=== PATIENT | male | born 1975 | race Caucasian/White ===

== ENCOUNTER 2020-03-30 10:07 | Emergency (ER) | payer OTHER, SELFPAY ==
--- NOTE | 2020-03-30 | ECG_ITS ---
Test Reason : CHEST PAIN Blood Pressure : / mmHG Vent. Rate : 069 BPM Atrial Rate : 069 BPM P-R Int : 134 ms QRS Dur : 084 ms QT Int : 386 ms P-R-T Axes : 030 048 081 degrees QTc Int : 413 ms Normal sinus rhythm Nonspecific T wave abnormality Abnormal ECG When compared with ECG of 17-JUL-2018 21:27, Nonspecific T wave abnormality now evident in Lateral leads Referred By: Generic ED Physician Electronically Signed By:Shelton Gonzalez
[2020-03-30 10:18] VITALS: BP 177/106; PULSE 74; RESP 20; TEMP 36.2; O2SAT 96; BMI 42.3
--- NOTE | 2020-03-30 10:37 | ED.CHESTPAIN ---
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 painful and he had chest pain around his entire chest with no dyspnea/diaphoresis/nausea - states he has had episodes in past with anxiety has had 2 negative stress tests but positive family history of ND in males on his dad's side of family MD complaint: chest pain and other (L flank pain) Onset (ago): hour(s) (1) Timing of current episode: constant Prior episodes: No Onset: during rest and during exertion Pain location: substernal Pain radiation: left arm Severity: moderate Quality: heaviness Relieving factors: nothing Context: recent illness (L flank and abdominal pain x 2 days) Treatment prior to arrival: none Related Data Previous Rx's Medication Instructions Recorded cyclobenzaprine 10 mg PO TID PRN #14 tab 03/30/20 lidocaine 1 patch TOPICAL DAILY PRN #10 ea 03/30/20 Allergies Allergy/AdvReac Type Severity Reaction Status Date / Time lisinopril [LISINOPRIL] Allergy Intermediate ANGIOEDEMA Unverified 11/17/19 15:13 CHOCOLATE Allergy Severe DIFFICULTY Uncoded 11/17/19 15:13 BREATHING Review of Systems Review of Systems: Constitutional : No Weight loss, No Fever, No Chills ENT/Mouth : No sore throat, No Rhinorrhea Eyes: No Eye Pain, No Swelling Cardiovascular : pos Chest Pain, no SOB, no Dyspnea on Exertion, No Orthopnea, No Edema, No Palpitations Respiratory : No Cough, No Sputum Gastrointestinal : no Nausea, No Vomiting, No Diarrhea, pos abdominal Pain, No Hematochezia, No Melena Genitourinary : No Dysuria, No Urinary Frequency Musculoskeletal : No joint pain, No Myalgias, No Joint Swelling Skin : No Skin Lesions, No rash Neuro : No Weakness, No Numbness, No Dizziness, No Headache Psych : No Anxiety/Panic, No Depression Heme/Lymph: No Bruising, No Lymphadenopathy Endocrine : No Polyuria, No Polydipsia All other systems reviewed and are negative PMFSH Past Medical History Attestation statement: The following information was validated with the patient. Medical History (Updated 03/30/20 @ 14:53 by Destiny Jay DO) Anxiety HTN (hypertension) Social History Social History (Updated 03/30/20 @ 10:56 by Destiny Jay DO) Smoking Status: Never smoker Use of substances other than those prescribed or required for medical reasons: No Advance Directives: No Advance Directives Information Provided: No Physical Exam Vital Signs: Vital Signs: Last Vital Signs Temp 97.1 F 03/30/20 10:18 Pulse 74 03/30/20 10:18 Resp 20 03/30/20 10:18 BP 177/106 H 03/30/20 10:18 Pulse Ox 96 03/30/20 10:18 Body Mass Index 42.3 Appearance: Alert. Oriented X3. No acute distress. Anxious Eyes: Pupils equal, round and reactive to light. ENT: Pharynx normal. Neck: Normal inspection. Neck supple. CVS: Normal heart rate and rhythm. Pulses normal. Respiratory: No respiratory distress. Breath sounds normal. no splinting Abdomen: Soft and obese, ttp L flank into LUQ Skin: Skin warm and dry. Normal skin color. Normal skin turgor. Extremities: No lower extremity edema. No calf ttp Neuro: Oriented X 3. No motor deficit. No sensory deficit. Course Course Course Narrative: feels fine playing on his phone, chronic baseline kidney function, troponin flat x 2, ddimer negative, CXR and CT scan negative, stable for DC at this time MDM - Chest Pain MDM Narrative Medical decision making narrative: 44 yo male with HTN, anxiety, here with 2 complaints CP x 1 hour without associated symptoms hx of anxiety in the past and 2 negative stress - not pleuritic, no tachycardia, no hypoxia but also c/o L flank pain x 2 days with ttp could be stone vs diverticulitis - labs, EKG, CXR, troponin x 2, ddimer, CT scan for renal colic, IV morphine for pain, dispo per results and findings. Lab Data Result diagrams: 03/30/20 11:19 03/30/20 11:19 Labs: Lab Results 03/30/20 03/30/20 03/30/20 Range/Units 11:19 11:19 11:19 WBC 5.4 (4.8-10.8) X10*3/uL RBC 4.55 L (4.60-5.80) X10*6/uL Hgb 12.3 L (14.0-18.0) g/dl Hct 40.0 L (42-52) % MCV 87.9 (80-98) fL MCH 27.0 (27.0-33.0) pg MCHC 30.8 L (31.0-36.0) g/dl RDW 13.9 (11.0-16.0) % Plt Count 245 (160-400) X10*3/uL MPV 10.3 (9.4-12.4) fL Immature Gran % (Auto) 0.4 (0.0-0.4) % Neut % (Auto) 75.6 H (45-73) % Lymph % (Auto) 9.6 L (20-40) % [place] % (Auto) 10.7 (2-11) % Eos % (Auto) 3.3 (0-4) % Baso % (Auto) 0.4 (0-2) % Lymph # (Auto) 0.5 L (1.2-4.9) X10*3/uL [place] # (Auto) 0.6 (0.1-1.2) X10*3/uL Eos # (Auto) 0.2 (0.0-0.4) X10*3/uL Baso # (Auto) 0.0 (0.0-0.2) X10*3/uL Abs Immat Gran (auto) 0.02 (0.00-0.03) X10*3/uL Absolute Neuts (auto) 4.1 (2.0-8.3) X10*3/uL Absolute Nucleated RBC 0.000 (0.0-0.012) X10*3/uL Nucleated RBC % (auto) 0.0 (0.0-0.2) /100WBC Smear Tech's Comments VERIFIED D-Dimer < 200 NG/ML Hold Blue Top SEE NOTE Sodium 141 (135-145) mmol/L Potassium 4.2 (3.3-5.1) mmol/L Chloride 109 H (96-108) mmol/L Carbon Dioxide 26 (22-29) mmol/L Anion Gap 10 L (12-20) BUN 20 H (9-16) mg/dL Creatinine 1.47 H (0.5-1.4) mg/dL Estim Creat Clear Calc 81.2 Estimated GFR 52 Random Glucose 95 (60-115) mg/dL Calcium 8.4 (8.4-10.2) mg/dL Magnesium 2.0 (1.6-2.6) mg/dL Total Bilirubin 0.7 (0.0-1.0) mg/dL Direct Bilirubin 0.2 (0.0-0.5) mg/dL AST 19 (5-37) U/L ALT 24 (0-40) U/L Alkaline Phosphatase 109 (39-117) U/L Troponin I High Sens (<3.5-35.0) ng/L Total Protein 6.5 (6.5-8.0) g/dL Albumin 3.8 (3.5-5.0) g/dL Lipase 38 (8-78) U/L 03/30/20 03/30/20 Range/Units 11:19 14:10 WBC (4.8-10.8) X10*3/uL RBC (4.60-5.80) X10*6/uL Hgb (14.0-18.0) g/dl Hct (42-52) % MCV (80-98) fL MCH (27.0-33.0) pg MCHC (31.0-36.0) g/dl RDW (11.0-16.0) % Plt Count (160-400) X10*3/uL MPV (9.4-12.4) fL Immature Gran % (Auto) (0.0-0.4) % Neut % (Auto) (45-73) % Lymph % (Auto) (20-40) % [place] % (Auto) (2-11) % Eos % (Auto) (0-4) % Baso % (Auto) (0-2) % Lymph # (Auto) (1.2-4.9) X10*3/uL [place] # (Auto) (0.1-1.2) X10*3/uL Eos # (Auto) (0.0-0.4) X10*3/uL Baso # (Auto) (0.0-0.2) X10*3/uL Abs Immat Gran (auto) (0.00-0.03) X10*3/uL Absolute Neuts (auto) (2.0-8.3) X10*3/uL Absolute Nucleated RBC (0.0-0.012) X10*3/uL Nucleated RBC % (auto) (0.0-0.2) /100WBC Smear Tech's Comments D-Dimer NG/ML Hold Blue Top Sodium (135-145) mmol/L Potassium (3.3-5.1) mmol/L Chloride (96-108) mmol/L Carbon Dioxide (22-29) mmol/L Anion Gap (12-20) BUN (9-16) mg/dL Creatinine (0.5-1.4) mg/dL Estim Creat Clear Calc Estimated GFR Random Glucose (60-115) mg/dL Calcium (8.4-10.2) mg/dL Magnesium (1.6-2.6) mg/dL Total Bilirubin (0.0-1.0) mg/dL Direct Bilirubin (0.0-0.5) mg/dL AST (5-37) U/L ALT (0-40) U/L Alkaline Phosphatase (39-117) U/L Troponin I High Sens 7.0 6.3 (<3.5-35.0) ng/L Total Protein (6.5-8.0) g/dL Albumin (3.5-5.0) g/dL Lipase (8-78) U/L ECG Data ECG #1: Attestation: I personally reviewed and interpreted this ECG as follows: ECG interpretation date: 03/30/20 ECG interpretation time: 10:42 Interpretation: Rate: 69 Rhythm: NSR [place]: normal Normal P waves. Normal MAEGAN. Normal QRS complex. ST T wave : nonspecific lateral leads, no ROBBIE qTC: normal prior studies: no acute ischemia unchanged 2018 The study has been interpreted contemporaneously by me. . Discharge Plan Discharge Clinical Impression: Atypical chest pain, Acute left flank pain Patient Disposition: Home, Self-Care Instructions: Chest Pain (ED), Flank Pain (ED) Additional Instructions: return to ED for any worsening symptoms or concerns Prescriptions: New cyclobenzaprine 10 mg tablet 10 mg PO TID PRN (Reason: muscle spasm) Qty: 14 RF: 0 lidocaine 4 % adhesive patch,medicated 1 patch topical DAILY PRN (Reason: pain) Qty: 10 RF: 0 Referrals: Physician,None [Primary Care Provider] - 3 days (if not better) Stand Alone Forms: Work/School Release
--- NOTE | 2020-03-30 10:43 | CT_ITS ---
EXAMINATION: CHEST. CT ABDOMEN AND PELVIS WITHOUT CONTRAST. CLINICAL INFORMATION: Left flank pain. Chest pain. COMPARISON: Chest 07/17/2018 TECHNIQUE: Chest one view. 5 mm thin axial and reformatted 3 mm thin sagittal and coronal images of abdomen and pelvis were obtained without contrast. DLP 1360. FINDINGS: CHEST XRAY: Both lungs are well-expanded and clear. The heart size and pulmonary vascularity is normal. There is mild spondylosis dorsal spine. No lytic process. ABDOMEN AND PELVIS: The lung bases are clear. The heart size is normal. There is moderate hiatal hernia with intraperitoneal fat within. No migration of stomach seen. The liver is homogeneous in density, normal size, shape and position. No focal lesion or intrahepatic ductal dilatation seen. The gallbladder is unremarkable. Visualized spleen, pancreas and bilateral adrenal glands are unremarkable. Both kidneys are normal size, shape and position. There is 2 mm punctate radiopaque calculi upper pole right kidney without caliectasis. No additional calculi seen. There is no hydronephrosis. The abdominal aorta is normal course, caliber. No retroperitoneal lymph nodes or mass seen. Scattered stool and gas seen throughout the colon without any significant distention. The small bowel loops are normal caliber. No free air or free fluid seen. Abdominal wall appears unremarkable. Imaging through the pelvis reveals unremarkable urinary bladder. No free air or free fluid. No inguinal hernia. Bone windows reveal mild sclerosis superior endplate L5 vertebra. No lytic process. There is moderate spondylosis lower dorsal spine. CT/CT abdomen pelvis wo con IMPRESSION: Unremarkable chest x-ray. No acute process seen in the abdomen. There is no abnormality seen on the left side. There is a punctate nonobstructive calculi right kidney.
[2020-03-30 11:29] LABS: Basophils Percent Auto 0.4 % (0-2); Eosinophils Absolute Auto 0.2 X10*3/uL (0.0-0.4); Eosinophils Percent Auto 3.3 % (0-4); Hemoglobin 12.3 g/dl (14.0-18.0); Imm Gran Abs Auto 0.02 X10*3/uL (0.00-0.03); Imm Gran Pct Auto 0.4 % (0.0-0.4); Lymphocytes Absolute Auto 0.5 X10*3/uL (1.2-4.9); Lymphocytes Percent Auto 9.6 % (20-40); MANUAL DIFF FLAG SCAN; Mean Corpuscular HGB Conc 30.8 g/dl (31.0-36.0); Mean Corpuscular Volume 87.9 fL (80-98); Mean Platelet Volume 10.3 fL (9.4-12.4); Monocytes Absolute Auto 0.6 X10*3/uL (0.1-1.2); Monocytes Percent Auto 10.7 % (2-11); Neutrophils Absolute Auto 4.1 X10*3/uL (2.0-8.3); Neutrophils Percent Auto 75.6 % (45-73); Platelet Count 245 X10*3/uL (160-400); Red Blood Count 4.55 X10*6/uL (4.60-5.80); Red Cell Distribution Width 13.9 % (11.0-16.0); SCAN SMEAR FLAG 1; White Blood Count 5.4 X10*3/uL (4.8-10.8)
[2020-03-30 11:35] LABS: D Dimer < 200 NG/ML
[2020-03-30 11:55] LABS: SLIDE REVIEW VERIFIED
[2020-03-30 12:00] LABS: Alanine Aminotransferase 24 U/L (0-40); Albumin Level 3.8 g/dL (3.5-5.0); Alkaline Phosphatase 109 U/L (39-117); Anion Gap 10 (12-20); Aspartate Amino Transferase 19 U/L (5-37); Bilirubin Direct 0.2 mg/dL (0.0-0.5); Bilirubin Total 0.7 mg/dL (0.0-1.0); Blood Urea Nitrogen 20 mg/dL (9-16); Calcium 8.4 mg/dL (8.4-10.2); Carbon Dioxide 26 mmol/L (22-29); Chloride 109 mmol/L (96-108); Creatinine Clr Calc Pharmacy 81.2; Estimated Glomerular Filt Rate 52; Glucose Random 95 mg/dL (60-115); Lipase 38 U/L (8-78); Potassium 4.2 mmol/L (3.3-5.1); Sodium 141 mmol/L (135-145); Total Protein 6.5 g/dL (6.5-8.0)
[2020-03-30] MEDS: Morphine Sulfate 4 MG/ML CARTRIDGE IVPUSH (12:06)
[2020-03-30] MEDS: ondansetron HCL 4 MG/2 ML VIAL IVPUSH (12:06)
[2020-03-30 14:49] LABS: Troponin-I High Sensitivity 6.3 ng/L (<3.5-35.0)
== END 2020-03-30 15:12 | disposition home or self-care (01) ==
PROVIDERS: Emergency Provider Emergency Medicine
DX: R07.9 Chest pain, unspecified (principal); F41.1 Generalized anxiety disorder; F43.0 Acute stress reaction; R10.9 Unspecified abdominal pain; I10 Essential (primary) hypertension; Z79.899 Other long term (current) drug therapy
CPT/HCPCS: 36415; 71045; 74176; 80048; 80076; 83690; 83735; 84484; 85025; 85379; 93005; 96374; 96375; 99283; 99284; J2270; J2405

== ENCOUNTER 2020-04-06 07:33 | Emergency (ER) | payer OTHER, SELFPAY ==
--- NOTE | ~2020-04-06 | CT_ITS ---
EXAMINATION: CT ABDOMEN AND PELVIS WITHOUT CONTRAST CLINICAL INFORMATION: COMPARISON: Previous abdominal and pelvic CT scan 03/30/2020 TECHNIQUE: Multidetector volumetric imaging was performed from the superior aspect of the liver through the pubic symphysis. Sagittal and coronal reformatted images were obtained on the technologist's workstation. This CT examination was performed using dose optimization techniques as appropriate, variously including the following: *Automated exposure control *Adjustment of mA and/or kV according to patient size (this includes techniques or standardized protocols for targeted exams where dose is matched to indication/reason for exam; i.e. extremities or head) *Use of iterative reconstruction technique DLP: 1222 mGy-cm FINDINGS: LUNG BASES: There are new patchy bilateral lower lobe groundglass opacities seen at the lung bases. This is a nonspecific finding however new appearance is suggestive of an infectious or inflammatory process. Particular, Covid infection should be considered. There is prominent fat seen in the posterior mediastinum. There is question of a widened esophageal hiatus and herniation of abdominal fat into the posterior mediastinum. There is a small amount of fluid seen superiorly and on the right. This is unchanged from March 2020 exam.. LIVER, GALLBLADDER, AND BILIARY TREE: The liver is normal in size, shape, and attenuation. No focal hepatic lesion or biliary ductal dilatation is present. The gallbladder is unremarkable with no evidence of radiopaque gallstones, gallbladder wall thickening, or obvious pericholecystic inflammatory changes. PANCREAS: There is fatty infiltration of the pancreas. The pancreas is otherwise unremarkable. SPLEEN: Unremarkable. ADRENAL GLANDS: Unremarkable. KIDNEYS AND URETERS: There is a tiny 1 mm of focus of high attenuation in the upper pole the right kidney questionable for a nonobstructing stone. There is cortical thinning or scarring of the lower pole the left kidney. The kidneys are otherwise unremarkable. BLADDER: Unremarkable. GASTROINTESTINAL TRACT: There is diverticulosis of the colon. No evidence of diverticulitis is seen. The appendix is unremarkable. The stomach is unremarkable. ABDOMINAL WALL: No significant hernia is appreciated. LYMPH NODES: Normal. VASCULAR: Unremarkable. PELVIC VISCERA: Unremarkable. OSSEOUS STRUCTURES: There are degenerative changes of the spine CT/CT abdomen pelvis wo con IMPRESSION: Bibasilar groundglass attenuation opacities at the lung bases new from 03/30/2020 exam. This is a nonspecific finding. An infectious or inflammatory process is favored. In particular, Covid infection should be excluded. Diverticulosis. No evidence of diverticulitis. Small nonobstructing right upper pole renal stone. Fatty infiltration of the pancreas. Widened esophageal diaphragmatic hiatus and probable herniation of intra-abdominal fat into the chest and a small amount of fluid. This is similar to previous exam.
[2020-04-06 07:38] VITALS: BP 104/49; PULSE 77; RESP 16; TEMP 37.4; O2SAT 95; BMI 49.4
--- NOTE | 2020-04-06 07:46 | ED_ITS ---
HPI - Nausea/Vomiting/Diarrhea General Chief complaint: Abdominal Pain Stated complaint: n/v Time Seen by Provider: 04/06/20 07:43 History of Present Illness HPI Narrative: Patient is a 44-year-old male presents today with having nausea vomiting diarrhea generalized malaise. Patient feels very weak and tired having up to 7 episodes of diarrhea per day. They are brown in color. No recent travel. Positive change in smell and taste. Mild cough. Patient works at [employer]. Patient denies any chest pain any diaphoresis. Diffuse abdominal pain. No history of abdominal surgery in the past. No radiation of symptoms. Coughing is nonproductive in nature. Patient from home. Attempted to take diarrhea medication to no avail Related Data Previous Rx's Medication Instructions Recorded cyclobenzaprine 10 mg PO TID PRN #14 tab 03/30/20 lidocaine 1 patch TOPICAL DAILY PRN #10 ea 03/30/20 Allergies Allergy/AdvReac Type Severity Reaction Status Date / Time lisinopril [LISINOPRIL] Allergy Intermediate ANGIOEDEMA Unverified 04/02/20 11:33 CHOCOLATE Allergy Severe DIFFICULTY Uncoded 04/02/20 11:33 BREATHING Review of Systems Review of Systems: Constitutional: No Weight loss, No Fever, No Chills, No Night Sweats, No Fatigue, No Malaise ENT/Mouth: No Hearing loss, No Ear Pain, No Nasal Congestion, No Sinus Pain, No Hoarseness, No sore throat, No Rhinorrhea, No Swallowing Difficulty Eyes: No Eye Pain, No Swelling, No Redness, No Foreign Body, No Discharge, No Vision Changes Cardiovascular: No Chest Pain, No SOB, No Dyspnea on Exertion, No Orthopnea, No Edema, No Palpitations Respiratory: Positive Cough, No Sputum, No Wheezing, No Smoke Exposure, No Dyspnea Gastrointestinal: Positive Nausea, positive Vomiting, positive Diarrhea, No Constipation, positive abdominal Pain, No Hematochezia, No Melena Genitourinary: no irregular bleeding, No Dysuria, No Urinary Frequency, No Hematuria, No Urinary Incontinence, No Urgency, No Flank Pain, No Urinary Flow Changes, No Hesitancy Musculoskeletal: No joint pain, No Myalgias, No Joint Swelling Skin: No Skin Lesions, No rash Neuro: No Weakness, No Numbness, No Paresthesias, No Loss of Consciousness, No Dizziness, No Headache Psych: No Anxiety/Panic, No Depression, No SI/HI/AH/VH, No Social Issues, Heme/Lymph: No Bruising, No Bleeding,No Lymphadenopathy Endocrine: No Polyuria, No Polydipsia, No Temperature Intolerance [facility] Past Medical History Attestation statement: The following information was validated with the patient. Medical History Anxiety HTN (hypertension) Social History Social History Alcohol intake: former Smoking Status: Never smoker Smoked in Last 30 Days: No Use of substances other than those prescribed or required for medical reasons: No Advance Directives: No Advance Directives Information Provided: No Physical Exam Vital Signs: Vital Signs: Last Vital Signs Temp 99.0 F 04/06/20 09:49 Pulse 70 04/06/20 09:49 Resp 16 04/06/20 09:49 BP 112/79 04/06/20 09:49 Pulse Ox 94 04/06/20 09:49 Body Mass Index 49.4 Appearance: Alert. Oriented X3. No acute distress. Eyes: Pupils equal, round and reactive to light. ENT: Pharynx normal. Neck: Normal inspection. Neck supple. No lymph nodes noted. No crepitus CVS: Normal heart rate and rhythm. Pulses normal. Normal S1 and S2 Respiratory: No respiratory distress. Breath sounds normal. No Wheezing. No rales Abdomen: Soft and nontender. No rigidity. No distention. good BS x4 Skin: Skin warm and dry. Normal skin color. Normal skin turgor. Extremities: No lower extremity edema. Neurovascular intact to all extremities. No Lacerations. No Rash Neuro: Oriented X 3. No motor deficit. No sensory deficit. Moving all extermities. No slurred speech MDM - Nausea/Vomiting/Diarrhea MDM Narrative Medical decision making narrative: Patient's creatinine elevated at 2.23. Baseline is 1.6. Given multiple L of IV fluids. Symptomatically improved. Now is tolerating fluids. Will discharge patient home. Patient ambulated in the emergency department. His pulse ox during the ambulation was 96% on room air. Was not in any distress when he ambulates. Patient's coronavirus test was po sitive likely the cause of patient's diarrhea and upper respiratory symptoms. Will discharge patient home close follow-up outpatient basis. Patient is to follow strict home quarantine.. Lab Data Result diagrams: 04/06/20 09:17 04/06/20 09:18 Labs: Lab Results 04/06/20 04/06/20 04/06/20 Range/Units 09:17 09:17 09:18 WBC 3.6 L (4.8-10.8) X10*3/uL RBC 4.57 L (4.60-5.80) X10*6/uL Hgb 12.3 L (14.0-18.0) g/dl Hct 39.9 L (42-52) % MCV 87.3 (80-98) fL MCH 26.9 L (27.0-33.0) pg MCHC 30.8 L (31.0-36.0) g/dl RDW 14.2 (11.0-16.0) % Plt Count 181 D (160-400) X10*3/uL MPV 10.7 (9.4-12.4) fL Immature Gran % (Auto) 0.3 (0.0-0.4) % Neut % (Auto) 66.3 (45-73) % Lymph % (Auto) 20.7 (20-40) % [place] % (Auto) 12.7 H (2-11) % Eos % (Auto) 0.0 (0-4) % Baso % (Auto) 0.0 (0-2) % Lymph # (Auto) 0.8 L (1.2-4.9) X10*3/uL [place] # (Auto) 0.5 (0.1-1.2) X10*3/uL Eos # (Auto) 0.0 (0.0-0.4) X10*3/uL Baso # (Auto) 0.0 (0.0-0.2) X10*3/uL Abs Immat Gran (auto) 0.01 (0.00-0.03) X10*3/uL Absolute Neuts (auto) 2.4 (2.0-8.3) X10*3/uL Absolute Nucleated RBC 0.000 (0.0-0.012) X10*3/uL Nucleated RBC % (auto) 0.0 (0.0-0.2) /100WBC Smear Tech's Comments VERIFIED Sodium 138 (135-145) mmol/L Potassium 4.6 (3.3-5.1) mmol/L Chloride 104 (96-108) mmol/L Carbon Dioxide 25 (22-29) mmol/L Anion Gap 14 (12-20) BUN 24 H (9-16) mg/dL Creatinine 2.23 H (0.5-1.4) mg/dL Estim Creat Clear Calc 58.5 Estimated GFR 32 Random Glucose 87 (60-115) mg/dL Calcium 7.4 L D (8.4-10.2) mg/dL Total Bilirubin 0.5 (0.0-1.0) mg/dL Direct Bilirubin 0.3 (0.0-0.5) mg/dL AST 37 D (5-37) U/L ALT 32 (0-40) U/L Alkaline Phosphatase 70 D (39-117) U/L Total Protein 6.1 L (6.5-8.0) g/dL Albumin 3.3 L (3.5-5.0) g/dL Coronavirus (PCR) POSITIVE A (Negative) Influenza Type A (PCR) NEGATIVE (Negative) Influenza Type B (PCR) NEGATIVE (Negative) RSV RNA Qual (PCR) NEGATIVE (Negative) Discharge Plan Discharge Clinical Impression: COVID-19, Diarrhea, Vomiting Patient Disposition: Home, Self-Care Instructions: COVID-19 (Coronavirus Disease 2019) (ED), Acute Nausea and Vomiting (ED) Prescriptions: No Action cyclobenzaprine 10 mg tablet 10 mg PO TID PRN (Reason: muscle spasm) Qty: 14 RF: 0 lidocaine 4 % adhesive patch,medicated 1 patch topical DAILY PRN (Reason: pain) Qty: 10 RF: 0 Referrals: Physician,None [Primary Care Provider] - 2 days (Please follow strict home quarantine for at least 1 week. Please stay home until all symptoms has resolved. No fever for at least 24-48 hours.)
[2020-04-06 09:24] LABS: Hematocrit 39.9 % (42-52); Hemoglobin 12.3 g/dl (14.0-18.0); Imm Gran Abs Auto 0.01 X10*3/uL (0.00-0.03); Imm Gran Pct Auto 0.3 % (0.0-0.4); Lymphocytes Absolute Auto 0.8 X10*3/uL (1.2-4.9); Lymphocytes Percent Auto 20.7 % (20-40); MANUAL DIFF FLAG SCAN; Mean Corpuscular HGB Conc 30.8 g/dl (31.0-36.0); Mean Corpuscular Hemoglobin 26.9 pg (27.0-33.0); Mean Corpuscular Volume 87.3 fL (80-98); Mean Platelet Volume 10.7 fL (9.4-12.4); Monocytes Absolute Auto 0.5 X10*3/uL (0.1-1.2); Monocytes Percent Auto 12.7 % (2-11); Neutrophils Absolute Auto 2.4 X10*3/uL (2.0-8.3); Neutrophils Percent Auto 66.3 % (45-73); Platelet Count 181 X10*3/uL (160-400); Red Blood Count 4.57 X10*6/uL (4.60-5.80); Red Cell Distribution Width 14.2 % (11.0-16.0); SCAN SMEAR FLAG 1; White Blood Count 3.6 X10*3/uL (4.8-10.8)
[2020-04-06] MEDS: ondansetron HCL 4 MG/2 ML VIAL IVPUSH (09:27)
[2020-04-06] MEDS: Ketorolac Tromethamine 15 MG/ML VIAL IV (09:27)
[2020-04-06] MEDS: 0.9 % Sodium Chloride 1,000 ML 999 ML IV (09:27)
[2020-04-06 09:48] LABS: Alanine Aminotransferase 32 U/L (0-40); Albumin Level 3.3 g/dL (3.5-5.0); Alkaline Phosphatase 70 U/L (39-117); Anion Gap 14 (12-20); Aspartate Amino Transferase 37 U/L (5-37); Bilirubin Direct 0.3 mg/dL (0.0-0.5); Bilirubin Total 0.5 mg/dL (0.0-1.0); Blood Urea Nitrogen 24 mg/dL (9-16); Calcium 7.4 mg/dL (8.4-10.2); Carbon Dioxide 25 mmol/L (22-29); Chloride 104 mmol/L (96-108); Creatinine Clr Calc Pharmacy 58.5; Estimated Glomerular Filt Rate 32; Glucose Random 87 mg/dL (60-115); Potassium 4.6 mmol/L (3.3-5.1); Sodium 138 mmol/L (135-145); Total Protein 6.1 g/dL (6.5-8.0)
[2020-04-06 09:49] VITALS: BP 112/79; PULSE 70; RESP 16; TEMP 37.2; O2SAT 94
[2020-04-06 09:56] LABS: SLIDE REVIEW VERIFIED
[2020-04-06 10:01] LABS: Influenza A PCR NEGATIVE (Negative); Influenza B PCR NEGATIVE (Negative); Resp Syncy Virus RNA Qual PCR NEGATIVE (Negative); SARS COV2 PCR INHOUSE POSITIVE (Negative)
--- NOTE | 2020-04-06 11:29 | PC.NURSE ---
PT'S O2 SAT 96% RESTING. REMAINED 96% WHILE AMBULATING
== END 2020-04-06 11:40 | disposition home or self-care (01) ==
PROVIDERS: Emergency Provider Emergency Medicine Emergency Medical Services
DX: U07.1 COVID-19 (principal); R10.9 Unspecified abdominal pain; R19.7 Diarrhea, unspecified; R11.10 Vomiting, unspecified
CPT/HCPCS: 0241U; 36415; 74176; 80048; 80076; 85025; 96361; 96374; 96375; 99284; 99285; J1885; J2405

== ENCOUNTER 2020-05-19 10:15 | Outpatient (REF) | payer OTHER, SELFPAY ==
[2020-05-19 11:58] LABS: MANUAL DIFF FLAG NO
[2020-05-19 12:17] LABS: Basophils Percent Auto 0.4 % (0-2); Eosinophils Absolute Auto 0.2 X10*3/uL (0.0-0.4); Eosinophils Percent Auto 2.6 % (0-4); Hematocrit 40.9 % (42-52); Hemoglobin 12.4 g/dl (14.0-18.0); Imm Gran Abs Auto 0.03 X10*3/uL (0.00-0.03); Imm Gran Pct Auto 0.4 % (0.0-0.4); Lymphocytes Percent Auto 12.8 % (20-40); Mean Corpuscular HGB Conc 30.3 g/dl (31.0-36.0); Mean Corpuscular Hemoglobin 26.9 pg (27.0-33.0); Mean Corpuscular Volume 88.7 fL (80-98); Mean Platelet Volume 10.6 fL (9.4-12.4); Monocytes Absolute Auto 0.6 X10*3/uL (0.1-1.2); Monocytes Percent Auto 7.6 % (2-11); Neutrophils Absolute Auto 5.9 X10*3/uL (2.0-8.3); Neutrophils Percent Auto 76.2 % (45-73); Platelet Count 289 X10*3/uL (160-400); Red Blood Count 4.61 X10*6/uL (4.60-5.80); Red Cell Distribution Width 15.2 % (11.0-16.0); White Blood Count 7.7 X10*3/uL (4.8-10.8)
[2020-05-19 12:30] LABS: Estimated Average Glucose 108 mg/dL; Hemoglobin A1c % 5.4 %
[2020-05-19 12:46] LABS: Anion Gap 11 (12-20); Blood Urea Nitrogen 16 mg/dL (9-16); Carbon Dioxide 31 mmol/L (22-29); Chloride 105 mmol/L (96-108); Potassium 4.6 mmol/L (3.3-5.1); Sodium 142 mmol/L (135-145)
[2020-05-19 12:47] LABS: Alanine Aminotransferase 25 U/L (0-40); Alkaline Phosphatase 111 U/L (39-117); Aspartate Amino Transferase 18 U/L (5-37); Bilirubin Total 0.7 mg/dL (0.0-1.0); Calcium 8.9 mg/dL (8.4-10.2); Cholesterol 217 mg/dL; Estimated Glomerular Filt Rate 54; Glucose Fasting 91 mg/dL (60-99); HDL Cholesterol 44 mg/dL; LDL Cholesterol Calculated 142 mg/dl; Total Protein 7.1 g/dL (6.5-8.0); Triglycerides 155 mg/dL
[2020-05-19 13:08] LABS: TSH reflex Free T4 1.33 uIU/mL (0.32-4.0)
== END 2020-05-19 10:16 | disposition home or self-care (01) ==
LOC: HO.LAB 10:15
PROVIDERS: PCP Nurse Practitioner Family; Visit Provider Nurse Practitioner Family
DX: I10 Essential (primary) hypertension (principal); E78.00 Pure hypercholesterolemia, unspecified
CPT/HCPCS: 36415; 80053; 80061; 83036; 84443; 85025

== ENCOUNTER 2020-09-19 10:16 | Emergency (ER) | payer OTHER, SELFPAY ==
--- NOTE | ~2020-09-19 | CT_ITS ---
EXAMINATION: CT HEAD WITHOUT CONTRAST CLINICAL INFORMATION: Left-sided paresthesias COMPARISON: Previous head CT January 2012 TECHNIQUE: Contiguous axial imaging was performed from the skull base to vertex without intravenous administration of contrast. This CT examination was performed using dose optimization techniques as appropriate, variously including the following: *Automated exposure control *Adjustment of mA and/or kV according to patient size (this includes techniques or standardized protocols for targeted exams where dose is matched to indication/reason for exam; i.e. extremities or head) *Use of iterative reconstruction technique DLP: 85 mGy-cm FINDINGS: There is no evidence of acute intracranial hemorrhage or territorial infarction. No abnormal mass effect or midline shift is seen. Alvarez to white matter differentiation is well preserved. No extra-axial fluid collections are identified. The ventricles are normal in size. There is no abnormal attenuation within the brain parenchyma. The osseous structures and soft tissues are normal. There is mild soft tissue thickening in the right maxillary sinus. The mastoid air cells and visualized portions of the paranasal sinuses are otherwise clear. CT/CT head/brain wo con IMPRESSION: No acute intracranial findings.
--- NOTE | 2020-09-19 10:21 | ED.NEUROSD ---
HPI - Neuro Symptoms/Deficit General Chief Complaint: Extremity Problem Stated Complaint: LEFT SIDED NUMBNESS,NEG STROKE SCALE Time Seen by Provider: 09/19/20 10:18 Source: patient Mode of arrival: ambulatory Limitations: no limitations History of Present Illness HPI Narrative: tingling and burning on left side, body hurts Onset (ago): hour(s) (930am) Location: left arm and left leg History of same: Yes Severity: mild Quality: tingling and burning Relieving factors: none Exacerbating factors: other (movement) Context: gradual onset On Anticoagulants: No Treatments Prior to Arrival: none Related Data Previous Rx's Medication Instructions Recorded cyclobenzaprine 10 mg PO TID PRN #14 tab 03/30/20 lidocaine 1 patch TOPICAL DAILY PRN #10 ea 03/30/20 ondansetron 4 mg PO TID PRN 5 Days #10 tab 04/06/20 albuterol sulfate 90 mcg/actuation 2 puff INHALATION BID PRN 30 Days 05/14/20 aerosol inhaler #6.7 g amitriptyline 25 mg tablet 25 mg PO BEDTIME 30 Days #30 tab 05/14/20 aspirin 81 mg chewable tablet 1 tab PO DAILY 90 Days #90 tab 05/14/20 atorvastatin 40 mg tablet 40 mg PO DAILY 90 Days #90 tab 05/14/20 fluticasone propionate 110 2 puff INHALATION BID 30 Days #12 g 05/14/20 mcg/actuation HFA aerosol inhaler losartan 100 mg tablet 100 mg PO DAILY 90 Days #90 tab 05/14/20 riboflavin (vitamin B2) 400 mg 400 mg PO DAILY 30 Days #30 tab 05/14/20 tablet cyclobenzaprine 10 mg PO TID PRN #14 tab 09/19/20 Allergies Allergy/AdvReac Type Severity Reaction Status Date / Time lisinopril [LISINOPRIL] Allergy Intermediate ANGIOEDEMA Verified 05/11/20 13:42 CHOCOLATE Allergy Severe DIFFICULTY Uncoded 04/02/20 11:33 BREATHING Review of Systems Review of Systems: Constitutional : No Weight loss, No Fever, No Chills, No Fatigue, No Malaise ENT/Mouth : No sore throat, No Rhinorrhea Eyes: No Eye Pain, No Swelling, No Redness Cardiovascular : No Chest Pain, No SOB, No Dyspnea on Exertion, No Orthopnea, No Edema, No Palpitations Respiratory : No Cough, No Sputum, No Wheezing Gastrointestinal : No Nausea, No Vomiting, No Diarrhea, No Constipation, No abdominal Pain, No Hematochezia, No Melena Genitourinary : No Dysuria, No Urinary Frequency, No Hematuria, Musculoskeletal : No joint pain, pos Myalgias, No Joint Swelling Skin : No Skin Lesions, No rash Neuro : No Weakness, pos tinling on L side of body, No Dizziness, No Headache Psych : No Anxiety/Panic, No Depression Heme/Lymph: No Bruising, No Bleeding,No Lymphadenopathy Endocrine : No Polyuria, No Polydipsia All other systems reviewed and are negative [facility] Past Medical History Attestation statement: The following information was validated with the patient. Medical History Anxiety High cholesterol HTN (hypertension) Hypertension Surgical History No history of previous surgery Family History Family History (Updated 05/11/20 @ 13:47 by Yvette Moyer) Mother No problems noted. Father No problems noted. Social History Social History Alcohol intake: never Smoked in Last 30 Days: No Use of substances other than those prescribed or required for medical reasons: No Advance Directives: No Advance Directives Information Provided: No Physical Exam Vital Signs: Vital Signs: Last Vital Signs Temp 99.1 F 09/19/20 12:23 Pulse 66 09/19/20 12:23 Resp 17 09/19/20 12:23 BP 126/67 09/19/20 12:23 Pulse Ox 96 09/19/20 12:23 Body Mass Index 51.8 Appearance: Alert. Oriented X3. No acute distress. Eyes: Pupils equal, round and reactive to light. ENT: Pharynx normal. Neck: Normal inspection. Neck supple. CVS: Normal heart rate and rhythm. Pulses normal. Respiratory: No respiratory distress. Breath sounds normal. Abdomen: Soft and non-tender. Skin: Skin warm and dry. Normal skin color. Normal skin turgor. Extremities: No lower extremity edema. No calf ttp Neuro: Oriented X 3. No motor deficit. No sensory deficit. Course Course Course Narrative: negative workup feels better stable for DC Cr at baseline discussed findings with the patient feels agreeable to DC states he still has some pain in his muscles - very atypical doubt ACS, PE, dissection the pain is MSK in nature MDM - Neuro Symptoms/Deficit MDM Narrative Medical decision making narrative: 45 yo male with HTN, HLD here with L arm and leg pain he is neuro intact completely did start his statin again for which he is not compliant at this time will need labs, CT head, muscle relaxer and lyme test dispo per results and findings. Lab Data Result diagrams: 09/19/20 10:49 09/19/20 10:49 Labs: Lab Results 09/19/20 09/19/20 Range/Units 10:49 10:49 WBC 8.7 (4.8-10.8) X10*3/uL RBC 4.65 (4.60-5.80) X10*6/uL Hgb 12.6 L (14.0-18.0) g/dl Hct 40.0 L (42-52) % MCV 86.0 (80-98) fL MCH 27.1 (27.0-33.0) pg MCHC 31.5 (31.0-36.0) g/dl RDW 13.9 (11.0-16.0) % Plt Count 264 (160-400) X10*3/uL MPV 10.4 (9.4-12.4) fL Immature Gran % (Auto) 0.3 (0.0-0.4) % Neut % (Auto) 77.1 H (45-73) % Lymph % (Auto) 12.1 L (20-40) % [place] % (Auto) 8.1 (2-11) % Eos % (Auto) 2.2 (0-4) % Baso % (Auto) 0.2 (0-2) % Lymph # (Auto) 1.1 L (1.2-4.9) X10*3/uL [place] # (Auto) 0.7 (0.1-1.2) X10*3/uL Eos # (Auto) 0.2 (0.0-0.4) X10*3/uL Baso # (Auto) 0.0 (0.0-0.2) X10*3/uL Abs Immat Gran (auto) 0.03 (0.00-0.03) X10*3/uL Absolute Neuts (auto) 6.7 (2.0-8.3) X10*3/uL Absolute Nucleated RBC 0.000 (0.0-0.012) X10*3/uL Nucleated RBC % (auto) 0.0 (0.0-0.2) /100WBC Sodium 142 (135-145) mmol/L Potassium 4.1 (3.3-5.1) mmol/L Chloride 108 (96-108) mmol/L Carbon Dioxide 28 (22-29) mmol/L Anion Gap 10 L (12-20) BUN 19 H (9-16) mg/dL Creatinine 1.57 H (0.5-1.4) mg/dL Estim Creat Clear Calc 84.6 Estimated GFR 48 Random Glucose 98 (60-115) mg/dL Calcium 8.9 (8.4-10.2) mg/dL Magnesium 1.9 (1.6-2.6) mg/dL Total Creatine Kinase 177 H (38-174) U/L ECG Data Attestation: I personally reviewed and interpreted this ECG as follows: ECG interpretation date: 09/19/20 ECG interpretation time: 10:45 Interpretation: Rate: 75 Rhythm: NSR [place]: normal Normal P waves. Normal MAEGAN. Normal QRS complex. ST T wave : inverted aVL, nonspecific, no ROBBIE qTC: normal prior studies: no acute ischemia no sig change mar 2020 The study has been interpreted contemporaneously by me. . NIH Stroke Scale Internal: Initial- Upon Arrival Level of Consciousness: Alert Level of Consciousness Questions: Answers both questions correctly Level of Consciousness Commands: Performs both tasks correctly Best Gaze: Normal Visual: No visual loss Facial Palsy: Normal Motor Arm (Right): No drift Motor Arm (Left): No drift Motor Leg (Right): No drift Motor Leg (Left): No drift Limb Ataxia: Absent Sensory: Normal Best Language: No aphasia Dysarthia: Normal Extinction and Inattention: No abnormality Score: 0 Discharge Plan Discharge Clinical Impression: Paresthesia, Myalgia Patient Disposition: Home, Self-Care Instructions: Paresthesia (ED), Musculoskeletal Pain (ED) Additional Instructions: return to ED for any worsening symptoms or concerns you may want to avoid your statin if you are having body aches Prescriptions: New cyclobenzaprine 10 mg tablet 10 mg PO TID PRN (Reason: muscle spasm) Qty: 14 RF: 0 No Action amitriptyline 25 mg tablet 25 mg PO BEDTIME 30 Days Qty: 30 RF: 0 aspirin 81 mg tablet,chewable 1 tab PO DAILY 90 Days Qty: 90 RF: 0 atorvastatin 40 mg tablet 40 mg PO DAILY 90 Days Qty: 90 RF: 0 Flovent HFA 110 mcg/actuation HFA aerosol inhaler 2 puff inhalation BID 30 Days Qty: 12 RF: 0 losartan 100 mg tablet 100 mg PO DAILY 90 Days Qty: 90 RF: 0 riboflavin (vitamin B2) 400 mg tablet 400 mg PO DAILY 30 Days Qty: 30 RF: 0 albuterol sulfate [ProAir HFA] 90 mcg/actuation HFA aerosol inhaler 2 puff inhalation BID PRN (Reason: shortness of breath or wheezing) 30 Days Qty: 6.7 RF: 0 cyclobenzaprine 10 mg tablet 10 mg PO TID PRN (Reason: muscle spasm) Qty: 14 RF: 0 lidocaine 4 % adhesive patch,medicated 1 patch topical DAILY PRN (Reason: pain) Qty: 10 RF: 0 ondansetron 4 mg tablet,disintegrating 4 mg PO TID PRN (Reason: nausea and vomiting) 5 Days Qty: 10 RF: 0 Referrals: Dean Nix MD [Primary Care Provider] - 2 days Stand Alone Forms: Work/School Release Interventions: ED Discharge Assessment Last Done: 09/19/20 13:23 Discharge Date/Time: 09/19/20 13:23
[2020-09-19 10:23] VITALS: BP 165/90; PULSE 73; RESP 18; TEMP 36.7; O2SAT 97; BMI 51.8
--- NOTE | 2020-09-19 10:27 | ECG_ITS ---
Test Reason : WEAKNESS Blood Pressure : / mmHG Vent. Rate : 075 BPM Atrial Rate : 075 BPM P-R Int : 136 ms QRS Dur : 076 ms QT Int : 382 ms P-R-T Axes : 034 051 104 degrees QTc Int : 426 ms Normal sinus rhythm Nonspecific T wave abnormality Abnormal ECG When compared to the previous EKG of No significant changes seen Referred By: Destiny Jay Electronically Signed By:KJ WINSTON MD
[2020-09-19 10:37] VITALS: BP 171/87; PULSE 72; RESP 17; TEMP 36.7; O2SAT 93
[2020-09-19 10:54] LABS: MANUAL DIFF FLAG NO
[2020-09-19 10:57] LABS: Basophils Percent Auto 0.2 % (0-2); Eosinophils Absolute Auto 0.2 X10*3/uL (0.0-0.4); Eosinophils Percent Auto 2.2 % (0-4); Hemoglobin 12.6 g/dl (14.0-18.0); Imm Gran Abs Auto 0.03 X10*3/uL (0.00-0.03); Imm Gran Pct Auto 0.3 % (0.0-0.4); Lymphocytes Absolute Auto 1.1 X10*3/uL (1.2-4.9); Lymphocytes Percent Auto 12.1 % (20-40); Mean Corpuscular HGB Conc 31.5 g/dl (31.0-36.0); Mean Corpuscular Hemoglobin 27.1 pg (27.0-33.0); Mean Platelet Volume 10.4 fL (9.4-12.4); Monocytes Absolute Auto 0.7 X10*3/uL (0.1-1.2); Monocytes Percent Auto 8.1 % (2-11); Neutrophils Absolute Auto 6.7 X10*3/uL (2.0-8.3); Neutrophils Percent Auto 77.1 % (45-73); Platelet Count 264 X10*3/uL (160-400); Red Blood Count 4.65 X10*6/uL (4.60-5.80); Red Cell Distribution Width 13.9 % (11.0-16.0); White Blood Count 8.7 X10*3/uL (4.8-10.8)
[2020-09-19] MEDS: Cyclobenzaprine HCl 10 MG TABLET PO (11:02)
[2020-09-19 11:31] LABS: Anion Gap 10 (12-20); Blood Urea Nitrogen 19 mg/dL (9-16); Calcium 8.9 mg/dL (8.4-10.2); Carbon Dioxide 28 mmol/L (22-29); Chloride 108 mmol/L (96-108); Creatinine Clr Calc Pharmacy 84.6; Estimated Glomerular Filt Rate 48; Glucose Random 98 mg/dL (60-115); Magnesium 1.9 mg/dL (1.6-2.6); Potassium 4.1 mmol/L (3.3-5.1); Sodium 142 mmol/L (135-145)
[2020-09-19 12:23] VITALS: BP 126/67; PULSE 66; RESP 17; TEMP 37.3; O2SAT 96
[2020-09-20 08:21] LABS: Lyme Abs Screen <0.90 index
== END 2020-09-19 13:23 | disposition home or self-care (01) ==
PROVIDERS: Emergency Provider Emergency Medicine; PCP Internal Medicine
DX: R20.2 Paresthesia of skin (principal); M79.10 Myalgia, unspecified site; I10 Essential (primary) hypertension; Z79.82 Long term (current) use of aspirin; Z79.899 Other long term (current) drug therapy
CPT/HCPCS: 36415; 70450; 80048; 82550; 83735; 85025; 86617; 86618; 93005; 99284

== ENCOUNTER 2020-10-22 10:39 | Outpatient (REF) | payer OTHER, SELFPAY ==
--- NOTE | ~2020-10-22 | XR_ITS ---
EXAMINATION: XR LUMBOSACRAL SPINE CLINICAL INFORMATION: Low back pain. COMPARISON: CT scan of the abdomen and pelvis dated 03/30/2020. TECHNIQUE: Three views of the lumbosacral spine. FINDINGS: Mild to moderate multilevel marginal osteophyte formation is again seen most pronounced at L2-3 on the right. There is normal lumbar lordosis and spinal alignment. The vertebral bodies are intact. There is no acute fracture. The soft tissues are unremarkable. XR/XR lumbar spine 2-3V IMPRESSION: Mild to moderate multilevel marginal osteophyte formation without other significant abnormality or change.
--- NOTE | ~2020-10-22 | XR_ITS ---
EXAMINATION: XR HIP, RIGHT CLINICAL INFORMATION: Right ankle pain. COMPARISON: None TECHNIQUE: Two views of the right hip. FINDINGS: Bones and soft tissues are normal. No fracture. Alignment is anatomic. Hip joint space is maintained. XR/XR hip RT min 2V IMPRESSION: Unremarkable right hip.
[2020-10-22 12:01] LABS: Alanine Aminotransferase 24 U/L (0-40); Albumin Level 3.8 g/dL (3.5-5.0); Alkaline Phosphatase 127 U/L (39-117); Anion Gap 12 (12-20); Aspartate Amino Transferase 15 U/L (5-37); Bilirubin Total 0.5 mg/dL (0.0-1.0); Blood Urea Nitrogen 16 mg/dL (9-16); Calcium 9.1 mg/dL (8.4-10.2); Carbon Dioxide 27 mmol/L (22-29); Chloride 108 mmol/L (96-108); Estimated Glomerular Filt Rate 48; Glucose Random 107 mg/dL (60-115); Potassium 4.3 mmol/L (3.3-5.1); Sodium 143 mmol/L (135-145); Total Protein 6.7 g/dL (6.5-8.0)
[2020-10-22 12:25] LABS: TSH reflex Free T4 2.05 uIU/mL (0.32-4.0)
[2020-10-22 12:29] LABS: Erythrocyte Sedimentation Rate 23 MM/HR (0-15)
[2020-10-22 12:35] LABS: Folate 12.9 ng/mL (> or = 4.0); Vitamin B12 350 pg/mL (200-900)
== END 2020-10-22 10:40 | disposition home or self-care (01) ==
LOC: HO.LAB 10:39
PROVIDERS: PCP Internal Medicine; Visit Provider Internal Medicine
DX: M54.5 Low back pain (principal); M25.551 Pain in right hip; I12.9 Hypertensive chronic kidney disease with stage 1 through stage 4 chronic kidney disease, or unspecified chronic kidney disease; N18.30 Chronic kidney disease, stage 3 unspecified; R20.2 Paresthesia of skin
CPT/HCPCS: 36415; 72100; 73502; 80053; 82607; 82746; 84443; 85652; 86140

== ENCOUNTER 2020-12-31 14:51 | Emergency (ER) | payer OTHER, SELFPAY ==
--- NOTE | ~2020-12-31 | CT_ITS ---
EXAMINATION: CT ABDOMEN AND PELVIS WITHOUT CONTRAST CLINICAL INFORMATION: Right flank pain COMPARISON: CT scan abdomen pelvis April 06, 2020 TECHNIQUE: Multidetector volumetric imaging was performed from the superior aspect of the liver through the pubic symphysis. Sagittal and coronal reformatted images were obtained on the technologist's workstation. This CT examination was performed using dose optimization techniques as appropriate, variously including the following: *Automated exposure control *Adjustment of mA and/or kV according to patient size (this includes techniques or standardized protocols for targeted exams where dose is matched to indication/reason for exam; i.e. extremities or head) *Use of iterative reconstruction technique DLP: 1208 mGy-cm FINDINGS: LUNG BASES: The visualized lung bases are unremarkable. LIVER, GALLBLADDER, AND BILIARY TREE: The liver is normal in size, shape, and attenuation. No focal hepatic lesion or biliary ductal dilatation is present. The gallbladder is unremarkable with no evidence of radiopaque gallstones, gallbladder wall thickening, or obvious pericholecystic inflammatory changes. PANCREAS: Unremarkable. SPLEEN: Unremarkable. ADRENAL GLANDS: Unremarkable. KIDNEYS AND URETERS: The kidneys are normal in size, shape, and attenuation. No hydronephrosis, hydroureter, or calculi seen. No perinephric stranding. BLADDER: Unremarkable. GASTROINTESTINAL TRACT: There are scattered diverticula of the colon. There is no diverticulitis. There is no bowel wall thickening /edema. There is no bowel obstruction. There is a moderate volume of stool in the colon. The appendix is nonvisualized . There is no inflammation the mesentery The small bowel loops are unremarkable. The stomach is normal. There is no hiatal hernia. There is a paraesophageal herniation of mesenteric fat however. ABDOMINAL WALL: No significant hernia is appreciated. LYMPH NODES: Normal. VASCULAR: Unremarkable. PELVIC VISCERA: Unremarkable. OSSEOUS STRUCTURES: Unremarkable. CT/CT abdomen pelvis wo con IMPRESSION: No acute abnormality CT scan abdomen pelvis.
[2020-12-31 15:12] VITALS: BP 178/106; PULSE 77; RESP 18; TEMP 36.8; O2SAT 97; BMI 50.8
[2020-12-31 15:31] LABS: Appearance Urine CLEAR; Color Urine YELLOW; Glucose Urine UA NEG (NEG); Leukocyte Esterase Urine NEG (NEG); Nitrite Urine NEG (NEG); Specific Gravity - Urine 1.025 (1.005-1.025); Urine Blood 1+ (NEG); Urine Ketones NEG (NEG); Urine Protein 3+ MG/DL (NEG-TRACE)
[2020-12-31 15:38] LABS: WBC Urine 0-2 /HPF (0-4)
[2020-12-31 15:39] LABS: Squamous Epithelial Cell Urine 2+ /LPF
--- NOTE | 2020-12-31 16:20 | ED_ITS ---
HPI - Back Pain/Injury General Chief Complaint: Back Pain/Injury Stated Complaint: flank pain Time Seen by Provider: 12/31/20 16:06 Source: patient Mode of arrival: ambulatory Limitations: no limitations History of Present Illness HPI Narrative: 45-year-old male with a past medical history of kidney disease, hypertension, hyperlipidemia, asthma, morbid obesity, chronic low back pain here with complaints of right back pain which radiates to the right side of the abdomen intermittent for about 1 week. No nausea, vomiting, diarrhea. No urinary symptoms, fevers or chills. Related Data Previous Rx's Medication Instructions Recorded ondansetron 4 mg disintegrating 4 mg PO TID PRN 5 Days #10 tab 04/06/20 tablet amitriptyline 25 mg tablet 25 mg PO BEDTIME 30 Days #30 tab 05/14/20 aspirin 81 mg chewable tablet 1 tab PO DAILY 90 Days #90 tab 05/14/20 riboflavin (vitamin B2) 400 mg 400 mg PO DAILY 30 Days #30 tab 05/14/20 tablet cyclobenzaprine 10 mg tablet 10 mg PO TID PRN #14 tab 09/19/20 albuterol sulfate 90 mcg/actuation 2 puff INHALATION Q6-8H PRN 30 10/22/20 aerosol inhaler (ProAir HFA) Days #8.5 g amlodipine 5 mg tablet 5 mg PO DAILY 90 Days #90 tab 10/22/20 atorvastatin 40 mg tablet 40 mg PO DAILY 90 Days #90 tab 10/22/20 doxycycline monohydrate 100 mg 100 mg PO BID 10 Days #20 cap 10/22/20 capsule fluticasone propionate 110 2 inh INHALATION BID 30 Days #12 g 10/22/20 mcg/actuation HFA aerosol inhaler (Flovent HFA) lidocaine 4 % topical patch 1 patch TOPICAL DAILY PRN 30 Days 10/22/20 #30 ea losartan 100 mg tablet 100 mg PO DAILY 90 Days #90 tab 10/24/20 cyclobenzaprine 10 mg tablet 10 mg PO Q8H PRN #10 tab 12/31/20 lidocaine 5 % topical patch 1 patch TOPICAL DAILY #15 ea 12/31/20 (Lidoderm) oxycodone-acetaminophen 5 mg-325 1 tab PO Q4H PRN #8 tab 12/31/20 mg tablet (Percocet) Allergies Allergy/AdvReac Type Severity Reaction Status Date / Time lisinopril [LISINOPRIL] Allergy Intermediate ANGIOEDEMA Verified 10/22/20 09:49 CHOCOLATE Allergy Severe DIFFICULTY Uncoded 10/22/20 09:49 BREATHING Review of Systems Review of Systems: Yes all other systems are reviewed and are negative Constitutional: Constitutional: Reports no additional constitutional complaints, Denies body ache(s), Denies chills, Denies fever(s), Denies headache(s) and Denies weakness Eyes: Eyes: Reports no additional eye complaints and Denies change in vision ENT: Reports system reviewed and no additional complaints, except as document ed, Denies dizziness, Denies headache(s), Denies nasal congestion, Denies nasal discharge and Denies neck pain Cardiovascular: Cardiovascular: Reports no additional cardiovascular complaints, Denies chest pain, Denies leg edema and Denies dyspnea Respiratory: Respiratory: Reports no additional respiratory complaints, Denies cough and Denies dyspnea Gastrointestinal: Gastrointestinal: Reports no additional gastrointestinal complaints, Reports abdominal pain, Denies diarrhea, Denies nausea and Denies vomiting Genitourinary: Genitourinary: Denies urinary incontinence Musculoskeletal: Musculoskeletal: Reports no additional musculoskeletal complaints, Reports back pain, Denies arthralgias, Denies joint swelling, Denies neck pain, Denies numbness and Denies tingling Integumentary/Breasts: Skin/Breast: Reports system reviewed and no additional complaints, except as docu and Denies rash Neurologic: Reports system reviewed and no additional complaints, except as documented, Denies Abnormal speech present, Denies dizziness, Denies headache( s), Denies numbness, Denies tingling and Denies weakness PMF Past Medical History Attestation statement: The following information was validated with the patient. Source: old records reviewed and nursing notes reviewed Medical History Anxiety Asthma Benign essential hypertension Low back pain Morbid obesity with BMI of 50.0-59.9, adult Pure hypercholesterolemia Stage 3 chronic kidney disease Surgical History No history of previous surgery Family History Family History Mother No problems noted. Father No problems noted. Social History Social History Housing: House Alcohol intake: current Alcohol intake frequency: holidays/special occasions only Patient Tobacco Use Status: Former Tobacco user Use of substances other than those prescribed or required for medical reasons: No Advance Directives: No Advance Directives Information Provided: Yes service: No Current occupational status: employed Physical Exam Vital Signs: Vital Signs: Last Vital Signs Temp 98.3 F 12/31/20 15:12 Pulse 69 12/31/20 17:06 Resp 18 12/31/20 17:06 BP 165/103 H 12/31/20 17:06 Pulse Ox 96 12/31/20 17:06 Body Mass Index 50.8 Const: General: cooperative, healthy appearing, comfortable and no acute distress Orientation/consciousness: patient oriented x3 Limitations: no l imitations HENMT: Head: Yes normal to inspection Ears: hearing grossly normal bilaterally General nose exam: Normal external nose present Face and sinus: Yes normal facial exam Mouth: Normal oral and palatal mucosa present Throat: Yes posterior oropharynx normal Eyes: General: appearance normal, both eyes and all related structures Pupils: Equal, round and reactive pupils present Neck: Neck: Yes normal visual inspection Chest: Chest palpation & inspection: normal inspection of the chest Resp: Effort & Inspection: normal respiratory effort Auscultation: clear to auscultation bilaterally Cardio: Rate: regular rate Rhythm: regular rhythm Peripheral pulses: Peripheral pulses 2+ throughout GI: Inspection: Yes normal to inspection Palpation (GI): Soft to palpation and Tenderness to palpation present (GI) (Right-sided mild., no rebound or guarding) Auscultation: normal bowel sounds : General: Yes CVA tenderness (mild ) Back/Spine/Pelvis: Other: Right-sided moderate to severe lumbar soft tissue w ith no midline tenderness, step offs or deformities. Pain with straight leg raise right side. Back: CVA tenderness (mild ) Thoracic/Lumbar Spine: thoracic and lumbar spine normal to inspection Skin: General skin exam: no rashes or lesions noted Neuro: General: patient oriented x3, no focal motor deficits and normal sensation to monofilament Cranial nerves: Yes Equal, round and reactive pupils present Cognition (Neuro): normal cognition Speech: No Abnormal speech present Gait exam (Neuro): Normal gait present Motor exam (neuro): 5/5 motor strength present throughout Sensory Exam: Normal double simultaneous stimulation for sensation Deep tendon reflexes (DTR's): Right patellar reflex intensity grade: 2+ and Left patellar reflex intensity grade: 2+ Extrem: General: Yes normal to inspection, Yes no pedal edema and Yes no calf tenderness Course Course Course Narrative: 45-year-old male here with complaints of intermittent right- sided back pain which radiates the right side of the abdomen for about 1 week. On exam has some CVA tenderness but most of his pain is located in the lumbar soft tissue area and mild abdominal pain. Consider renal colic vs lumbar radiculopathy. Will check labs, UA, CT. Provide analgesia and reassess. 1800- CT unremarkable. Labs show chronic kidney disease unchanged from previous. Otherwise labs are unremarkable. Patient tells me pain is improved. Able to ambulate with no difficulty. Likely referred pain from low back. Will discharge home with pain medication, muscle relaxant medicated patches PCP follow-up. No neuro deficits or red flag symptoms. Reviewed worrisome signs and symptoms of when to return to the emergency department. Comfortable discharge home. MDM - Back Pain/Injury MDM Narrative Medical decision making narrative: Pyelo, renal colic Medical Records Attestation: I reviewed the patient's medical records. Lab Data Attestation: I reviewed the patient's lab results. Result diagrams: 12/31/20 16:24 12/31/20 16:24 Labs: Lab Results 12/31/20 12/31/20 12/31/20 Range/Units 15:25 16:24 16:24 WBC 9.5 (4.8-10.8) X10*3/uL RBC 4.83 (4.60-5.80) X10*6/uL Hgb 13.3 L (14.0-18.0) g/dl Hct 42.2 (42.0-52.0) % MCV 87.4 (80.0-98.0) fL MCH 27.5 (27.0-33.0) pg MCHC 31.5 (31.0-36.0) g/dl RDW 13.6 (11.0-16.0) % Plt Count 267 (160-400) X10*3/uL MPV 10.1 (9.4-12.4) fL Immature Gran % (Auto) 0.2 (0.0-0.4) % Neut % (Auto) 83.0 H (45-73) % Lymph % (Auto) 8.8 L (20-40) % [place] % (Auto) 6.3 (2-11) % Eos % (Auto) 1.5 (0-4) % Baso % (Auto) 0.2 (0-2) % Lymph # (Auto) 0.8 L (1.2-4.9) X10*3/uL [place] # (Auto) 0.6 (0.1-1.2) X10*3/uL Eos # (Auto) 0.1 (0.0-0.4) X10*3/uL Baso # (Auto) 0.0 (0.0-0.2) X10*3/uL Abs Immat Gran (auto) 0.02 (0.00-0.03) X10*3/uL Absolute Neuts (auto) 7.87 (2.0-8.3) x10*3/uL Absolute Nucleated RBC 0.000 (0.0-0.012) X10*3/uL Nucleated RBC % (auto) 0.0 (0.0-0.2) /100WBC Sodium 142 (135-145) mmol/L Potassium 4.2 (3.3-5.1) mmol/L Chloride 110 H (96-108) mmol/L Carbon Dioxide 25 (22-29) mmol/L Anion Gap 11 L (12-20) BUN 20 H (9-16) mg/dL Creatinine 1.60 H (0.5-1.4) mg/dL Estim Creat Clear Calc 82.1 Estimated GFR 47 Random Glucose 98 (60-115) mg/dL Calcium 9.0 (8.4-10.2) mg/dL Total Bilirubin 0.5 (0.0-1.0) mg/dL Direct Bilirubin 0.2 (0.0-0.5) mg/dL AST 19 (5-37) U/L ALT 26 (0-40) U/L Alkaline Phosphatase 127 H (39-117) U/L Total Protein 6.9 (6.5-8.0) g/dL Albumin 4.0 (3.5-5.0) g/dL Urine Color YELLOW Urine Appearance CLEAR Urine pH 6.0 (5.0-8.0) Ur Specific [place] 1.025 (1.005-1.025) Urine Protein 3+ H (NEG-TRACE) MG/DL Urine Glucose (UA) NEG (NEG) MG/DL Urine Ketones NEG (NEG) MG/DL Urine Blood 1+ H (NEG) Urine Nitrite NEG (NEG) Ur Leukocyte Esterase NEG (NEG) Urine RBC 5-9 H (0) /HPF Urine WBC 0-2 (0-4) /HPF Ur Squamous Epith Cells 2+ /LPF Urine Bacteria NONE /LPF Imaging Data CT scan - abdomen: Attestation: I personally reviewed and interpreted this imaging study as follows: Radiologist's impression: FINDINGS: LUNG BASES: The visualized lung bases are unremarkable. LIVER, GALLBLADDER, AND BILIARY TREE: The liver is normal in size, shape, and attenuation. No focal hepatic lesion or biliary ductal dilatation is present. The gallbladder is unremarkable with no evidence of radiopaque gallstones, gallbladder wall thickening, or obvious pericholecystic inflammatory changes.? PANCREAS: Unremarkable.? SPLEEN: Unremarkable.? ADRENAL GLANDS: Unremarkable.? KIDNEYS AND URETERS: The kidneys are normal in size, shape, and attenuation. No hydronephrosis, hydroureter, or calculi seen. No perinephric stranding. ? BLADDER: Unremarkable.? GASTROINTESTINAL TRACT: There are scattered diverticula of the colon. There is no diverticulitis. There is no bowel wall thickening /edema. There is no bowel obstruction. There is a moderate volume of stool in the colon. The appendix is nonvisualized . There is no inflammation the mesentery The small bowel loops are unremarkable. The stomach is normal. There is no hiatal hernia. There is a paraesophageal herniation of mesenteric fat however. ABDOMINAL WALL: No significant hernia is appreciated.? LYMPH NODES: Normal. VASCULAR: Unremarkable. PELVIC VISCERA: Unremarkable.? OSSEOUS STRUCTURES: Unremarkable.? CT/CT abdomen pelvis wo con IMPRESSION: No acute abnormality CT scan abdomen pelvis.? Discharge Plan Discharge Clinical Impression: Low back pain Patient Disposition: Home, Self-Care Instructions: Acute Low Back Pain (ED), Back Pain (ED) Additional Instructions: Heat or ice Gentle stretching No heavy lifting or bending Follow-up with your primary care doctor Prescriptions: New lidocaine [Lidoderm] 5 % adhesive patch,medicated 1 patch topical DAILY Qty: 15 RF: 0 cyclobenzaprine 10 mg tablet 10 mg PO Q8H PRN (Reason: muscle spasm) Qty: 10 RF: 0 oxycodone-acetaminophen [Percocet] 5-325 mg tablet 1 tab PO Q4H PRN (Reason: pain) Qty: 8 RF: 0 No Action amitriptyline 25 mg tablet 25 mg PO BEDTIME 30 Days Qty: 30 RF: 0 aspirin 81 mg tablet,chewable 1 tab PO DAILY 90 Days Qty: 90 RF: 0 riboflavin (vitamin B2) 400 mg tablet 400 mg PO DAILY 30 Days Qty: 30 RF: 0 losartan 100 mg tablet 100 mg PO DAILY 90 Days Qty: 90 RF: 0 cyclobenzaprine 10 mg tablet 10 mg PO TID PRN (Reason: muscle spasm) Qty: 14 RF: 0 ondansetron 4 mg tablet,disintegrating 4 mg PO TID PRN (Reason: nausea and vomiting) 5 Days Qty: 10 RF: 0 albuterol sulfate [ProAir HFA] 90 mcg/actuation HFA aerosol inhaler 2 puff inhalation Q6-8H PRN (Reason: shortness of breath or wheezing) 30 Days Qty: 8.5 RF: 3 atorvastatin 40 mg tablet 40 mg PO DAILY 90 Days Qty: 90 RF: 1 Flovent HFA 110 mcg/actuation HFA aerosol inhaler 2 inh inhalation BID 30 Days Qty: 12 RF: 3 lidocaine 4 % adhesive patch,medicated 1 patch topical DAILY PRN (Reason: pain) 30 Days Qty: 30 RF: 1 amlodipine 5 mg tablet 5 mg PO DAILY 90 Days Qty: 90 RF: 1 doxycycline monohydrate 100 mg capsule 100 mg PO BID 10 Days Qty: 20 RF: 0 Referrals: Dean Nix MD [Primary Care Provider] - 2 days Stand Alone Forms: Work/School Release Interventions: ED Discharge Assessment Last Done: 12/31/20 18:11 Discharge Date/Time: 12/31/20 18:18
[2020-12-31 16:29] LABS: MANUAL DIFF FLAG NO
[2020-12-31 16:31] LABS: Basophils Percent Auto 0.2 % (0-2); Eosinophils Absolute Auto 0.1 X10*3/uL (0.0-0.4); Eosinophils Percent Auto 1.5 % (0-4); Hematocrit 42.2 % (42.0-52.0); Hemoglobin 13.3 g/dl (14.0-18.0); Imm Gran Abs Auto 0.02 X10*3/uL (0.00-0.03); Imm Gran Pct Auto 0.2 % (0.0-0.4); Lymphocytes Absolute Auto 0.8 X10*3/uL (1.2-4.9); Lymphocytes Percent Auto 8.8 % (20-40); Mean Corpuscular HGB Conc 31.5 g/dl (31.0-36.0); Mean Corpuscular Hemoglobin 27.5 pg (27.0-33.0); Mean Corpuscular Volume 87.4 fL (80.0-98.0); Mean Platelet Volume 10.1 fL (9.4-12.4); Monocytes Absolute Auto 0.6 X10*3/uL (0.1-1.2); Monocytes Percent Auto 6.3 % (2-11); Neutrophils Absolute Auto 7.87 x10*3/uL (2.0-8.3); Platelet Count 267 X10*3/uL (160-400); Red Blood Count 4.83 X10*6/uL (4.60-5.80); Red Cell Distribution Width 13.6 % (11.0-16.0); White Blood Count 9.5 X10*3/uL (4.8-10.8)
[2020-12-31] MEDS: ondansetron HCL 4 MG/2 ML VIAL IVPUSH (16:37)
[2020-12-31] MEDS: Morphine Sulfate 4 MG/ML CARTRIDGE IVPUSH (16:37)
[2020-12-31 16:49] LABS: Alanine Aminotransferase 26 U/L (0-40); Alkaline Phosphatase 127 U/L (39-117); Anion Gap 11 (12-20); Aspartate Amino Transferase 19 U/L (5-37); Bilirubin Direct 0.2 mg/dL (0.0-0.5); Bilirubin Total 0.5 mg/dL (0.0-1.0); Blood Urea Nitrogen 20 mg/dL (9-16); Carbon Dioxide 25 mmol/L (22-29); Chloride 110 mmol/L (96-108); Creatinine Clr Calc Pharmacy 82.1; Estimated Glomerular Filt Rate 47; Glucose Random 98 mg/dL (60-115); Potassium 4.2 mmol/L (3.3-5.1); Sodium 142 mmol/L (135-145); Total Protein 6.9 g/dL (6.5-8.0)
[2020-12-31 17:06] VITALS: BP 165/103; PULSE 69; RESP 18; O2SAT 96
== END 2020-12-31 18:18 | disposition home or self-care (01) ==
PROVIDERS: Nurse Practitioner Family; Emergency Provider Emergency Medicine; PCP Internal Medicine
DX: M54.50 Low back pain, unspecified (principal); I12.9 Hypertensive chronic kidney disease with stage 1 through stage 4 chronic kidney disease, or unspecified chronic kidney disease; N18.30 Chronic kidney disease, stage 3 unspecified; J45.909 Unspecified asthma, uncomplicated
CPT/HCPCS: 36415; 74176; 80048; 80076; 81001; 85025; 96374; 96375; 99284; J2270; J2405

== ENCOUNTER 2021-02-13 03:08 | Emergency (ER) | payer OTHER, SELFPAY ==
--- NOTE | 2021-02-13 | ECG_ITS ---
Test Reason : weakness Blood Pressure : / mmHG Vent. Rate : 068 BPM Atrial Rate : 068 BPM P-R Int : 134 ms QRS Dur : 082 ms QT Int : 402 ms P-R-T Axes : 029 052 118 degrees QTc Int : 427 ms Normal sinus rhythm Nonspecific T wave abnormality Abnormal ECG When compared with ECG of 19-SEP-2020 10:37, No significant change was found Referred By: Generic ED Physician Electronically Signed By:KJ WINSTON MD
--- NOTE | ~2021-02-13 | XR_ITS ---
EXAMINATION: XR CHEST CLINICAL INFORMATION: Shortness of breath. COMPARISON: 03/30/20. 07/17/18. TECHNIQUE: 2 views of the chest were obtained. FINDINGS: No significant abnormality is noted involving the heart, lungs, mediastinum, bony thorax or soft tissues. XR/XR chest 2V IMPRESSION: Unremarkable examination.
--- NOTE | ~2021-02-13 | CT_ITS ---
EXAMINATION: CT HEAD WITHOUT CONTRAST CLINICAL INFORMATION: Tingling right lower extremity. COMPARISON: CT brain 09/19/2020. TECHNIQUE: Contiguous axial imaging was performed from the skull base to vertex without intravenous administration of contrast. This CT examination was performed using dose optimization techniques as appropriate, variously including the following: *Automated exposure control *Adjustment of mA and/or kV according to patient size (this includes techniques or standardized protocols for targeted exams where dose is matched to indication/reason for exam; i.e. extremities or head) *Use of iterative reconstruction technique DLP: 826 mGy-cm FINDINGS: There is no evidence of acute intracranial hemorrhage or territorial infarction. No abnormal mass effect or midline shift is seen. Alvarez to white matter differentiation is well preserved. No extra-axial fluid collections are identified. The ventricles are normal in size. There is no abnormal attenuation within the brain parenchyma. The osseous structures and soft tissues are normal. The mastoid air cells and visualized portions of the paranasal sinuses are well aerated. CT/CT head/brain wo con IMPRESSION: No acute intracranial process seen.
[2021-02-13 05:47] LABS: COVID-19 Test Negative (Negative)
[2021-02-13 06:07] LABS: Basophils Percent Auto 0.3 % (0-2); Eosinophils Absolute Auto 0.2 X10*3/uL (0.0-0.4); Eosinophils Percent Auto 2.2 % (0-4); Hematocrit 41.5 % (42.0-52.0); Hemoglobin 13.1 g/dl (14.0-18.0); Imm Gran Abs Auto 0.04 X10*3/uL (0.00-0.03); Imm Gran Pct Auto 0.4 % (0.0-0.4); Lymphocytes Absolute Auto 1.6 X10*3/uL (1.2-4.9); Lymphocytes Percent Auto 14.4 % (20-40); MANUAL DIFF FLAG NO; Mean Corpuscular HGB Conc 31.6 g/dl (31.0-36.0); Mean Corpuscular Hemoglobin 27.8 pg (27.0-33.0); Mean Corpuscular Volume 88.1 fL (80.0-98.0); Monocytes Absolute Auto 0.8 X10*3/uL (0.1-1.2); Monocytes Percent Auto 7.1 % (2-11); Neutrophils Absolute Auto 8.4 x10*3/uL (2.0-8.3); Neutrophils Percent Auto 75.6 % (45-73); Platelet Count 269 X10*3/uL (160-400); Red Blood Count 4.71 X10*6/uL (4.60-5.80); Red Cell Distribution Width 13.4 % (11.0-16.0); White Blood Count 11.1 X10*3/uL (4.8-10.8)
[2021-02-13 06:10] LABS: Alanine Aminotransferase 24 U/L (0-40); Albumin Level 3.8 g/dL (3.5-5.0); Alkaline Phosphatase 115 U/L (39-117); Anion Gap 13 (12-20); Aspartate Amino Transferase 18 U/L (5-37); Bilirubin Total 0.6 mg/dL (0.0-1.0); Blood Urea Nitrogen 21 mg/dL (9-16); Calcium 9.3 mg/dL (8.4-10.2); Carbon Dioxide 26 mmol/L (22-29); Chloride 106 mmol/L (96-108); Estimated Glomerular Filt Rate 43; Glucose Random 94 mg/dL (60-115); Potassium 3.8 mmol/L (3.3-5.1); Sodium 141 mmol/L (135-145); Total Protein 6.7 g/dL (6.5-8.0)
[2021-02-13 06:11] LABS: Troponin-I High Sensitivity 7.4 ng/L (<3.5-35.0)
--- NOTE | 2021-02-13 07:09 | ED.GENADULT ---
HPI - General Adult General Time Seen by Provider: 02/13/21 07:07 History of Present Illness HPI narrative: Down time paperwork completed Related Data Previous Rx's Medication Instructions Recorded ondansetron 4 mg disintegrating 4 mg PO TID PRN 5 Days #10 tab 04/06/20 tablet amitriptyline 25 mg tablet 25 mg PO BEDTIME 30 Days #30 tab 05/14/20 aspirin 81 mg chewable tablet 1 tab PO DAILY 90 Days #90 tab 05/14/20 cyclobenzaprine 10 mg tablet 10 mg PO TID PRN #14 tab 09/19/20 amlodipine 5 mg tablet 5 mg PO DAILY 90 Days #90 tab 10/22/20 atorvastatin 40 mg tablet 40 mg PO DAILY 90 Days #90 tab 10/22/20 doxycycline monohydrate 100 mg 100 mg PO BID 10 Days #20 cap 10/22/20 capsule lidocaine 4 % topical patch 1 patch TOPICAL DAILY PRN 30 Days 10/22/20 #30 ea cyclobenzaprine 10 mg tablet 10 mg PO Q8H PRN #10 tab 12/31/20 lidocaine 5 % topical patch 1 patch TOPICAL DAILY #15 ea 12/31/20 (Lidoderm) oxycodone-acetaminophen 5 mg-325 1 tab PO Q4H PRN #8 tab 12/31/20 mg tablet (Percocet) fluticasone propionate 110 2 puff PO BID #36 ea 01/14/21 mcg/actuation HFA aerosol inhaler (Flovent HFA) losartan 100 mg tablet 100 mg PO DAILY #90 tab 01/16/21 riboflavin (vitamin B2) 400 mg 400 mg PO DAILY 30 Days #30 tab 01/21/21 tablet albuterol sulfate 90 mcg/actuation 2 puff PO Q6-8H PRN #8.5 ea 01/27/21 aerosol inhaler (ProAir HFA) Allergies Allergy/AdvReac Type Severity Reaction Status Date / Time lisinopril [LISINOPRIL] Allergy Intermediate ANGIOEDEMA Verified 01/21/21 15:04 CHOCOLATE Allergy Severe DIFFICULTY Uncoded 01/21/21 15:04 BREATHING PMFSH Past Medical History Medical History Anxiety Asthma Benign essential hypertension Low back pain Morbid obesity with BMI of 50.0-59.9, adult Pure hypercholesterolemia Stage 3 chronic kidney disease Surgical History No history of previous surgery Family History Family History Mother No problems noted. Father No problems noted. 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 Lab Data Result diagrams: 02/13/21 04:28 02/13/21 04:28 Labs: Lab Results 02/13/21 02/13/21 02/13/21 Range/Units 04:28 04:28 04:28 WBC 11.1 H (4.8-10.8) X10*3/uL RBC 4.71 (4.60-5.80) X10*6/uL Hgb 13.1 L (14.0-18.0) g/dl Hct 41.5 L (42.0-52.0) % MCV 88.1 (80.0-98.0) fL MCH 27.8 (27.0-33.0) pg MCHC 31.6 (31.0-36.0) g/dl RDW 13.4 (11.0-16.0) % Plt Count 269 (160-400) X10*3/uL MPV 10.0 (9.4-12.4) fL Immature Gran % (Auto) 0.4 (0.0-0.4) % Neut % (Auto) 75.6 H (45-73) % Lymph % (Auto) 14.4 L (20-40) % [place] % (Auto) 7.1 (2-11) % Eos % (Auto) 2.2 (0-4) % Baso % (Auto) 0.3 (0-2) % Lymph # (Auto) 1.6 (1.2-4.9) X10*3/uL [place] # (Auto) 0.8 (0.1-1.2) X10*3/uL Eos # (Auto) 0.2 (0.0-0.4) X10*3/uL Baso # (Auto) 0.0 (0.0-0.2) X10*3/uL Abs Immat Gran (auto) 0.04 H (0.00-0.03) X10*3/uL Absolute Neuts (auto) 8.4 H (2.0-8.3) x10*3/uL Absolute Nucleated RBC 0.000 (0.0-0.012) X10*3/uL Nucleated RBC % (auto) 0.0 (0.0-0.2) /100WBC Sodium 141 (135-145) mmol/L Potassium 3.8 (3.3-5.1) mmol/L Chloride 106 (96-108) mmol/L Carbon Dioxide 26 (22-29) mmol/L Anion Gap 13 (12-20) BUN 21 H (9-16) mg/dL Creatinine 1.72 H (0.5-1.4) mg/dL Estim Creat Clear Calc TNP Estimated GFR 43 Random Glucose 94 (60-115) mg/dL Calcium 9.3 (8.4-10.2) mg/dL Total Bilirubin 0.6 (0.0-1.0) mg/dL AST 18 (5-37) U/L ALT 24 (0-40) U/L Alkaline Phosphatase 115 (39-117) U/L Troponin I High Sens 7.4 (<3.5-35.0) ng/L Total Protein 6.7 (6.5-8.0) g/dL Albumin 3.8 (3.5-5.0) g/dL COVID-19 (AHMET) (Negative) COVID-19 Clin Com 02/13/21 Range/Units 04:30 WBC (4.8-10.8) X10*3/uL RBC (4.60-5.80) X10*6/uL Hgb (14.0-18.0) g/dl Hct (42.0-52.0) % MCV (80.0-98.0) fL MCH (27.0-33.0) pg MCHC (31.0-36.0) g/dl RDW (11.0-16.0) % Plt Count (160-400) X10*3/uL MPV (9.4-12.4) fL Immature Gran % (Auto) (0.0-0.4) % Neut % (Auto) (45-73) % Lymph % (Auto) (20-40) % [place] % (Auto) (2-11) % Eos % (Auto) (0-4) % Baso % (Auto) (0-2) % Lymph # (Auto) (1.2-4.9) X10*3/uL [place] # (Auto) (0.1-1.2) X10*3/uL Eos # (Auto) (0.0-0.4) X10*3/uL Baso # (Auto) (0.0-0.2) X10*3/uL Abs Immat Gran (auto) (0.00-0.03) X10*3/uL Absolute Neuts (auto) (2.0-8.3) x10*3/uL Absolute Nucleated RBC (0.0-0.012) X10*3/uL Nucleated RBC % (auto) (0.0-0.2) /100WBC Sodium (135-145) mmol/L Potassium (3.3-5.1) mmol/L Chloride (96-108) mmol/L Carbon Dioxide (22-29) mmol/L Anion Gap (12-20) BUN (9-16) mg/dL Creatinine (0.5-1.4) mg/dL Estim Creat Clear Calc Estimated GFR Random Glucose (60-115) mg/dL Calcium (8.4-10.2) mg/dL Total Bilirubin (0.0-1.0) mg/dL AST (5-37) U/L ALT (0-40) U/L Alkaline Phosphatase (39-117) U/L Troponin I High Sens (<3.5-35.0) ng/L Total Protein (6.5-8.0) g/dL Albumin (3.5-5.0) g/dL COVID-19 (AHMET) Negative (Negative) COVID-19 Clin Com See Note Discharge Plan Discharge Clinical Impression: Anxiety Patient Disposition: Home, Self-Care Prescriptions: No Action amitriptyline 25 mg tablet 25 mg PO BEDTIME 30 Days Qty: 30 RF: 0 aspirin 81 mg tablet,chewable 1 tab PO DAILY 90 Days Qty: 90 RF: 0 Flovent HFA 110 mcg/actuation HFA aerosol inhaler 2 puff PO BID Qty: 36 RF: 1 losartan 100 mg tablet 100 mg PO DAILY Qty: 90 RF: 0 albuterol sulfate [ProAir HFA] 90 mcg/actuation HFA aerosol inhaler 2 puff PO Q6-8H PRN (Reason: for wheezing) Qty: 8.5 RF: 3 cyclobenzaprine 10 mg tablet 10 mg PO TID PRN (Reason: muscle spasm) Qty: 14 RF: 0 ondansetron 4 mg tablet,disintegrating 4 mg PO TID PRN (Reason: nausea and vomiting) 5 Days Qty: 10 RF: 0 lidocaine [Lidoderm] 5 % adhesive patch,medicated 1 patch topical DAILY Qty: 15 RF: 0 cyclobenzaprine 10 mg tablet 10 mg PO Q8H PRN (Reason: muscle spasm) Qty: 10 RF: 0 oxycodone-acetaminophen [Percocet] 5-325 mg tablet 1 tab PO Q4H PRN (Reason: pain) Qty: 8 RF: 0 atorvastatin 40 mg tablet 40 mg PO DAILY 90 Days Qty: 90 RF: 1 lidocaine 4 % adhesive patch,medicated 1 patch topical DAILY PRN (Reason: pain) 30 Days Qty: 30 RF: 1 amlodipine 5 mg tablet 5 mg PO DAILY 90 Days Qty: 90 RF: 1 doxycycline monohydrate 100 mg capsule 100 mg PO BID 10 Days Qty: 20 RF: 0 riboflavin (vitamin B2) 400 mg tablet 400 mg PO DAILY 30 Days Qty: 30 RF: 5
== END 2021-02-13 06:15 | disposition home or self-care (01) ==
PROVIDERS: PCP Internal Medicine
DX: F41.9 Anxiety disorder, unspecified (principal); J45.901 Unspecified asthma with (acute) exacerbation; I12.9 Hypertensive chronic kidney disease with stage 1 through stage 4 chronic kidney disease, or unspecified chronic kidney disease; N18.30 Chronic kidney disease, stage 3 unspecified; Z20.822 Contact with and (suspected) exposure to COVID-19
CPT/HCPCS: 36415; 70450; 71046; 80053; 84484; 85025; 87635; 93005; 99281; 99284

== ENCOUNTER 2021-08-27 11:48 | Emergency (ER) | payer OTHER, SELFPAY ==
--- NOTE | 2021-08-27 | ECG_ITS ---
Test Reason : chest pain Blood Pressure : / mmHG Vent. Rate : 074 BPM Atrial Rate : 074 BPM P-R Int : 138 ms QRS Dur : 076 ms QT Int : 398 ms P-R-T Axes : 039 046 075 degrees QTc Int : 441 ms Normal sinus rhythm Nonspecific T wave abnormality Borderline ECG When compared with ECG of 13-FEB-2021 04:12, No significant change was found Referred By: Generic ED Physician Electronically Signed By:LIOR MAYA
--- NOTE | ~2021-08-27 | XR_ITS ---
EXAMINATION: XR CHEST CLINICAL INFORMATION: Chest pain COMPARISON: 02/13/2021 TECHNIQUE: 2 views of the chest were obtained. FINDINGS: No significant abnormality is noted involving the heart, lungs, mediastinum, bony thorax or soft tissues. Some minimal bibasilar scarring/atelectasis is present. No interval change when compared to the 2020 study. XR/XR chest 2V IMPRESSION: No acute intrathoracic disease.
[2021-08-27 12:12] VITALS: BP 130/90; BP 140/69; PULSE 75; PULSE 80; RESP 18; TEMP 36.8; O2SAT 96; O2SAT 98; BMI 54.1
--- NOTE | 2021-08-27 12:38 | ED_ITS ---
HPI - Chest Pain General Chief Complaint: Chest Pain Stated Complaint: CP RAD TO R SHOULDER PER EMS Time Seen by Provider: 08/27/21 12:23 Source: patient Mode of arrival: EMS Limitations: no limitations History of Present Illness HPI narrative: Patient presents to emergency department for evaluation of and chest pain. He reports that upon awakening at 07:00 this morning he had pain to his right shoulder that was radiating down the right arm, he thought that he may have slept on his arm wrong. However he began to develop numbness and tingling to the arm as well. He got ready for work and on his way to work he began feeling lightheaded and nauseous, having heaviness sensation and warm feeling to the bilateral legs. He then developed burning/tingling sensation diffusely throughout his chest and across the upper abdomen. He states that he has had similar episodes to this in the past maybe 3-4 times, but did not seek evaluation for them. MD complaint: chest pain Onset (ago): hour(s) Timing of current episode: constant Prior episodes: Yes Onset: during rest Pain radiation: right arm Related Data Previous Rx's Medication Instructions Recorded ondansetron 4 mg disintegrating 4 mg PO TID PRN nausea and 04/06/20 tablet vomiting 5 days #10 tabs amitriptyline 25 mg tablet 25 mg PO BEDTIME migraine 30 days 05/14/20 #30 tabs aspirin 81 mg chewable tablet 1 tab PO DAILY 3 months #90 tabs 05/14/20 cyclobenzaprine 10 mg tablet 10 mg PO TID PRN muscle spasm #14 09/19/20 tabs doxycycline monohydrate 100 mg 100 mg PO BID 10 days #20 caps 10/22/20 capsule lidocaine 4 % topical patch 1 patch topical DAILY PRN pain 30 10/22/20 days #30 ea cyclobenzaprine 10 mg tablet 10 mg PO Q8H PRN muscle spasm #10 12/31/20 tabs lidocaine 5 % topical patch 1 patch topical DAILY #15 ea 12/31/20 (Lidoderm) oxycodone-acetaminophen 5 mg-325 1 tab PO Q4H PRN pain #8 tabs 12/31/20 mg tablet (Percocet) riboflavin (vitamin B2) 400 mg 400 mg PO DAILY 30 days #30 tabs 01/21/21 tablet albuterol sulfate 90 mcg/actuation 2 puff PO Q6-8H PRN for wheezing 01/27/21 aerosol inhaler (ProAir HFA) #8.5 ea amlodipine 5 mg tablet 5 mg PO DAILY 90 days #90 tabs 04/16/21 atorvastatin 40 mg tablet 40 mg PO DAILY 90 days #90 tabs 04/16/21 losartan 100 mg tablet 100 mg PO DAILY #90 tabs 07/12/21 fluticasone propionate 110 2 puff PO BID #36 ea 07/18/21 mcg/actuation HFA aerosol inhaler (Flovent HFA) Allergies Allergy/AdvReac Type Severity Reaction Status Date / Time lisinopril [LISINOPRIL] Allergy Intermediate ANGIOEDEMA Verified 01/21/21 15:04 CHOCOLATE Allergy Severe DIFFICULTY Uncoded 01/21/21 15:04 BREATHING Review of Systems Review of Systems: Constitutional : No Weight loss, No Fever, No Chills ENT/Mouth :? No sore throat, No Rhinorrhea Eyes: No Eye Pain, No Swelling Cardiovascular : pos Chest Pain, no SOB, no Dyspnea on Exertion, No Orthopnea, No Edema, No Palpitations Respiratory : No Cough, No Sputum Gastrointestinal : pos Nausea, No Vomiting, No Diarrhea, positive upper abdominal Pain, No Hematochezia, No Melena Genitourinary : No Dysuria, No Urinary Frequency Musculoskeletal : No joint pain, No Myalgias, No Joint Swelling. Positive right arm pain Skin : No Skin Lesions, No rash Neuro : No Weakness, No Numbness, positive lightheadedness. no Dizziness, No Headache Psych : No Anxiety/Panic, No Depression Heme/Lymph: No Bruising, No Lymphadenopathy Endocrine : No Polyuria, No Polydipsia Yes all other systems are reviewed and are negative [facility] Past Medical History Attestation statement: The following information was validated with the patient. Source: old records reviewed Medical History (Updated 08/27/21 @ 16:38 by Elise Roque CNP) Anxiety Asthma Benign essential hypertension Morbid obesity with BMI of 50.0-59.9, adult Pure hypercholesterolemia Stage 3 chronic kidney disease Surgical History No history of previous surgery Family History Family History Mother No problems noted. Father No problems noted. Social History Social History Housing: House Alcohol intake: current Alcohol intake frequency: holidays/special occasions only Patient Tobacco Use Status: Never used Tobacco Second Hand Smoke Exposure: Yes Use of substances other than those prescribed or required for medical reasons: No Advance Directives: No Advance Directives Information Provided: Yes service: No Current occupational status: employed Physical Exam Vital Signs: Vital Signs: Last Vital Signs Temp 97.7 F 08/27/21 14:53 Pulse 66 08/27/21 14:53 Resp 16 08/27/21 14:53 BP 152/90 H 08/27/21 16:03 Pulse Ox 95 08/27/21 16:03 O2 Del Method 08/27/21 14:53 BMI result Body Mass Index 54.1 Vital signs have been reviewed as normal and appeared to be correct. Hypertensive. Heart rate normal.? Respiration rate normal. Temperature normal.? Oxygen saturation normal. Appearance: Alert.?Oriented to person, place and time. No acute distress.?Normal affect. Eyes: Pupils equal, round and reactive to light.? ENT: Pharynx normal.?? Neck: Normal inspection.? Neck supple.??No JVD CVS: Heart sounds normal. Normal heart rate and rhythm.? Pulses normal.?? Respiratory: No respiratory distress.? Lung sounds clear to auscultation bilaterally?? Abdomen: Soft and non-tender. Normoactive bowel sounds. No pulsatile mass.?? Skin: Skin warm and dry.? Normal skin color.? Extremities: No lower extremity edema.? Neuro: Moves all extremities spontaneously. Sensation intact bilaterally. CN II- XII intact. No focal neuro deficits. Ambulates with normal steady gait. Course Course Course Narrative: Patient is a 46-year-old male with a past medical history of chronic kidney disease, asthma, hypertension, hypercholesterolemia, obesity presenting to emergency department for evaluation of right shoulder/arm pain and chest pain, onset of symptoms earlier this morning. He is overall well-appearing, nontoxic, no apparent distress, non diaphoretic. He is mildly hypertensive, otherwise hemodynamically stable. Will obtain CBC to evaluate for leukocytosis/ anemia, CMP and lipase to evaluate for abnormal electrolytes /abnormal renal function/ abnormal hepatic/biliary function, EKG and troponin to evaluate for ischemia/ACS. Chest x-ray to evaluate for consolidation/ infiltrate/ mass/ pulmonary congestion. Patient to receive additional aspirin for full dose of 320 mg, and nitro 0.5 paste, for current 6/10 diffuse chest pain. Reevaluation(s) Reevaluation #1: CBC is overall unremarkable, a normocytic anemia consistent with baseline. CMP is overall unremarkable, transaminases are normal, lipase normal, renal function is at baseline. Troponin 5.1, EKG reveals normal sinus rhythm, non-specific T-wave abnormality, consistent with prior EKG in January 2021, no acute ischemic findings, but given past medical history will obtain delta troponin. Chest x-ray with no acute cardiopulmonary findings. Time: 13:30 Reevaluation #2: Delta trop negative, 4.2 unlikely ACS. Perc negative, no hypoxia tachypnea or tachycardia to suggest pulmonary embolism. At this time patient stable for discharge home, advised to contact his primary care provider to schedule follow- up visit within 1-3 days, discussed reasons to return back to the emergency department, all questions were answered. MDM - Chest Pain Medical Records Data Attestation: I reviewed the patient's medical records. Lab Data Attestation: I reviewed the patient's lab results. Result diagrams: 08/27/21 12:42 08/27/21 12:42 Labs: Lab Results 08/27/21 08/27/21 08/27/21 Range/Units 12:42 12:42 12:42 WBC 8.9 (4.8-10.8) X10*3/uL RBC 4.70 (4.60-5.80) X10*6/uL Hgb 12.8 L (14.0-18.0) g/dl Hct 40.4 L (42.0-52.0) % MCV 86.0 (80.0-98.0) fL MCH 27.2 (27.0-33.0) pg MCHC 31.7 (31.0-36.0) g/dl RDW 13.5 (11.0-16.0) % Plt Count 252 (160-400) X10*3/uL MPV 10.2 (9.4-12.4) fL Immature Gran % (Auto) 0.2 (0.0-0.4) % Neut % (Auto) 81.5 H (45-73) % Lymph % (Auto) 9.5 L (20-40) % [place] % (Auto) 6.9 (2-11) % Eos % (Auto) 1.7 (0-4) % Baso % (Auto) 0.2 (0-2) % Lymph # (Auto) 0.8 L (1.2-4.9) X10*3/uL [place] # (Auto) 0.6 (0.1-1.2) X10*3/uL Eos # (Auto) 0.2 (0.0-0.4) X10*3/uL Baso # (Auto) 0.0 (0.0-0.2) X10*3/uL Abs Immat Gran (auto) 0.02 (0.00-0.03) X10*3/uL Absolute Neuts (auto) 7.2 (2.0-8.3) x10*3/uL Absolute Nucleated RBC 0.000 (0.0-0.012) X10*3/uL Nucleated RBC % (auto) 0.0 (0.0-0.2) /100WBC Sodium 139 (135-145) mmol/L Potassium 4.1 (3.3-5.1) mmol/L Chloride 107 (96-108) mmol/L Carbon Dioxide 26 (22-29) mmol/L Anion Gap 10 L (12-20) BUN 22 H (9-16) mg/dL Creatinine 1.56 H (0.5-1.4) mg/dL Estim Creat Clear Calc 86.5 Estimated GFR 48 POC Glucose (60-115) mg/dL Random Glucose 104 (60-115) mg/dL Calcium 8.7 D (8.4-10.2) mg/dL Total Bilirubin 0.8 (0.0-1.0) mg/dL Direct Bilirubin 0.3 (0.0-0.5) mg/dL AST 14 (5-37) U/L ALT 16 (0-40) U/L Alkaline Phosphatase 122 H (39-117) U/L Troponin I High Sens 5.1 (<3.5-35.0) ng/L Total Protein 6.7 (6.5-8.0) g/dL Albumin 3.8 (3.5-5.0) g/dL Lipase 27 (8-78) U/L 08/27/21 08/27/21 Range/Units 12:56 15:34 WBC (4.8-10.8) X10*3/uL RBC (4.60-5.80) X10*6/uL Hgb (14.0-18.0) g/dl Hct (42.0-52.0) % MCV (80.0-98.0) fL MCH (27.0-33.0) pg MCHC (31.0-36.0) g/dl RDW (11.0-16.0) % Plt Count (160-400) X10*3/uL MPV (9.4-12.4) fL Immature Gran % (Auto) (0.0-0.4) % Neut % (Auto) (45-73) % Lymph % (Auto) (20-40) % [place] % (Auto) (2-11) % Eos % (Auto) (0-4) % Baso % (Auto) (0-2) % Lymph # (Auto) (1.2-4.9) X10*3/uL [place] # (Auto) (0.1-1.2) X10*3/uL Eos # (Auto) (0.0-0.4) X10*3/uL Baso # (Auto) (0.0-0.2) X10*3/uL Abs Immat Gran (auto) (0.00-0.03) X10*3/uL Absolute Neuts (auto) (2.0-8.3) x10*3/uL Absolute Nucleated RBC (0.0-0.012) X10*3/uL Nucleated RBC % (auto) (0.0-0.2) /100WBC Sodium (135-145) mmol/L Potassium (3.3-5.1) mmol/L Chloride (96-108) mmol/L Carbon Dioxide (22-29) mmol/L Anion Gap (12-20) BUN (9-16) mg/dL Creatinine (0.5-1.4) mg/dL Estim Creat Clear Calc Estimated GFR POC Glucose 112 (60-115) mg/dL Random Glucose (60-115) mg/dL Calcium (8.4-10.2) mg/dL Total Bilirubin (0.0-1.0) mg/dL Direct Bilirubin (0.0-0.5) mg/dL AST (5-37) U/L ALT (0-40) U/L Alkaline Phosphatase (39-117) U/L Troponin I High Sens 4.2 (<3.5-35.0) ng/L Total Protein (6.5-8.0) g/dL Albumin (3.5-5.0) g/dL Lipase (8-78) U/L Imaging Data Chest x-ray: Radiologist's impression: XR/XR chest 2V IMPRESSION: No acute intrathoracic disease. ECG Data ECG #1: Attestation: I personally reviewed and interpreted this ECG as follows: ECG interpretation date: 08/27/21 Interpretation: Rate: Normal sinus rhythm Rhythm:? 74 [place]:? Normal Normal P waves.? Normal MAEGAN.?? Normal QRS complex.?? ST T wave :??No ST elevation, no ST depression qTC: 441 prior studies:?January 2021 The study has been interpreted contemporaneously by me. Discharge Plan Discharge Clinical Impression: Atypical chest pain Patient Disposition: Home, Self-Care Instructions: Noncardiac Chest Pain (ED) Additional Instructions: As we discussed, your x-ray was normal today, your EKG does not show any abnormal findings, your blood work was normal. Please contact your primary care provider to schedule a follow-up visit within 1-3 days. You should return to the emergency department with any new or worsening symptoms or concerns, such as lightheadedness, dizziness, passing out, worsening chest pain, heart racing sensations, shortness of breath, difficulty breathing, nausea with persistent vomiting, abdominal pain, weakness, numbness or tingling of her extremities. Prescriptions: No Action amitriptyline 25 mg tablet 25 mg PO BEDTIME 30 Days Qty: 30 0RF aspirin 81 mg tablet,chewable 1 tab PO DAILY 90 Days Qty: 90 0RF albuterol sulfate [ProAir HFA] 90 mcg/actuation HFA aerosol inhaler 2 puff PO Q6-8H PRN (Reason: for wheezing) Qty: 8.5 3RF atorvastatin 40 mg tablet 40 mg PO DAILY 90 Days Qty: 90 1RF amlodipine 5 mg tablet 5 mg PO DAILY 90 Days Qty: 90 1RF losartan 100 mg tablet 100 mg PO DAILY Qty: 90 0RF Flovent HFA 110 mcg/actuation HFA aerosol inhaler 2 puff PO BID Qty: 36 0RF cyclobenzaprine 10 mg tablet 10 mg PO TID PRN (Reason: muscle spasm) Qty: 14 0RF ondansetron 4 mg tablet,disintegrating 4 mg PO TID PRN (Reason: nausea and vomiting) 5 Days Qty: 10 0RF lidocaine [Lidoderm] 5 % adhesive patch,medicated 1 patch topical DAILY Qty: 15 0RF Rx Instructions: leave on most painful area for up to 12 hrs cyclobenzaprine 10 mg tablet 10 mg PO Q8H PRN (Reason: muscle spasm) Qty: 10 0RF oxycodone-acetaminophen [Percocet] 5-325 mg tablet 1 tab PO Q4H PRN (Reason: pain) Qty: 8 0RF lidocaine 4 % adhesive patch,medicated 1 patch topical DAILY PRN (Reason: pain) 30 Days Qty: 30 1RF Rx Instructions: may leave on for up to 12 hrs doxycycline monohydrate 100 mg capsule 100 mg PO BID 10 Days Qty: 20 0RF riboflavin (vitamin B2) 400 mg tablet 400 mg PO DAILY 30 Days Qty: 30 5RF Referrals: Reina Brown MD [Primary Care Provider] - 3 days
[2021-08-27 12:47] LABS: MANUAL DIFF FLAG NO
[2021-08-27 12:48] LABS: Basophils Percent Auto 0.2 % (0-2); Eosinophils Absolute Auto 0.2 X10*3/uL (0.0-0.4); Eosinophils Percent Auto 1.7 % (0-4); Hematocrit 40.4 % (42.0-52.0); Hemoglobin 12.8 g/dl (14.0-18.0); Imm Gran Abs Auto 0.02 X10*3/uL (0.00-0.03); Imm Gran Pct Auto 0.2 % (0.0-0.4); Lymphocytes Absolute Auto 0.8 X10*3/uL (1.2-4.9); Lymphocytes Percent Auto 9.5 % (20-40); Mean Corpuscular HGB Conc 31.7 g/dl (31.0-36.0); Mean Corpuscular Hemoglobin 27.2 pg (27.0-33.0); Mean Platelet Volume 10.2 fL (9.4-12.4); Monocytes Absolute Auto 0.6 X10*3/uL (0.1-1.2); Monocytes Percent Auto 6.9 % (2-11); Neutrophils Absolute Auto 7.2 x10*3/uL (2.0-8.3); Neutrophils Percent Auto 81.5 % (45-73); Platelet Count 252 X10*3/uL (160-400); Red Cell Distribution Width 13.5 % (11.0-16.0); White Blood Count 8.9 X10*3/uL (4.8-10.8)
[2021-08-27 13:00] LABS: Glucose, Whole Blood 112 mg/dL (60-115)
[2021-08-27] MEDS: Nitroglycerin 2 % Oint 1 GM Packet 0.5 INCH TRANSDERMA (13:05)
[2021-08-27 13:08] LABS: Alanine Aminotransferase 16 U/L (0-40); Albumin Level 3.8 g/dL (3.5-5.0); Alkaline Phosphatase 122 U/L (39-117); Anion Gap 10 (12-20); Aspartate Amino Transferase 14 U/L (5-37); Bilirubin Direct 0.3 mg/dL (0.0-0.5); Bilirubin Total 0.8 mg/dL (0.0-1.0); Blood Urea Nitrogen 22 mg/dL (9-16); Calcium 8.7 mg/dL (8.4-10.2); Carbon Dioxide 26 mmol/L (22-29); Chloride 107 mmol/L (96-108); Creatinine Clr Calc Pharmacy 86.5; Estimated Glomerular Filt Rate 48; Glucose Random 104 mg/dL (60-115); Lipase 27 U/L (8-78); Potassium 4.1 mmol/L (3.3-5.1); Sodium 139 mmol/L (135-145); Total Protein 6.7 g/dL (6.5-8.0)
[2021-08-27 13:15] LABS: Troponin-I High Sensitivity 5.1 ng/L (<3.5-35.0)
[2021-08-27 14:53] VITALS: BP 138/72; PULSE 66; RESP 16; TEMP 36.5; O2SAT 95
[2021-08-27 16:03] VITALS: BP 152/90; O2SAT 95
[2021-08-27 16:21] LABS: Troponin-I High Sensitivity 4.2 ng/L (<3.5-35.0)
== END 2021-08-27 17:35 | disposition home or self-care (01) ==
PROVIDERS: Nurse Practitioner Family; Emergency Provider Emergency Medicine; PCP Internal Medicine
DX: R07.89 Other chest pain (principal); I12.9 Hypertensive chronic kidney disease with stage 1 through stage 4 chronic kidney disease, or unspecified chronic kidney disease; N18.30 Chronic kidney disease, stage 3 unspecified; J45.909 Unspecified asthma, uncomplicated
CPT/HCPCS: 36415; 71046; 80048; 80076; 82947; 83690; 84484; 85025; 93005; 99283; 99284

== ENCOUNTER 2022-02-12 20:26 | Emergency (ER) | payer OTHER, SELFPAY ==
--- NOTE | ~2022-02-12 | XR_ITS ---
EXAMINATION: XR CHEST CLINICAL INFORMATION: Shortness of breath COMPARISON: 08/27/2021 TECHNIQUE: 2 views of the chest were obtained. FINDINGS: No significant abnormality is noted involving the heart, lungs, mediastinum, bony thorax or soft tissues. XR/XR chest 2V IMPRESSION: Unremarkable examination.
[2022-02-12 20:41] VITALS: BP 175/101; PULSE 78; RESP 16; TEMP 36.7; O2SAT 98; BMI 51.6
--- NOTE | 2022-02-12 20:41 | ED.URI ---
HPI - URI/Sore Throat General Chief Complaint: General Medical Stated Complaint: Diff Breathing/ Headache Time Seen by Provider: 02/12/22 22:50 Related Data Previous Rx's Medication Instructions Recorded amitriptyline 25 mg tablet 25 mg PO BEDTIME migraine 30 days 05/14/20 #30 tabs aspirin 81 mg chewable tablet 1 tab PO DAILY 3 months #90 tabs 05/14/20 doxycycline monohydrate 100 mg 100 mg PO BID 10 days #20 caps 10/22/20 capsule riboflavin (vitamin B2) 400 mg 400 mg PO DAILY 30 days #30 tabs 08/30/21 tablet fluticasone propionate 110 2 puff PO BID #36 ea 01/14/22 mcg/actuation HFA aerosol inhaler (Flovent HFA) losartan 100 mg tablet 100 mg PO DAILY #90 tabs 01/14/22 amlodipine 5 mg tablet 5 mg PO DAILY 90 days #90 tabs 01/15/22 atorvastatin 40 mg tablet 40 mg PO DAILY 90 days #90 tabs 01/15/22 albuterol sulfate 90 mcg/actuation 2 puff inhalation Q4-6H PRN 02/12/22 aerosol inhaler (ProAir HFA) shortness of breath or wheezing #8.5 grams benzonatate 200 mg capsule 200 mg PO TID PRN cough #30 caps 02/12/22 prednisone 50 mg tablet 50 mg PO DAILY #6 tabs 02/12/22 acetaminophen 500 mg tablet 1,000 mg PO TID PRN pain #30 tabs 02/21/22 amoxicillin 500 mg-potassium 1 tab PO TID 7 days #21 tabs 02/21/22 clavulanate 125 mg tablet (Augmentin) oxycodone 5 mg tablet 5 mg PO Q6H PRN pain #10 tabs 02/21/22 Allergies Allergy/AdvReac Type Severity Reaction Status Date / Time lisinopril [LISINOPRIL] Allergy Intermediate ANGIOEDEMA Verified 02/17/22 10:55 CHOCOLATE Allergy Severe DIFFICULTY Uncoded 02/17/22 10:55 BREATHING PMFSH Past Medical History Medical History (Updated 02/22/22 @ 00:01 by Obi Cornejo) Anxiety Benign essential hypertension CKD (chronic kidney disease) stage 3, GFR 30-59 ml/min Dyslipidemia (high LDL; low HDL) Low back pain Mild intermittent asthma Morbid obesity with BMI of 50.0-59.9, adult CHUN (obstructive sleep apnea) Pure hypercholesterolemia Stage 3 chronic kidney disease Surgical History No history of previous surgery Family History Family History Mother No problems noted. Father No problems noted. Social History Social History Housing: House Alcohol intake: current Alcohol intake frequency: holidays/special occasions only Patient Tobacco Use Status: Never used Tobacco e-Cigarette/Vaping Use: Never Used Second Hand Smoke Exposure: Yes Advance Directives: No Advance Directives Information Provided: Yes service: No Current occupational status: employed Cognitive needs: No Hearing needs: No Vision needs: No Physical Exam Vital Signs: Vital Signs: Last Vital Signs Temp 97.4 F 02/12/22 22:07 Pulse 72 02/12/22 22:07 Resp 18 02/12/22 22:07 BP 129/77 02/12/22 22:07 Pulse Ox 97 02/12/22 22:07 O2 Del Method 02/12/22 22:07 BMI result Body Mass Index 51.6 Course Course Course Narrative: This is a rapid medical exam. Deferred HPI, ROS, PE to primary provider. 46-year-old male with history of asthma, CKD, anxiety attacks, HTN here with shortness of breath/chest discomfort with breathing, headache noted today. No cough, fever, leg swelling or leg pain. Will check CXR, labs, testing for flu/covid/rsv, EKG. Medications Administered Discontinued Medications Generic Name Dose Route Start Last Admin Trade Name Freq PRN Reason Stop Dose Admin Prednisone 50 mg 02/12/22 23:03 02/12/22 23:25 Prednisone 10 Mg Tablet PO 02/12/22 23:04 50 mg ONCE ONE Administration Medical Decision Making Lab Data Result Diagrams: 02/12/22 21:16 02/12/22 21:16 Labs: Lab Results 02/12/22 02/12/22 02/12/22 Range/Units 21:16 21:16 21:16 WBC 9.3 (4.8-10.8) X10*3/uL RBC 4.70 (4.60-5.80) X10*6/uL Hgb 13.0 L (14.0-18.0) g/dl Hct 41.4 L (42.0-52.0) % MCV 88.1 (80.0-98.0) fL MCH 27.7 (27.0-33.0) pg MCHC 31.4 (31.0-36.0) g/dl RDW 13.2 (11.0-16.0) % Plt Count 272 (160-400) X10*3/uL MPV 10.2 (9.4-12.4) fL Immature Gran % (Auto) 0.2 (0.0-0.4) % Neut % (Auto) 74.0 H (45-73) % Lymph % (Auto) 15.1 L (20-40) % [place] % (Auto) 7.6 (2-11) % Eos % (Auto) 2.7 (0-4) % Baso % (Auto) 0.4 (0-2) % Lymph # (Auto) 1.4 (1.2-4.9) X10*3/uL [place] # (Auto) 0.7 (0.1-1.2) X10*3/uL Eos # (Auto) 0.3 (0.0-0.4) X10*3/uL Baso # (Auto) 0.0 (0.0-0.2) X10*3/uL Abs Immat Gran (auto) 0.02 (0.00-0.03) X10*3/uL Absolute Neuts (auto) 6.8 (2.0-8.3) x10*3/uL Absolute Nucleated RBC 0.000 (0.0-0.012) X10*3/uL Nucleated RBC % (auto) 0.0 (0.0-0.2) /100WBC PT (10.0-13.1) SEC INR (0.9-1.1) Sodium 143 (135-145) mmol/L Potassium 3.7 (3.3-5.1) mmol/L Chloride 107 (96-108) mmol/L Carbon Dioxide 27 (22-29) mmol/L Anion Gap 13 (12-20) BUN 21 H (9-16) mg/dL Creatinine 1.52 H (0.5-1.4) mg/dL Estim Creat Clear Calc 83.6 Estimated GFR 50 Random Glucose 85 (60-115) mg/dL Calcium 8.9 (8.4-10.2) mg/dL Troponin I High Sens (<3.5-35.0) ng/L B-Natriuretic Peptide (<100) pg/mL Influenza Type A (PCR) NEGATIVE (Negative) Influenza Type B (PCR) NEGATIVE (Negative) RSV RNA Qual (PCR) NEGATIVE (Negative) SARS-CoV-2 RNA (RT-PCR) NEGATIVE (Negative) 02/12/22 02/12/22 02/12/22 Range/Units 21:16 21:16 21:16 WBC (4.8-10.8) X10*3/uL RBC (4.60-5.80) X10*6/uL Hgb (14.0-18.0) g/dl Hct (42.0-52.0) % MCV (80.0-98.0) fL MCH (27.0-33.0) pg MCHC (31.0-36.0) g/dl RDW (11.0-16.0) % Plt Count (160-400) X10*3/uL MPV (9.4-12.4) fL Immature Gran % (Auto) (0.0-0.4) % Neut % (Auto) (45-73) % Lymph % (Auto) (20-40) % [place] % (Auto) (2-11) % Eos % (Auto) (0-4) % Baso % (Auto) (0-2) % Lymph # (Auto) (1.2-4.9) X10*3/uL [place] # (Auto) (0.1-1.2) X10*3/uL Eos # (Auto) (0.0-0.4) X10*3/uL Baso # (Auto) (0.0-0.2) X10*3/uL Abs Immat Gran (auto) (0.00-0.03) X10*3/uL Absolute Neuts (auto) (2.0-8.3) x10*3/uL Absolute Nucleated RBC (0.0-0.012) X10*3/uL Nucleated RBC % (auto) (0.0-0.2) /100WBC PT 11.6 (10.0-13.1) SEC INR 1.0 (0.9-1.1) Sodium (135-145) mmol/L Potassium (3.3-5.1) mmol/L Chloride (96-108) mmol/L Carbon Dioxide (22-29) mmol/L Anion Gap (12-20) BUN (9-16) mg/dL Creatinine (0.5-1.4) mg/dL Estim Creat Clear Calc Estimated GFR Random Glucose (60-115) mg/dL Calcium (8.4-10.2) mg/dL Troponin I High Sens 5.6 (<3.5-35.0) ng/L B-Natriuretic Peptide 21 (<100) pg/mL Influenza Type A (PCR) (Negative) Influenza Type B (PCR) (Negative) RSV RNA Qual (PCR) (Negative) SARS-CoV-2 RNA (RT-PCR) (Negative) Discharge Plan Discharge Clinical Impression: Acute bronchitis Patient Disposition: Home, Self-Care Instructions: Acute Bronchitis (ED) Additional Instructions: Continue to use your inhaler Prednisone as a prescribed Tessalon for cough Follow with lung specialist for sleep studies for sleep apnea Prescriptions: New benzonatate 200 mg capsule 200 mg PO TID PRN (Reason: cough) Qty: 30 0RF albuterol sulfate [ProAir HFA] 90 mcg/actuation HFA aerosol inhaler 2 puff inhalation Q4-6H PRN (Reason: shortness of breath or wheezing) Qty: 8.5 0RF prednisone 50 mg tablet 50 mg PO DAILY Qty: 6 0RF No Action amitriptyline 25 mg tablet 25 mg PO BEDTIME 30 Days Qty: 30 0RF aspirin 81 mg tablet,chewable 1 tab PO DAILY 90 Days Qty: 90 0RF riboflavin (vitamin B2) 400 mg tablet 400 mg PO DAILY 30 Days Qty: 30 5RF losartan 100 mg tablet 100 mg PO DAILY Qty: 90 0RF Flovent HFA 110 mcg/actuation HFA aerosol inhaler 2 puff PO BID Qty: 36 0RF atorvastatin 40 mg tablet 40 mg PO DAILY 90 Days Qty: 90 0RF amlodipine 5 mg tablet 5 mg PO DAILY 90 Days Qty: 90 0RF amoxicillin-pot clavulanate [Augmentin] 500-125 mg tablet 1 tab PO TID 7 Days Qty: 21 0RF acetaminophen 500 mg tablet 1,000 mg PO TID PRN (Reason: pain) Qty: 30 0RF oxycodone 5 mg tablet 5 mg PO Q6H PRN (Reason: pain) Qty: 10 0RF Rx Instructions: Partial Fill upon patient request. doxycycline monohydrate 100 mg capsule 100 mg PO BID 10 Days Qty: 20 0RF Interventions: ED Discharge Assessment Last Done: 02/12/22 23:27 Discharge Date/Time: 02/12/22 23:27
--- NOTE | 2022-02-12 20:44 | ECG_ITS ---
Test Reason : CHEST PAIN Blood Pressure : / mmHG Vent. Rate : 066 BPM Atrial Rate : 066 BPM P-R Int : 140 ms QRS Dur : 086 ms QT Int : 390 ms P-R-T Axes : 033 040 091 degrees QTc Int : 408 ms Normal sinus rhythm Nonspecific T wave abnormality Abnormal ECG When compared with ECG of 27-AUG-2021 11:57, No significant change was found Referred By: Ayana Lenz Electronically Signed By:LIOR MAYA
[2022-02-12 21:22] LABS: MANUAL DIFF FLAG NO
[2022-02-12 21:25] LABS: Basophils Percent Auto 0.4 % (0-2); Eosinophils Absolute Auto 0.3 X10*3/uL (0.0-0.4); Eosinophils Percent Auto 2.7 % (0-4); Hematocrit 41.4 % (42.0-52.0); Imm Gran Abs Auto 0.02 X10*3/uL (0.00-0.03); Imm Gran Pct Auto 0.2 % (0.0-0.4); Lymphocytes Absolute Auto 1.4 X10*3/uL (1.2-4.9); Lymphocytes Percent Auto 15.1 % (20-40); Mean Corpuscular HGB Conc 31.4 g/dl (31.0-36.0); Mean Corpuscular Hemoglobin 27.7 pg (27.0-33.0); Mean Corpuscular Volume 88.1 fL (80.0-98.0); Mean Platelet Volume 10.2 fL (9.4-12.4); Monocytes Absolute Auto 0.7 X10*3/uL (0.1-1.2); Monocytes Percent Auto 7.6 % (2-11); Neutrophils Absolute Auto 6.8 x10*3/uL (2.0-8.3); Platelet Count 272 X10*3/uL (160-400); Red Cell Distribution Width 13.2 % (11.0-16.0); White Blood Count 9.3 X10*3/uL (4.8-10.8)
[2022-02-12 21:30] LABS: Prothrombin Time 11.6 SEC (10.0-13.1)
[2022-02-12 21:46] LABS: Anion Gap 13 (12-20); Blood Urea Nitrogen 21 mg/dL (9-16); Calcium 8.9 mg/dL (8.4-10.2); Carbon Dioxide 27 mmol/L (22-29); Chloride 107 mmol/L (96-108); Creatinine Clr Calc Pharmacy 83.6; Estimated Glomerular Filt Rate 50; Glucose Random 85 mg/dL (60-115); Potassium 3.7 mmol/L (3.3-5.1); Sodium 143 mmol/L (135-145)
[2022-02-12 21:52] LABS: B Type Natriuretic Peptide 21 pg/mL (<100)
[2022-02-12 21:53] LABS: Troponin-I High Sensitivity 5.6 ng/L (<3.5-35.0)
[2022-02-12 22:03] LABS: Influenza A PCR NEGATIVE (Negative); Influenza B PCR NEGATIVE (Negative); Resp Syncy Virus RNA Qual PCR NEGATIVE (Negative); SARS COV2 PCR INHOUSE NEGATIVE (Negative)
[2022-02-12 22:07] VITALS: BP 129/77; PULSE 72; RESP 18; TEMP 36.3; O2SAT 97
--- NOTE | 2022-02-12 23:07 | ED_ITS ---
HPI - URI/Sore Throat General Chief Complaint: General Medical Stated Complaint: Diff Breathing/ Headache Time Seen by Provider: 02/12/22 22:50 Source: patient Mode of arrival: ambulatory Limitations: no limitations History of Present Illness HPI Narrative: Patient with History of asthma been having cough with mucopurulent last 2 days no fever no chills use inhaler feeling much better now Related Data Previous Rx's Medication Instructions Recorded ondansetron 4 mg disintegrating 4 mg PO TID PRN nausea and 04/06/20 tablet vomiting 5 days #10 tabs amitriptyline 25 mg tablet 25 mg PO BEDTIME migraine 30 days 05/14/20 #30 tabs aspirin 81 mg chewable tablet 1 tab PO DAILY 3 months #90 tabs 05/14/20 cyclobenzaprine 10 mg tablet 10 mg PO TID PRN muscle spasm #14 09/19/20 tabs doxycycline monohydrate 100 mg 100 mg PO BID 10 days #20 caps 10/22/20 capsule lidocaine 4 % topical patch 1 patch topical DAILY PRN pain 30 10/22/20 days #30 ea cyclobenzaprine 10 mg tablet 10 mg PO Q8H PRN muscle spasm #10 12/31/20 tabs lidocaine 5 % topical patch 1 patch topical DAILY #15 ea 12/31/20 (Lidoderm) oxycodone-acetaminophen 5 mg-325 1 tab PO Q4H PRN pain #8 tabs 12/31/20 mg tablet (Percocet) albuterol sulfate 90 mcg/actuation 2 puff PO Q6-8H PRN shortness of 08/30/21 aerosol inhaler (ProAir HFA) breath or wheezing #8.5 grams riboflavin (vitamin B2) 400 mg 400 mg PO DAILY 30 days #30 tabs 08/30/21 tablet fluticasone propionate 110 2 puff PO BID #36 ea 01/14/22 mcg/actuation HFA aerosol inhaler (Flovent HFA) losartan 100 mg tablet 100 mg PO DAILY #90 tabs 01/14/22 amlodipine 5 mg tablet 5 mg PO DAILY 90 days #90 tabs 01/15/22 atorvastatin 40 mg tablet 40 mg PO DAILY 90 days #90 tabs 01/15/22 albuterol sulfate 90 mcg/actuation 2 puff inhalation Q4-6H PRN 02/12/22 aerosol inhaler (ProAir HFA) shortness of breath or wheezing #8.5 grams benzonatate 200 mg capsule 200 mg PO TID PRN cough #30 caps 02/12/22 prednisone 50 mg tablet 50 mg PO DAILY #6 tabs 02/12/22 Allergies Allergy/AdvReac Type Severity Reaction Status Date / Time lisinopril [LISINOPRIL] Allergy Intermediate ANGIOEDEMA Verified 01/21/21 15:04 CHOCOLATE Allergy Severe DIFFICULTY Uncoded 01/21/21 15:04 BREATHING Review of Systems Review of Systems: Yes all other systems are reviewed and are negative [facility] Past Medical History Medical History Anxiety Asthma Benign essential hypertension Low back pain Morbid obesity with BMI of 50.0-59.9, adult Pure hypercholesterolemia Stage 3 chronic kidney disease Surgical History No history of previous surgery Family History Family History Mother No problems noted. Father No problems noted. Social History Social History Housing: House Alcohol intake: current Alcohol intake frequency: holidays/special occasions only Patient Tobacco Use Status: Never used Tobacco Second Hand Smoke Exposure: Yes Advance Directives: No Advance Directives Information Provided: No service: No Current occupational status: employed Physical Exam Vital Signs: Vital Signs: Last Vital Signs Temp 97.4 F 02/12/22 22:07 Pulse 72 02/12/22 22:07 Resp 18 02/12/22 22:07 BP 129/77 02/12/22 22:07 Pulse Ox 97 02/12/22 22:07 O2 Del Method 02/12/22 22:07 BMI result Body Mass Index 51.6 Appearance: Alert. Oriented X3. No acute distress. Eyes: PERRLA, No Nystagmus ENT: Pharynx normal. Oral Mucosa moist Neck: Normal inspection. Neck supple. CVS: Normal heart rate and rhythm. Pulses normal. Respiratory: No respiratory distress. Equal air entry bilateral, prolonged expiration Abdomen: Soft and nontender. Bowel sounds are present, no mass palpable, no CVA tenderness Skin: Skin warm and dry. Normal skin color. Normal skin turgor. Extremities: No lower extremity edema. No calf tenderness Neuro: Oriented X 3. No motor deficit. No sensory deficit.No cerebellar signs , cranial nerves II-XII intact Medical Decision Making Medical Decision Making [facility] Narrative: Patient has acute bronchitis labs are stable chest x-ray negative discharge patient prednisone inhaler advised to follow with clinical account liaison for sleep studies Lab Data [facility] Lab Attestation statement: I reviewed the patient's lab results. Result Diagrams: 02/12/22 21:16 02/12/22 21:16 Labs: Lab Results 02/12/22 02/12/22 02/12/22 Range/Units 21:16 21:16 21:16 WBC 9.3 (4.8-10.8) X10*3/uL RBC 4.70 (4.60-5.80) X10*6/uL Hgb 13.0 L (14.0-18.0) g/dl Hct 41.4 L (42.0-52.0) % MCV 88.1 (80.0-98.0) fL MCH 27.7 (27.0-33.0) pg MCHC 31.4 (31.0-36.0) g/dl RDW 13.2 (11.0-16.0) % Plt Count 272 (160-400) X10*3/uL MPV 10.2 (9.4-12.4) fL Immature Gran % (Auto) 0.2 (0.0-0.4) % Neut % (Auto) 74.0 H (45-73) % Lymph % (Auto) 15.1 L (20-40) % [place] % (Auto) 7.6 (2-11) % Eos % (Auto) 2.7 (0-4) % Baso % (Auto) 0.4 (0-2) % Lymph # (Auto) 1.4 (1.2-4.9) X10*3/uL [place] # (Auto) 0.7 (0.1-1.2) X10*3/uL Eos # (Auto) 0.3 (0.0-0.4) X10*3/uL Baso # (Auto) 0.0 (0.0-0.2) X10*3/uL Abs Immat Gran (auto) 0.02 (0.00-0.03) X10*3/uL Absolute Neuts (auto) 6.8 (2.0-8.3) x10*3/uL Absolute Nucleated RBC 0.000 (0.0-0.012) X10*3/uL Nucleated RBC % (auto) 0.0 (0.0-0.2) /100WBC PT (10.0-13.1) SEC INR (0.9-1.1) Sodium 143 (135-145) mmol/L Potassium 3.7 (3.3-5.1) mmol/L Chloride 107 (96-108) mmol/L Carbon Dioxide 27 (22-29) mmol/L Anion Gap 13 (12-20) BUN 21 H (9-16) mg/dL Creatinine 1.52 H (0.5-1.4) mg/dL Estim Creat Clear Calc 83.6 Estimated GFR 50 Random Glucose 85 (60-115) mg/dL Calcium 8.9 (8.4-10.2) mg/dL Troponin I High Sens (<3.5-35.0) ng/L B-Natriuretic Peptide (<100) pg/mL Influenza Type A (PCR) NEGATIVE (Negative) Influenza Type B (PCR) NEGATIVE (Negative) RSV RNA Qual (PCR) NEGATIVE (Negative) SARS-CoV-2 RNA (RT-PCR) NEGATIVE (Negative) 02/12/22 02/12/22 02/12/22 Range/Units 21:16 21:16 21:16 WBC (4.8-10.8) X10*3/uL RBC (4.60-5.80) X10*6/uL Hgb (14.0-18.0) g/dl Hct (42.0-52.0) % MCV (80.0-98.0) fL MCH (27.0-33.0) pg MCHC (31.0-36.0) g/dl RDW (11.0-16.0) % Plt Count (160-400) X10*3/uL MPV (9.4-12.4) fL Immature Gran % (Auto) (0.0-0.4) % Neut % (Auto) (45-73) % Lymph % (Auto) (20-40) % [place] % (Auto) (2-11) % Eos % (Auto) (0-4) % Baso % (Auto) (0-2) % Lymph # (Auto) (1.2-4.9) X10*3/uL [place] # (Auto) (0.1-1.2) X10*3/uL Eos # (Auto) (0.0-0.4) X10*3/uL Baso # (Auto) (0.0-0.2) X10*3/uL Abs Immat Gran (auto) (0.00-0.03) X10*3/uL Absolute Neuts (auto) (2.0-8.3) x10*3/uL Absolute Nucleated RBC (0.0-0.012) X10*3/uL Nucleated RBC % (auto) (0.0-0.2) /100WBC PT 11.6 (10.0-13.1) SEC INR 1.0 (0.9-1.1) Sodium (135-145) mmol/L Potassium (3.3-5.1) mmol/L Chloride (96-108) mmol/L Carbon Dioxide (22-29) mmol/L Anion Gap (12-20) BUN (9-16) mg/dL Creatinine (0.5-1.4) mg/dL Estim Creat Clear Calc Estimated GFR Random Glucose (60-115) mg/dL Calcium (8.4-10.2) mg/dL Troponin I High Sens 5.6 (<3.5-35.0) ng/L B-Natriuretic Peptide 21 (<100) pg/mL Influenza Type A (PCR) (Negative) Influenza Type B (PCR) (Negative) RSV RNA Qual (PCR) (Negative) SARS-CoV-2 RNA (RT-PCR) (Negative) Discharge Plan Discharge Clinical Impression: Acute bronchitis Patient Disposition: Home, Self-Care Instructions: Acute Bronchitis (ED) Additional Instructions: Continue to use your inhaler Prednisone as a prescribed Tessalon for cough Follow with lung specialist for sleep studies for sleep apnea Prescriptions: New benzonatate 200 mg capsule 200 mg PO TID PRN (Reason: cough) Qty: 30 0RF albuterol sulfate [ProAir HFA] 90 mcg/actuation HFA aerosol inhaler 2 puff inhalation Q4-6H PRN (Reason: shortness of breath or wheezing) Qty: 8. 5 0RF prednisone 50 mg tablet 50 mg PO DAILY Qty: 6 0RF No Action amitriptyline 25 mg tablet 25 mg PO BEDTIME 30 Days Qty: 30 0RF aspirin 81 mg tablet,chewable 1 tab PO DAILY 90 Days Qty: 90 0RF riboflavin (vitamin B2) 400 mg tablet 400 mg PO DAILY 30 Days Qty: 30 5RF albuterol sulfate [ProAir HFA] 90 mcg/actuation HFA aerosol inhaler 2 puff PO Q6-8H PRN (Reason: shortness of breath or wheezing) Qty: 8.5 3RF losartan 100 mg tablet 100 mg PO DAILY Qty: 90 0RF Flovent HFA 110 mcg/actuation HFA aerosol inhaler 2 puff PO BID Qty: 36 0RF atorvastatin 40 mg tablet 40 mg PO DAILY 90 Days Qty: 90 0RF amlodipine 5 mg tablet 5 mg PO DAILY 90 Days Qty: 90 0RF cyclobenzaprine 10 mg tablet 10 mg PO TID PRN (Reason: muscle spasm) Qty: 14 0RF ondansetron 4 mg tablet,disintegrating 4 mg PO TID PRN (Reason: nausea and vomiting) 5 Days Qty: 10 0RF lidocaine [Lidoderm] 5 % adhesive patch,medicated 1 patch topical DAILY Qty: 15 0RF Rx Instructions: leave on most painful area for up to 12 hrs cyclobenzaprine 10 mg tablet 10 mg PO Q8H PRN (Reason: muscle spasm) Qty: 10 0RF oxycodone-acetaminophen [Percocet] 5-325 mg tablet 1 tab PO Q4H PRN (Reason: pain) Qty: 8 0RF lidocaine 4 % adhesive patch,medicated 1 patch topical DAILY PRN (Reason: pain) 30 Days Qty: 30 1RF Rx Instructions: may leave on for up to 12 hrs doxycycline monohydrate 100 mg capsule 100 mg PO BID 10 Days Qty: 20 0RF
[2022-02-12] MEDS: predniSONE 10 MG TABLET 50 MG PO (23:25)
== END 2022-02-12 23:27 | disposition home or self-care (01) ==
PROVIDERS: Nurse Practitioner Family; Emergency Provider Internal Medicine; PCP Internal Medicine
DX: J20.9 Acute bronchitis, unspecified (principal); Z20.822 Contact with and (suspected) exposure to COVID-19; E78.5 Hyperlipidemia, unspecified; I12.9 Hypertensive chronic kidney disease with stage 1 through stage 4 chronic kidney disease, or unspecified chronic kidney disease; N18.30 Chronic kidney disease, stage 3 unspecified; E66.01 Morbid (severe) obesity due to excess calories; Z68.43 Body mass index [BMI] 50.0-59.9, adult; Z79.82 Long term (current) use of aspirin; Z79.899 Other long term (current) drug therapy; Z79.02 Long term (current) use of antithrombotics/antiplatelets
CPT/HCPCS: 0241U; 36415; 71046; 80048; 83880; 84484; 85025; 85610; 93005; 99283

== ENCOUNTER 2022-02-21 14:17 | Emergency (ER) | payer OTHER, SELFPAY ==
--- NOTE | 2022-02-21 | ECG_ITS ---
Test Reason : cp Blood Pressure : / mmHG Vent. Rate : 068 BPM Atrial Rate : 068 BPM P-R Int : 140 ms QRS Dur : 080 ms QT Int : 404 ms P-R-T Axes : 020 047 091 degrees QTc Int : 429 ms Normal sinus rhythm Nonspecific T wave abnormality Abnormal ECG When compared with ECG of 12-FEB-2022 21:07, No significant change was found Referred By: Guy Cantrell Electronically Signed By:Shelton Gonzalez
[2022-02-21 14:24] VITALS: BP 155/81; PULSE 77; RESP 18; TEMP 36.6; O2SAT 94; BMI 52.7
[2022-02-21 16:17] LABS: Hematocrit 41.8 % (42.0-52.0); Hemoglobin 13.1 g/dl (14.0-18.0); Mean Corpuscular HGB Conc 31.3 g/dl (31.0-36.0); Mean Corpuscular Hemoglobin 27.5 pg (27.0-33.0); Mean Corpuscular Volume 87.8 fL (80.0-98.0); Mean Platelet Volume 10.2 fL (9.4-12.4); Platelet Count 255 X10*3/uL (160-400); Red Blood Count 4.76 X10*6/uL (4.60-5.80); Red Cell Distribution Width 13.7 % (11.0-16.0); White Blood Count 10.3 X10*3/uL (4.8-10.8)
[2022-02-21 16:32] LABS: Alanine Aminotransferase 17 U/L (0-40); Albumin Level 3.9 g/dL (3.5-5.0); Alkaline Phosphatase 109 U/L (39-117); Anion Gap 12 (12-20); Aspartate Amino Transferase 14 U/L (5-37); Bilirubin Total 0.8 mg/dL (0.0-1.0); Blood Urea Nitrogen 24 mg/dL (9-16); Calcium 9.1 mg/dL (8.4-10.2); Carbon Dioxide 31 mmol/L (22-29); Chloride 106 mmol/L (96-108); Creatinine Clr Calc Pharmacy 62.5; Estimated Glomerular Filt Rate 35; Glucose Random 87 mg/dL (60-115); Potassium 3.9 mmol/L (3.3-5.1); Sodium 145 mmol/L (135-145); Total Protein 6.7 g/dL (6.5-8.0)
[2022-02-21 16:38] LABS: Troponin-I High Sensitivity 8.4 ng/L (<3.5-35.0)
--- NOTE | 2022-02-21 16:47 | ED.GENADULT ---
HPI - General Adult General Chief complaint: General Medical Stated complaint: numb on L side of face and arm Time Seen by Provider: 02/21/22 16:31 History of Present Illness HPI narrative: Patient's complaint is a feeling of tingling on the left side of his face associated with pain in the left side of the face in an area where he recently had a root canal 2nd complaint is he slept on the floor last night on his arm and woke up with tingling in his left hand around the thumb index finger and middle finger, there was never any weakness never any loss of sensation He felt anxious this morning and added episode of pain palpitations and sharp pain that lasted for a few seconds that similar to many many other episodes he has had of anxiety he has a long history of anxiety This was not related to exertion the pain was a sharp brief pain there was no nausea there was no faintness or feeling faint there was no shortness of breath there was no radiation of the pain He says when he is thinking of going to the hospital he always gets anxious and has had similar pains associated with anxiety many times Related Data Previous Rx's Medication Instructions Recorded amitriptyline 25 mg tablet 25 mg PO BEDTIME migraine 30 days 05/14/20 #30 tabs aspirin 81 mg chewable tablet 1 tab PO DAILY 3 months #90 tabs 05/14/20 doxycycline monohydrate 100 mg 100 mg PO BID 10 days #20 caps 10/22/20 capsule riboflavin (vitamin B2) 400 mg 400 mg PO DAILY 30 days #30 tabs 08/30/21 tablet fluticasone propionate 110 2 puff PO BID #36 ea 01/14/22 mcg/actuation HFA aerosol inhaler (Flovent HFA) losartan 100 mg tablet 100 mg PO DAILY #90 tabs 01/14/22 amlodipine 5 mg tablet 5 mg PO DAILY 90 days #90 tabs 01/15/22 atorvastatin 40 mg tablet 40 mg PO DAILY 90 days #90 tabs 01/15/22 albuterol sulfate 90 mcg/actuation 2 puff inhalation Q4-6H PRN 02/12/22 aerosol inhaler (ProAir HFA) shortness of breath or wheezing #8.5 grams benzonatate 200 mg capsule 200 mg PO TID PRN cough #30 caps 02/12/22 prednisone 50 mg tablet 50 mg PO DAILY #6 tabs 12/14/22 acetaminophen 500 mg tablet 1,000 mg PO TID PRN pain #30 tabs 02/21/22 amoxicillin 500 mg-potassium 1 tab PO TID 7 days #21 tabs 02/21/22 clavulanate 125 mg tablet (Augmentin) oxycodone 5 mg tablet 5 mg PO Q6H PRN pain #10 tabs 02/21/22 Allergies Allergy/AdvReac Type Severity Reaction Status Date / Time lisinopril [LISINOPRIL] Allergy Intermediate ANGIOEDEMA Verified 02/17/22 10:55 CHOCOLATE Allergy Severe DIFFICULTY Uncoded 02/17/22 10:55 BREATHING Review of Systems Review of Systems: Positive for facial pain positive for tingling in the area of the facial pain and in the left wrist earlier this morning Negatives are no fever no chills no dizziness weakness no fainting no feeling faint no headache no confusion no loss of consciousness no difficulty speaking or walking no numbness weakness or tingling no difficulty breathing or swallowing no shortness of breath no exertional symptoms no runny nose no sore throat no cough no sputum Yes all other systems are reviewed and are negative [facility] Past Medical History Source: nursing notes reviewed Medical History (Updated 02/21/22 @ 17:10 by JANE Flower) Anxiety Benign essential hypertension CKD (chronic kidney disease) stage 3, GFR 30-59 ml/min Dyslipidemia (high LDL; low HDL) Low back pain Mild intermittent asthma Morbid obesity with BMI of 50.0-59.9, adult CHUN (obstructive sleep apnea) Pure hypercholesterolemia Stage 3 chronic kidney disease Surgical History No history of previous surgery Family History Family History Mother No problems noted. Father No problems noted. Social History Social History Housing: House Alcohol intake: current Alcohol intake frequency: holidays/special occasions only Patient Tobacco Use Status: Never used Tobacco e-Cigarette/Vaping Use: Never Used Second Hand Smoke Exposure: Yes Advance Directives: No Advance Directives Information Provided: Yes service: No Current occupational status: employed Cognitive needs: No Hearing needs: No Vision needs: No Physical Exam ED Vital Signs: Vital Signs - 24 hr 12/23/22 14:24 Temperature 97.8 F Pulse Rate 77 Respiratory Rate 18 Blood Pressure 155/81 H Pulse Oximetry 94 Oxygen Delivery Method Room Air BMI result Body Mass Index 52.7 General appearance is no acute distress Head is normocephalic atraumatic Pupils equal round reactive to light extraocular motions are intact The facial exam there is an area of tenderness in the left upper maxilla area it is not red or warm Dental exam left upper maxilla 1 of the upper molars directly in the area of tenderness to the face is very tender to light percussion, there was no obvious fluctuant abscess on the gums or around the tooth The pharynx was clear with no impairment of breathing or swallowing, there was no tenderness under the tongue Neck was supple The chest was clear to auscultation bilateral Heart murmur Abdomen soft nontender Extremities full range of motion x4 Neuro gait and balance are normal, interaction both comprehension is depression are normal Cranial nerves 2-12 intact as tested, no facial asymmetry no drooling, cerebellar exam was normal, sensation is intact and symmetrical in all extremities including including fingers of both hands which are symmetrical in sensation, motor is 5/5 x4 and channel rougher strength is intact and symmetrical Course Course Course Narrative: ECG was normal sinus rhythm without any ischemic changes no ST elevations A troponin was sent from triage and was 8.4 The patient's complaint was not cardiac in nature, was associated with an anxiety episode which he has frequently and whenever he gets his anxiety gets the exact same chest pain this is no different It was not related to exertion there was no diaphoresis , no vomiting it was a stinging stabbing pain for seconds with no radiation of pain, no shortness of breath and no pain since He says he has had this pain hundreds of times and has a years long history of anxiety The tingling in his face is in the exact area of an obvious dental infection with tenderness of the tooth, he recently had dental work in the area and he is started on antibiotic and pain medicine for this He has a history of renal insufficiency and is pending an appointment with a tapeman, his creatinine today is 2.06, potassium is 3.9, creatinine clearance is 62 GFR is 35 Medical Decision Making Lab Data Result Diagrams: 02/21/22 16:11 02/21/22 16:11 Labs: Lab Results 02/21/22 02/21/22 02/21/22 Range/Units 16:11 16:11 16:11 WBC 10.3 (4.8-10.8) X10*3/uL RBC 4.76 (4.60-5.80) X10*6/uL Hgb 13.1 L (14.0-18.0) g/dl Hct 41.8 L (42.0-52.0) % MCV 87.8 (80.0-98.0) fL MCH 27.5 (27.0-33.0) pg MCHC 31.3 (31.0-36.0) g/dl RDW 13.7 (11.0-16.0) % Plt Count 255 (160-400) X10*3/uL MPV 10.2 (9.4-12.4) fL Absolute Nucleated RBC 0.000 (0.0-0.012) X10*3/uL Nucleated RBC % (auto) 0.0 (0.0-0.2) /100WBC Sodium 145 (135-145) mmol/L Potassium 3.9 (3.3-5.1) mmol/L Chloride 106 (96-108) mmol/L Carbon Dioxide 31 H (22-29) mmol/L Anion Gap 12 (12-20) BUN 24 H (9-16) mg/dL Creatinine 2.06 H (0.5-1.4) mg/dL Estim Creat Clear Calc 62.5 Estimated GFR 35 Random Glucose 87 (60-115) mg/dL Calcium 9.1 (8.4-10.2) mg/dL Total Bilirubin 0.8 (0.0-1.0) mg/dL AST 14 (5-37) U/L ALT 17 (0-40) U/L Alkaline Phosphatase 109 (39-117) U/L Troponin I High Sens 8.4 (<3.5-35.0) ng/L Total Protein 6.7 (6.5-8.0) g/dL Albumin 3.9 (3.5-5.0) g/dL Discharge Plan Discharge Clinical Impression: Dental abscess, Hand paresthesia, Anxiety, Renal insufficiency Patient Disposition: Home, Self-Care Additional Instructions: The area of pain and tingling in the left side of face is exactly over an area you recently had dental work that is very tender now and painful and likely the cause is a dental infection We are treating that with antibiotic and pain medicine We did an EKG today was normal for the stinging chest pain that you said you often get with your anxiety, it does not seem to be cardiac in nature The tingling in her hand was likely from sleeping on it in the wrong position there is no sign of any stroke or any dangerous condition Follow with dentist for dental issue Follow as scheduled with tapeman for your renal insufficiency Prescriptions: New amoxicillin-pot clavulanate [Augmentin] 500-125 mg tablet 1 tab PO TID 7 Days Qty: 21 0RF acetaminophen 500 mg tablet 1,000 mg PO TID PRN (Reason: pain) Qty: 30 0RF oxycodone 5 mg tablet 5 mg PO Q6H PRN (Reason: pain) Qty: 10 0RF Rx Instructions: Partial Fill upon patient request. No Action amitriptyline 25 mg tablet 25 mg PO BEDTIME 30 Days Qty: 30 0RF aspirin 81 mg tablet,chewable 1 tab PO DAILY 90 Days Qty: 90 0RF riboflavin (vitamin B2) 400 mg tablet 400 mg PO DAILY 30 Days Qty: 30 5RF losartan 100 mg tablet 100 mg PO DAILY Qty: 90 0RF Flovent HFA 110 mcg/actuation HFA aerosol inhaler 2 puff PO BID Qty: 36 0RF atorvastatin 40 mg tablet 40 mg PO DAILY 90 Days Qty: 90 0RF amlodipine 5 mg tablet 5 mg PO DAILY 90 Days Qty: 90 0RF benzonatate 200 mg capsule 200 mg PO TID PRN (Reason: cough) Qty: 30 0RF albuterol sulfate [ProAir HFA] 90 mcg/actuation HFA aerosol inhaler 2 puff inhalation Q4-6H PRN (Reason: shortness of breath or wheezing) Qty: 8.5 0RF prednisone 50 mg tablet 50 mg PO DAILY Qty: 6 0RF doxycycline monohydrate 100 mg capsule 100 mg PO BID 10 Days Qty: 20 0RF
== END 2022-02-21 17:28 | disposition home or self-care (01) ==
PROVIDERS: Physician Assistant Medical; Emergency Provider Emergency Medicine
DX: R07.89 Other chest pain (principal); K05.20 Aggressive periodontitis, unspecified; N28.9 Disorder of kidney and ureter, unspecified; F41.1 Generalized anxiety disorder; F43.0 Acute stress reaction; Z79.899 Other long term (current) drug therapy
CPT/HCPCS: 36415; 80053; 84484; 85027; 93005; 99283; 99284

== ENCOUNTER 2022-03-06 13:52 | Outpatient (REF) | payer OTHER, SELFPAY ==
[2022-03-06 16:55] LABS: Alanine Aminotransferase 21 U/L (0-40); Albumin Level 3.9 g/dL (3.5-5.0); Alkaline Phosphatase 107 U/L (39-117); Anion Gap 12 (12-20); Aspartate Amino Transferase 16 U/L (5-37); Blood Urea Nitrogen 16 mg/dL (9-16); Calcium 8.8 mg/dL (8.4-10.2); Carbon Dioxide 24 mmol/L (22-29); Chloride 111 mmol/L (96-108); Cholesterol 115 mg/dL; Estimated Glomerular Filt Rate 52; Glucose Fasting 93 mg/dL (60-99); HDL Cholesterol 35 mg/dL; Iron 41 mcg/dL (45-160); LDL Cholesterol Calculated 60 mg/dl; Percent Iron Saturation 15 % (15-50); Potassium 3.9 mmol/L (3.3-5.1); Sodium 143 mmol/L (135-145); Total Iron Binding Capacity 269 mcg/dL (228-428); Total Protein 6.7 g/dL (6.5-8.0); Triglycerides 100 mg/dL; Unsaturated Iron Binding 228 ug/dL
[2022-03-06 17:12] LABS: TSH reflex Free T4 1.36 uIU/mL (0.32-4.0); Vitamin D 25-OH Total 9.2 ng/mL (>30)
[2022-03-06 17:25] LABS: Folate 11.1 ng/mL (> or = 4.0); Vitamin B12 458 pg/mL (200-900)
== END 2022-03-06 13:53 | disposition home or self-care (01) ==
LOC: HO.HMGCLDS 13:52
PROVIDERS: PCP Internal Medicine; Visit Provider Internal Medicine
DX: I12.9 Hypertensive chronic kidney disease with stage 1 through stage 4 chronic kidney disease, or unspecified chronic kidney disease (principal); N18.30 Chronic kidney disease, stage 3 unspecified; R20.2 Paresthesia of skin; E66.01 Morbid (severe) obesity due to excess calories; Z68.43 Body mass index [BMI] 50.0-59.9, adult; E55.9 Vitamin D deficiency, unspecified; E78.5 Hyperlipidemia, unspecified
CPT/HCPCS: 36415; 80053; 80061; 82306; 82607; 82746; 83540; 84443

== ENCOUNTER → 2022-04-07 12:27 | Outpatient (BNVA) | payer OTHER, SELFPAY | PROVIDERS: PCP Internal Medicine; Visit Provider Nurse Practitioner Family | DX: G47.33 Obstructive sleep apnea (adult) (pediatric) (principal); R40.0 Somnolence; J45.20 Mild intermittent asthma, uncomplicated; I12.9 Hypertensive chronic kidney disease with stage 1 through stage 4 chronic kidney disease, or unspecified chronic kidney disease; N18.30 Chronic kidney disease, stage 3 unspecified; E66.01 Morbid (severe) obesity due to excess calories; E78.5 Hyperlipidemia, unspecified; Z68.43 Body mass index [BMI] 50.0-59.9, adult; Z82.49 Family history of ischemic heart disease and other diseases of the circulatory system | CPT/HCPCS: 99202 ==

== ENCOUNTER 2022-05-12 09:06 | Outpatient (REF) | payer OTHER, SELFPAY ==
[2022-05-14 07:43] LABS: Transglutaminase Ab IgG <1.0 U/mL; Transglutaminase IgA <1.0 U/mL
[2022-05-15 15:04] LABS: H Pylori Breath Test Positive (Negative)
== END 2022-05-12 09:07 | disposition home or self-care (01) ==
LOC: HO.LAB 09:06
PROVIDERS: PCP Internal Medicine; Visit Provider Nurse Practitioner Family
DX: R10.9 Unspecified abdominal pain (principal); K21.9 Gastro-esophageal reflux disease without esophagitis; K58.2 Mixed irritable bowel syndrome
CPT/HCPCS: 36415; 83013; 86364; 99202

== ENCOUNTER → 2022-05-19 12:10 | Outpatient (BNVA) | payer OTHER, SELFPAY | PROVIDERS: PCP Internal Medicine; Referring Provider Internal Medicine; Visit Provider Internal Medicine Cardiovascular Disease | DX: R06.09 Other forms of dyspnea (principal); I10 Essential (primary) hypertension | CPT/HCPCS: 99202 ==

== ENCOUNTER → 2022-06-02 10:55 | Outpatient (REF) | payer OTHER, SELFPAY ==
--- NOTE | 2022-06-02 10:58 | CA_ITS ---
Transthoracic Echocardiogram Patient (Last, First, Middle): Reid Sanchez, Gender: Male Date of : 1975 Age: 46 Procedure Date: 06/02/2022 Procedure Type: Transthoracic Echocardiogram Location: OP Height: 167.64 cm Weight: 149.69 kg BSA: 2.47 m2 Heart Rate: bpm BP: 154 / 94 mmHg Stacker Driver: PAULINE Referring MD: Kalen Mcmullen MD Symptoms: R06.09 - Other forms of dyspnea Study Quality: Fair, contrast ECG Rhythm: Sinus Conclusions: - The left ventricular systolic function is mildly decreased. The calculated ejection fraction is 47% by biplane method. - Moderately increased right ventricular cavity size. - Moderate biatrial enlargement. - No obvious valvular pathology seen on this study. Findings Procedure Information Contrast agent, definity, is being given per protocol without apparent complications. Left Ventricle Normal left ventricular cavity size. There is mildly increased left ventricular wall thickness. The left ventricular systolic function is mildly decreased. The calculated ejection fraction is 47% by biplane method. There is mild global hypokinesis. Diastolic function is normal for age. Right Ventricle Moderately increased right ventricular cavity size. There is normal right ventricular systolic function. Atria Moderate biatrial enlargement. Aortic Valve The aortic valve was not well visualized. There is no aortic valve stenosis. There is no aortic valve regurgitation. Mitral Valve The mitral valve appears normal. There is trace mitral valve regurgitation. There is no mitral valve stenosis. Pulmonic Valve The pulmonic valve was not well visualized. Tricuspid Valve There is mild tricuspid valve regurgitation. There is no evidence of pulmonary hypertension. Great Vessels The asc aorta is normal in size. Venous The inferior vena cava is normal in size and collapses greater than 50% with inspiration. Pericardium/Pleural Prominent epicardial adipose tissue noted. There is no evidence of pericardial effusion. Prior Study Comparison Changes noted compared to prior study dated: 02/19/2018. Decrease in LVEF. See comments on atria, RV. Recommendations, Care & Conclusions No obvious valvular pathology seen on this study. Measurements 2D Linear Measurements IVSd: 1.29 0.6-0.9/0.6-1.0 cm LVIDd: 5.40 3.9-5.3/4.2-5.9 cm LVIDd Index: 2.19 2.4-3.2/2.2-3.1 cm/m2 LVIDs: 3.86 2.0-3.6 cm LVPWd: 1.12 0.7-1.1 cm LA Diam: 4.00 2.7-3.8/3.0-4.0 cm LAIDs Index: 1.62 1.5-2.3 cm/m2 LV Mass: 331.67 67-162/88-224 g LV Mass Index: 134.28 43-95/49-115 g/m2 LVOT Diam: 2.40 3.0+(-)1.3 cm 2D Systolic Function EF 4C: 44.00 >55% EF 2C: 50.00 >55% EF BiP: 47.20 >55% Mitral Valve MV Pk E: 1.20 MV PK A: 0.74 MV Decel Time: 203.00 E/A: 1.60 E'Lateral: 12.00 E'Medial: 8.49 E/E' Med: 14.10 E/E' Lat: 10.00 PHT: 59.00 MVA PHT: 3.73 Decel Hayes: 5.91 Aortic Valve AoV Pk [address]: 1.[address]: 1.11 AoV VTI: 0.36 AoV Pk Grad: 11.00 Aov Mn Grad: 6.00 AILYN Cont.VTI: 3.[address]: 1.[address]: 0.95 LVOT VTI: 0.32 LVOT Pk Grad: 8.00 LVOT Mn Grad: 4.00 LVOT Diam: 2.40 LVOT Area: 4.52 Diastolic Function MV Pk E: 1.20 MV Pk A: 0.74 E/A: 1.60 E'Medial: 8.49 E/E' Med: 14.10 E' Laterial: 12.00 E/E' Lat: 10.00 Right Ventricle TAPSE (mm): 3.[address]: 17.[address]: 2.49 TR Pk Grad: 25.00 RA Press: 3.00 RVSP: 28.00 Great Vessels Aorta Sinus of Valsalva: 3.58 2.0-3.5 cm Ao Asc: 3.70 2.1-3.4 cm Updated in Other Vendor System with Status of Final Brooks Giraldo MD electronically signed on 06/02/2022 4:36:14 PM with status of Final
== END ==
LOC: HO.CARD 10:55
PROVIDERS: PCP Internal Medicine; Visit Provider Internal Medicine Cardiovascular Disease
DX: R06.09 Other forms of dyspnea (principal)
CPT/HCPCS: 93306; Q9957

== ENCOUNTER 2022-06-07 09:55 | Outpatient (REF) | payer OTHER, SELFPAY ==
[2022-06-07 10:04] LABS: MANUAL DIFF FLAG NO
[2022-06-07 10:27] LABS: Basophils Percent Auto 0.4 % (0-2); Eosinophils Absolute Auto 0.3 X10*3/uL (0.0-0.4); Eosinophils Percent Auto 3.3 % (0-4); Hematocrit 43.1 % (42.0-52.0); Hemoglobin 13.5 g/dl (14.0-18.0); Imm Gran Abs Auto 0.03 X10*3/uL (0.00-0.03); Imm Gran Pct Auto 0.3 % (0.0-0.4); Lymphocytes Percent Auto 11.1 % (20-40); Mean Corpuscular HGB Conc 31.3 g/dl (31.0-36.0); Mean Corpuscular Hemoglobin 27.4 pg (27.0-33.0); Mean Corpuscular Volume 87.4 fL (80.0-98.0); Mean Platelet Volume 10.2 fL (9.4-12.4); Monocytes Absolute Auto 0.8 X10*3/uL (0.1-1.2); Monocytes Percent Auto 8.4 % (2-11); Neutrophils Absolute Auto 7.1 x10*3/uL (2.0-8.3); Neutrophils Percent Auto 76.5 % (45-73); Platelet Count 256 X10*3/uL (160-400); Red Blood Count 4.93 X10*6/uL (4.60-5.80); Red Cell Distribution Width 13.6 % (11.0-16.0); White Blood Count 9.4 X10*3/uL (4.8-10.8)
[2022-06-07 10:52] LABS: Alanine Aminotransferase 27 U/L (0-40); Aspartate Amino Transferase 24 U/L (5-37); Cholesterol 131 mg/dL; HDL Cholesterol 35 mg/dL; Iron 58 mcg/dL (45-160); LDL Cholesterol Calculated 68 mg/dl; Percent Iron Saturation 27 % (15-50); Total Iron Binding Capacity 215 mcg/dL (228-428); Triglycerides 141 mg/dL; Unsaturated Iron Binding 157 ug/dL
[2022-06-07 11:07] LABS: Vitamin D 25-OH Total 62.8 ng/mL (>30)
[2022-06-09 15:43] LABS: CRP High Sensitivity 8.2 mg/L
== END 2022-06-07 09:56 | disposition home or self-care (01) ==
LOC: HO.LAB 09:55
PROVIDERS: Absent Provider Internal Medicine Cardiovascular Disease; PCP Internal Medicine; Visit Provider Internal Medicine
DX: D50.9 Iron deficiency anemia, unspecified (principal); E55.9 Vitamin D deficiency, unspecified; E78.5 Hyperlipidemia, unspecified; I10 Essential (primary) hypertension; E66.01 Morbid (severe) obesity due to excess calories; Z68.43 Body mass index [BMI] 50.0-59.9, adult
CPT/HCPCS: 36415; 80061; 82306; 83540; 84450; 84460; 85025; 86141

== ENCOUNTER 2022-06-09 | Outpatient (REF) | payer OTHER, SELFPAY | END 2022-06-09 00:01 | disposition home or self-care (01) | LOC: CF | PROVIDERS: PCP Internal Medicine; Visit Provider Nurse Practitioner Family | DX: R07.9 Chest pain, unspecified (principal); R06.09 Other forms of dyspnea; G47.33 Obstructive sleep apnea (adult) (pediatric) | CPT/HCPCS: 99212 ==

== ENCOUNTER 2022-06-09 11:30 | Outpatient (REF) | payer OTHER, SELFPAY ==
--- NOTE | ~2022-06-09 | US_ITS ---
EXAMINATION: US VENOUS ULTRASOUND WITH DOPPLER LOWER EXTREMITY, RIGHT CLINICAL INFORMATION: Pain COMPARISON: None available. TECHNIQUE: Ultrasound of the deep veins is performed from the hip to the calf with compression sonography and color and pulse Doppler assessment. Spectral analysis with color-flow imaging is performed. FINDINGS: There is normal venous compression and respiratory variation and augmented flow. The visualized common femoral vein, superficial femoral vein, profunda femoral vein, popliteal vein, and the trifurcation region shows no evidence of deep venous thrombosis. There is no significant popliteal fossa cyst. US/US venous duplex LE RT IMPRESSION: No DVT demonstrated in the right lower extremity.
== END 2022-06-09 11:31 | disposition home or self-care (01) ==
LOC: HO.HMGCX 11:30
PROVIDERS: PCP Internal Medicine; Visit Provider Internal Medicine
DX: M79.661 Pain in right lower leg (principal)
CPT/HCPCS: 93971

== ENCOUNTER → 2022-06-19 20:30 | Outpatient (REF) | payer OTHER, SELFPAY | LOC: HO.SL 20:30 | PROVIDERS: PCP Internal Medicine; Visit Provider Nurse Practitioner Family | DX: Z13.89 Encounter for screening for other disorder (principal) ==

== ENCOUNTER → 2022-06-23 08:00 | Outpatient (REF) | payer OTHER, SELFPAY ==
--- NOTE | ~2022-06-23 | NM_ITS ---
Exercise Myocardial perfusion study Indication: Chest pain to evaluate for myocardial ischemia Technique: The patient was brought in for an exercise perfusion study on 06/23/2022. Patient performed exercise as per Alberto protocol and was injected 45 mCi of sestamibi was given intravenously one target HR was achieved. Images were obtained using the SPECT gamma camera interlaced with the gating device. Images were obtained in supine position. Resting perfusion study was performed on 06/24/2022. Patient was administered 45 mCi of sestamibi intravenously at rest. Images were then obtained in supine position. Images obtained with and without CT attenuation. Total DLP 181 mGy-cm. Images were processed with the software and compared side to side in short axis, horizontal long axis and vertical long axis views. Findings: The stress perfusion study showed non attenuated images show moderately reduced uptake in the inferior wall of the LV myocardium as well as moderately reduced uptake in the apex of the LV myocardium. Non attenuated images show minimally reduced uptake in the apex of the LV myocardium.. The gated study shows normal LV systolic function with calculated LVEF of 50%. LV cavity is normal in in size. The gated study shows normal systolic wall thickening and contraction of all segments. There is no transient ischemic dilation. Resting study shows no change in perfusion pattern compared to stress perfusion study. Gating at rest reveals normal systolic wall motion with ejection fraction at 56%. The findings are consistent with likely normal myocardial perfusion. NM/NM cardiolite stress test Impression: 1. Likely normal myocardial perfusion 2. Gated LVEF is 56% 3. Transient ischemic dilatation not present Stress EKG is negative for ischemia
--- NOTE | 2022-06-23 08:03 | CA_ITS ---
Acquisition Time: 2022-06-23 08:04:25 Total Exercise Time: 00:03:35 Test Indications: SOB Medications: SEE H Protocol: YAHAIRA Max HR: 144 BPM 82% of Pred: 175 BPM Max BP: 160/088 mmHG Max Work Load: 5.2 METS Exercise stress test with exercise 3 min 35 sec of Yahaira protocol with report of lightheadedness and moderate sob, treadmill placed in recovery and speed increased to 1.8 MPH for additional 2 min ( total 5+ min of walking) achieving 82% MPHR, with isolated PACs, with normotensive response to exercise, without EKG changes meeting criteria for ischemia at his acheived workload. In recovery his breathing normalized. Nuclear images pending. Test reviewed with Dr Gonzalez. Referred By: Kalen Mcmullen Overread By: MICHAEL OLIVER
== END ==
LOC: HO.CARD 08:00
PROVIDERS: PCP Internal Medicine; Visit Provider Internal Medicine Cardiovascular Disease
DX: R07.9 Chest pain, unspecified (principal); R06.09 Other forms of dyspnea
CPT/HCPCS: 78452; 93017; 99212; A9500; J0280; J2785

== ENCOUNTER 2022-07-03 20:17 | Emergency (ER) | payer OTHER, SELFPAY ==
--- NOTE | ~2022-07-03 | CT_ITS ---
EXAMINATION: CT ABDOMEN AND PELVIS WITHOUT CONTRAST CLINICAL INFORMATION: Right flank pain. Hematuria. COMPARISON: None available. TECHNIQUE: Multidetector volumetric imaging was performed from the superior aspect of the liver through the pubic symphysis. Sagittal and coronal reformatted images were obtained on the technologist's workstation. This CT examination was performed using dose optimization techniques as appropriate, variously including the following: *Automated exposure control *Adjustment of mA and/or kV according to patient size (this includes techniques or standardized protocols for targeted exams where dose is matched to indication/reason for exam; i.e. extremities or head) *Use of iterative reconstruction technique DLP: 1460 mGy-cm FINDINGS: LUNG BASES: The visualized lung bases are unremarkable. LIVER, GALLBLADDER, AND BILIARY TREE: The liver is normal in size, shape, and attenuation. No focal hepatic lesion or biliary ductal dilatation is present. The gallbladder is unremarkable with no evidence of radiopaque gallstones, gallbladder wall thickening, or obvious pericholecystic inflammatory changes. PANCREAS: Unremarkable. SPLEEN: Unremarkable. ADRENAL GLANDS: Unremarkable. KIDNEYS AND URETERS: The kidneys are normal in size, shape, and attenuation. No hydronephrosis, hydroureter, or calculi seen. No perinephric stranding. BLADDER: Unremarkable. GASTROINTESTINAL TRACT: There are scattered diverticula of the colon. There is no diverticulitis. There is no bowel wall thickening /edema. There is no bowel obstruction. There is a moderate volume of stool in the colon. The appendix is nonvisualized . There is no inflammation the mesentery. The small bowel loops are unremarkable. The stomach is normal. There is no hiatal hernia. There is paraesophageal herniation of mesenteric fat. ABDOMINAL WALL: No significant hernia is appreciated. LYMPH NODES: Normal. VASCULAR: Unremarkable. PELVIC VISCERA: Unremarkable. OSSEOUS STRUCTURES: Unremarkable. CT/CT abdomen pelvis wo IV con IMPRESSION: No significant abnormality. Fleischner guidelines were followed.
--- NOTE | ~2022-07-03 | XR_ITS ---
EXAMINATION: XR LUMBOSACRAL SPINE CLINICAL INFORMATION: Low back pain. COMPARISON: None available. TECHNIQUE: Three views of the lumbosacral spine. FINDINGS: There is normal lumbar lordosis. The vertebral heights, alignment and disc heights are normal. There is no visible acute fracture, dislocation or subluxation. No lytic or sclerotic process seen. There is a large right L2-L3 bridging osteophyte. The paravertebral soft tissues are normal. XR/XR lumbar spine 2-3V IMPRESSION: Large right L2-L3 bridging osteophyte. No visible acute fracture, dislocation or lytic process seen.
--- NOTE | ~2022-07-03 | US_ITS ---
EXAMINATION: US ABDOMEN LIMITED CLINICAL INFORMATION: Right upper quadrant pain. COMPARISON: CT abdomen/pelvis 12/31/2020. TECHNIQUE: Real-time imaging of the right upper quadrant abdominal viscera. FINDINGS: Limited evaluation secondary to patient body habitus and shadowing from overlying bowel gas. PANCREAS: Not visualized secondary to shadowing from overlying bowel gas. LIVER: The liver is normal in size. The liver contour is normal. Slightly increased parenchymal echogenicity. No focal hepatic lesion. There is no intrahepatic biliary duct dilatation seen. GALLBLADDER: Normal. The gallbladder is physiologically distended without evidence of stones, sludge, polyps, wall thickening or pericholecystic fluid. COMMON BILE DUCT: Normal in caliber measuring 0.3 cm in diameter. RIGHT KIDNEY: Normal. No hydronephrosis. No renal calculi or focal parenchymal lesions. The kidney measures 12 cm in maximum dimension. FREE FLUID: None. US/US abdomen limited IMPRESSION: Slightly increased parenchymal echogenicity of the liver which is nonspecific but could be seen in the setting of hepatic steatosis.
[2022-07-03 20:38] VITALS: BP 174/98; PULSE 75; RESP 20; TEMP 36.6; O2SAT 97; BMI 54.4
--- NOTE | 2022-07-03 20:40 | ED.GENADULT ---
HPI - General Adult General Chief complaint: Back Pain/Injury <JANE Palacios Last Filed: 07/03/22 20:41> Stated complaint: right back pain radiates to front <JANE Palacios Last Filed: 07/03/22 20:41> Time Seen by Provider: 07/03/22 21:17 <JANE Palacios - Last Filed: 07/03/22 20:41> Source: patient, RN notes reviewed and old records reviewed <Sergey Martinez - Last Filed: 07/04/22 00:50> Mode of arrival: ambulatory <Sergey Bello Last Filed: 07/04/22 00:50> Limitations: no limitations <Sergey Bello Last Filed: 07/04/22 00:50> History of Present Illness HPI narrative: 46-year-old male past medical history significant for morbid obesity, hypertension, hyperlipidemia, chronic kidney disease presents for evaluation of right mid back pain patient reports he has had pain to his right mid to lower back for the last week. Initially it was only when sitting down but now he has pain with standing his pain is a 7/10 he denies any associated symptoms including fevers, chills, cough or shortness of breath, nausea vomiting, diarrhea, bloody urine, difficulty urinating no other complaints or concerns at this time. The patient a similar presentation and was evaluated in this ER on 12/31/2020 and ultimately a negative workup <Sergey Martinez - Last Filed: 07/04/22 00:50> Related Data Home medications: Previous Rx's Medication Instructions Recorded atorvastatin 40 mg tablet 40 mg PO DAILY 90 days #90 tabs 01/15/22 albuterol sulfate 90 mcg/actuation 2 puff inhalation Q4-6H PRN 02/12/22 aerosol inhaler (ProAir HFA) shortness of breath or wheezing #8.5 grams ferrous sulfate 324 mg (65 mg 324 mg PO DAILY #90 tabs 03/10/22 iron) tablet,delayed release losartan 100 mg tablet 100 mg PO DAILY #90 tabs 04/07/22 fluticasone propionate 110 2 puff PO BID #36 grams 04/18/22 mcg/actuation HFA aerosol inhaler (Flovent HFA) methylcellulose (laxative) 500 mg 500 mg PO DAILY #90 tabs 05/12/22 tablet (Citrucel) amlodipine 10 mg tablet 10 mg PO DAILY #90 tabs 05/19/22 docusate sodium 100 mg capsule 100 mg PO BEDTIME #180 caps 06/23/22 hydrocortisone 2.5 % topical cream 1 appl DC BID-QID PRN hemorrhoids 06/23/22 with perineal applicator #30 grams (Proctosol HC) pantoprazole 40 mg tablet,delayed 40 mg PO DAILY #90 tabs 06/23/22 release methocarbamol 750 mg tablet 750 mg PO QID muscle spasm #20 tabs 07/04/22 oxycodone 5 mg tablet 5 mg PO Q6H PRN severe pain (scale 07/04/22 score 7-10) #12 tabs <JANE Palacios - Last Filed: 07/03/22 20:41> Allergies/adverse reactions: Allergies Allergy/AdvReac Type Severity Reaction Status Date / Time lisinopril [LISINOPRIL] Allergy Intermediate ANGIOEDEMA Verified 06/23/22 10:39 Latex, Natural Rubber Allergy Mild Unknown Verified 06/23/22 10:39 CHOCOLATE Allergy Severe DIFFICULTY Uncoded 06/23/22 10:39 BREATHING <JANE Palacios - Last Filed: 07/03/22 20:41> Review of Systems Constitutional: Constitutional: Reports as per HPI, Denies chills, Denies fatigue, Denies fever(s) and Denies headache(s) <Sergey Martinez - Last Filed: 07/04/22 00:50> ENT: Denies headache(s) <Sergey Martinez - Last Filed: 07/04/22 00:50> Cardiovascular: Cardiovascular: Denies chest pain and Denies dyspnea <Sergey Martinez - Last Filed: 07/04/22 00:50> Respiratory: Respiratory: Denies cough and Denies dyspnea <Sergey Martinez - Last Filed: 07/04/22 00:50> Gastrointestinal: Gastrointestinal: Denies abdominal pain, Denies constipation and Denies vomiting <Sergey Martinez - Last Filed: 07/04/22 00:50> Genitourinary: Genitourinary: Denies difficulty urinating and Denies dysuria <Sergey Martinez - Last Filed: 07/04/22 00:50> Musculoskeletal: Musculoskeletal: Reports back pain <Sergey Martinez - Last Filed: 07/04/22 00:50> Neurologic: Denies headache(s) and Denies focal weakness <Sergey Martinez - Last Filed: 07/04/22 00:50> Endocrine: Endocrine: Denies fatigue <Sergey Martinez - Last Filed: 07/04/22 00:50> [facility] Past Medical History Medical History: Medical History Anxiety Benign essential hypertension CKD (chronic kidney disease) stage 3, GFR 30-59 ml/min Dyslipidemia (high LDL; low HDL) Family history of early CAD Flatulence, eructation and gas pain History of vitamin D deficiency Iron deficiency anemia Low back pain Mild intermittent asthma Morbid obesity with BMI of 50.0-59.9, adult CHUN (obstructive sleep apnea) Paraesophageal hernia Pure hypercholesterolemia Right calf pain Stage 3 chronic kidney disease Vitamin D deficiency <JANE Palacios - Last Filed: 07/03/22 20:41> Surgical History: Surgical History No history of previous surgery <JANE Palacios - Last Filed: 07/03/22 20:41> Family History Family History: Family History Mother No problems noted. Father Heart problem Paternal Uncle Heart problem Paternal Grandfather Heart problem Heart attack <JANE Palacios - Last Filed: 07/03/22 20:41> Social History Social History: Social History Housing: House Alcohol intake: current Alcohol intake frequency: does not drink Patient Tobacco Use Status: Never used Tobacco Smoked in Last 30 Days: No e-Cigarette/Vaping Use: Never Used Second Hand Smoke Exposure: Yes Use of substances other than those prescribed or required for medical reasons: No Advance Directives: No Advance Directives Information Provided: No service: No Current occupational status: employed Cognitive needs: No Hearing needs: No Vision needs: Yes <JANE Palacios - Last Filed: 07/03/22 20:41> Physical Exam ED Vital Signs: Vital Signs - 24 hr 07/03/22 20:38 07/03/22 21:35 07/03/22 22:23 Temperature 97.9 F 98.1 F 98 F Pulse Rate 75 77 72 Respiratory Rate 20 12 12 Blood Pressure 174/98 H 147/78 H 137/78 Pulse Oximetry 97 97 97 Oxygen Delivery Method Room Air Room Air Room Air 07/03/22 23:11 Temperature Pulse Rate Respiratory Rate 16 Blood Pressure Pulse Oximetry Oxygen Delivery Method BMI result Body Mass Index 54.4 <JANE Palacios - Last Filed: 07/03/22 20:41> Vital Signs - 24 hr 07/03/22 20:38 07/03/22 21:35 07/03/22 22:23 Temperature 97.9 F 98.1 F 98 F Pulse Rate 75 77 72 Respiratory Rate 20 12 12 Blood Pressure 174/98 H 147/78 H 137/78 Pulse Oximetry 97 97 97 Oxygen Delivery Method Room Air Room Air Room Air 07/03/22 23:11 Temperature Pulse Rate Respiratory Rate 16 Blood Pressure Pulse Oximetry Oxygen Delivery Method BMI result Body Mass Index 54.4 <Sergey Martinez - Last Filed: 07/04/22 00:50> Const General: healthy appearing, comfortable, no acute distress, alert and awake <Sergey Martinez - Last Filed: 07/04/22 00:50> Nutritional Appearance: well nourished <Sergey Martinez - Last Filed: 07/04/22 00:50> Orientation/consciousness: patient oriented x3 <Sergey Martinez - Last Filed: 07/04/22 00:50> HENMT Head: Yes normocephalic and Yes atraumatic <Sergey Martinez - Last Filed: 07/04/22 00:50> Throat: Yes posterior oropharynx normal <Sergey Martinez - Last Filed: 07/04/22 00:50> Eyes Eyelids: Yes eyelids normal <Sergey Martinez - Last Filed: 07/04/22 00:50> Conjunctivae: conjunctivae normal < Last Filed: 07/04/22 00:50> Sclerae: sclerae normal < Last Filed: 07/04/22 00:50> Corneas: corneas normal < Last Filed: 07/04/22 00:50> Pupils: Equal, round and reactive pupils present < Last Filed: 07/04/22 00:50> EOM: EOMs intact bilaterally < Last Filed: 07/04/22 00:50> Neck Neck: Yes full ROM < Filed: 07/04/22 00:50> Resp Effort & Inspection: normal respiratory effort, able to speak in complete sentences, no audible wheezes and not labored < Filed: 07/04/22 00:50> Auscultation: clear to auscultation bilaterally < Filed: 07/04/22 00:50> Cardio Rate: regular rate < Filed: 07/04/22 00:50> Rhythm: regular rhythm < Filed: 07/04/22 00:50> GI Inspection: No distended and Yes obesity < Filed: 07/04/22 00:50> Palpation (GI): Soft to palpation, not firm, Tenderness to palpation present (GI) ( minimally tender to palpation of the right upper and mid abdomen), no guarding and not rigid < Last Filed: 07/04/22 00:50> Auscultation: normoactive bowel sounds < Last Filed: 07/04/22 00:50> Skin General skin exam: no rashes or lesions noted and elasticity normal < Last Filed: 07/04/22 00:50> Neuro General: patient oriented x3 < Last Filed: 07/04/22 00:50> Cranial nerves: Yes Equal, round and reactive pupils present and Yes Bilaterally intact EOM present < Last Filed: 07/04/22 00:50> Cognition (Neuro): normal cognition <Sergey Martinez - Last Filed: 07/04/22 00:50> Extrem Other: Moving all extremities well without any obvious deformities <Sergey Martinez - Last Filed: 07/04/22 00:50> Course Course Course Narrative: This is an RME: Additional HPI, ROS, PE not included below will be deferred to primary provider. 46-year-old male presents with right flank pain radiating to the right upper quadrant complains it is an intermittent stabbing sharp pain, no associated nausea vomiting, fevers or chills. Denies urinary symptoms. Denies red flag symptoms for back pain. No blunt trauma. Hx of stones but this feels different Slight right upper quadrant tenderness to palpation. Plan labs, UA, ultrasound of right upper quadrant. Will also order x-ray of lumbar spine. <JANE Palacios - Last Filed: 07/03/22 20:41> Reevaluation(s) Reevaluation #1: I ordered a CT scan of the abdomen pelvis because there was hematuria on the UA. there was no evidence of obstructive uropathy on the CT scan. I discussed all results with the patient <Sergey Martinez - Last Filed: 07/04/22 00:50> Time: 00:42 <Sergey Martinez - Last Filed: 07/04/22 00:50> Medications Administered Discontinued Medications Generic Name Dose Route Start Last Admin Trade Name Freq PRN Reason Stop Dose Admin Morphine Sulfate 4 mg 07/03/22 23:00 07/03/22 23:11 Morphine Sulfate 4 Mg/Ml Cartridge IM 07/03/22 23:01 4 mg ONCE ONE Administration Protocol <JANE Palacios - Last Filed: 07/03/22 20:41> Medications Administered Discontinued Medications Generic Name Dose Route Start Last Admin Trade Name Freq PRN Reason Stop Dose Admin Morphine Sulfate 4 mg 07/03/22 23:00 07/03/22 23:11 Morphine Sulfate 4 Mg/Ml Cartridge IM 07/03/22 23:01 4 mg ONCE ONE Administration Protocol <Sergey Martinez - Last Filed: 07/04/22 00:50> Medical Decision Making Medical Decision Making MDM Narrative: 46-year-old male presents for evaluation of mid back pain. He is quite tender to palpation baby is negative straight leg raise. There is minimal tenderness to the abdomen. The patient's labs are consistent with his known history of chronic kidney disease and his renal function is at his baseline. Will get a UA to assess for hematuria/ bacteria. I feel the patient's most likely diagnosis is multiple skeletal pain. An ultrasound of gallbladder was or in triage which is still pending <Sergey Martinez - Last Filed: 07/04/22 00:50> Differential Diagnosis muscle strain Radiculopathy Obstructive uropathy Cholelithiasis Acute cholecystitis acute appendicitis less likely abdominal pain <Sergey Martinez - Last Filed: 07/04/22 00:50> Lab Data [facility] Lab Attestation statement: I reviewed the patient's lab results. <Sergey Martinez - Last Filed: 07/04/22 00:50> Result Diagrams: 07/03/22 20:59 07/03/22 20:59 <JANE Palacios - Last Filed: 07/03/22 20:41> Labs: Lab Results 07/03/22 07/03/22 07/03/22 Range/Units 20:59 20:59 21:42 WBC 10.8 (4.8-10.8) X10*3/uL RBC 4.83 (4.60-5.80) X10*6/uL Hgb 13.3 L (14.0-18.0) g/dl Hct 42.0 (42.0-52.0) % MCV 87.0 (80.0-98.0) fL MCH 27.5 (27.0-33.0) pg MCHC 31.7 (31.0-36.0) g/dl RDW 13.5 (11.0-16.0) % Plt Count 268 (160-400) X10*3/uL MPV 10.0 (9.4-12.4) fL Immature Gran % (Auto) 0.5 H (0.0-0.4) % Neut % (Auto) 75.7 H (45-73) % Lymph % (Auto) 13.7 L (20-40) % Woodson % (Auto) 7.2 (2-11) % Eos % (Auto) 2.5 (0-4) % Baso % (Auto) 0.4 (0-2) % Lymph # (Auto) 1.5 (1.2-4.9) X10*3/uL Woodson # (Auto) 0.8 (0.1-1.2) X10*3/uL Eos # (Auto) 0.3 (0.0-0.4) X10*3/uL Baso # (Auto) 0.0 (0.0-0.2) X10*3/uL Abs Immat Gran (auto) 0.05 H (0.00-0.03) X10*3/uL Absolute Neuts (auto) 8.2 (2.0-8.3) x10*3/uL Absolute Nucleated RBC 0.000 (0.0-0.012) X10*3/uL Nucleated RBC % (auto) 0.0 (0.0-0.2) /100WBC Sodium 144 (135-145) mmol/L Potassium 4.1 (3.3-5.1) mmol/L Chloride 106 (96-108) mmol/L Carbon Dioxide 26 (22-29) mmol/L Anion Gap 16 (12-20) BUN 24 H (9-16) mg/dL Creatinine 1.58 H (0.5-1.4) mg/dL Estim Creat Clear Calc 83.0 Estimated GFR 48 Random Glucose 92 (60-115) mg/dL Calcium 9.2 (8.4-10.2) mg/dL Total Bilirubin 0.6 (0.0-1.0) mg/dL AST 24 (5-37) U/L ALT 38 (0-40) U/L Alkaline Phosphatase 122 H (39-117) U/L Total Protein 7.0 (6.5-8.0) g/dL Albumin 4.0 (3.5-5.0) g/dL Urine Color Yellow Urine Appearance Clear Urine pH 6.0 (5.0-9.0) Ur Specific Coleman 1.015 (1.005-1.025) Urine Protein 300 (3+) H (Neg-Trace) mg/dL Urine Glucose (UA) Negative (Negative) mg/dL Urine Ketones Negative (Negative) mg/dL Urine Blood Small (1+) H (Negative) Urine Nitrite Negative (Negative) Ur Leukocyte Esterase Negative (Negative) Urine RBC 0-2 (0-2) /HPF Urine WBC 0-5 (0-5) /HPF Ur Squamous Epith Cells 0-2 (0-2) /HPF Urine Bacteria None Seen (None Seen) Hyaline Casts 3-5 (0-2) /LPF <JANE Palacios - Last Filed: 07/03/22 20:41> Lab Results 07/03/22 07/03/22 07/03/22 Range/Units 20:59 20:59 21:42 WBC 10.8 (4.8-10.8) X10*3/uL RBC 4.83 (4.60-5.80) X10*6/uL Hgb 13.3 L (14.0-18.0) g/dl Hct 42.0 (42.0-52.0) % MCV 87.0 (80.0-98.0) fL MCH 27.5 (27.0-33.0) pg MCHC 31.7 (31.0-36.0) g/dl RDW 13.5 (11.0-16.0) % Plt Count 268 (160-400) X10*3/uL MPV 10.0 (9.4-12.4) fL Immature Gran % (Auto) 0.5 H (0.0-0.4) % Neut % (Auto) 75.7 H (45-73) % Lymph % (Auto) 13.7 L (20-40) % Woodson % (Auto) 7.2 (2-11) % Eos % (Auto) 2.5 (0-4) % Baso % (Auto) 0.4 (0-2) % Lymph # (Auto) 1.5 (1.2-4.9) X10*3/uL Woodson # (Auto) 0.8 (0.1-1.2) X10*3/uL Eos # (Auto) 0.3 (0.0-0.4) X10*3/uL Baso # (Auto) 0.0 (0.0-0.2) X10*3/uL Abs Immat Gran (auto) 0.05 H (0.00-0.03) X10*3/uL Absolute Neuts (auto) 8.2 (2.0-8.3) x10*3/uL Absolute Nucleated RBC 0.000 (0.0-0.012) X10*3/uL Nucleated RBC % (auto) 0.0 (0.0-0.2) /100WBC Sodium 144 (135-145) mmol/L Potassium 4.1 (3.3-5.1) mmol/L Chloride 106 (96-108) mmol/L Carbon Dioxide 26 (22-29) mmol/L Anion Gap 16 (12-20) BUN 24 H (9-16) mg/dL Creatinine 1.58 H (0.5-1.4) mg/dL Estim Creat Clear Calc 83.0 Estimated GFR 48 Random Glucose 92 (60-115) mg/dL Calcium 9.2 (8.4-10.2) mg/dL Total Bilirubin 0.6 (0.0-1.0) mg/dL AST 24 (5-37) U/L ALT 38 (0-40) U/L Alkaline Phosphatase 122 H (39-117) U/L Total Protein 7.0 (6.5-8.0) g/dL Albumin 4.0 (3.5-5.0) g/dL Urine Color Yellow Urine Appearance Clear Urine pH 6.0 (5.0-9.0) Ur Specific Coleman 1.015 (1.005-1.025) Urine Protein 300 (3+) H (Neg-Trace) mg/dL Urine Glucose (UA) Negative (Negative) mg/dL Urine Ketones Negative (Negative) mg/dL Urine Blood Small (1+) H (Negative) Urine Nitrite Negative (Negative) Ur Leukocyte Esterase Negative (Negative) Urine RBC 0-2 (0-2) /HPF Urine WBC 0-5 (0-5) /HPF Ur Squamous Epith Cells 0-2 (0-2) /HPF Urine Bacteria None Seen (None Seen) Hyaline Casts 3-5 (0-2) /LPF <Sergey Martinez - Last Filed: 07/04/22 00:50> Radiology Impression Discussion of test interpretation with radiology: I have reviewed the radiologist's reading. <Sergey Martinez - Last Filed: 07/04/22 00:50> Discharge Plan Discharge Clinical Impression: Acute right flank pain <JANE Palacios - Last Filed: 07/03/22 20:41> Patient Disposition: Home, Self-Care <JANE Palacios - Last Filed: 07/03/22 20:41> Instructions: Muscle Strain (ED) <JANE Palacios - Last Filed: 07/03/22 20:41> Additional Instructions: your blood work was consistent with chronic kidney disease but no worse than your usual your ultrasound showed a fatty liver but her gallbladder was normal your CT scan did not show any significant abnormalities your pain is most likely musculoskeletal in origin take Tylenol for pain you may use oxycodone for more severe breakthrough pain this may make you sleepy, did not drink alcohol or drive after taking it you may use methocarbamol as needed for muscle spasms follow-up with your primary doctor <JANE Palacios - Last Filed: 07/03/22 20:41> Prescriptions: New oxycodone 5 mg tablet 5 mg PO Q6H PRN (Reason: severe pain (scale score 7-10)) Qty: 12 0RF Rx Instructions: Partial Fill upon patient request. methocarbamol 750 mg tablet 750 mg PO QID Qty: 20 0RF No Action atorvastatin 40 mg tablet 40 mg PO DAILY 90 Days Qty: 90 0RF losartan 100 mg tablet 100 mg PO DAILY Qty: 90 0RF Flovent HFA 110 mcg/actuation HFA aerosol inhaler 2 puff PO BID Qty: 36 1RF albuterol sulfate [ProAir HFA] 90 mcg/actuation HFA aerosol inhaler 2 puff inhalation Q4-6H PRN (Reason: shortness of breath or wheezing) Qty: 8.5 0RF ferrous sulfate 324 mg (65 mg iron) tablet,delayed release (DR/EC) 324 mg PO DAILY Qty: 90 2RF amlodipine 10 mg tablet 10 mg PO DAILY Qty: 90 1RF Citrucel 500 mg tablet 500 mg PO DAILY Qty: 90 2RF Rx Instructions: take it with full glass of water docusate sodium 100 mg capsule 100 mg PO BEDTIME Qty: 180 3RF pantoprazole 40 mg tablet,delayed release (DR/EC) 40 mg PO DAILY Qty: 90 2RF Rx Instructions: take one tablet half an hour before breakfast hydrocortisone [Proctosol HC] 2.5 % cream with perineal applicator 1 appl DC BID-QID PRN (Reason: hemorrhoids) Qty: 30 2RF <JANE Palacios - Last Filed: 07/03/22 20:41>
[2022-07-03 21:05] LABS: MANUAL DIFF FLAG NO
[2022-07-03 21:06] LABS: Basophils Percent Auto 0.4 % (0-2); Eosinophils Absolute Auto 0.3 X10*3/uL (0.0-0.4); Eosinophils Percent Auto 2.5 % (0-4); Hemoglobin 13.3 g/dl (14.0-18.0); Imm Gran Abs Auto 0.05 X10*3/uL (0.00-0.03); Imm Gran Pct Auto 0.5 % (0.0-0.4); Lymphocytes Absolute Auto 1.5 X10*3/uL (1.2-4.9); Lymphocytes Percent Auto 13.7 % (20-40); Mean Corpuscular HGB Conc 31.7 g/dl (31.0-36.0); Mean Corpuscular Hemoglobin 27.5 pg (27.0-33.0); Monocytes Absolute Auto 0.8 X10*3/uL (0.1-1.2); Monocytes Percent Auto 7.2 % (2-11); Neutrophils Absolute Auto 8.2 x10*3/uL (2.0-8.3); Neutrophils Percent Auto 75.7 % (45-73); Platelet Count 268 X10*3/uL (160-400); Red Blood Count 4.83 X10*6/uL (4.60-5.80); Red Cell Distribution Width 13.5 % (11.0-16.0); White Blood Count 10.8 X10*3/uL (4.8-10.8)
[2022-07-03 21:20] LABS: Alanine Aminotransferase 38 U/L (0-40); Alkaline Phosphatase 122 U/L (39-117); Anion Gap 16 (12-20); Aspartate Amino Transferase 24 U/L (5-37); Bilirubin Total 0.6 mg/dL (0.0-1.0); Blood Urea Nitrogen 24 mg/dL (9-16); Calcium 9.2 mg/dL (8.4-10.2); Carbon Dioxide 26 mmol/L (22-29); Chloride 106 mmol/L (96-108); Estimated Glomerular Filt Rate 48; Glucose Random 92 mg/dL (60-115); Potassium 4.1 mmol/L (3.3-5.1); Sodium 144 mmol/L (135-145)
[2022-07-03 21:35] VITALS: BP 147/78; PULSE 77; RESP 12; TEMP 36.7; O2SAT 97
[2022-07-03 21:58] LABS: Appearance Urine Clear; Color Urine Yellow; Glucose Urine UA Negative (Negative); Leukocyte Esterase Urine Negative (Negative); Nitrite Urine Negative (Negative); Specific Gravity - Urine 1.015 (1.005-1.025); UMIC TRIGGER UACC YES; Urine Blood Small (1+) (Negative); Urine Ketones Negative (Negative); Urine Protein 300 (3+) mg/dL (Neg-Trace)
[2022-07-03 22:20] LABS: Bacteria Urine None Seen (None Seen); RBC Urine 0-2 /HPF (0-2); Squamous Epithelial Cell Urine 0-2 /HPF (0-2); WBC Urine 0-5 /HPF (0-5)
[2022-07-03 22:23] VITALS: BP 137/78; PULSE 72; RESP 12; TEMP 36.6; O2SAT 97
[2022-07-03 23:11] VITALS: RESP 16
[2022-07-03] MEDS: Morphine Sulfate 4 MG/ML CARTRIDGE IM (23:11)
--- NOTE | 2022-07-03 23:16 | PC.NURSE ---
pt a&o, denies any sob or chest pain, pt taken for Ct scan, medicated for pain management. Pt is resting in bed with call thorne at bedside
== END 2022-07-04 00:56 | disposition home or self-care (01) ==
PROVIDERS: Physician Assistant; Emergency Provider Student in an Organized Health Care Education/Training Program; PCP Internal Medicine
DX: R10.9 Unspecified abdominal pain (principal); I12.9 Hypertensive chronic kidney disease with stage 1 through stage 4 chronic kidney disease, or unspecified chronic kidney disease; N18.30 Chronic kidney disease, stage 3 unspecified; E78.5 Hyperlipidemia, unspecified; K76.0 Fatty (change of) liver, not elsewhere classified
CPT/HCPCS: 36415; 72100; 74176; 76705; 80053; 81001; 85025; 96372; 99284; J2270

== ENCOUNTER → 2022-07-07 12:50 | Outpatient (BNVA) | payer OTHER, SELFPAY | PROVIDERS: PCP Internal Medicine; Referring Provider Nurse Practitioner Family; Visit Provider Surgery | DX: K64.8 Other hemorrhoids (principal); K64.4 Residual hemorrhoidal skin tags; E66.01 Morbid (severe) obesity due to excess calories; Z68.43 Body mass index [BMI] 50.0-59.9, adult; Z80.41 Family history of malignant neoplasm of ovary | CPT/HCPCS: 46600; 99202 ==

== ENCOUNTER → 2022-09-01 14:30 | Outpatient (BNVA) | payer OTHER, SELFPAY | PROVIDERS: PCP Internal Medicine; Visit Provider Surgery | DX: K64.8 Other hemorrhoids (principal); Z80.41 Family history of malignant neoplasm of ovary | CPT/HCPCS: 99212 ==

== ENCOUNTER 2022-09-08 10:29 | Outpatient (AMB) | payer OTHER, SELFPAY ==
[2022-09-08 10:51] VITALS: BP 154/80; PULSE 74; BMI 57.1
--- NOTE | 2022-09-08 10:51 | MHC.OFFVIS ---
Intake Vital Signs 09/08/22 10:51 Height 5 ft 6 in Weight 353 lb 9.943 oz BMI 57.1 BP 154/80 H Blood Pressure Location Lt brachial Position Sitting Pulse 74 Intake Visit Reasons: 3 month follow up Intake Note: Reid presents in office as a est.patient for a 3month f//u for External hemorrhoid, GERD PT CC: pt reports having no concerns pt denies any other GI Issues Stripper Latex Required: No Accompanied by: Self / Same As Patient Allergies lisinopril [LISINOPRIL] Allergy (Intermediate, Verified 09/08/22 10:52) ANGIOEDEMA Latex, Natural Rubber Allergy (Mild, Verified 09/08/22 10:52) Unknown CHOCOLATE Allergy (Severe, Uncoded 09/08/22 10:52) DIFFICULTY BREATHING HPI 3 month follow up HPI Details LAST VISIT External hemorrhoid Large external hemorrhoid. Will give patient cream, however item believe that cream will help with shrinking the hemorrhoid at this point. Patient will be referred to general surgery for possible surgical extraction. GERD (gastroesophageal reflux disease) Patient reports improvement in his symptoms. Patient was treated for H pylori with antibiotics. Reports that he finish all of the antibiotics for 14 days. Currently is taking pantoprazole and is doing well. Discussed with patient avoiding dietary triggers late night snacking. Staying upright for minimal 3 hours after meals discussed with patient. Patient was also encouraged to lose weight. Patient reports that he is planning on working slowly towards weight reduction. Benefit of weight loss discussed with patient. I will see patient in 3 months. Hopefully by that time patient will be cleared by Cardiology. We will be sending him for colonoscopy and upper endoscopy due to his symptoms and H pylori treatment to verify eradication. Patient is agreeable to this plan and verbalizes understanding of instructions. He was given the opportunity to ask questions all questions answered. ? Thank you for allowing me to participate in his care Plan Orders Referrals General Surgery Referral K64.4 Medications New pantoprazole take one tablet half an hour before breakfast 40 mg PO DAILY 90 tabs 2RF K21.9 hydrocortisone 2.5% (Proctosol HC) 1 appl [place] BID-QID PRN 30 grams 2RF hemorrhoids K64.9 Refilled docusate sodium 100 mg PO BEDTIME 180 caps 3RF K59.00 TODAY'S VISIT Patient is here today for follow-up and upper endoscopy and colonoscopy. Patient reports to be feeling better now that he started on pantoprazole. Patient is moving his bowels better using Colace and Citrucel. Patient seen General surgery and after using Proctosol his hemorrhoids decreased in size. Patient no longer is reporting discomfort. Patient denies melena, hematochezia, unintentional weight loss ribbon like stools. Patient reports occasional acid reflux and epigastric discomfort without dysphagia or odynophagia. Patient is morbidly obese and recently gained 18 lb. Discussed with patient the importance of losing weight. Patient has CHUN and has to use CPAP machine every night. Not on any anticoagulation medication. No trouble with anesthesia in the past. Patient never had colonoscopy in the past. No family history of colorectal [facility] Medical History Anxiety Benign essential hypertension CKD (chronic kidney disease) stage 3, GFR 30-59 ml/min Dyslipidemia (high LDL; low HDL) Family history of early CAD Family history of ovarian cancer Flatulence, eructation and gas pain Hemorrhoids with complication History of vitamin D deficiency Iron deficiency anemia Low back pain Mild intermittent asthma Morbid obesity Morbid obesity with BMI of 50.0-59.9, adult CHUN (obstructive sleep apnea) Paraesophageal hernia Pure hypercholesterolemia Right calf pain Stage 3 chronic kidney disease Vitamin D deficiency Surgical History No history of previous surgery Family History Mother No problems noted. Father Heart problem Paternal Uncle Heart problem Paternal Grandfather Heart problem Heart attack Paternal Grandmother Breast cancer Paternal Aunt Ovarian cancer Social History Housing: House Alcohol intake: current Alcohol intake frequency: does not drink Patient Tobacco Use Status: Never used Tobacco e-Cigarette/Vaping Use: Never Used Second Hand Smoke Exposure: Yes service: No Current occupational status: employed Cognitive needs: No Hearing needs: No Vision needs: Yes Review of Systems Const Denies weight gain and Denies weight loss ENT Reports no additional complaints, Denies dysphagia and Denies odynophagia Card Reports no additional complaints Resp Reports no additional complaints GI Denies abdominal pain, Denies belching, Denies melena, Denies bloating, Denies change in bowel habits, Denies dysphagia, Denies excessive flatus, Denies dyspepsia, Reports heartburn (OCCASIONAL), Denies diarrhea, Denies loose stools, Denies nausea, Denies odynophagia and Denies vomiting Reports no additional complaints Musc Reports no additional complaints Neuro Reports no additional complaints Psych Reports no additional complaints Endo Reports no additional complaints Physical Exam Vital Signs: Last Vital Signs Pulse 74 09/08/22 10:51 BP 154/80 H 09/08/22 10:51 BMI result Body Mass Index 57.1 Const General: healthy appearing, no acute distress and well developed Nutritional Appearance: obese Orientation/consciousness: patient oriented x3 HEENT Head: Yes normal to inspection, Yes normocephalic and Yes atraumatic Face and sinus: Yes normal facial exam Mouth: Normal oral and palatal mucosa present Throat: Yes posterior oropharynx normal, Yes tonsils normal and Yes uvula midline Eyes General: appearance normal, both eyes and all related structures Neck Neck: Yes normal visual inspection, Yes full ROM and Yes trachea midline Thyroid: Thyroid normal Resp Effort & Inspection: normal respiratory effort, able to speak in complete sentences, no tracheal deviation and symmetric chest movement Auscultation: clear to auscultation bilaterally Cardio Rate: regular rate Heart sounds: S1 normal heart sound present and S2 normal heart sound present GI Inspection: Yes normal to inspection, No distended and Yes obesity Palpation (GI): Soft to palpation, not firm, nontender and No hepatosplenomegaly present Auscultation: normal bowel sounds General: Yes no CVA tenderness Back/Spine/Pelvis Back: no CVA tenderness Skin General skin exam: elasticity normal, turgor normal and dry skin Neuro General: patient oriented x3 Psych Appearance: grossly normal Mental Status: mental status grossly normal Speech and movement: Normal speech and movement present Affect: normal affect Assessment & Plan Assessment & Plan (1) External hemorrhoid: Code(s): K64.4 - Residual hemorrhoidal skin tags Plan: Continue using Proctosol on as needed basis. (2) GERD (gastroesophageal reflux disease): Code(s): K21.9 - Gastro-esophageal reflux disease without esophagitis Qualifiers: Esophagitis presence: esophagitis presence not specified Qualified Code(s): K21.9 - Gastro-esophageal reflux disease without esophagitis Plan: Continue pantoprazole, avoid dietary triggers late night snacking. Patient was encouraged to lose weight. Will send him for upper endoscopy to rule out esophagitis, gastritis, duodenitis, gastric or peptic ulcers, H pylori (3) Screen for colon cancer: Code(s): Z12.11 - Encounter for screening for malignant neoplasm of colon Plan: No family history of colon cancer. Patient never had a colonoscopy in the past. History of sleep apnea and is using CPAP machine every night. Unable to sleep without the CPAP machine. Not on any anticoagulation medication. No problems with anesthesia in the past. Patient denies any cardiac or respiratory symptoms, however he does have a history of asthma and uses inhalers daily. Patient denies any chest pain, pressure. What to expect before during and after the procedure discussed with patient. Clear liquid diet and how to prep day before the procedure discussed with patient. I will see him after the procedure, sooner on as needed basis. Patient is agreeable to this plan and verbalizes understanding of instructions. He was given the opportunity to ask questions and all questions answered. Thank you for allowing me to participate in his care Medications: New bisacodyl (Dulcolax (bisacodyl)) take 2 tabs at noon the day before your colonoscopy 10 mg (2 x 5 mg) PO ONCE 1 day 2 tabs 0RF Z12.11 - Encounter for screening for malignant neoplasm of colon polyethylene glycol 3350 (Miralax) As directed by gastroenterology department at [facility] 238 grams PO ONCE 238 grams 0RF Z12.11 - Encounter for screening for malignant neoplasm of colon Coding Level of Care Code Est Pt Level 3 (24804) Diagnoses External hemorrhoid K64.4 GERD (gastroesophageal reflux disease) K21.9 Esophagitis presence: esophagitis presence not specified Screen for colon cancer Z12.11 Time Spent (min) 30 Comment 20 minutes spent with patient and additional 10 minutes spent reviewing his records
== END 2022-09-08 11:53 | disposition home or self-care (01) ==
PROVIDERS: PCP Internal Medicine; Visit Provider Nurse Practitioner Family
DX: K64.4 Residual hemorrhoidal skin tags (principal); K21.9 Gastro-esophageal reflux disease without esophagitis; Z12.11 Encounter for screening for malignant neoplasm of colon
CPT/HCPCS: 99213

== ENCOUNTER → 2022-09-08 10:29 | Outpatient (BNVA) | payer OTHER, SELFPAY | PROVIDERS: PCP Internal Medicine; Visit Provider Nurse Practitioner Family | DX: Z12.11 Encounter for screening for malignant neoplasm of colon (principal); K64.4 Residual hemorrhoidal skin tags; K21.9 Gastro-esophageal reflux disease without esophagitis | CPT/HCPCS: 99212 ==

== ENCOUNTER 2022-10-20 09:47 | Outpatient (AMB) | payer OTHER, SELFPAY ==
--- NOTE | 2022-10-20 09:50 | A.OFFVIS_ITS ---
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 Required: No Allergies lisinopril [LISINOPRIL] Allergy (Intermediate, Verified 09/08/22 10:52) ANGIOEDEMA Latex, Natural Rubber Allergy (Mild, Verified 09/08/22 10:52) Unknown CHOCOLATE Allergy (Severe, Uncoded 09/08/22 10:52) DIFFICULTY BREATHING Medication List - Last Reconciled 10/20/22 by Swati Pinzon CNP albuterol sulfate 90 mcg/actuation (ProAir HFA) 2 puffs inhalation Q4-6H PRN amlodipine 10 mg PO DAILY atorvastatin 40 mg PO DAILY 90 days bisacodyl (Dulcolax (bisacodyl)) 10 mg (2 x 5 mg) PO ONCE 1 day cholecalciferol (vitamin D3) 1,250 mcg PO QWEEK ferrous sulfate 324 mg PO DAILY fluticasone propionate 110 mcg/actuation (Flovent HFA) 2 puffs PO BID hydrocortisone 2.5% (Proctosol HC) 1 appl [place] BID-QID PRN losartan 100 mg PO DAILY magnesium oxide 400 mg PO BEDTIME 30 days methylcellulose (laxative) (Citrucel) 500 mg PO DAILY pantoprazole 40 mg PO DAILY riboflavin (vitamin B2) 400 mg PO DAILY 30 days HPI HPI Comments History of Present Illness Details 47 y/o male patient presents for follow up of sleep study. The [facility] sleep study result was significant for severe degree of sleep apena. The AHI was 83/hr and oxygen shameka was 77%. Patient was trialed on CPAP [id number] and the breathing and oxygenation stabilized on CPAP at [id number]. Pt started CPAP. The CPAP compliance and therapy response (07/22/22-10/19/22) reviewed. The usage days 75 days and and the average usage hours 5 hrs and 30 min. The AHI was 1.3/hr. Pt reports that his sleep quality improved. He used to sleep 3 hrs but now he can sleep more than 6 hrs straight. He feels refreshed, and is not groggy in the morning. Pt reports that he is having migraine more lately, almost every other day. Uses ibuprofen 800 mg daily and taking shower to relieve the migraine. [facility] Medical History (Updated 10/20/22 @ 10:47 by Swati Pinzon CNP) Anxiety Benign essential hypertension CKD (chronic kidney disease) stage 3, GFR 30-59 ml/min Dyslipidemia (high LDL; low HDL) Family history of early CAD Family history of ovarian cancer Flatulence, eructation and gas pain Hemorrhoids with complication History of vitamin D deficiency Iron deficiency anemia Low back pain Mild intermittent asthma Morbid obesity Morbid obesity with BMI of 50.0-59.9, adult CHUN (obstructive sleep apnea) Paraesophageal hernia Pure hypercholesterolemia Right calf pain Stage 3 chronic kidney disease Vitamin D deficiency Surgical History No history of previous surgery Family History Mother No problems noted. Father Heart problem Paternal Uncle Heart problem Paternal Grandfather Heart problem Heart attack Paternal Grandmother Breast cancer Paternal Aunt Ovarian cancer Social History (Updated 10/20/22 @ 09:55 by Esperanza Self [facility]) Housing: House Alcohol intake: current Alcohol intake frequency: does not drink Patient Tobacco Use Status: Never used Tobacco e-Cigarette/Vaping Use: Never Used Second Hand Smoke Exposure: Yes service: No Current occupational status: employed Cognitive needs: No Hearing needs: No Vision needs: Yes Review of Systems Const All systems reviewed & are unremarkable except as noted in HPI and below ENT Reports Normal hearing present Neuro Reports Normal hearing present Physical Exam Vital Signs: Last Vital Signs Pulse 91 10/20/22 09:56 BP 122/80 10/20/22 09:56 Pulse Ox 96 10/20/22 09:56 Oxygen Delivery Method Room Air 10/20/22 09:56 Const General: cooperative Nutritional Appearance: obese Orientation/consciousness: patient oriented x3 HEENT Throat: Yes other (mallampati grade 4) Neck Neck: Yes full ROM and Yes supple Resp Effort & Inspection: normal respiratory effort and able to speak in complete sentences Neuro General: patient oriented x3 and gait normal Cranial nerves: Yes Bilaterally intact EOM present, Yes Normal facial strength present, Yes Midline tongue present, Yes Normal hearing present, Yes Ability to bilaterally rotate head present and Yes Ability to bilaterally elevate shoulders present Cognition (Neuro): normal cognition Motor exam (neuro): 5/5 motor strength present throughout, Pronator motor function not present and no tremor noted Psych Appearance: grossly normal Mental Status: mental status grossly normal Affect: normal affect Attitude: cooperative Assessment & Plan Assessment & Plan (1) CHUN (obstructive sleep apnea): Comment: Severe degree of sleep apnea. The AHI was 83/hr and oxygen shameka was 77%. Code(s): G47.33 - Obstructive sleep apnea (adult) (pediatric) (2) Migraine without aura: Code(s): G43.009 - Migraine without aura, not intractable, without status migrainosus Plan Advised patient to continue to use CPAP at [id number] as patient experiences good clinical effects including less snoring, improved sleep quality and daytime tiredness. Stressed compliance, use CPAP nightly and more than 4 hours. Advised patient to try magnesium 400 mg qHS and vitamin B2 400 mg daily to prevent migraine. Educate patient to track migraine frequency and intensity. Medications: New magnesium oxide 400 mg PO BEDTIME 30 days 30 tabs 6RF riboflavin (vitamin B2) 400 mg PO DAILY 30 days 30 tabs 6RF Changed From hydrocortisone 2.5% (Proctosol HC) 1 appl [place] BID-QID PRN 30 grams 2RF hemorrhoids K64.9 - Unspecified hemorrhoids To hydrocortisone 2.5% (Proctosol HC) 1 appl [place] BID-QID PRN hemorrhoids K64.9 - Unspecified hemorrhoids Discontinued docusate sodium Discontinued Reason: Patient no longer taking 100 mg PO BEDTIME K59.00 - Constipation, unspecified Coding Level of Care Code Est Pt Level 4 (29741) Diagnoses CHUN (obstructive sleep apnea) G47.33 Migraine without aura G43.009
[2022-10-20 09:56] VITALS: BP 122/80; PULSE 91; O2SAT 96
== END 2022-10-20 10:14 | disposition home or self-care (01) ==
PROVIDERS: Visit Provider Nurse Practitioner Family
DX: G47.33 Obstructive sleep apnea (adult) (pediatric) (principal); G43.009 Migraine without aura, not intractable, without status migrainosus
CPT/HCPCS: 99214

== ENCOUNTER → 2022-10-20 09:47 | Outpatient (BNVA) | payer OTHER, SELFPAY | PROVIDERS: Visit Provider Nurse Practitioner Family | DX: G47.33 Obstructive sleep apnea (adult) (pediatric) (principal); G43.009 Migraine without aura, not intractable, without status migrainosus; Z99.89 Dependence on other enabling machines and devices | CPT/HCPCS: 99212 ==

== ENCOUNTER 2022-11-10 09:50 | Outpatient (AMB) | payer OTHER, SELFPAY ==
--- NOTE | 2022-11-10 10:33 | MHC.OFFWIV ---
Intake Vital Signs 11/10/22 10:34 Height 5 ft 6 in Weight 340 lb BMI 54.9 BP 138/80 Blood Pressure Location Rt brachial Position Sitting Pulse 72 Pulse Source Pulse Oximeter Temp 97.9 F Temp Source Temporal Artery Scan Pulse Oximetry (%) 95 Oxygen Delivery Method Room Air Intake Visit Reasons: EP Back/Shoulder pain Intake Note: pt is here for back and shoulder pain denies injury Patient Tobacco Use Status: Never used Tobacco Allergies lisinopril [LISINOPRIL] Allergy (Intermediate, Verified 11/10/22 10:34) ANGIOEDEMA Latex, Natural Rubber Allergy (Mild, Verified 11/10/22 10:34) Unknown CHOCOLATE Allergy (Severe, Uncoded 09/08/22 10:52) DIFFICULTY BREATHING Do you need a note to return to daycare/school/sports/work: No HPI EP Back/Shoulder pain HPI Details 47-year-old male patient presents today with a 1 month history of posterior neck pain, radiating into muscles along sides of neck. He denies any trauma or known inciting event to this. Denies any radiation of pain down his arms. Denies any arm weakness. Denies shoulder pain. he admittedly looks down with neck flexed, down at his phone or video games. [facility] Medical History Family history of ovarian cancer Morbid obesity Hemorrhoids with complication History of vitamin D deficiency Right calf pain Iron deficiency anemia Family history of early CAD Flatulence, eructation and gas pain Paraesophageal hernia Vitamin D deficiency Dyslipidemia (high LDL; low HDL) Mild intermittent asthma CKD (chronic kidney disease) stage 3, GFR 30-59 ml/min CHUN (obstructive sleep apnea) Low back pain Stage 3 chronic kidney disease Morbid obesity with BMI of 50.0-59.9, adult Benign essential hypertension Pure hypercholesterolemia Anxiety Surgical History No history of previous surgery Family History Mother No problems noted. Father Heart problem Paternal Uncle Heart problem Paternal Grandfather Heart problem Heart attack Paternal Grandmother Breast cancer Paternal Aunt Ovarian cancer Social History Housing: House Alcohol intake: current Alcohol intake frequency: does not drink Patient Tobacco Use Status: Never used Tobacco e-Cigarette/Vaping Use: Never Used Second Hand Smoke Exposure: Yes service: No Current occupational status: employed Cognitive needs: No Hearing needs: No Vision needs: Yes Review of Systems Const All systems reviewed & are unremarkable except as noted in HPI and below Physical Exam Vital Signs: Last Vital Signs Temp 97.9 F 11/10/22 10:34 Pulse 72 11/10/22 10:34 BP 138/80 11/10/22 10:34 Pulse Ox 95 11/10/22 10:34 Oxygen Delivery Method Room Air 11/10/22 10:34 BMI result Body Mass Index 54.9 Const General: cooperative and no acute distress Nutritional Appearance: obese HEENT Head: Yes normal to inspection and Yes normocephalic Neck Neck: Yes no lymphadenopathy Resp Effort & Inspection: normal respiratory effort and able to speak in complete sentences Back/Spine/Pelvis Cervical Spine: loss of normal cervical lordosis, cervical muscular tenderness ( Cervical paraspinal and bilateral trapezius) and pain with cervical ROM (lat rotation/side bending, +spurlings) Assessment & Plan Assessment & Plan (1) Posterior neck pain: Code(s): M54.2 - Cervicalgia Plan: Patient has neck pain, with radiation to bilateral trapezius muscles. This is likely muscular in nature, however he does have significant forward flexion cervical spine, and I will obtain x-ray today. He is admittedly looking down phone/video games very frequently with flexed neck. I encouraged him to try to improve posture when he can, and do gentle range of motion/ stretching exercises of neck/ upper back. I advised him to start taking ibuprofen BID prn for the next several days and I will also provide him with a short course of cyclobenzaprine To take at bedtime. We reviewed indications, use, possible s/e of this. He will be notified of XR results once these are available. if symptoms persist, he should follow-up with PCP or may return to the clinic. He agrees to plan. (2) Strain of cervical portion of both trapezius muscles: Code(s): S16.1XXA - Strain of muscle, fascia and tendon at neck level, initial encounter Orders: Orders XR cervical spine 2V Today M54.2 - Cervicalgia Medications: New cyclobenzaprine 10 mg PO BEDTIME PRN 7 tabs 0RF muscle spasm 7 days S16.1XXA - Strain of muscle, fascia and tendon at neck level, initial encounter Coding Level of Care Code Est Pt Level 3 (93465) Diagnoses Posterior neck pain M54.2 Strain of cervical portion of both trapezius muscles S16.1XXA
[2022-11-10 10:34] VITALS: BP 138/80; PULSE 72; TEMP 36.6; O2SAT 95; BMI 54.9
== END 2022-11-10 11:06 | disposition home or self-care (01) ==
PROVIDERS: PCP Internal Medicine; Visit Provider Nurse Practitioner Family
DX: M54.2 Cervicalgia (principal); S16.1XXA Strain of muscle, fascia and tendon at neck level, initial encounter
CPT/HCPCS: 99213

== ENCOUNTER 2022-11-10 10:57 | Outpatient (REF) | payer OTHER, SELFPAY ==
--- NOTE | ~2022-11-10 | XR_ITS ---
EXAMINATION: XR CERVICAL SPINE CLINICAL INFORMATION: Cervicalgia. COMPARISON: None available. TECHNIQUE: 4 views of the cervical spine were obtained. FINDINGS: The cervical spine is imaged through the C5 vertebral body. Relative straightening of the cervical lordosis. Vertebral body heights are maintained. Marked posterior intervertebral disc space narrowing at C4-C5. Moderate intervertebral disc space narrowing and C3-C4 and C5-C6. Lateral masses are symmetric. Prevertebral soft tissues are within normal limits. XR/XR cervical spine 2V IMPRESSION: Marked degenerative disc disease at C4-C5. Moderate degenerative disc disease at C3-C4 and C4-C5.
== END 2022-11-10 10:58 | disposition home or self-care (01) ==
LOC: HO.HMGCX 10:57
PROVIDERS: PCP Internal Medicine; Visit Provider Nurse Practitioner Family
DX: M54.2 Cervicalgia (principal)
CPT/HCPCS: 72040

== ENCOUNTER 2022-11-24 12:15 | Day surgery (SDC) | payer OTHER, SELFPAY ==
--- NOTE | 2022-11-21 10:02 | HO.ANESPROP2 ---
Documented by User: Roseanne Canales NP 11/21/22 10:08 HPI - Anesthesia Eval Consult details Narrative: 47yo M for Upper Endoscopy and Colonoscopy Seen by [facility] spring 2022 for [place]OH[place]. Stress and ECHO wnl PMFSH Active Problems Active Problems: All Active Problems (Updated 10/20/22 @ 10:47 by Swati Pinzon CNP) Migraine without aura (Acute) Family history of ovarian cancer (Acute) Morbid obesity (Acute) Hemorrhoids with complication (Acute) History of vitamin D deficiency (Acute) Right calf pain (Acute) Uncontrolled hypertension (Acute) Exertional dyspnea (Acute) Excessive daytime sleepiness (Acute) Loud snoring (Acute) Iron deficiency anemia (Acute) Family history of early CAD (Acute) Paraesophageal hernia (Acute) Dyslipidemia (high LDL; low HDL) (Acute) Morbid obesity with BMI of 50.0-59.9, adult (Acute) Benign essential hypertension (Acute) Mild intermittent asthma (Acute) CKD (chronic kidney disease) stage 3, GFR 30-59 ml/min (Acute) CHUN (obstructive sleep apnea) (Acute) Past Medical History Medical History Family history of ovarian cancer Morbid obesity Hemorrhoids with complication History of vitamin D deficiency Right calf pain Iron deficiency anemia Family history of early CAD Flatulence, eructation and gas pain Paraesophageal hernia Vitamin D deficiency Dyslipidemia (high LDL; low HDL) Mild intermittent asthma CKD (chronic kidney disease) stage 3, GFR 30-59 ml/min CHUN (obstructive sleep apnea) Low back pain Stage 3 chronic kidney disease Morbid obesity with BMI of 50.0-59.9, adult Benign essential hypertension Pure hypercholesterolemia Anxiety Family History Family History Mother No problems noted. Father Heart problem Paternal Uncle Heart problem Paternal Grandfather Heart problem Heart attack Paternal Grandmother Breast cancer Paternal Aunt Ovarian cancer Surgical History Surgical History No history of previous surgery Social History Social History Housing: House Alcohol intake: current Alcohol intake frequency: holidays/special occasions only Patient Tobacco Use Status: Never used Tobacco e-Cigarette/Vaping Use: Never Used Second Hand Smoke Exposure: Yes Use of substances other than those prescribed or required for medical reasons: No Are you DNR?: No Advance Directives: No Advance Directives Information Provided: Yes service: No Current occupational status: employed Cognitive needs: No Hearing needs: No Vision needs: Yes Meds Allergies Allergy/AdvReac Type Severity Reaction Status Date / Time lisinopril [LISINOPRIL] Allergy Intermediate ANGIOEDEMA Verified 11/24/22 12:54 Latex, Natural Rubber Allergy Mild Unknown Verified 11/24/22 12:54 animal dander [animal hair] Allergy Redness of Verified 11/24/22 12:54 Skin CHOCOLATE Allergy Severe DIFFICULTY Uncoded 09/08/22 10:52 BREATHING Home Medications Medication Instructions Recorded Confirmed Last Taken Type hydrocortisone 2.5 % topical cream 1 appl OH BID-QID PRN hemorrhoids 10/20/22 11/24/22 Unknown History with perineal applicator (Proctosol HC) atorvastatin 40 mg tablet 40 mg PO BEDTIME 11/24/22 11/24/22 Unknown History Exam Exam Date and Time: November 21, 2022 1002 Pertinent Lab Results Pertinent Lab Results: Laboratory Tests 07/03/22 20:59 WBC 10.8 Hgb 13.3 L Hct 42.0 Plt Count 268 Sodium 144 Potassium 4.1 Chloride 106 Carbon Dioxide 26 BUN 24 H Creatinine 1.58 H Narrative Narrative: EKG 01/2022 Vent. Rate : 068 BPM Atrial Rate : 068 BPM P-R Int : 140 ms QRS Dur : 080 ms QT Int : 404 ms P-R-T Axes : 020 047 091 degrees QTc Int : 429 ms Normal sinus rhythm Nonspecific T wave abnormality Abnormal ECG When compared with ECG of 12-FEB-2022 21:07, No significant change was found ECHO 05/2022 Conclusions: - The left ventricular systolic function is mildly decreased. The calculated ejection fraction is 47% by biplane method. - Moderately increased right ventricular cavity size. - Moderate biatrial enlargement. - No obvious valvular pathology seen on this study. NM cardiolite stress test 05/2022 Impression: 1. Likely normal myocardial perfusion 2. Gated LVEF is 56% 3. Transient ischemic dilatation not present Stress EKG is negative for ischemia Assessment and Plan Assessment Anesthesia Assessment: Chart Reviewed Documented by User: Ree Harrington MD 11/24/22 15:09 [facility] Past Medical History Medical History Family history of ovarian cancer Morbid obesity Hemorrhoids with complication History of vitamin D deficiency Right calf pain Iron deficiency anemia Family history of early CAD Flatulence, eructation and gas pain Paraesophageal hernia Vitamin D deficiency Dyslipidemia (high LDL; low HDL) Mild intermittent asthma CKD (chronic kidney disease) stage 3, GFR 30-59 ml/min CHUN (obstructive sleep apnea) Low back pain Stage 3 chronic kidney disease Morbid obesity with BMI of 50.0-59.9, adult Benign essential hypertension Pure hypercholesterolemia Anxiety Family History Family History Mother No problems noted. Father Heart problem Paternal Uncle Heart problem Paternal Grandfather Heart problem Heart attack Paternal Grandmother Breast cancer Paternal Aunt Ovarian cancer Surgical History Surgical History No history of previous surgery History of Problems with Anesthesia: No Social History Social History Housing: House Alcohol intake: current Alcohol intake frequency: holidays/special occasions only Patient Tobacco Use Status: Never used Tobacco e-Cigarette/Vaping Use: Never Used Second Hand Smoke Exposure: Yes Use of substances other than those prescribed or required for medical reasons: No Are you DNR?: No Advance Directives: No Advance Directives Information Provided: Yes service: No Current occupational status: employed Cognitive needs: No Hearing needs: No Vision needs: Yes Meds Allergies Allergy/AdvReac Type Severity Reaction Status Date / Time lisinopril [LISINOPRIL] Allergy Intermediate ANGIOEDEMA Verified 11/24/22 12:54 Latex, Natural Rubber Allergy Mild Unknown Verified 11/24/22 12:54 animal dander [animal hair] Allergy Redness of Verified 11/24/22 12:54 Skin CHOCOLATE Allergy Severe DIFFICULTY Uncoded 09/08/22 10:52 BREATHING Home Medications Medication Instructions Recorded Confirmed Last Taken Type hydrocortisone 2.5 % topical cream 1 appl OH BID-QID PRN hemorrhoids 10/20/22 11/24/22 Unknown History with perineal applicator (Proctosol HC) atorvastatin 40 mg tablet 40 mg PO BEDTIME 11/24/22 11/24/22 Unknown History Exam Airway Mallampati Class: III TM Dist: >3cm Neck ROM: Limited Loose/Missing/Broken Teeth: Yes, Upper and Lower Heart: RRR Lungs: CTA Assessment and Plan Assessment Anesthesia Assessment: Anesthesia Plan Discussed Final Anesthetic Review History of Problems with Anesthesia: No NPO: Yes ASA Class: III Final Preanesthetic Review: Meds/Allgs Chart Reviewed, Consent Obtained/Reviewed and Anes Risks/Benef Reviewed Patient Risk: Intermediate Procedure Risk: Intermediate Anesthetic Plan Anesthetic Plan: GA Disposition: Standard PACU
[2022-11-24 12:57] VITALS: BMI 53.3
--- NOTE | 2022-11-24 13:03 | MHC.SHP ---
Pre-Procedural Eval Section A Date of Service: 11/24/22 The patient is an INPATIENT: No The History & Physical has been completed within 30 days and I have reviewed it.: No Section B Chief Complaint: gerd,screening, Relevant Family History (Specify if Yes): No Relevant Social History: None Present Medications: see Short Stay Collaborative assessment Medical History: Significant History (hypertension CKD (chronic kidney disease) stage 3, GFR 30-59 ml/min Dyslipidemia (high LDL; low HDL) Family history of early CAD Family history of ovarian cancer Flatulence, eructation and gas pain Hemorrhoids with complication History of vitamin D deficiency Iron deficiency anemia Low back pain Mil) History of Previous Operations: No relevant previous surgery Allergies: Allergies Allergy/AdvReac Type Severity Reaction Status Date / Time lisinopril [LISINOPRIL] Allergy Intermediate ANGIOEDEMA Verified 11/24/22 12:54 Latex, Natural Rubber Allergy Mild Unknown Verified 11/24/22 12:54 animal dander [animal hair] Allergy Redness of Verified 11/24/22 12:54 Skin CHOCOLATE Allergy Severe DIFFICULTY Uncoded 09/08/22 10:52 BREATHING Review of Systems Sugical H&P ROS: Negative: Cardiovascular, Respiratory and Gastrointestinal and Yes, Specify: Constitution ( morbidly obese) Exam Surgical H&P Exam: Normal: Heart, Normal: Lungs, Normal: Extremities and Normal: Abdomen Plan Diagnosis/Plan: Unchanged I have reviewed the history and physical and performed a pertinent physical examination on my patient. No changes have occurred unless specified. Time Spent With Patient Time: Total time managing care of this patient today ____ minutes.
[2022-11-24 13:14] VITALS: BP 156/92; PULSE 69; RESP 17; TEMP 36.6; O2SAT 96
[2022-11-24] MEDS: Lactated Ringers 1,000 ML 100 ML IVCONT (13:22)
--- NOTE | 2022-11-24 14:28 | P.OP_ITS ---
Operative Note Operative Note Date of Service: 11/24/22 Narrative: FLEXIBLE TRANSORAL UPPER GASTROINTESTINAL ENDOSCOPY WITH BIOPSIES AND COLONOSCOPY TILL CECUM WITH SNARE POLYPECTOMY Pre-op diagnosis: colon cancer screening, GERD, abdominal pain and bloating Post-op diagnosis: gastritis, esophageal nodule, paraesophageal hernia, Colon polyp, hemorrhoids ? Endoscopist:? Chayo Patten MD Anesthesia:?GA with endotracheal tube UPPER ENDOSCOPY Consent: Indications for the procedure and potential complications of bleeding, perforation, reaction to medications and missed diagnosis were discussed with the patient and informed consent was obtained. Instrument: Olympus GIF H 190 mid size upper endoscope Monitoring: Vital signs and clinical assessment, continuous EKG monitoring, Pulse oximetry, Carbon Dioxide monitoring and blood pressure monitoring were done throughout the procedure. Procedure: The patient was placed in the left lateral decubitis position and pre-procedure medications were administered and a bite block was placed. The endoscope was inserted into the mouth and advanced under direct vision to the third part of duodenum. A careful inspection was made as the upper endoscope was withdrawn including a retroflexed examination of the proximal stomach; Findings and interventions are described below. Findings: Larynx: Normal - ET tube in place Esophagus: GE junction at 40 cms. A 12- 15 mm benign appearing nodule at GE junction - biopsied. Stomach: Mild gastric erythema. Biopsies were obtained. A para-esophageal hernia and grade 2 flap valve on retroflexed examination of the cardia. Duodenum: Normal bulb and descending duodenum. Biopsies were obtained from 3rd part of the duodenum to check for celiac sprue Intervention: Biopsies as noted above COLONOSCOPY PROCEDURE NOTE Consent: Indications for the procedure and potential complications of bleeding, perforation, reaction to medications and missed diagnosis were discussed with the patient and informed consent was obtained. Instrument: Olympus CF H 190 L variable stiffness adult colonoscope Monitoring: Vital signs and clinical assessment, intermittent blood pressure monitoring, continuous EKG monitoring, Pulse oximetry and Carbon Dioxide monitoring were done throughout the procedure. Colon withdrawl time was 15 minutes. Procedure: The patient was placed in the left lateral decubitis position and pre-procedure medications were administered. After a digital rectal examination of the ano-rectum, the video colonoscope was inserted into the rectum and advanced through the colon to the cecum. The colonoscope was slowly withdrawn in a retrograde panoramic fashion and the colon mucosa was carefully examined including a retroflexed view of the rectum. Findings and interventions are described below. Procedure Difficulty: : Without difficulty Findings: Terminal Ileum: Not evaluated Cecum: Normal Ascending Colon: Normal Transverse Colon: A 7-8 mm sessile polyp in the distal transverse colon - removed with a cold snare Descending Colon: Normal Sigmoid Colon: normal Rectum: Normal Ano-rectum: Moderate internal hemorrhoids Colon preparation: Good after some irrigation Impression and Post Procedure Diagnosis: Endoscopy Findings: ESOPHAGUS: benign appearing nodule at GE junction - biopsied STOMACH: gastritis and paraesophageal hernia on retroflexed exam DUODENUM: Normal - biopsied to check for celiac sprue Colonoscopy Findings: One small polyp removed Moderate hemorrhoids on retroflexed exam. Plan: Await pathology results Patient has an appointment on 12/15/22 in the GI Clinic with Yasemin Jack FNP-BC. Repeat Colonoscopy interval based on path results - in 5 years if polyps are melissa nomatous and 10 years if polyps are hyperplastic. Above findings were reviewed with the patient and colon polyps and GERD handouts were given in the discharge area BIOPSIES SHOWED: A. Small bowel, biopsy: Small bowel mucosa with preserved villi and no specific change; no evidence of celiac disease. B. Gastric antrum, biopsy: Gastric antral mucosa with minimal chronic inactive gastritis; negative for H pylori, intestinal metaplasia and dysplasia. C. Gastroesophageal junction, nodule, biopsy: Polypoid squamocolumnar mucosa with hyperplastic changes and mild chronic active inflammation consistent with inflammatory polyp; negative for intestinal metaplasia and dysplasia. D. Colon, transverse, polyp: Tubular adenoma, completely excised; negative for high-grade dysplasia and carcinoma
[2022-11-24 15:35] VITALS: BP 150/89; PULSE 62; RESP 18; TEMP 36.6; O2SAT 100
[2022-11-24 15:40] VITALS: BP 137/79; PULSE 61; RESP 18; O2SAT 99
[2022-11-24 15:45] VITALS: BP 129/75; PULSE 65; RESP 18; O2SAT 94
[2022-11-24 15:50] VITALS: BP 118/67; PULSE 71; RESP 18; O2SAT 94
[2022-11-24 16:05] VITALS: BP 139/78; PULSE 66; RESP 18; TEMP 36.7; O2SAT 94
== END 2022-11-24 16:25 | disposition home or self-care (01) ==
PROVIDERS: PCP Internal Medicine; Visit Provider Internal Medicine Gastroenterology
PROC: (CPT 45385; principal; 2022-11-24 13:30)
DX: Z12.11 Encounter for screening for malignant neoplasm of colon (principal); D12.3 Benign neoplasm of transverse colon; K64.8 Other hemorrhoids; K21.9 Gastro-esophageal reflux disease without esophagitis; D13.0 Benign neoplasm of esophagus; K29.50 Unspecified chronic gastritis without bleeding; K44.9 Diaphragmatic hernia without obstruction or gangrene
CPT/HCPCS: 45385; 43239; 88305; 88342; J0330; J1100; J2405; J3010

== ENCOUNTER → 2022-11-24 12:15 | Outpatient (BNV) | payer OTHER, SELFPAY | PROVIDERS: PCP Internal Medicine; Visit Provider Internal Medicine Gastroenterology | DX: Z12.11 Encounter for screening for malignant neoplasm of colon (principal); K21.9 Gastro-esophageal reflux disease without esophagitis; K29.70 Gastritis, unspecified, without bleeding; K22.9 Disease of esophagus, unspecified; D12.3 Benign neoplasm of transverse colon; K64.8 Other hemorrhoids | CPT/HCPCS: 43239; 45385 ==

== ENCOUNTER 2022-12-05 06:39 | Outpatient (REF) | payer OTHER, SELFPAY | END 2022-12-05 06:40 | disposition home or self-care (01) | LOC: HO.HMGCLDS 06:39 | PROVIDERS: PCP Internal Medicine; Visit Provider Internal Medicine | DX: E66.01 Morbid (severe) obesity due to excess calories (principal); Z68.43 Body mass index [BMI] 50.0-59.9, adult; E78.5 Hyperlipidemia, unspecified; D50.9 Iron deficiency anemia, unspecified; Z86.39 Personal history of other endocrine, nutritional and metabolic disease | CPT/HCPCS: 36415; 80061; 82306; 83540; 85025 ==

== ENCOUNTER 2022-12-08 10:56 | Outpatient (AMB) | payer OTHER, SELFPAY ==
--- NOTE | 2022-12-08 11:51 | MHC.PC.OV ---
Vital Signs 12/08/22 11:52 Height 5 ft 6.5 in Weight 341 lb BMI 54.2 BP 126/80 Blood Pressure Location Lt brachial Position Sitting Pulse 67 Pulse Source Pulse Oximeter Pulse Oximetry (%) 96 Oxygen Delivery Method Room Air Intake Visit Reasons: 6m follow up vit d Intake Note: Pt is here today for his 6mo. f/u vit D Allergies lisinopril [LISINOPRIL] Allergy (Intermediate, Verified 12/08/22 12:23) ANGIOEDEMA Latex, Natural Rubber Allergy (Mild, Verified 12/08/22 12:23) Unknown animal dander [animal hair] Allergy (Verified 12/08/22 12:23) Redness of Skin bee pollen [bee stings] Allergy (Verified 12/08/22 12:23) Unknown CHOCOLATE Allergy (Severe, Uncoded 12/08/22 12:23) DIFFICULTY BREATHING Medication List - Last Reconciled 12/08/22 by Reina Brown MD albuterol sulfate 90 mcg/actuation (ProAir HFA) 2 puffs inhalation Q4-6H PRN amlodipine 10 mg PO DAILY atorvastatin 40 mg PO BEDTIME cyclobenzaprine 10 mg PO BEDTIME PRN 7 days ferrous sulfate 324 mg PO DAILY fluticasone propionate 110 mcg/actuation (Flovent HFA) 2 puffs PO BID losartan 100 mg PO DAILY magnesium oxide 400 mg PO BEDTIME 30 days pantoprazole 40 mg PO DAILY riboflavin (vitamin B2) 400 mg PO DAILY 30 days Tobacco use date assessed: 12/08/22 Dental Screening Dental Screen Date: 12/08/22 Did you have a dental visit in the last 12 months?: No Was dental information given to patient?: Patient declined HPI 6m follow up vit d HPI Details 47-year-old male with hypertension, morbid obesity, history of vitamin-D deficiency, hypertension, dyslipidemia, mild intermittent asthma and CKD stage III, and obstructive sleep apnea on CPAP, here today for his follow-up. He states that he has been trying to adhere to recommended diet, has lost some weight. He has been more active, especially at work where he is always either walking or running. Complains of recurrent pain stiffness in his posterior neck radiating down both shoulders. Pain and stiffness gets worse towards and with the day. Taking ibuprofen 800 mg 3 times a day as needed which affords only temporary pain relief. Denies any accompanying numbness or tingling in extremities, no weakness reported [facility] Medical History (Updated 12/09/22 @ 00:43 by Reina Brown MD) Disc disease, degenerative, cervical Family history of ovarian cancer Morbid obesity Hemorrhoids with complication History of vitamin D deficiency Right calf pain Iron deficiency anemia Family history of early CAD Flatulence, eructation and gas pain Paraesophageal hernia Vitamin D deficiency Dyslipidemia (high LDL; low HDL) Mild intermittent asthma CKD (chronic kidney disease) stage 3, GFR 30-59 ml/min CHUN (obstructive sleep apnea) Low back pain Stage 3 chronic kidney disease Morbid obesity with BMI of 50.0-59.9, adult Benign essential hypertension Pure hypercholesterolemia Anxiety Surgical History No history of previous surgery Family History Mother No problems noted. Father Heart problem Paternal Uncle Heart problem Paternal Grandfather Heart problem Heart attack Paternal Grandmother Breast cancer Paternal Aunt Ovarian cancer Social History Housing: House Alcohol intake: current Alcohol intake frequency: holidays/special occasions only Patient Tobacco Use Status: Never used Tobacco e-Cigarette/Vaping Use: Never Used Second Hand Smoke Exposure: Yes service: No Current occupational status: employed Cognitive needs: No Hearing needs: No Vision needs: Yes Questionnaire Thrive Questionnaire Date Thrive assessed: 03/10/22 LUZMA-7 AMB Questionnaire LUZMA-7 Date LUZMA - 7 assessed: 03/10/22 Source: Developed by Drs. Shawn Joyce, Lina Orr, Mundo Guadarrama and colleagues, with an educational medina from [employer]. Review of Systems Const Denies fever(s), Denies frequent falls, Denies night sweats and Denies weakness Eyes Denies loss of vision ENT Denies dizziness and Denies hearing loss Card Denies chest pain, Denies chest pain with activity, Denies rapid heart rate, Denies edema, Denies claudication, Denies lightheadedness, Denies palpitations, Denies dyspnea, Denies dyspnea on exertion and Denies orthopnea Resp Denies cough, Denies dyspnea, Denies dyspnea on exertion and Denies wheezing GI Denies abdominal pain, Denies hematochezia, Denies change in bowel habits, Denies change in stool character, Denies heartburn, Denies nausea and Denies vomiting Denies hematuria, Denies dysuria and Denies urinary frequency Musc Reports as per HPI, Denies arthralgias, Denies numbness and Denies tingling Skin/Breast Denies nail changes and Denies rash Neuro Denies Abnormal speech present, Denies dizziness, Denies frequent falls, Denies loss of vision, Denies numbness, Denies tingling and Denies weakness Endo Denies palpitations Aller/Immun Denies wheezing Physical exam (Primary Care) Vital Signs: Last Vital Signs Pulse 67 12/08/22 11:52 BP 126/80 12/08/22 11:52 Pulse Ox 96 12/08/22 11:52 Oxygen Delivery Method Room Air 12/08/22 11:52 BMI result Body Mass Index 54.2 BMI Assessment/Plan discussion: High BMI High, discussed plan: lifestyle, weight reduction, dietary and physical activity Tobacco/Smoking Status: Tobacco use Status Tobacco use date assessed 12/08/22 12/08/22 11:56 Patient Tobacco Use Status Never used Tobacco 12/08/22 11:51 e-Cigarette/Vaping Use Never Used 12/08/22 11:51 Thrive Assessment: Date of Thrive Assessment Date Thrive assessed 03/10/22 12/08/22 11:51 Const Other: Alert oriented x3, no acute distress noted ambulatory with normal gait, morbidly obese Orientation/consciousness: patient oriented x3 [facility] Head: Yes normocephalic Ears: hearing grossly normal bilaterally, external ears normal, TM's normal bilaterally and EAC's normal Face and sinus: Yes face symmetric Mouth: Normal oral and palatal mucosa present, oropharynx normal and moist mucous membranes Eyes General: appearance normal, both eyes and all related structures Neck Other: Nonpalpable thyroid gland Neck: Yes full ROM, Yes no lymphadenopathy and Yes supple Resp Effort & Inspection: normal respiratory effort and able to speak in complete sentences Auscultation: clear to auscultation bilaterally Cardio Other: S1-S2 present regular rate and rhythm GI Other: Obese, normal bowel sounds, soft, nontender to palpation, with no mass palpated Back/Spine/Pelvis Cervical Spine: cervical muscular tenderness (Bilateral) Skin General skin exam: no rashes or lesions noted Neuro General: patient oriented x3, tone normal, moves all extremities, Normal light touch and pain sensation, no focal motor deficits and CN's II-XI intact bilaterally Speech: No Abnormal speech present Extrem Other: No erythema or increased warmth noted on right calf General: Yes full ROM, Yes no clubbing, cyanosis or edema, Yes normal gait and Yes calf tenderness (Right) Results Reviewed Results Reviewed: Name: Reid Sanchez Jr Age/Sex: 47/M : 1975 Unit#: [id number] Attend Dr: Reina Brown MD Re12/05/22 Status: DEP REF Location: [facility] Disch: SPEC : [id number] CAMPOS: 12/05/22 STATUS: COMP REQ : [id number] RECD: 12/05/[address]: Reina Brown MD COMP: 12/05/22 ENTERED: 12/05/22 [facility] DR: ORDERED: CBC Auto Diff Test Result Flag Reference Site WBC 8.7 4.8-10.8 X10*3/uL RBC 4.45 L 4.60-5.80 X10*6/uL HGB 12.3 L 14.0-18.0 g/dl HCT 39.5 L 42.0-52.0 % MCV 88.8 80.0-98.0 fL MCH 27.6 27.0-33.0 pg MCHC 31.1 31.0-36.0 g/dl RDW 13.8 11.0-16.0 % PLT 254 160-400 X10*3/uL MPV 11.3 9.4-12.4 fL Neut Pct Auto 72.0 45-73 % ImGran Pct Auto 0.2 0.0-0.4 % Lymp Pct Auto 15.5 L 20-40 % [place] Pct Auto 8.6 2-11 % Eos Pct Auto 3.4 0-4 % Baso Pct Auto 0.3 0-2 % NRBC Pct Auto 0.0 0.0-0.2 /100WBC ANC Neut Abs # 6.3 2.0-8.3 x10*3/uL ImGran Abs Auto 0.02 0.00-0.03 X10*3/uL Lymph Abs Auto 1.4 1.2-4.9 X10*3/uL [place] Abs Auto 0.8 0.1-1.2 X10*3/uL Eos Abs Auto 0.3 0.0-0.4 X10*3/uL Baso Abs Auto 0.0 0.0-0.2 X10*3/uL NRBC Abs Auto 0.000 0.0-0.012 X10*3/uL ENTERED: 12/05/22 [facility] [address]: ORDERED: IRON PROF, Lipid Panel, Vitamin D 25-OH Test Result Flag Reference Site Iron 45 45-160 mcg/dL TIBC 224 L 228-428 mcg/dL Saturation 20 15-50 % UIBC 179 ug/dL Triglyceride 155 H <150 mg/dL Desirable Triglyceride: less than 150 mg/dL Borderline High Triglyceride 150-199 mg/dL High Triglyceride: 200-499 mg/dL Very High Triglyceride: greater than or equal to 5OO mg/dL Cholesterol 125 <200 mg/dL Desirable Cholesterol: less than 200 mg/dL Borderline High Cholesterol: 200-239 mg/dL High Cholesterol: greater than 239 mg/dL LDL Calculated 60 <100 mg/dL Desirable LDL: less than 100 mg/dL Near Optimal/Above Optimal LDL: 110-129 mg/dL Borderline High LDL: 130-159 mg/dL High LDL: 160-189 mg/dL Very High LDL: greater than or equal to 190 mg/dL HDL 34 L >40 mg/dL Desirable HDL: greater than 40 mg/dL Note: This HDL assay may give artificially low results in patients with liver disease. Vit D 25-OH Tot 50.9 >30 ng/mL Health Based Reference Values* < 20 ng/mL Deficient 20-30 ng/mL Insufficient > 30 ng/mL Sufficient Assessment and Plan Assessment & Plan (1) Disc disease, degenerative, cervical: Code(s): M50.30 - Other cervical disc degeneration, unspecified cervical region Plan: Advised to alternate ibuprofen 800 mg every 12 hours with Tylenol arthritis 650 mg needed for pain may continue taking cyclobenzaprine, 10 mg take half a tablet at bedtime as needed. Try applying Salonpas patch to affected area posterior neck every 8 hours as needed. Referred for physical therapy (2) Iron deficiency anemia: Code(s): D50.9 - Iron deficiency anemia, unspecified Qualifiers: Iron deficiency anemia type: unspecified iron deficiency Qualified Code(s): D50.9 - Iron deficiency anemia, unspecified Plan: Continue taking ferrous sulfate 324 mg daily, recheck CBC and iron profile in 2 months (3) Dyslipidemia (high LDL; low HDL): Code(s): E78.5 - Hyperlipidemia, unspecified Plan: Reviewed recent fasting lipid profile with patient with slight elevated triglycerides, normal LDL cholesterol, low HDL . Continue with atorvastatin 40 mg at bedtime , in addition to adherence to low-cholesterol diet and regular exercise, at least 30 minutes 3 to 4 times a week. Advised patient to make healthy food choices, eat more fruits, vegetables, whole grains, wild caught fish and low-fat dairy. Limit amount of meat and fried or fatty food products, as well as processed foods and fast foods. Referred to environmental services attendant (4) Morbid obesity with BMI of 50.0-59.9, adult: Code(s): E66.01 - Morbid (severe) obesity due to excess calories; Z68.43 - Body mass index [BMI] 50.0-59.9, adult Plan: Your BMI is above the ideal range. Recommended focusing on improving health instead of dieting. Mediterranean diet is a healthy diet that helps, limit food high in fat, sugar, and calories. Eat slowly, pay attention to portion sizes, plan your meals ahead of time, start regular physical activity, at least 150 minutes of moderate intensity exercise, or 90 minutes per week of vigorous exercise. Keeping a food diary, tracking what you eat and your physical activity can help assess what improvements you can make. There are many health problems associated with being overweight/obese, so it is important to improve your diet and exercise. There are medications and surgical options available, but Lifestyle changes are the 1st step. (5) Benign essential hypertension: Code(s): I10 - Essential (primary) hypertension Plan: Blood pressure at goal of less than 130/80. Continue with current medication. Reinforced importance of following a low sodium diet, getting regular exercise, and lowering stress levels. Orders: Orders Complete Blood Count Auto Diff 2 Months D50.9 - Iron deficiency anemia, unspecified, E66.01 - Morbid (severe) obesity due to excess calories, E78.5 - Hyperlipidemia, unspecified, I10 - Essential (primary) hypertension, Z68.43 - Body mass index [BMI] 50.0-59.9, adult PT Evaluation and Treatment 12/08/22 M50.30 - Other cervical disc degeneration, unspecified cervical region IRON PROFILE 2 Months D50.9 - Iron deficiency anemia, unspecified Coding Level of Care Code Est Pt Level 4 (72379) Diagnoses Disc disease, degenerative, cervical M50.30 Iron deficiency anemia, unspecified iron deficiency anemia type D50.9 Iron deficiency anemia type: unspecified iron deficiency Dyslipidemia (high LDL; low HDL) E78.5 Morbid obesity with BMI of 50.0-59.9, adult E66.01; Z68.43 Benign essential hypertension I10
[2022-12-08 11:52] VITALS: BP 126/80; PULSE 67; O2SAT 96; BMI 54.2
== END 2022-12-08 12:40 | disposition home or self-care (01) ==
PROVIDERS: PCP Internal Medicine; Visit Provider Internal Medicine
DX: M50.30 Other cervical disc degeneration, unspecified cervical region (principal); E66.01 Morbid (severe) obesity due to excess calories; Z68.43 Body mass index [BMI] 50.0-59.9, adult; D50.9 Iron deficiency anemia, unspecified; E78.5 Hyperlipidemia, unspecified; I10 Essential (primary) hypertension
CPT/HCPCS: 99214

== ENCOUNTER 2023-01-12 14:59 | Outpatient (AMB) | payer OTHER, SELFPAY ==
--- NOTE | 2023-01-12 15:06 | A.OFFVIS_ITS ---
Intake Vital Signs 01/12/23 15:07 Height 5 ft 6.5 in Weight 342 lb 2.519 oz BMI 54.4 BP 133/68 Blood Pressure Location Lt brachial Position Sitting Pulse 73 Intake Visit Reasons: S/p Double; Dr. Patten Intake Note: Reid presents to in office visit today in follow up of colonoscopy and EGD. CC: Patient reports pain when he swallows, dysphagia, and a wind sound when he eats. He reports lose stools since after colonoscopy that look like spaghetti . Cloth Inspector Required: No Accompanied by: Self / Same As Patient Allergies lisinopril [LISINOPRIL] Allergy (Intermediate, Verified 01/12/23 15:11) ANGIOEDEMA Latex, Natural Rubber Allergy (Mild, Verified 01/12/23 15:11) Unknown animal dander [animal hair] Allergy (Verified 01/12/23 15:11) Redness of Skin bee pollen [bee stings] Allergy (Verified 01/12/23 15:11) Unknown CHOCOLATE Allergy (Severe, Uncoded 12/08/22 12:23) DIFFICULTY BREATHING HPI S/p Double; Dr. Patten HPI Details LAST VISIT External hemorrhoid Continue using Proctosol on as needed basis. GERD (gastroesophageal reflux disease) Continue pantoprazole, avoid dietary triggers late night snacking. Patient was encouraged to lose weight. Will send him for upper endoscopy to rule out esophagitis, gastritis, duodenitis, gastric or peptic ulcers, H pylori Screen for colon cancer No family history of colon cancer. Patient never had a colonoscopy in the past. History of sleep apnea and is using CPAP machine every night. Unable to sleep without the CPAP machine. Not on any anticoagulation medication. No problems with anesthesia in the past. Patient denies any cardiac or respiratory symptoms, however he does have a history of asthma and uses inhalers daily. Patient denies any chest pain, pressure. What to expect before during and after the procedure discussed with patient. Clear liquid diet and how to prep day before the procedure discussed with patient. I will see him after the procedure, sooner on as needed basis. Patient is agreeable to this plan and verbalizes understanding of instructions. He was given the opportunity to ask questions and all questions answered. ? Thank you for allowing me to participate in his care Plan Medications New bisacodyl (Dulcolax (bisacodyl)) take 2 tabs at noon the day before your colonoscopy 10 mg (2 x 5 mg) PO ONCE 1 day 2 tabs 0RF Z12.11 - Encounter for screening for malignant neoplasm of colon polyethylene glycol 3350 (Miralax) As directed by gastroenterology department at [facility] 238 grams PO ONCE 238 grams 0RF Z12.11 - Encounter for screening for malignant neoplasm of colon UPPER ENDOSCOPY AND COLONOSCOPY Upper endoscopy Findings: Larynx: Normal - ET tube in place Esophagus: GE junction at 40 cms. A 12- 15 mm benign appearing nodule at GE junction - biopsied. Stomach: Mild gastric erythema. Biopsies were obtained. A para-esophageal hernia and grade 2 flap valve on retroflexed examination of the cardia. Duodenum: Normal bulb and descending duodenum. Biopsies were obtained from 3rd part of the duodenum to check for celiac sprue Intervention: Biopsies as noted above Colonoscopy Findings: Terminal Ileum: Not evaluated Cecum: Normal Ascending Colon: Normal Transverse Colon: A 7-8 mm sessile polyp in the distal transverse colon - removed with a cold snare Descending Colon: Normal Sigmoid Colon: normal Rectum: Normal Ano-rectum: Moderate internal hemorrhoids Colon preparation: Good after some irrigation Impression and Post Procedure Diagnosis: Endoscopy Findings: ESOPHAGUS: benign appearing nodule at GE junction - biopsied STOMACH: gastritis and paraesophageal hernia on retroflexed exam DUODENUM: Normal - biopsied to check for celiac sprue Colonoscopy Findings: One small polyp removed Moderate hemorrhoids on retroflexed exam. Plan: Repeat Colonoscopy interval based on path results - in 5 years if polyps are adenomatous and 10 years if polyps are hyperplastic. PATHOLOGY RESULTS Diagnosis A. Small bowel, biopsy: Small bowel mucosa with preserved villi and no specific change; no evidence of celiac disease. B. Gastric antrum, biopsy: Gastric antral mucosa with minimal chronic inactive gastritis; negative for H pylori, intestinal metaplasia and dysplasia. C. Gastroesophageal junction, nodule, biopsy: Polypoid squamocolumnar mucosa with hyperplastic changes and mild chronic active inflammation consistent with inflammatory polyp; negative for intestinal metaplasia and dysplasia. D. Colon, transverse, polyp: Tubular adenoma, completely excised; negative for high-grade dysplasia and carcinoma TODAY'S VISIT Patient is here today for follow-up and to discuss upper endoscopy in colonoscopy results. Patient had mild inactive gastritis. Patient forgot to take his pantoprazole and has not been taking anything for his acid reflux. Patient reports mild sore throat after the procedure. Denies any melena, hematochezia, unintentional weight loss or ribbon like stools. Patient reports that he still has trouble swallowing liquids and solids. For solids patient reports he has trouble eating anything that is baked like breads or cookies. Patient also reports occasional painful swallowing. Patient denies any nausea or vomiting. Reports that he is not move every day and does not feel that he empties completely when he does have a bowel movement. Patient reports that he gained few lb in the last few weeks. He does admit to eating a lot of food. Patient denies any nausea or vomiting. [facility] Medical History (Updated 12/09/22 @ 00:43 by Reina Brown MD) Disc disease, degenerative, cervical Family history of ovarian cancer Morbid obesity Hemorrhoids with complication History of vitamin D deficiency Right calf pain Iron deficiency anemia Family history of early CAD Flatulence, eructation and gas pain Paraesophageal hernia Vitamin D deficiency Dyslipidemia (high LDL; low HDL) Mild intermittent asthma CKD (chronic kidney disease) stage 3, GFR 30-59 ml/min CHUN (obstructive sleep apnea) Low back pain Stage 3 chronic kidney disease Morbid obesity with BMI of 50.0-59.9, adult Benign essential hypertension Pure hypercholesterolemia Anxiety Surgical History No history of previous surgery Family History Mother No problems noted. Father Heart problem Paternal Uncle Heart problem Paternal Grandfather Heart problem Heart attack Paternal Grandmother Breast cancer Paternal Aunt Ovarian cancer Social History Housing: House Alcohol intake: current Alcohol intake frequency: holidays/special occasions only Patient Tobacco Use Status: Never used Tobacco e-Cigarette/Vaping Use: Never Used Second Hand Smoke Exposure: Yes service: No Current occupational status: employed Cognitive needs: No Hearing needs: No Vision needs: Yes Review of Systems Const Denies weight gain and Denies weight loss ENT Reports no additional complaints, Reports dysphagia (with solids and with liquids) and Denies odynophagia Card Reports no additional complaints Resp Reports no additional complaints GI Denies abdominal pain, Denies belching, Denies melena, Reports bloating, Denies change in bowel habits, Reports dysphagia (with solids and with liquids), Denies excessive flatus, Denies dyspepsia, Denies heartburn, Denies diarrhea, Denies loose stools, Denies nausea, Denies odynophagia and Denies vomiting Reports no additional complaints Musc Reports no additional complaints Neuro Reports no additional complaints Psych Reports no additional complaints Endo Reports no additional complaints Physical Exam Vital Signs: BMI result Body Mass Index 54.4 Const General: healthy appearing, no acute distress and well developed Nutritional Appearance: obese Orientation/consciousness: patient oriented x3 HEENT Head: Yes normal to inspection, Yes normocephalic and Yes atraumatic Face and sinus: Yes normal facial exam Mouth: Normal oral and palatal mucosa present Throat: Yes posterior oropharynx normal, Yes tonsils normal and Yes uvula midline Eyes General: appearance normal, both eyes and all related structures Neck Neck: Yes normal visual inspection, Yes full ROM and Yes trachea midline Thyroid: Thyroid normal Resp Effort & Inspection: normal respiratory effort, able to speak in complete sentences, no tracheal deviation and symmetric chest movement Auscultation: clear to auscultation bilaterally Cardio Rate: regular rate Heart sounds: S1 normal heart sound present and S2 normal heart sound present GI Inspection: Yes normal to inspection, No distended and Yes obesity Palpation (GI): Soft to palpation, not firm, nontender and No hepatosplenomegaly present Auscultation: normal bowel sounds General: Yes no CVA tenderness Back/Spine/Pelvis Back: no CVA tenderness Skin General skin exam: elasticity normal, turgor normal and dry skin Neuro General: patient oriented x3 Psych Appearance: grossly normal Mental Status: mental status grossly normal Assessment & Plan Assessment & Plan (1) GERD (gastroesophageal reflux disease): Code(s): K21.9 - Gastro-esophageal reflux disease without esophagitis Qualifiers: Esophagitis presence: without esophagitis Qualified Code(s): K21.9 - Gastro-esophageal reflux disease without esophagitis (2) Dysphagia: Code(s): R13.10 - Dysphagia, unspecified Qualifiers: Dysphagia type: pharyngoesophageal phase Qualified Code(s): R13.14 - Dysphagia, pharyngoesophageal phase (3) Constipation: Code(s): K59.00 - Constipation, unspecified Qualifiers: Constipation type: slow transit constipation Qualified Code(s): K59.01 - Slow transit constipation (4) Tubular adenoma of colon: Code(s): D12.6 - Benign neoplasm of colon, unspecified Plan Patient continues to have trouble swallowing. Will send him for barium swallow. Patient will start taking pantoprazole in the morning half an hour before breakfast. Patient does not move his bowels every day and we can start him on Senokot. He was encouraged to change his diet, eat healthier food. Encouraged him to try to lose weight. Staying upright for minimal 3 hours after meals discussed patient. The importance of avoiding dietary triggers discussed with patient. Tubular adenoma without high-grade dysplasia or carcinoma found in transverse colon was a 1 cm. 5-7 years, sooner if clinically necessary. Patient will follow-up in the office in 6 months, sooner on as needed basis. He is agreeable to this plan and verbalizes understanding of instructions. He was given the opportunity to ask questions and all questions answered. Thank you for allowing me to participate his care Orders: Orders FL barium swallow Today R13.10 - Dysphagia, unspecified Medications: New sennosides (Natural Senna Laxative) 17.2 mg (2 x 8.6 mg) PO BEDTIME 60 tabs 3RF constipation K59.00 - Constipation, unspecified Refilled pantoprazole take one tablet half an hour before breakfast 40 mg PO DAILY 90 tabs 2RF K21.9 - Gastro-esophageal reflux disease without esophagitis Coding Level of Care Code Est Pt Level 4 (98205) Diagnoses Gastroesophageal reflux disease without esophagitis K21.9 Esophagitis presence: without esophagitis Pharyngoesophageal dysphagia R13.14 Dysphagia type: pharyngoesophageal phase Slow transit constipation K59.01 Constipation type: slow transit constipation Tubular adenoma of colon D12.6 Time Spent (min) 35 Comment 20 minutes spent with patient and additional 15 minutes spent reviewing his records
[2023-01-12 15:07] VITALS: BP 133/68; PULSE 73; BMI 54.4
== END 2023-01-12 15:36 | disposition home or self-care (01) ==
PROVIDERS: PCP Internal Medicine; Visit Provider Nurse Practitioner Family
DX: K21.9 Gastro-esophageal reflux disease without esophagitis (principal); R13.14 Dysphagia, pharyngoesophageal phase; K59.01 Slow transit constipation; D12.6 Benign neoplasm of colon, unspecified
CPT/HCPCS: 99214

== ENCOUNTER → 2023-01-12 14:59 | Outpatient (BNVA) | payer OTHER, SELFPAY | PROVIDERS: PCP Internal Medicine; Visit Provider Nurse Practitioner Family | DX: K21.9 Gastro-esophageal reflux disease without esophagitis (principal); K59.01 Slow transit constipation; D12.6 Benign neoplasm of colon, unspecified; R13.14 Dysphagia, pharyngoesophageal phase | CPT/HCPCS: 99212 ==

== ENCOUNTER 2023-02-07 09:27 | Outpatient (REF) | payer OTHER, SELFPAY ==
[2023-02-07 10:45] LABS: MANUAL DIFF FLAG NO
[2023-02-07 11:07] LABS: Basophils Percent Auto 0.2 % (0-2); Eosinophils Absolute Auto 0.3 X10*3/uL (0.0-0.4); Eosinophils Percent Auto 3.2 % (0-4); Hematocrit 39.4 % (42.0-52.0); Hemoglobin 12.4 g/dl (14.0-18.0); Imm Gran Abs Auto 0.03 X10*3/uL (0.00-0.03); Imm Gran Pct Auto 0.4 % (0.0-0.4); Lymphocytes Absolute Auto 1.2 X10*3/uL (1.2-4.9); Lymphocytes Percent Auto 13.5 % (20-40); Mean Corpuscular HGB Conc 31.5 g/dl (31.0-36.0); Mean Corpuscular Hemoglobin 27.6 pg (27.0-33.0); Mean Corpuscular Volume 87.8 fL (80.0-98.0); Mean Platelet Volume 10.9 fL (9.4-12.4); Monocytes Absolute Auto 0.7 X10*3/uL (0.1-1.2); Monocytes Percent Auto 8.1 % (2-11); Neutrophils Absolute Auto 6.3 x10*3/uL (2.0-8.3); Neutrophils Percent Auto 74.6 % (45-73); Platelet Count 260 X10*3/uL (160-400); Red Blood Count 4.49 X10*6/uL (4.60-5.80); Red Cell Distribution Width 13.7 % (11.0-16.0); White Blood Count 8.5 X10*3/uL (4.8-10.8)
[2023-02-07 11:14] LABS: Iron 35 mcg/dL (45-160); Percent Iron Saturation 17 % (15-50); Total Iron Binding Capacity 209 mcg/dL (228-428); Unsaturated Iron Binding 174 ug/dL
== END 2023-02-07 09:28 | disposition home or self-care (01) ==
LOC: HO.HMGCLDS 09:27
PROVIDERS: PCP Internal Medicine; Visit Provider Internal Medicine
DX: D50.9 Iron deficiency anemia, unspecified (principal); E78.5 Hyperlipidemia, unspecified; E66.01 Morbid (severe) obesity due to excess calories; I10 Essential (primary) hypertension; Z68.43 Body mass index [BMI] 50.0-59.9, adult
CPT/HCPCS: 36415; 83540; 85025

== ENCOUNTER 2023-02-09 13:31 | Outpatient (AMB) | payer OTHER, SELFPAY ==
--- NOTE | 2023-02-09 13:37 | A.OFFPC_ITS ---
Vital Signs 02/09/23 13:38 Height 5 ft 6.5 in Weight 344 lb 6 oz BMI 54.7 BP 136/88 Blood Pressure Location Lt brachial Position Sitting Pulse 67 Pulse Source Pulse Oximeter Pulse Oximetry (%) 97 Oxygen Delivery Method Room Air Intake Visit Reasons: 2 months follow up Lipids, weightless, Iron Intake Note: Pt is here to follow up for his lab results Allergies lisinopril [LISINOPRIL] Allergy (Intermediate, Verified 02/09/23 14:06) ANGIOEDEMA Latex, Natural Rubber Allergy (Mild, Verified 02/09/23 14:06) Unknown animal dander [animal hair] Allergy (Verified 02/09/23 14:06) Redness of Skin bee pollen [bee stings] Allergy (Verified 02/09/23 14:06) Unknown CHOCOLATE Allergy (Severe, Uncoded 02/09/23 14:06) DIFFICULTY BREATHING Medication List - Last Reconciled 02/09/23 by Reina Brown MD albuterol sulfate 90 mcg/actuation (ProAir HFA) 2 puffs inhalation Q4-6H PRN amlodipine 10 mg PO DAILY atorvastatin 40 mg PO BEDTIME cyclobenzaprine 10 mg PO BEDTIME PRN 7 days ferrous sulfate 324 mg PO DAILY fluticasone propionate 110 mcg/actuation (Flovent HFA) 2 puffs PO BID losartan 100 mg PO DAILY magnesium oxide 400 mg PO BEDTIME 30 days pantoprazole 40 mg PO DAILY sennosides (Natural Senna Laxative) 17.2 mg (2 x 8.6 mg) PO BEDTIME Tobacco use date assessed: 02/09/23 Dental Screening Dental Screen Date: 02/09/23 Did you have a dental visit in the last 12 months?: No Did you have a dental problem in the last 6 months where you did not have access to dental care?: No Was dental information given to patient?: Patient has dentist HPI 2 months follow up Lipids, weightless, Iron HPI Details 47-year-old male with dyslipidemia, hype rtension, morbid obesity, iron deficiency anemia,, here today for follow-up. Blood pressure stable and controlled on amlodipine, losartan, and currently on atorvastatin 40 mg for his dyslipidemia. Still takes ferrous sulfate for his anemia. Has been feeling well with no complaints at present time. [facility] Medical History Disc disease, degenerative, cervical Family history of ovarian cancer Morbid obesity Hemorrhoids with complication History of vitamin D deficiency Right calf pain Iron deficiency anemia Family history of early CAD Flatulence, eructation and gas pain Paraesophageal hernia Vitamin D deficiency Dyslipidemia (high LDL; low HDL) Mild intermittent asthma CKD (chronic kidney disease) stage 3, GFR 30-59 ml/min CHUN (obstructive sleep apnea) Low back pain Stage 3 chronic kidney disease Morbid obesity with BMI of 50.0-59.9, adult Benign essential hypertension Pure hypercholesterolemia Anxiety Surgical History No history of previous surgery Family History Mother No problems noted. Father Heart problem Paternal Uncle Heart problem Paternal Grandfather Heart problem Heart attack Paternal Grandmother Breast cancer Paternal Aunt Ovarian cancer Social History Household Members: Spouse and Children Household Members Other:: Cat Housing: Apartment Alcohol intake: current Alcohol intake frequency: holidays/special occasions only Patient Tobacco Use Status: Never used Tobacco e-Cigarette/Vaping Use: Never Used Second Hand Smoke Exposure: Yes service: No Current occupational status: employed 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, [employer] Cognitive needs: No Hearing needs: No Vision needs: Yes Questionnaire Thrive Questionnaire Date Thrive assessed: 03/10/22 LUZMA-7 AMB Questionnaire LUZMA-7 Date LUZMA - 7 assessed: 03/10/22 Source: Developed by Drs. Shawn Joyce, Lina Orr, Mundo Guadarrama and colleagues, with an educational medina from [employer]. Review of Systems Const Denies body aches, Denies fever(s) and Denies poor appetite Eyes Denies change in vision ENT Denies dizziness and Denies hearing loss Card Denies chest pain, Denies chest pain with activity, Denies rapid heart rate, Denies edema, Denies claudication, Denies lightheadedness, Denies palpitations and Denies dyspnea Resp Denies cough, Denies dyspnea and Denies wheezing GI Denies abdominal pain, Denies hematochezia, Denies change in bowel habits, Denies change in stool character, Denies heartburn, Denies nausea and Denies vomiting Denies hematuria, Denies dysuria and Denies urinary frequency Musc Reports as per HPI, Denies arthralgias, Denies numbness and Denies tingling Skin/Breast Denies nail changes and Denies rash Neuro Denies Abnormal speech present, Denies dizziness, Denies numbness and Denies tingling Endo Denies palpitations Aller/Immun Denies wheezing Physical exam (Primary Care) Vital Signs: Last Vital Signs Pulse 67 02/09/23 13:38 BP 136/88 02/09/23 13:38 Pulse Ox 97 02/09/23 13:38 Oxygen Delivery Method Room Air 02/09/23 13:38 BMI result Body Mass Index 54.7 BMI Assessment/Plan discussion: High BMI High, discussed plan: lifestyle, weight reduction, dietary and physical activity Tobacco/Smoking Status: Tobacco use Status Tobacco use date assessed 02/09/23 02/09/23 13:43 Patient Tobacco Use Status Never used Tobacco 02/09/23 13:43 e-Cigarette/Vaping Use Never Used 02/09/23 13:43 Thrive Assessment: Date of Thrive Assessment Date Thrive assessed 03/10/22 02/09/23 13:43 Const Other: Alert oriented x3, no acute distress noted ambulatory with normal gait, morbidly obese Orientation/consciousness: patient oriented x3 [facility] Head: Yes normocephalic Ears: external ears normal Face and sinus: Yes face symmetric Mouth: Normal oral and palatal mucosa present, oropharynx normal and moist mucous membranes Eyes General: appearance normal, both eyes and all related structures Neck Other: Nonpalpable thyroid gland Neck: Yes full ROM, Yes no lymphadenopathy and Yes supple Resp Effort & Inspection: normal respiratory effort and able to speak in complete sentences Auscultation: clear to auscultation bilaterally Cardio Other: S1-S2 present regular rate and rhythm GI Other: Obese, normal bowel sounds, soft, nontender to palpation, with no mass palpated Back/Spine/Pelvis Cervical Spine: cervical muscular tenderness (Bilateral) Skin General skin exam: no rashes or lesions noted Neuro General: patient oriented x3, tone normal, moves all extremities, Normal light touch and pain sensation, no focal motor deficits and CN's II-XI intact bilaterally Speech: No Abnormal speech present Extrem Other: No erythema or increased warmth noted on right calf General: Yes full ROM, Yes no clubbing, cyanosis or edema, Yes normal gait and Yes calf tenderness (Right) Results Reviewed Results Reviewed: Name: Reid Sanchez Jr Age/Sex: 47/M : 1975 [id number] Unit#: [id number] Attend Dr: Reina Brown MD Re02/07/23 Status: DEP REF Location: [facility] Disch: SPEC : [id number] CAMPOS: 02/07/23 STATUS: COMP REQ : [id number] RECD: 02/07/[address]: Reina Brown MD COMP: 02/07/23 ENTERED: 02/07/[address] [facility] [address]: ORDERED: CBC Auto Diff Test Result Flag Reference Site WBC 8.5 4.8-10.8 X10*3/uL RBC 4.49 L 4.60-5.80 X10*6/uL HGB 12.4 L 14.0-18.0 g/dl HCT 39.4 L 42.0-52.0 % MCV 87.8 80.0-98.0 fL MCH 27.6 27.0-33.0 pg MCHC 31.5 31.0-36.0 g/dl RDW 13.7 11.0-16.0 % PLT 260 160-400 X10*3/uL SPEC : [id number] CAMPOS: 02/07/23 STATUS: COMP REQ : [id number] RECD: 02/07/[address]: Reina Brown MD COMP: 02/07/23 ENTERED: 02/07/[address] [facility] [address]: ORDERED: IRON PROF Test Result Flag Reference Site Iron 35 L 45-160 mcg/dL TIBC 209 L 228-428 mcg/dL Saturation 17 15-50 % UIBC 174 ug/dL Assessment and Plan Assessment & Plan (1) Morbid obesity with BMI of 50.0-59.9, adult: Code(s): E66.01 - Morbid (severe) obesity due to excess calories; Z68.43 - Body mass index [BMI] 50.0-59.9, adult Plan: Has tried several diets, but unable to exercise much will refer to weight management program in [facility] for further evaluation. Patient referred to nurse navigator for assistance with regards to his diet (2) Iron deficiency anemia: Code(s): D50.9 - Iron deficiency anemia, unspecified Qualifiers: Iron deficiency anemia type: unspecified iron deficiency Qualified Code(s): D50.9 - Iron deficiency anemia, unspecified Plan: Still anemic with mildly depressed iron levels. Continue ferrous sulfate 324 mg once a day (3) Dyslipidemia (high LDL; low HDL): Code(s): E78.5 - Hyperlipidemia, unspecified Plan: Continued on atorvastatin 40 mg at bedtime. Reinforced adherence to low- cholesterol diet and getting regular exercise. (4) Benign essential hypertension: Code(s): I10 - Essential (primary) hypertension Plan: Blood pressure goal is less than 130/80. Continue with current medication. Reinforced importance of following a low sodium diet, getting regular exercise, and lowering stress levels. Orders: Orders Lipid Panel 07/27/23 E66. - Morbid (severe) obesity due to excess calories, D50.9 - Iron deficiency anemia, unspecified, Z68.43 - Body mass index [BMI] 50.0-59.9, adult, E78.5 - Hyperlipidemia, unspecified, I10 - Essential (primary) hypertension, N18.30 - Chronic kidney disease, stage 3 unspecified Aspartate Amino Transferase 07/27/23 E66. - Morbid (severe) obesity due to excess calories, D50.9 - Iron deficiency anemia, unspecified, Z68.43 - Body mass index [BMI] 50.0-59.9, adult, E78.5 - Hyperlipidemia, unspecified, I10 - Essential (primary) hypertension, N18.30 - Chronic kidney disease, stage 3 unspecified Complete Blood Count Auto Diff 07/27/23 E66. - Morbid (severe) obesity due to excess calories, D50.9 - Iron deficiency anemia, unspecified, Z68.43 - Body mass index [BMI] 50.0-59.9, adult, E78.5 - Hyperlipidemia, unspecified, I10 - Essential (primary) hypertension, N18.30 - Chronic kidney disease, stage 3 unspecified IRON PROFILE 07/27/23 E66.01 - Morbid (severe) obesity due to excess calories, D50.9 - Iron deficiency anemia, unspecified, Z68.43 - Body mass index [BMI] 50.0-59.9, adult, E78.5 - Hyperlipidemia, unspecified, I10 - Essential (primary) hypertension, N18.30 - Chronic kidney disease, stage 3 unspecified Alanine Aminotransferase 07/27/23 E66.01 - Morbid (severe) obesity due to excess calories, D50.9 - Iron deficiency anemia, unspecified, Z68.43 - Body mass index [BMI] 50.0-59.9, adult, E78.5 - Hyperlipidemia, unspecified, I10 - Essential (primary) hypertension, N18.30 - Chronic kidney disease, stage 3 unspecified Basic Metabolic Panel Fasting 07/27/23 E66.01 - Morbid (severe) obesity due to excess calories, D50.9 - Iron deficiency anemia, unspecified, Z68.43 - Body mass index [BMI] 50.0-59.9, adult, E78.5 - Hyperlipidemia, unspecified, I10 - Essential (primary) hypertension, N18.30 - Chronic kidney disease, stage 3 unspecified Referrals Medical Weight Management Referral E66.01 - Morbid (severe) obesity due to excess calories, Z68.43 - Body mass index [BMI] 50.0-59.9, adult Coding Level of Care Code Est Pt Level 4 (48765) Diagnoses Morbid obesity with BMI of 50.0-59.9, adult E66.01; Z68.43 Iron deficiency anemia, unspecified iron deficiency anemia type D50.9 Iron deficiency anemia type: unspecified iron deficiency Dyslipidemia (high LDL; low HDL) E78.5 Benign essential hypertension I10
[2023-02-09 13:38] VITALS: BP 136/88; PULSE 67; O2SAT 97; BMI 54.7
== END 2023-02-09 14:49 | disposition home or self-care (01) ==
PROVIDERS: PCP Internal Medicine; Visit Provider Internal Medicine
DX: E78.5 Hyperlipidemia, unspecified (principal); E66.01 Morbid (severe) obesity due to excess calories; Z68.43 Body mass index [BMI] 50.0-59.9, adult; D50.9 Iron deficiency anemia, unspecified; I10 Essential (primary) hypertension
CPT/HCPCS: 99214

== ENCOUNTER 2023-03-16 10:00 | Outpatient (RCR) | payer OTHER, SELFPAY ==
--- NOTE | 2022-12-22 11:41 | MHC.PT.EP ---
[facility] [place] Office [place] [facility] [place] [facility] [address] Oscar Virgen [address] [phone] F: [phone] F: [phone] F: [phone] F: [phone] Physical Therapy Plan of Care Date of Evaluation: 12/22/22 Date of Surgery: Diagnosis: This is a 47 yo male presenting to skilled PT with a script for cervical DDD. Assessment: This is a 47 yo male presenting to skilled PT with a script for cervical DDD. He complains of recurrent pain/stiffness at his neck radiating down both shoulders. This pain has been ongoing for around 2 months now, insidious onset. He has been to the walk-in and his PCP. Pain and stiffness gets worse with pushing up, transfers, lifting and towards the end of the day. He is taking ibuprofen or Tylenol as needed which affords only temporary pain relief. He has trialed muscle relaxers as well. He reports that pain can be constant or comes and go. Pain starts at the c-spine and radiates into B shoulders. His pain is described as shooting. He is admittedly looking down phone/video games very frequently with flexed neck. Assessment reveals pain that ranges from up to a 7/10 at the worst. Patient demos decreased B shoulder and cervical ROM, strength of B shoulder's, TTP at surrounding c-spine soft tissues, UT's and demos impaired posture with forward head and rounded shoulders. Based on functional limitations, impaired QOL and pain tolerance patient is a good candidate for skilled PT 2x/wk for 4wks. Frequency and Duration: The patient will be seen 2x/wk for 4wks Short Term Goals: (in 2 wks) I in HEP Improve cervical ROM by at least 25% Demo proper cervical positioning with progression of UB strengthening exercises without cues from PT Professor Of Marketing Goals: (in 4wks) Report 50% improvement in QOL Tolerate sleeping through the night without waking from pain Improve NDI by 10 points Improve pain to no more than 2/10 at the worst Treatment Plan: Modalities to reduce pain, spasms and effusion. Manual therapy to restore motion and function. Therapeutic exercise to improve strength and flexibility. Neuromuscular re-education for posture and balance. Therapeutic activities to return to functional activities of daily living. Electronically signed by: Saniya Castano PT Please sign and return to therapist. Thank you for your referral.
--- NOTE | 2023-03-19 14:25 | MHC.PT.DC ---
[facility] [place] Office [address] Oscar Virgen [address] [phone] F: [phone] F: [phone] F: [phone] F: [phone] Physical Therapy Discharge Report Diagnosis: This is a 47 yo male presenting to skilled PT with a script for cervical DDD. Date of Surgery: Date of Evaluation: 12/22/22 Date of Discharge: 03/19/23 Treatments to Date: 9 Cancellations to Date: 0 No Shows to Date: 0 Discharge Status: Achieved Goals Improved Function Independent with HEP Patient Elected to Stop Discharge Summary: 03/16/23: Patient's last scheduled appointment is today, he was educated that he can make another 3 more if wanted however he is satisfied with his progress and improvements in pain. He has questions in regards to steps following this, I educated him on continuing HEP and speaking with PCP as needed. He has improved his ROM, strength and pain. Plan to DC to HEP. Electronically signed by: Sainya Castano PT Please sign and return to therapist. Thank you for your referral.
== END 2023-03-19 14:25 | disposition home or self-care (01) ==
LOC: HO.PTCHIC 10:00
PROVIDERS: PCP Internal Medicine; Visit Provider Internal Medicine
DX: M50.30 Other cervical disc degeneration, unspecified cervical region (principal)
CPT/HCPCS: 97110; 97162

== ENCOUNTER 2023-04-22 12:53 | Outpatient (AMB) | payer OTHER, SELFPAY ==
--- NOTE | 2023-04-22 13:03 | A.OFFVIS_ITS ---
Intake Vital Signs 04/22/23 13:07 Height 5 ft 6.5 in Weight 332 lb 4 oz BMI 52.8 BP 134/82 Blood Pressure Location Lt brachial Position Sitting Pulse 60 Pulse Source Pulse Oximeter Pulse Oximetry (%) 98 Oxygen Delivery Method Room Air Intake Visit Reasons: 5m follow up CHUN-CONF Intake Note: Patient presents for 5 month f/u. Allergies lisinopril [LISINOPRIL] Allergy (Intermediate, Verified 04/22/23 13:06) ANGIOEDEMA Latex, Natural Rubber Allergy (Mild, Verified 04/22/23 13:06) Unknown animal dander [animal hair] Allergy (Verified 04/22/23 13:06) Redness of Skin bee pollen [bee stings] Allergy (Verified 04/22/23 13:06) Unknown CHOCOLATE Allergy (Severe, Uncoded 02/09/23 14:06) DIFFICULTY BREATHING HPI HPI Comments History of Present Illness Details 47 y/o male patient presents for follow up of CHUN on CPAP. The Spilit sleep study result was significant for severe degree of sleep apnea. The AHI was 83/hr and oxygen shameka was 77%. Patient was trialed on CPAP [id number] and the breathing and oxygenation stabilized on CPAP at [id number]. The CPAP compliance and therapy response (01/17/23-04/16/23) reviewed. The usage days 100% and and the average usage hours 6 hrs and 55 min. The AHI was 1.3/hr. Pt reports that his sleep quality improved. He used to sleep 3 hrs but now he can sleep more than 6 hrs straight. He feels refreshed, and is not groggy in the morning. Pt reports he cut down soda and evening snacks. He lost 12 lb. Pt reports migraine frequency has improved, has migraine rarely. He takes magnesium 400 mg qHS and vitmain B2 400 mg daily. [facility] Medical History Disc disease, degenerative, cervical Family history of ovarian cancer Morbid obesity Hemorrhoids with complication History of vitamin D deficiency Right calf pain Iron deficiency anemia Family history of early CAD Flatulence, eructation and gas pain Paraesophageal hernia Vitamin D deficiency Dyslipidemia (high LDL; low HDL) Mild intermittent asthma CKD (chronic kidney disease) stage 3, GFR 30-59 ml/min CHUN (obstructive sleep apnea) Low back pain Stage 3 chronic kidney disease Morbid obesity with BMI of 50.0-59.9, adult Benign essential hypertension Pure hypercholesterolemia Anxiety Surgical History No history of previous surgery Family History Mother No problems noted. Father Heart problem Paternal Uncle Heart problem Paternal Grandfather Heart problem Heart attack Paternal Grandmother Breast cancer Paternal Aunt Ovarian cancer Social History Household Members: Spouse and Children Household Members Other:: Cat Housing: Apartment Alcohol intake: current Alcohol intake frequency: holidays/special occasions only Patient Tobacco Use Status: Never used Tobacco e-Cigarette/Vaping Use: Never Used Second Hand Smoke Exposure: Yes service: No Current occupational status: employed 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, [employer] Cognitive needs: No Hearing needs: No Vision needs: Yes Review of Systems Const All systems reviewed & are unremarkable except as noted in HPI and below ENT Reports Normal hearing present Neuro Reports Normal hearing present Physical Exam Vital Signs: Last Vital Signs Pulse 60 04/22/23 13:07 BP 134/82 04/22/23 13:07 Pulse Ox 98 04/22/23 13:07 Oxygen Delivery Method Room Air 04/22/23 13:07 BMI result Body Mass Index 52.8 Const General: cooperative Nutritional Appearance: obese Orientation/consciousness: patient oriented x3 HEENT Throat: Yes other (mallampati grade 4) Neck Neck: Yes full ROM and Yes supple Resp Effort & Inspection: normal respiratory effort and able to speak in complete sen tences Neuro General: patient oriented x3 and gait normal Cranial nerves: Yes Bilaterally intact EOM present, Yes Normal facial strength present, Yes Midline tongue present, Yes Normal hearing present, Yes Ability to bilaterally rotate head present and Yes Ability to bilaterally elevate shoulders present Cognition (Neuro): normal cognition Motor exam (neuro): 5/5 motor strength present throughout, Pronator motor function not present and no tremor noted Psych Appearance: grossly normal Mental Status: mental status grossly normal Affect: normal affect Attitude: cooperative Assessment & Plan Assessment & Plan (1) CHUN (obstructive sleep apnea): Comment: Severe degree of sleep apnea. The AHI was 83/hr and oxygen shameka was 77%. Code(s): G47.33 - Obstructive sleep apnea (adult) (pediatric) (2) Migraine without aura: Code(s): G43.009 - Migraine without aura, not intractable, without status migrainosus Plan Advised patient to continue to use CPAP at [id number] as patient experiences good clinical effects including less snoring, improved sleep quality and daytime tiredness. Stressed compliance, use CPAP nightly and more than 4 hours. Advised patient to try magnesium 400 mg qHS and vitamin B2 400 mg daily to prevent migraine. Coding Level of Care Code Est Pt Level 3 (82030) Diagnoses CHUN (obstructive sleep apnea) G47.33 Migraine without aura G43.009
[2023-04-22 13:07] VITALS: BP 134/82; PULSE 60; O2SAT 98; BMI 52.8
== END 2023-04-22 13:21 | disposition home or self-care (01) ==
PROVIDERS: PCP Internal Medicine; Visit Provider Nurse Practitioner Family
DX: G47.33 Obstructive sleep apnea (adult) (pediatric) (principal); G43.009 Migraine without aura, not intractable, without status migrainosus
CPT/HCPCS: 99213

== ENCOUNTER → 2023-04-22 12:53 | Outpatient (BNVA) | payer OTHER, SELFPAY | PROVIDERS: PCP Internal Medicine; Visit Provider Nurse Practitioner Family | DX: G47.33 Obstructive sleep apnea (adult) (pediatric) (principal); G43.009 Migraine without aura, not intractable, without status migrainosus | CPT/HCPCS: 99212 ==

== ENCOUNTER 2023-05-27 11:32 | Emergency (ER) | payer OTHER, SELFPAY ==
--- NOTE | ~2023-05-27 | XR_ITS ---
EXAMINATION: XR CHEST CLINICAL INFORMATION: Chest pain COMPARISON: None available. TECHNIQUE: 2 views of the chest were obtained. FINDINGS: The lungs are well-expanded and clear. Heart size and pulmonary vascularity is normal. No gross bony abnormality seen. XR/XR chest 2V IMPRESSION: Unremarkable chest examination.
--- NOTE | 2023-05-27 11:37 | ECG_ITS ---
Test Reason : chest pain Blood Pressure : / mmHG Vent. Rate : 062 BPM Atrial Rate : 062 BPM P-R Int : 142 ms QRS Dur : 080 ms QT Int : 430 ms P-R-T Axes : 033 043 072 degrees QTc Int : 436 ms Normal sinus rhythm Nonspecific T wave abnormality Abnormal ECG When compared with ECG of 21-FEB-2022 15:36, No significant change was found Referred By: Generic ED Physician Electronically Signed By:Shelton Gonzalez
[2023-05-27 11:38] VITALS: BP 160/80; PULSE 65; O2SAT 97
[2023-05-27 11:47] VITALS: BP 147/76; PULSE 64; RESP 17; TEMP 36.6; O2SAT 97; BMI 52.5
[2023-05-27 12:57] LABS: MANUAL DIFF FLAG NO
[2023-05-27 13:15] LABS: Alanine Aminotransferase 25 U/L (0-40); Albumin Level 3.7 g/dL (3.5-5.0); Alkaline Phosphatase 137 U/L (39-117); Anion Gap 8 (12-20); Aspartate Amino Transferase 18 U/L (5-37); Bilirubin Direct 0.2 mg/dL (0.0-0.5); Bilirubin Total 0.6 mg/dL (0.0-1.0); Blood Urea Nitrogen 14 mg/dL (9-16); Carbon Dioxide 28 mmol/L (22-29); Chloride 111 mmol/L (96-108); Creatinine Clr Calc Pharmacy 82.4; Estimated Glomerular Filt Rate 49; Glucose Random 95 mg/dL (60-115); Lipase 27 U/L (8-78); Magnesium 2.1 mg/dL (1.6-2.6); Potassium 3.8 mmol/L (3.3-5.1); Sodium 143 mmol/L (135-145); Total Protein 6.9 g/dL (6.5-8.0)
[2023-05-27 13:22] LABS: Basophils Percent Auto 0.3 % (0-2); Eosinophils Absolute Auto 0.2 X10*3/uL (0.0-0.4); Eosinophils Percent Auto 1.9 % (0-4); Hematocrit 40.5 % (42.0-52.0); Imm Gran Abs Auto 0.03 X10*3/uL (0.00-0.03); Imm Gran Pct Auto 0.3 % (0.0-0.4); Lymphocytes Absolute Auto 0.9 X10*3/uL (1.2-4.9); Lymphocytes Percent Auto 10.4 % (20-40); Mean Corpuscular HGB Conc 32.1 g/dl (31.0-36.0); Mean Corpuscular Hemoglobin 27.7 pg (27.0-33.0); Mean Corpuscular Volume 86.2 fL (80.0-98.0); Mean Platelet Volume 10.1 fL (9.4-12.4); Monocytes Absolute Auto 0.5 X10*3/uL (0.1-1.2); Monocytes Percent Auto 5.7 % (2-11); Neutrophils Absolute Auto 7.1 x10*3/uL (2.0-8.3); Neutrophils Percent Auto 81.4 % (45-73); Platelet Count 250 X10*3/uL (160-400); Red Cell Distribution Width 13.7 % (11.0-16.0); White Blood Count 8.7 X10*3/uL (4.8-10.8)
[2023-05-27 13:23] LABS: Troponin-I High Sensitivity 2.7 ng/L (<3.5-35.0)
[2023-05-27 13:54] VITALS: BP 158/115; PULSE 63; RESP 12; TEMP 36.4; O2SAT 96
--- NOTE | 2023-05-27 15:21 | ED.GENADULT ---
HPI - General Adult General Chief complaint: General Medical Stated complaint: CHEST PAIN NAUSEA Time Seen by Provider: 05/27/23 15:21 Source: patient, RN notes reviewed and old records reviewed Mode of arrival: ambulatory Limitations: no limitations History of Present Illness HPI narrative: 47 year old male with pmhx significant for anxiety, HTN, dyslipidemia, iron deficiency anemia, mild intermittent asthma, CHUN, CKD stage 3, cervical DDD, migraine without aura, and obesity presents to the ED today for evaluation of chest pain that began [employer] in ED (3 hours ago). Patient states that he began having tingling in his left pinky yesterday that traveled up the left side of his body. As he arrived at work today ([employer]) he began to feel a warm pain over the left side of his chest which began radiating into his left arm, prompting him to come to the ED for further evaluation. He states that his chest pain is still present however greatly improved since onset. Endorses slight shortness of breath at baseline stating because I am overweight . He does report history of anxiety attacks and states this feels similar. He has not currently on any medications for his anxiety. He is currently on a waiting list to see a psychiatrist. Denies recent illness. Denies known sick contacts. Denies fever, chills, vision changes, headache, dizziness, palpitations, increased shortness of breath, dyspnea, nausea or vomiting, diaphoresis. Denies recent travel or long car rides. Related Data Home Medications Medication Instructions Recorded Confirmed docusate sodium 100 mg capsule 100 mg PO DAILY 02/19/23 02/19/23 Previous Rx's Medication Instructions Recorded albuterol sulfate 90 mcg/actuation 2 puff inhalation Q4-6H PRN 02/12/22 aerosol inhaler (ProAir HFA) shortness of breath or wheezing #8.5 grams fluticasone propionate 110 2 puff PO BID #36 grams 04/18/22 mcg/actuation HFA aerosol inhaler (Flovent HFA) amlodipine 10 mg tablet 10 mg PO DAILY #90 tabs 09/09/22 cyclobenzaprine 10 mg tablet 10 mg PO BEDTIME PRN muscle spasm 11/10/22 7 days #7 tabs pantoprazole 40 mg tablet,delayed 40 mg PO DAILY #90 tabs 01/12/23 release sennosides 8.6 mg tablet (Natural 17.2 mg (2 x 8.6 mg) PO BEDTIME 01/12/23 Senna Laxative) constipation #60 tabs losartan 100 mg tablet 100 mg PO DAILY #90 tabs 02/03/23 magnesium oxide 400 mg (241.3 mg 400 mg PO BEDTIME #90 tabs 02/18/23 magnesium) tablet atorvastatin 40 mg tablet 40 mg PO BEDTIME #90 tabs 02/20/23 ferrous sulfate 324 mg (65 mg 324 mg PO DAILY #90 tabs 02/20/23 iron) tablet,delayed release Allergies Allergy/AdvReac Type Severity Reaction Status Date / Time lisinopril [LISINOPRIL] Allergy Intermediate ANGIOEDEMA Verified 05/27/23 11:45 Latex, Natural Rubber Allergy Mild Unknown Verified 05/27/23 11:45 animal dander [animal hair] Allergy Redness of Verified 05/27/23 11:45 Skin bee pollen [bee stings] Allergy Unknown Verified 05/27/23 11:45 CHOCOLATE Allergy Severe DIFFICULTY Uncoded 02/09/23 14:06 BREATHING Review of Systems Review of Systems: Constitutional: No fever, chills, fatigue, night sweats, weight changes ENT/Mouth: No ear pain, hearing loss, nasal congestion, sinus pain, rhinorrhea, sore throat Eyes: No eye pain, swelling, redness, vision changes, discharge Cardio: No palpitations, KOHLI, orthopnea, peripheral edema, +chest pain Pulm: No SOB, cough, sputum, wheezing, dyspnea, hemoptysis GI: No nausea, vomiting, hematemesis, abdominal pain, diarrhea, constipation, hematochezia, melena : No irregular bleeding, dysuria, frequency, urgency, hesitancy, hematuria, flank pain, urinary flow changes, urinary incontinence or retention MSK: No back pain, neck pain, joint pain, myalgias Skin: No lesions, rashes Neuro: No weakness, numbness, paresthesias, LOC, dizziness, headache Psych: No anxiety/panic, depression, SI/HI, AH/VH All other systems reviewed and are negative. [facility] Past Medical History Attestation statement: The following information was validated with the patient. Source: old records reviewed and nursing notes reviewed Medical History Disc disease, degenerative, cervical Family history of ovarian cancer Morbid obesity Hemorrhoids with complication History of vitamin D deficiency Right calf pain Iron deficiency anemia Family history of early CAD Flatulence, eructation and gas pain Paraesophageal hernia Vitamin D deficiency Dyslipidemia (high LDL; low HDL) Mild intermittent asthma CKD (chronic kidney disease) stage 3, GFR 30-59 ml/min CHUN (obstructive sleep apnea) Low back pain Stage 3 chronic kidney disease Morbid obesity with BMI of 50.0-59.9, adult Benign essential hypertension Pure hypercholesterolemia Anxiety Surgical History No history of previous surgery Family History Family History Mother No problems noted. Father Heart problem Paternal Uncle Heart problem Paternal Grandfather Heart problem Heart attack Paternal Grandmother Breast cancer Paternal Aunt Ovarian cancer Social History Social History Household Members: Spouse and Children Household Members Other:: Cat Housing: Apartment Alcohol intake: current Alcohol intake frequency: holidays/special occasions only Patient Tobacco Use Status: Never used Tobacco e-Cigarette/Vaping Use: Never Used Second Hand Smoke Exposure: Yes Advance Directives: No Advance Directives Information Provided: No service: No Current occupational status: employed 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, [email or web address] Cognitive needs: No Hearing needs: No Vision needs: Yes Physical Exam ED Vital Signs: Vital Signs - 24 hr 05/27/23 11:47 05/27/23 13:54 05/27/23 16:12 Temperature 97.9 F 97.6 F 98.2 F Pulse Rate 64 63 60 Respiratory Rate 17 12 18 Blood Pressure 147/76 H 158/115 H 139/65 Pulse Oximetry 97 96 96 Oxygen Delivery Method Room Air Room Air Room Air 05/27/23 17:53 Temperature 98.2 F Pulse Rate 60 Respiratory Rate 18 Blood Pressure 139/65 Pulse Oximetry 96 Oxygen Delivery Method Room Air BMI result Body Mass Index 52.5 On repeat vitals, patient noted to be hypertensive to 150/115. I do not believe that this was an accurate blood pressure. I had blood pressure repeated and it returned 139/65. Const General: cooperative, healthy appearing, comfortable and no acute distress Nutritional Appearance: obese Orientation/consciousness: patient oriented x3 Limitations: no limitations HENMT Head: Yes normal to inspection, Yes No palpable skull fracture present, Yes normocephalic and Yes atraumatic Eyes General: appearance normal, both eyes and all related structures Conjunctivae: conjunctivae normal Sclerae: sclerae normal Pupils: Equal, round and reactive pupils present Neck Neck: Yes normal visual inspection, Yes full ROM, Yes no lymphadenopathy and Yes no JVD Chest Chest palpation & inspection: normal inspection of the chest and normal palpation of entire chest wall Resp Effort & Inspection: normal respiratory effort and able to speak in complete sentences Auscultation: clear to auscultation bilaterally, no crackles, no rhonchi and no wheezes Cardio Other: 2+ PT/DP pulses bilaterally. No pitting edema. Jugular venous distension: no JVD Rate: regular rate Rhythm: regular rhythm GI Inspection: Yes normal to inspection and Yes obesity Skin General skin exam: no rashes or lesions noted Neuro General: patient oriented x3 Cranial nerves: Yes Equal, round and reactive pupils present Extrem Other: + full ROM intact to all toes on left foot. sensation slightly diminished to light touch over the lateral aspect of left 5th tarsal. Sensation otherwise intact to entire left foot. 2+ DP/PT pulses bilaterally. Foot is warm to touch. Nontender. No overlying skin changes or erythema. No rashes or wounds. Ambulating with steady gait. General: Yes normal to inspection and Yes capillary refill normal Course Course Course Narrative: 1536-- CBC without leukocytosis. H&H stable. Chemistry without acute electrolyte abnormality requiring intervention. Creatinine slightly elevated at 1.54 however BUN WNL. Initial troponin WNL. Will repeat for delta. Lipase WNL > basic labs and EKG ordered from triage. Plan to order repeat troponin, chest x-ray and RSV/COVID/flu swabs to r/o pneumonia vs viral syndrome. 1616-- CXR does not demonstrate evidence of pneumonia. Cardiac silhouette WNL. > patient stable at the end of my shift. Sign-out given to my colleague JULIAN Natarajan pending repeat trop, viral serology results and disposition Reevaluation(s) Reevaluation #1: Patient received in sign-out at change of shift pending repeat troponin and serology. Repeat troponin was flat, serology results negative. The patient is stable for discharge as he rules out for ACS. Time: 17:32 Medical Decision Making Medical Decision Making MDM Narrative: 47 year old male with pmhx significant for anxiety, HTN, dyslipidemia, iron deficiency anemia, mild intermittent asthma, CHUN, CKD stage 3, cervical DDD, migraine without aura, and obesity presents to the ED today for evaluation of chest pain that began [employer] in ED (3 hours ago). Patient is nontoxic-appearing and in no acute distress. Obese. Exam nonfocal. No JVD or peripheral edema. RRR. Lungs are CTA bilaterally. No wheezes, rhonchi or crackles. No calf tenderness bilaterally. full ROM intact to all toes on left foot. sensation slightly diminished to light touch over the lateral aspect of left 5th tarsal. Sensation otherwise intact to entire left foot. 2+ DP/PT pulses bilaterally. Foot is warm to touch. Nontender. No overlying skin changes or erythema. No rashes or wounds. Ambulating with steady gait. Differential diagnosis includes anxiety, ACS, arrhythmia, neuropathy. Unlikely CVA/TIA, dissection, cerebellar stroke. PERC negative > PE unlikely. Plan for labs, troponin, EKG, viral serology and chest x-ray. Differential Diagnosis Differential Diagnoses: The differential diagnosis associated with the presentation includes As above Admission/Observation Not indicated Lab Data MDM Lab Attestation statement: I reviewed the patient's lab results. As above 05/27/23 12:53 05/27/23 12:53 Labs: Lab Results 05/27/23 05/27/23 Range/Units 12:53 16:38 WBC 8.7 (4.8-10.8) X10*3/uL RBC 4.70 (4.60-5.80) X10*6/uL Hgb 13.0 L (14.0-18.0) g/dl Hct 40.5 L (42.0-52.0) % MCV 86.2 (80.0-98.0) fL MCH 27.7 (27.0-33.0) pg MCHC 32.1 (31.0-36.0) g/dl RDW 13.7 (11.0-16.0) % Plt Count 250 (160-400) X10*3/uL MPV 10.1 (9.4-12.4) fL Immature Gran % (Auto) 0.3 (0.0-0.4) % Neut % (Auto) 81.4 H (45-73) % Lymph % (Auto) 10.4 L (20-40) % [place] % (Auto) 5.7 (2-11) % Eos % (Auto) 1.9 (0-4) % Baso % (Auto) 0.3 (0-2) % Lymph # (Auto) 0.9 L (1.2-4.9) X10*3/uL [place] # (Auto) 0.5 (0.1-1.2) X10*3/uL Eos # (Auto) 0.2 (0.0-0.4) X10*3/uL Baso # (Auto) 0.0 (0.0-0.2) X10*3/uL Abs Immat Gran (auto) 0.03 (0.00-0.03) X10*3/uL Absolute Neuts (auto) 7.1 (2.0-8.3) x10*3/uL Absolute Nucleated RBC 0.000 (0.0-0.012) X10*3/uL Nucleated RBC % (auto) 0.0 (0.0-0.2) /100WBC Sodium 143 (135-145) mmol/L Potassium 3.8 (3.3-5.1) mmol/L Chloride 111 H (96-108) mmol/L Carbon Dioxide 28 (22-29) mmol/L Anion Gap 8 L (12-20) BUN 14 (9-16) mg/dL Creatinine 1.54 H (0.5-1.4) mg/dL Estim Creat Clear Calc 82.4 Estimated GFR 49 Random Glucose 95 (60-115) mg/dL Calcium 9.0 (8.4-10.2) mg/dL Magnesium 2.1 (1.6-2.6) mg/dL Total Bilirubin 0.6 (0.0-1.0) mg/dL Direct Bilirubin 0.2 (0.0-0.5) mg/dL AST 18 (5-37) U/L ALT 25 (0-40) U/L Alkaline Phosphatase 137 H (39-117) U/L Troponin I High Sens 2.7 D 3.7 (<3.5-35.0) ng/L Total Protein 6.9 (6.5-8.0) g/dL Albumin 3.7 (3.5-5.0) g/dL Lipase 27 (8-78) U/L Influenza Type A (PCR) NEGATIVE (Negative) Influenza Type B (PCR) NEGATIVE (Negative) RSV RNA Qual (PCR) NEGATIVE (Negative) SARS-CoV-2 RNA (RT-PCR) NEGATIVE (Negative) Independent Interpretation I performed an independent interpretation of an: EKG and Plain X-Ray Interpretation: EKG showing normal sinus rhythm at a rate of 62 beats per minute, QT 430, QTC 436, no acute ischemic changes or ST elevations. I have reviewed chest x-ray and agree with radiologist's interpretation. Radiology Impression Discussion of test interpretation with radiology: I have reviewed the radiologist's reading. Radiologist Impression: EXAMINATION: XR CHEST CLINICAL INFORMATION: Chest pain COMPARISON: None available. TECHNIQUE: 2 views of the chest were obtained. FINDINGS: The lungs are well-expanded and clear. Heart size and pulmonary vascularity is normal. No gross bony abnormality seen. XR/XR chest 2V IMPRESSION: Unremarkable chest examination. External Record Review External record reviewed: Inpatient record, Office record, Outpatient record, Prior outpatient labs, Prior outpatient radiology, Primary care record and Outside ED record Prescription Management I considered prescription management with: Pain Medication Chronic Conditions Patient?s care impacted by: Hypertension Social Determinants Patient?s care significantly limited by Social Determinants of Health including: Other Social Determinant of Health Critical Care Time Critical Care Time Critical Care Time: Yes Total Critical Care Time: 35 Attestation: Critical care time in the amount of 35 minutes has been provided to the patient in terms of direct patient care, frequent reevaluation, review and interpretation of medical data and results, and management of potentially life-threatening conditions. This is all outside of any medical procedures. Discharge Plan Discharge Clinical Impression: Anxiety Patient Disposition: Home, Self-Care Instructions: Anxiety (ED) Additional Instructions: Your workup in the ER today was reassuring. This includes your blood work, EKG and viral swabs as well as your chest x-ray Follow-up with your primary doctor Your symptoms may be related to anxiety Return for new or worsening symptoms Prescriptions: No Action Flovent HFA 110 mcg/actuation HFA aerosol inhaler 2 puff PO BID Qty: 36 1RF amlodipine 10 mg tablet 10 mg PO DAILY Qty: 90 3RF losartan 100 mg tablet 100 mg PO DAILY Qty: 90 1RF magnesium oxide 400 mg (241.3 mg magnesium) tablet 400 mg PO BEDTIME Qty: 90 2RF atorvastatin 40 mg tablet 40 mg PO BEDTIME Qty: 90 1RF ferrous sulfate 324 mg (65 mg iron) tablet,delayed release (DR/EC) 324 mg PO DAILY Qty: 90 1RF albuterol sulfate [ProAir HFA] 90 mcg/actuation HFA aerosol inhaler 2 puff inhalation Q4-6H PRN (Reason: shortness of breath or wheezing) Qty: 8.5 0RF cyclobenzaprine 10 mg tablet 10 mg PO BEDTIME PRN (Reason: muscle spasm) 7 Days Qty: 7 0RF docusate sodium 100 mg capsule 100 mg PO DAILY sennosides [Natural Senna Laxative] 8.6 mg tablet 17.2 mg PO BEDTIME Qty: 60 3RF pantoprazole 40 mg tablet,delayed release (DR/EC) 40 mg PO DAILY Qty: 90 2RF Rx Instructions: take one tablet half an hour before breakfast Interventions: ED Discharge Assessment Last Done: 05/27/23 17:53 Discharge Date/Time: 05/27/23 17:55
[2023-05-27 16:12] VITALS: BP 139/65; PULSE 60; RESP 18; TEMP 36.8; O2SAT 96
[2023-05-27 17:08] LABS: Troponin-I High Sensitivity 3.7 ng/L (<3.5-35.0)
[2023-05-27 17:25] LABS: Influenza A PCR NEGATIVE (Negative); Influenza B PCR NEGATIVE (Negative); Resp Syncy Virus RNA Qual PCR NEGATIVE (Negative); SARS COV2 PCR INHOUSE NEGATIVE (Negative)
[2023-05-27 17:53] VITALS: BP 139/65; PULSE 60; RESP 18; TEMP 36.8; O2SAT 96
== END 2023-05-27 17:55 | disposition home or self-care (01) ==
PROVIDERS: Physician Assistant Medical; Emergency Provider Emergency Medicine Emergency Medical Services; PCP Internal Medicine
DX: F41.9 Anxiety disorder, unspecified (principal); R07.9 Chest pain, unspecified; I12.9 Hypertensive chronic kidney disease with stage 1 through stage 4 chronic kidney disease, or unspecified chronic kidney disease; N18.30 Chronic kidney disease, stage 3 unspecified; J45.20 Mild intermittent asthma, uncomplicated; D50.9 Iron deficiency anemia, unspecified; Z11.52 Encounter for screening for COVID-19; Z20.828 Contact with and (suspected) exposure to other viral communicable diseases
CPT/HCPCS: 0241U; 36415; 71046; 80048; 80076; 83690; 83735; 84484; 85025; 93005; 99283; 99284

== ENCOUNTER → 2023-05-27 11:37 | Outpatient (BNV) | payer OTHER, SELFPAY | PROVIDERS: Emergency Provider Emergency Medicine Emergency Medical Services; PCP Internal Medicine; Visit Provider Internal Medicine Cardiovascular Disease | DX: R94.31 Abnormal electrocardiogram [ECG] [EKG] (principal) | CPT/HCPCS: 93010 ==

== ENCOUNTER 2023-06-30 08:30 | Emergency (ER) | payer OTHER, SELFPAY ==
--- NOTE | ~2023-06-30 | CT_ITS ---
EXAMINATION: CT HEAD WITHOUT CONTRAST CLINICAL INFORMATION: Headaches COMPARISON: None available. TECHNIQUE: Contiguous axial imaging was performed from the skull base to vertex without intravenous administration of contrast. This CT examination was performed using dose optimization techniques as appropriate, variously including the following: *Automated exposure control *Adjustment of mA and/or kV according to patient size (this includes techniques or standardized protocols for targeted exams where dose is matched to indication/reason for exam; i.e. extremities or head) *Use of iterative reconstruction technique DLP: 856.24 mGy-cm FINDINGS: There is no intra or extra-axial fluid collection or hemorrhage, mass, or mass effect. 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 CT/CT head/brain wo IV con IMPRESSION: No acute intracranial pathology.
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
[2023-06-30 08:52] VITALS: BP 149/86; PULSE 66; RESP 20; TEMP 36.5; O2SAT 96; BMI 53.3
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
[2023-06-30 11:46] LABS: MANUAL DIFF FLAG NO
[2023-06-30 11:51] LABS: Basophils Percent Auto 0.3 % (0-2); Eosinophils Absolute Auto 0.2 X10*3/uL (0.0-0.4); Hematocrit 42.8 % (42.0-52.0); Hemoglobin 13.7 g/dl (14.0-18.0); Imm Gran Abs Auto 0.04 X10*3/uL (0.00-0.03); Imm Gran Pct Auto 0.4 % (0.0-0.4); Lymphocytes Absolute Auto 1.2 X10*3/uL (1.2-4.9); Lymphocytes Percent Auto 13.4 % (20-40); Mean Corpuscular Hemoglobin 27.8 pg (27.0-33.0); Mean Platelet Volume 9.8 fL (9.4-12.4); Monocytes Absolute Auto 0.5 X10*3/uL (0.1-1.2); Neutrophils Absolute Auto 7.3 x10*3/uL (2.0-8.3); Neutrophils Percent Auto 78.9 % (45-73); Platelet Count 295 X10*3/uL (160-400); Red Blood Count 4.92 X10*6/uL (4.60-5.80); Red Cell Distribution Width 13.5 % (11.0-16.0); White Blood Count 9.2 X10*3/uL (4.8-10.8)
[2023-06-30 11:55] LABS: Prothrombin Time 11.7 SEC (11.1-13.3)
[2023-06-30 12:07] LABS: Alanine Aminotransferase 35 U/L (0-40); Albumin Level 4.2 g/dL (3.5-5.0); Alkaline Phosphatase 136 U/L (39-117); Anion Gap 14 (12-20); Aspartate Amino Transferase 21 U/L (5-37); Bilirubin Total 0.4 mg/dL (0.0-1.0); Blood Urea Nitrogen 18 mg/dL (9-16); Calcium 9.7 mg/dL (8.4-10.2); Carbon Dioxide 25 mmol/L (22-29); Chloride 109 mmol/L (96-108); Creatinine Clr Calc Pharmacy 88.3; Estimated Glomerular Filt Rate 52; Glucose Random 102 mg/dL (60-115); Potassium 3.9 mmol/L (3.3-5.1); Sodium 144 mmol/L (135-145); Total Protein 8.1 g/dL (6.5-8.0)
[2023-06-30 13:54] VITALS: BP 147/86; PULSE 65; RESP 14; TEMP 36.3; O2SAT 95
[2023-06-30] MEDS: Lidocaine 4 % Patch ADH..PATCH 1 PATCH TRANSDERMA (14:03)
[2023-06-30] MEDS: Ketorolac Tromethamine 15 MG/ML VIAL 30 MG IVPUSH (14:05)
[2023-06-30 18:01] VITALS: BP 165/78; PULSE 64; RESP 16; TEMP 36.3; O2SAT 96
== END 2023-06-30 18:03 | disposition home or self-care (01) ==
PROVIDERS: Physician Assistant; Emergency Provider Emergency Medicine; PCP Internal Medicine
DX: S06.0XAA Concussion with loss of consciousness status unknown, initial encounter (principal); M54.9 Dorsalgia, unspecified; M25.511 Pain in right shoulder; M54.2 Cervicalgia; I12.9 Hypertensive chronic kidney disease with stage 1 through stage 4 chronic kidney disease, or unspecified chronic kidney disease; N18.30 Chronic kidney disease, stage 3 unspecified; V89.2XXA Person injured in unspecified motor-vehicle accident, traffic, initial encounter; Y93.9 Activity, unspecified; Y92.410 Unspecified street and highway as the place of occurrence of the external cause; Y99.9 Unspecified external cause status
CPT/HCPCS: 36415; 70450; 71250; 72125; 74176; 80053; 85025; 85610; 96374; 99284; J1885

== ENCOUNTER 2023-08-11 12:31 | Emergency (ER) | payer OTHER, SELFPAY ==
[2023-08-11 12:44] VITALS: BP 127/81; PULSE 67; O2SAT 99
[2023-08-11 13:43] VITALS: BP 141/70; PULSE 63; RESP 18; TEMP 36.6; O2SAT 97; BMI 51.5
--- NOTE | 2023-08-11 13:43 | ED_ITS ---
HPI - Abdominal Pain General Chief Complaint: Abdominal Pain Stated Complaint: Abd pain Related Data Home Medications ?Medication ?Instructions ?Recorded ?Confirmed docusate sodium 100 mg capsule 100 mg PO DAILY 02/19/23 02/19/23 Previous Rx's ?Medication ?Instructions ?Recorded amlodipine 10 mg tablet 10 mg PO DAILY #90 tabs 09/09/22 cyclobenzaprine 10 mg tablet 10 mg PO BEDTIME PRN muscle spasm 11/10/22 7 days #7 tabs pantoprazole 40 mg tablet,delayed 40 mg PO DAILY #90 tabs 01/12/23 release ferrous sulfate 324 mg (65 mg 324 mg PO DAILY #90 tabs 02/20/23 iron) tablet,delayed release atorvastatin 40 mg tablet 40 mg PO BEDTIME #90 tabs 06/26/23 losartan 100 mg tablet 100 mg PO DAILY #90 tabs 06/26/23 acetaminophen 325 mg capsule 325 mg PO Q4H PRN pain #30 caps 06/30/23 (Tylenol) cyclobenzaprine 10 mg tablet 10 mg PO BEDTIME PRN muscle spasm 06/30/23 #7 tabs ketorolac 10 mg tablet 10 mg PO TID PRN pain 5 days #15 06/30/23 tabs lidocaine 5 % topical patch 1 patch topical DAILY PRN pain #15 06/30/23 ea magnesium oxide 400 mg (241.3 mg 400 mg PO BEDTIME #90 tabs 06/30/23 magnesium) tablet albuterol sulfate 90 mcg/actuation 2 puff inhalation Q4-6H PRN 07/01/23 aerosol inhaler (ProAir HFA) shortness of breath or wheezing #8.5 grams mometasone 100 mcg/actuation HFA 2 puff inhalation BID #13 grams 07/01/23 aerosol inhaler (Asmanex HFA) sennosides 8.6 mg tablet (Natural 17.2 mg (2 x 8.6 mg) PO BEDTIME 07/01/23 Senna Laxative) constipation #60 tabs Allergies Allergy/AdvReac Type Severity Reaction Status Date / Time chocolate Allergy Severe Difficulty Verified 08/11/23 13:45 Breathing animal dander [animal hair] Allergy Intermediate Redness of Verified 08/11/23 13:45 Skin bee pollen [bee stings] Allergy Intermediate Unknown Verified 08/11/23 13:45 lisinopril [LISINOPRIL] Allergy Intermediate ANGIOEDEMA Verified 08/11/23 13:45 Latex, Natural Rubber Allergy Mild Unknown Verified 08/11/23 13:45 [facility] Past Medical History Medical History Disc disease, degenerative, cervical Family history of ovarian cancer Morbid obesity Hemorrhoids with complication History of vitamin D deficiency Right calf pain Iron deficiency anemia Family history of early CAD Flatulence, eructation and gas pain Paraesophageal hernia Vitamin D deficiency Dyslipidemia (high LDL; low HDL) Mild intermittent asthma CKD (chronic kidney disease) stage 3, GFR 30-59 ml/min CHUN (obstructive sleep apnea) Low back pain Stage 3 chronic kidney disease Morbid obesity with BMI of 50.0-59.9, adult Benign essential hypertension Pure hypercholesterolemia Anxiety Surgical History No history of previous surgery Family History Family History Mother No problems noted. Father Heart problem Paternal Uncle Heart problem Paternal Grandfather Heart problem Heart attack Paternal Grandmother Breast cancer Paternal Aunt Ovarian cancer Social History Social History Household Members: Spouse and Children Household Members Other:: Cat Housing: Apartment Alcohol intake: current Alcohol intake frequency: does not drink Patient Tobacco Use Status: Never used Tobacco e-Cigarette/Vaping Use: Never Used Second Hand Smoke Exposure: Yes Advance Directives: No Advance Directives Information Provided: No Do you have a plan to hurt others: No Plan service: No Current occupational status: employed 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, [employer] Cognitive needs: No Hearing needs: No Vision needs: Yes Physical Exam ED Vital Signs: BMI result Body Mass Index 51.5 Course Course Course Narrative: This is a Rapid Medical Examination (RME) performed by Gaudencio Loyd PA-C in triage. Full HPI, ROS, assessment and treatment plan per primary provider in the Main ED. 47 yp male with pmhx significant for anxiety, HTN, dyslipidemia, iron deficiency anemia, mild intermittent asthma, CHUN, CKD stage 3, cervical DDD, migraine without aura, and obesity here for eval of N/V/D and periumbilical abdominal pain x3 days whic began after eating [employer] chicken. no urinary symptoms. obese abdomen, soft, ND/NT. Plan: labs, UA, viral serology ordered. Reevaluation(s) Reevaluation #1: Patient left the ED without completing treatment Medical Decision Making Lab Data 08/11/23 13:53 08/11/23 13:53 Labs: Lab Results 08/11/23 Range/Units 13:53 WBC 10.1 (4.8-10.8) X10*3/uL RBC 4.98 (4.60-5.80) X10*6/uL Hgb 13.9 L (14.0-18.0) g/dl Hct 43.3 (42.0-52.0) % MCV 86.9 (80.0-98.0) fL MCH 27.9 (27.0-33.0) pg MCHC 32.1 (31.0-36.0) g/dl RDW 13.7 (11.0-16.0) % Plt Count 289 (160-400) X10*3/uL MPV 9.8 (9.4-12.4) fL Immature Gran % (Auto) 0.3 (0.0-0.4) % Neut % (Auto) 81.1 H (45-73) % Lymph % (Auto) 10.3 L (20-40) % [place] % (Auto) 6.1 (2-11) % Eos % (Auto) 2.0 (0-4) % Baso % (Auto) 0.2 (0-2) % Lymph # (Auto) 1.0 L (1.2-4.9) X10*3/uL [place] # (Auto) 0.6 (0.1-1.2) X10*3/uL Eos # (Auto) 0.2 (0.0-0.4) X10*3/uL Baso # (Auto) 0.0 (0.0-0.2) X10*3/uL Abs Immat Gran (auto) 0.03 (0.00-0.03) X10*3/uL Absolute Neuts (auto) 8.2 (2.0-8.3) x10*3/uL Absolute Nucleated RBC 0.000 (0.0-0.012) X10*3/uL Nucleated RBC % (auto) 0.0 (0.0-0.2) /100WBC Sodium 146 H (135-145) mmol/L Potassium 3.8 (3.3-5.1) mmol/L Chloride 109 H (96-108) mmol/L Carbon Dioxide 30 H (22-29) mmol/L Anion Gap 11 L (12-20) BUN 13 (9-16) mg/dL Creatinine 1.44 H (0.5-1.4) mg/dL Estim Creat Clear Calc 86.2 Estimated GFR 53 Random Glucose 90 (60-115) mg/dL Calcium 9.5 (8.4-10.2) mg/dL Magnesium 2.0 (1.6-2.6) mg/dL Total Bilirubin 0.8 (0.0-1.0) mg/dL AST 17 (5-37) U/L ALT 20 (0-40) U/L Alkaline Phosphatase 135 H (39-117) U/L Total Protein 7.6 (6.5-8.0) g/dL Albumin 3.9 (3.5-5.0) g/dL Lipase 28 (8-78) U/L Influenza Type A (PCR) NEGATIVE (Negative) Influenza Type B (PCR) NEGATIVE (Negative) RSV RNA Qual (PCR) NEGATIVE (Negative) SARS-CoV-2 RNA (RT-PCR) NEGATIVE (Negative) Discharge Plan Discharge Clinical Impression: Nausea & vomiting Patient Disposition: Left W/O Completing Treatment Prescriptions: No Action amlodipine 10 mg tablet 10 mg PO DAILY Qty: 90 3RF ferrous sulfate 324 mg (65 mg iron) tablet,delayed release (DR/EC) 324 mg PO DAILY Qty: 90 1RF atorvastatin 40 mg tablet 40 mg PO BEDTIME Qty: 90 1RF losartan 100 mg tablet 100 mg PO DAILY Qty: 90 1RF magnesium oxide 400 mg (241.3 mg magnesium) tablet 400 mg PO BEDTIME Qty: 90 2RF sennosides [Natural Senna Laxative] 8.6 mg tablet 17.2 mg PO BEDTIME Qty: 60 3RF albuterol sulfate [ProAir HFA] 90 mcg/actuation HFA aerosol inhaler 2 puff inhalation Q4-6H PRN (Reason: shortness of breath or wheezing) Qty: 8.5 2RF Asmanex HFA 100 mcg/actuation HFA aerosol inhaler 2 puff inhalation BID Qty: 13 2RF acetaminophen [Tylenol] 325 mg capsule 325 mg PO Q4H PRN (Reason: pain) Qty: 30 0RF cyclobenzaprine 10 mg tablet 10 mg PO BEDTIME PRN (Reason: muscle spasm) Qty: 7 0RF ketorolac 10 mg tablet 10 mg PO TID PRN (Reason: pain) 5 Days Qty: 15 0RF lidocaine 5 % adhesive patch,medicated 1 patch topical DAILY PRN (Reason: pain) Qty: 15 0RF Rx Instructions: leave on most painful area for up to 12 hrs cyclobenzaprine 10 mg tablet 10 mg PO BEDTIME PRN (Reason: muscle spasm) 7 Days Qty: 7 0RF docusate sodium 100 mg capsule 100 mg PO DAILY pantoprazole 40 mg tablet,delayed release (DR/EC) 40 mg PO DAILY Qty: 90 2RF Rx Instructions: take one tablet half an hour before breakfast Discharge Date/Time: 08/11/23 23:15
[2023-08-11 13:58] LABS: MANUAL DIFF FLAG NO
[2023-08-11 14:02] LABS: Basophils Percent Auto 0.2 % (0-2); Eosinophils Absolute Auto 0.2 X10*3/uL (0.0-0.4); Hematocrit 43.3 % (42.0-52.0); Hemoglobin 13.9 g/dl (14.0-18.0); Imm Gran Abs Auto 0.03 X10*3/uL (0.00-0.03); Imm Gran Pct Auto 0.3 % (0.0-0.4); Lymphocytes Percent Auto 10.3 % (20-40); Mean Corpuscular HGB Conc 32.1 g/dl (31.0-36.0); Mean Corpuscular Hemoglobin 27.9 pg (27.0-33.0); Mean Corpuscular Volume 86.9 fL (80.0-98.0); Mean Platelet Volume 9.8 fL (9.4-12.4); Monocytes Absolute Auto 0.6 X10*3/uL (0.1-1.2); Monocytes Percent Auto 6.1 % (2-11); Neutrophils Absolute Auto 8.2 x10*3/uL (2.0-8.3); Neutrophils Percent Auto 81.1 % (45-73); Platelet Count 289 X10*3/uL (160-400); Red Blood Count 4.98 X10*6/uL (4.60-5.80); Red Cell Distribution Width 13.7 % (11.0-16.0); White Blood Count 10.1 X10*3/uL (4.8-10.8)
[2023-08-11 14:19] LABS: Alanine Aminotransferase 20 U/L (0-40); Albumin Level 3.9 g/dL (3.5-5.0); Anion Gap 11 (12-20); Aspartate Amino Transferase 17 U/L (5-37); Blood Urea Nitrogen 13 mg/dL (9-16); Calcium 9.5 mg/dL (8.4-10.2); Carbon Dioxide 30 mmol/L (22-29); Chloride 109 mmol/L (96-108); Glucose Random 90 mg/dL (60-115); Potassium 3.8 mmol/L (3.3-5.1); Sodium 146 mmol/L (135-145); Total Protein 7.6 g/dL (6.5-8.0)
[2023-08-11 14:46] LABS: Influenza A PCR NEGATIVE (Negative); Influenza B PCR NEGATIVE (Negative); Resp Syncy Virus RNA Qual PCR NEGATIVE (Negative); SARS COV2 PCR INHOUSE NEGATIVE (Negative)
[2023-08-11 15:01] LABS: Alkaline Phosphatase 135 U/L (39-117); Bilirubin Total 0.8 mg/dL (0.0-1.0); Creatinine Clr Calc Pharmacy 86.2; Estimated Glomerular Filt Rate 53; Lipase 28 U/L (8-78)
== END 2023-08-11 23:15 | disposition left against medical advice (07) ==
PROVIDERS: Physician Assistant Medical; Emergency Provider Emergency Medicine
DX: R11.2 Nausea with vomiting, unspecified (principal); Z03.818 Encounter for observation for suspected exposure to other biological agents ruled out; Z79.899 Other long term (current) drug therapy
CPT/HCPCS: 0241U; 36415; 80053; 83690; 83735; 85025; 99281; 99283

== ENCOUNTER 2023-08-17 09:09 | Outpatient (AMB) | payer OTHER, SELFPAY ==
[2023-08-17 10:26] VITALS: BP 136/90; PULSE 63; O2SAT 97; BMI 52.0
--- NOTE | 2023-08-17 10:26 | MHC.PC.OV ---
Vital Signs 08/17/23 10:26 Height 5 ft 6 in Weight 322 lb BMI 52.0 BP 136/90 H Blood Pressure Location Lt brachial Position Sitting Pulse 63 Pulse Source Pulse Oximeter Pulse Oximetry (%) 97 Oxygen Delivery Method Room Air Intake Visit Reasons: pe/6 Month follow up Intake Note: Pt is here today for his 6 mo. f/u labs and HTN Allergies chocolate Allergy (Severe, Verified 08/17/23 10:42) Difficulty Breathing animal dander [animal hair] Allergy (Intermediate, Verified 08/17/23 10:42) Redness of Skin bee pollen [bee stings] Allergy (Intermediate, Verified 08/17/23 10:42) Unknown lisinopril [LISINOPRIL] Allergy (Intermediate, Verified 08/17/23 10:42) ANGIOEDEMA Latex, Natural Rubber Allergy (Mild, Verified 08/17/23 10:42) Unknown Medication List - Last Reconciled 08/17/23 by Reina Brown MD acetaminophen (Tylenol) 325 mg PO Q4H PRN albuterol sulfate 90 mcg/actuation (ProAir HFA) 2 puffs inhalation Q4-6H PRN amlodipine 10 mg PO DAILY atorvastatin 40 mg PO BEDTIME cyclobenzaprine 10 mg PO BEDTIME PRN docusate sodium 100 mg PO DAILY ferrous sulfate 324 mg PO DAILY ketorolac 10 mg PO TID PRN 5 days lidocaine 5% 1 patch topical DAILY PRN losartan 100 mg PO DAILY magnesium oxide 400 mg PO BEDTIME mometasone 100 mcg/actuation (Asmanex HFA) 2 puffs inhalation BID pantoprazole 40 mg PO DAILY sennosides (Natural Senna Laxative) 17.2 mg (2 x 8.6 mg) PO BEDTIME Tobacco use date assessed: 08/17/23 Dental Screening Dental Screen Date: 08/17/23 Did you have a dental visit in the last 12 months?: No Was dental information given to patient?: Patient has dentist HPI pe/6 Month follow up HPI Details 48-year-old male with hypertension, hyperlipidemia, iron deficiency anemia, morbid obesity, and mild intermittent asthma as well as chronic kidney disease, here today for his six-month follow-up. Patient is happily reporting that he has lost weight, approximately 20 lb as compared to his previous weight 6 months ago. He has stopped drinking soda and fruit juices, and has stopped eating bedtime snacks. He does have more energy and knees are not hurting as much now that he has lost some weight. He has switched to a job that involves him to be more active, walks a lot in his new job.. He has been feeling well with no other complaints at present time. Except for some occasional swelling in both legs, worse towards the end of the day, resolves with elevating both legs [facility] Medical History (Updated 08/18/23 @ 00:54 by Reina Brown MD) Anemia Disc disease, degenerative, cervical Family history of ovarian cancer Morbid obesity Hemorrhoids with complication History of vitamin D deficiency Right calf pain Iron deficiency anemia Family history of early CAD Flatulence, eructation and gas pain Paraesophageal hernia Vitamin D deficiency Dyslipidemia (high LDL; low HDL) Mild intermittent asthma CKD (chronic kidney disease) stage 3, GFR 30-59 ml/min CHUN (obstructive sleep apnea) Low back pain Stage 3 chronic kidney disease Morbid obesity with BMI of 50.0-59.9, adult Benign essential hypertension Pure hypercholesterolemia Anxiety Surgical History No history of previous surgery Family History Mother No problems noted. 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, [employer] Cognitive needs: No Hearing needs: No Vision needs: Yes Questionnaire PHQ-9 Over the last 2 weeks, how often have you been bothered by any of the following problems? 1. Little interest or pleasure in doing things: not at all 2. Feeling down, depressed, or hopeless: several days 3. Trouble falling or staying asleep, or sleeping too much: more than half the days 4. Feeling tired or having little energy: not at all 5. Poor appetite or overeating: not at all 6. Feeling bad about yourself - or that you are a failure or have let yourself or your family down: not at all 7. Trouble concentrating on things, such as reading the newspaper or watching television: not at all 8. Moving or speaking so slowly that other people could have noticed. Or the opposite - being so fidgety or restless that you have been moving around a lot more than usual: not at all 9. Thoughts that you would be better off or of hurting yourself in some way: not at all Total score: 3 Depression Screening Interpretation: Positive (Referred back to [facility] for assistance in getting into see a therapist) Depression Screening Follow-up: Existing condition and Community Mental Health Worker F/U Depression Screening Done: Yes 88063 - PHQ-9 Billing: Yes Source: Developed by Drs. Shawn Joyce, Lina Orr, Mundo Guadarrama and colleagues, with an educational medina from [employer]. Thrive Questionnaire Date Thrive assessed: 08/17/23 I am a: Patient What is your living situation today?: I have a steady place to live Within the past 12 months, did the food you bought not last and you didn't have the money to get more?: Sometimes True Within the past 12 months, did you worry whether your food would run out before you got money to buy more?: Sometimes True Do you have trouble paying for medicines?: Yes Do you have trouble getting transportation to medical appointments?: No Do you have trouble paying your heating and electricity bill?: No Do you have trouble taking care of your child, family member or friend?: No Do you have trouble with day-to-day activities such as bathing, preparing meals, shopping, managing finances, etc.?: No Are you currently unemployed and looking for a job?: No Are you interested in more education?: No THRIVE Score: 2 AUDIT C Alcohol Use Questionnaire (AUDIT-C) 1. How often do you have a drink containing alcohol?: Never Total Score: 0 LUZMA-7 AMB Questionnaire LUZMA-7 Date LUZMA - 7 assessed: 08/17/23 Feeling nervous, anxious, or on edge: 0 = Not at all Not being able to stop or control worryin = Not at all Worrying too much about different things: 0 = Not at all Trouble relaxin = Several days Being so restless that it is hard to sit still: 0 = Not at all Becoming easily annoyed or irritable: 1 = Several days Feeling afraid as if something awful might happen: 0 = Not at all Total LUZMA-7 score (0-4 normal; 5-9 mild; 10-14 moderate; 15-21 severe): 2 Source: Developed by Drs. Shawn Joyce, Lina Orr, Mundo Guadarrama and colleagues, with an educational medina from [employer]. Review of Systems Const Denies body aches, Denies fever(s) and Denies poor appetite Eyes Denies change in vision ENT Denies dizziness and Denies hearing loss Card Denies chest pain, Denies rapid heart rate, Denies claudication, Denies lightheadedness, Denies palpitations and Denies dyspnea Resp Denies cough, Denies dyspnea and Denies wheezing GI Denies abdominal pain, Denies hematochezia, Denies change in bowel habits, Denies change in stool character and Denies heartburn Denies dysuria and Denies urinary frequency Musc Denies arthralgias, Denies numbness and Denies tingling Skin/Breast Denies lesions and Denies unusual bruising Neuro Denies Abnormal speech present, Denies dizziness, Denies numbness and Denies tingling Psych Reports as per HPI Endo Denies polyphagia, Denies polydipsia, Denies polyuria and Denies palpitations Aller/Immun Denies wheezing Physical exam (Primary Care) Vital Signs: Last Vital Signs Pulse 63 08/17/23 10:26 BP 136/90 H 08/17/23 10:26 Pulse Ox 97 08/17/23 10:26 Oxygen Delivery Method Room Air 08/17/23 10:26 BMI result Body Mass Index 52.0 BMI Assessment/Plan discussion: High BMI High, discussed plan: lifestyle, weight reduction, dietary and physical activity Tobacco/Smoking Status: Tobacco use Status Tobacco use date assessed 08/17/23 08/17/23 10:29 Patient Tobacco Use Status Never used Tobacco 08/17/23 10:29 e-Cigarette/Vaping Use Never Used 08/17/23 10:29 PHQ-9: PHQ-9 Score PHQ-9: Total score 2 08/17/23 10:44 Depression Screening Interpretation: Positive (Referred back to [facility]oj[facility] for assistance in getting into see a therapist) Depression Screening Follow-up: Existing condition and Community Mental Health Worker F/U Thrive Assessment: Date of Thrive Assessment Date Thrive assessed 08/17/23 08/17/23 10:35 Const Other: Alert oriented x3, no acute distress noted ambulatory with normal gait, morbidly obese Orientation/consciousness: patient oriented x3 HENMT Head: Yes normocephalic Ears: external ears normal Face and sinus: Yes face symmetric Mouth: Normal oral and palatal mucosa present, oropharynx normal and moist mucous membranes Eyes General: appearance normal, both eyes and all related structures Neck Other: Nonpalpable thyroid gland Neck: Yes full ROM, Yes no lymphadenopathy and Yes supple Resp Effort & Inspection: normal respiratory effort and able to speak in complete sentences Auscultation: clear to auscultation bilaterally Cardio Other: S1-S2 present regular rate and rhythm GI Other: Obese, normal bowel sounds, soft, nontender to palpation, with no mass palpated General: Yes no CVA tenderness Back/Spine/Pelvis Back: no CVA tenderness Skin General skin exam: no rashes or lesions noted Neuro General: patient oriented x3, tone normal, moves all extremities, Normal light touch and pain sensation, no focal motor deficits and CN's II-XI intact bilaterally Speech: No Abnormal speech present Extrem Other: 1+ edema on both lower extremities, with lower half mildly erythematous but not warm to touch, nontender to palpation. Psych Appearance: grossly normal and well kempt Mental Status: mental status grossly normal Speech and movement: Normal speech and movement present Affect: normal affect Thought process: Normal thought process present Results Reviewed Results Reviewed: satinder: Reid Sanchez Jr Age/Sex: 48/M : 1975 Unit#: [id number] Attend Dr: Capo Levin MD Re08/11/23 Status: [facility] Disch: SPEC : [id number] CAMPOS: 08/11/23 STATUS: COMP REQ : [id number] RECD: 08/11/[address]: Ania Loyd COMP: 08/11/23 ENTERED: 08/11/[address]: Physician,Unknown ORDERED: CBC Auto Diff Test Result Flag Reference WBC 10.1 4.8-10.8 X10*3/uL RBC 4.98 4.60-5.80 X10*6/uL HGB 13.9 L 14.0-18.0 g/dl HCT 43.3 42.0-52.0 % MCV 86.9 80.0-98.0 fL MCH 27.9 27.0-33.0 pg MCHC 32.1 31.0-36.0 g/dl RDW 13.7 11.0-16.0 % PLT 289 160-400 X10*3/uL MPV 9.8 9.4-12.4 fL Neut Pct Auto 81.1 H 45-73 % ImGran Pct Auto 0.3 0.0-0.4 % Lymp Pct Auto 10.3 L 20-40 % [place] Pct Auto 6.1 2-11 % Eos Pct Auto 2.0 0-4 % Baso Pct Auto 0.2 0-2 % NRBC Pct Auto 0.0 0.0-0.2 /100WBC ANC Neut Abs # 8.2 2.0-8.3 x10*3/uL [place] Abs Auto 0.03 0.00-0.03 X10*3/uL Lymph Abs Auto 1.0 L 1.2-4.9 X10*3/uL [place] Abs Auto 0.6 0.1-1.2 X10*3/uL Eos Abs Auto 0.2 0.0-0.4 X10*3/uL Baso Abs Auto 0.0 0.0-0.2 X10*3/uL NRBC Abs Auto 0.000 0.0-0.012 X10*3/uL Name: Reid Sanchez Yessenia Orozco Age/Sex: 48/M : 1975 Unit#: [id number] Attend Dr: Capo Levin MD Re08/11/23 Status: DEP ER Location: [facility] Disch: SPEC : [id number] CAMPOS: 08/11/23 STATUS: COMP REQ : [id number] RECD: 08/11/23-[address]: Ania Loyd COMP: 08/11/23-1501 ENTERED: 08/11/23-[address]: Physician,Unknown ORDERED: CMP, MG, Lip Test Result Flag Reference Sodium 146 H 135-145 mmol/L Potassium 3.8 3.3-5.1 mmol/L Slight Hemolysis CL 109 H 96-108 mmol/L CO2 30 H 22-29 mmol/L Gap 11 L 12-20 BUN 13 9-16 mg/dL Creat 1.44 H 0.5-1.4 mg/dL Estimated CrCl 86.2 eGFR (calculated from the MDRD study equation) and eCrCl (calculated from the Cockcroft-Gault equation) are based on different parameters and may not yield comparable results. If eCrCl result is absurd, please check patient's height/weight. EGFR 53 NOTE: For -[place] individuals, multiply the result by 1.210. Chronic Kidney Disease: Estimated GFR < 60 mL/min/1.73m2 Severe Kidney Disease: Estimated GFR < 15 mL/min/1.73m2 Glucose, Random 90 60-115 mg/dL CA 9.5 8.4-10.2 mg/dL Magnesium 2.0 1.6-2.6 mg/dL Total Bili 0.8 0.0-1.0 mg/dL AST (GOT) 17 5-37 U/L Slight Hemolysis ALT (GPT) 20 0-40 U/L Protein, Total 7.6 6.5-8.0 g/dL Alb 3.9 3.5-5.0 g/dL Alk Phos 135 H 39-117 U/L Lipase 28 8-78 U/L Assessment and Plan Assessment & Plan (1) CKD (chronic kidney disease) stage 3, GFR 30-59 ml/min: Code(s): N18.30 - Chronic kidney disease, stage 3 unspecified Plan: Nephrology consult requested, advised to avoid any NSAIDs, get diabetes mellitus, hypertension and cholesterol levels in good control. (2) Morbid obesity: Code(s): E66.01 - Morbid (severe) obesity due to excess calories Plan: Continue with adherence to recommended diet, and get regular exercise at least 30 minutes daily. (3) Anemia: Code(s): D64.9 - Anemia, unspecified Qualifiers: Anemia type: unspecified type Qualified Code(s): D64.9 - Anemia, unspecified Plan: Mild normocytic normochromic anemia noted on recent labs done. Will check iron levels. Refill sent for his ferrous fumarate tablet to take once a day (4) Dyslipidemia (high LDL; low HDL): Code(s): E78.5 - Hyperlipidemia, unspecified Plan: Fasting lipid panel ordered today . Continue on atorvastatin 40 mg at bedtime , in addition to adherence to low-cholesterol diet and regular exercise, at least 30 minutes 3 to 4 times a week. Advised patient to make healthy food choices, eat more fruits, vegetables, whole grains, wild caught fish and low-fat dairy. Limit amount of meat and fried or fatty food products, as well as processed foods and fast foods. (5) Benign essential hypertension: Code(s): I10 - Essential (primary) hypertension Plan: Continue losartan 100 mg once a day (6) Mild intermittent asthma: Code(s): J45.20 - Mild intermittent asthma, uncomplicated Qualifiers: Asthma complication type: uncomplicated Qualified Code(s): J45.20 - Mild intermittent asthma, uncomplicated Plan: Previously was using Flovent which has since been discontinued,. He has a prescription for asthma X already sent to his pharmacy which she has not picked up yet. He also has ProAir HFA, which he uses as needed for episodes of bronchospasm and wheezing (7) Anxiety: Code(s): F41.9 - Anxiety disorder, unspecified Plan: Referred to our certified mental health worker for assistance in getting in to be seen for counseling, Orders: Referrals Nephrology Referral N18.30 - Chronic kidney disease, stage 3 unspecified Medications: New docusate sodium 100 mg PO DAILY 90 caps 3RF Refilled ferrous sulfate 324 mg PO DAILY 90 tabs 1RF D50.9 - Iron deficiency anemia, unspecified Coding Level of Care Code Est Pt Level 4 (57439) Complex EM visit Add On G2211 Diagnoses CKD (chronic kidney disease) stage 3, GFR 30-59 ml/min N18.30 Morbid obesity E66.01 Anemia, unspecified type D64.9 Anemia type: unspecified type Dyslipidemia (high LDL; low HDL) E78.5 Benign essential hypertension I10 Mild intermittent asthma without complication J45.20 Asthma complication type: uncomplicated Anxiety F41.9
== END 2023-08-17 12:42 | disposition home or self-care (01) ==
PROVIDERS: PCP Internal Medicine; Visit Provider Internal Medicine
DX: I12.9 Hypertensive chronic kidney disease with stage 1 through stage 4 chronic kidney disease, or unspecified chronic kidney disease (principal); N18.30 Chronic kidney disease, stage 3 unspecified; E66.01 Morbid (severe) obesity due to excess calories; Z68.43 Body mass index [BMI] 50.0-59.9, adult; D64.9 Anemia, unspecified; E78.5 Hyperlipidemia, unspecified; J45.20 Mild intermittent asthma, uncomplicated; F41.9 Anxiety disorder, unspecified
CPT/HCPCS: 99214; G2211

== ENCOUNTER 2023-08-17 11:06 | Outpatient (REF) | payer SELFPAY ==
[2023-08-17 14:02] LABS: Cholesterol 119 mg/dL (<200); HDL Cholesterol 37 mg/dL (>40); Iron 50 mcg/dL (45-160); LDL Cholesterol Calculated 62 mg/dL (<100); Percent Iron Saturation 21 % (15-50); Total Iron Binding Capacity 236 mcg/dL (228-428); Triglycerides 101 mg/dL (<150); Unsaturated Iron Binding 186 ug/dL
== END 2023-08-17 11:07 | disposition home or self-care (01) ==
LOC: HO.HMGCLDS 11:06
PROVIDERS: PCP Internal Medicine; Visit Provider Internal Medicine
DX: E66.01 Morbid (severe) obesity due to excess calories (principal); D50.9 Iron deficiency anemia, unspecified; Z68.43 Body mass index [BMI] 50.0-59.9, adult; E78.5 Hyperlipidemia, unspecified; I10 Essential (primary) hypertension; N18.30 Chronic kidney disease, stage 3 unspecified
CPT/HCPCS: 36415; 80061; 83540

== ENCOUNTER 2023-08-31 10:23 | Outpatient (REF) | payer OTHER, SELFPAY ==
[2023-09-01 11:07] LABS: Complement C3 112 mg/dL (82-185)
[2023-09-02 12:02] LABS: Prot Elec - Albumin 3.4 g/dL (3.8-4.8); Prot Elec - Alpha1 0.3 g/dL (0.2-0.3); Prot Elec - Alpha2 0.9 g/dL (0.5-0.9); Prot Elec - Beta 1 0.4 g/dL (0.4-0.6); Prot Elec - Beta 2 0.4 g/dL (0.2-0.5); Prot Elec - Gamma 1.1 g/dL (0.8-1.7); Prot Elec - Total Protein 6.6 g/dL (6.1-8.1)
== END 2023-08-31 10:24 | disposition home or self-care (01) ==
LOC: HO.LAB 10:23
PROVIDERS: PCP Internal Medicine; Referring Provider Internal Medicine; Visit Provider Internal Medicine Hypertension Specialist
DX: N18.30 Chronic kidney disease, stage 3 unspecified (principal)
CPT/HCPCS: 36415; 84165; 86160; 99202

== ENCOUNTER 2023-08-31 10:23 | Outpatient (AMB) | payer OTHER, SELFPAY ==
[2023-08-31 10:22] VITALS: BP 124/72; PULSE 70; O2SAT 96; BMI 51.8
--- NOTE | 2023-08-31 10:22 | HO.NEPHOV ---
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 Required: No Accompanied by: Self / Same As Patient Allergies chocolate Allergy (Severe, Verified 08/31/23 10:27) Difficulty Breathing animal dander [animal hair] Allergy (Intermediate, Verified 08/31/23 10:27) Redness of Skin bee pollen [bee stings] Allergy (Intermediate, Verified 08/31/23 10:27) Unknown lisinopril [LISINOPRIL] Allergy (Intermediate, Verified 08/31/23 10:37) ANGIOEDEMA Latex, Natural Rubber Allergy (Mild, Verified 08/31/23 10:27) Unknown Medication List - Last Reconciled 08/31/23 by Marty Short MD acetaminophen (Tylenol) 325 mg PO Q4H PRN albuterol sulfate 90 mcg/actuation (ProAir HFA) 2 puffs inhalation Q4-6H PRN amlodipine 10 mg PO DAILY atorvastatin 40 mg PO BEDTIME docusate sodium 100 mg PO DAILY ferrous sulfate 324 mg PO DAILY ketorolac 10 mg PO TID PRN 5 days lidocaine 5% 1 patch topical DAILY PRN losartan 100 mg PO DAILY magnesium oxide 400 mg PO BEDTIME PRN mometasone 100 mcg/actuation (Asmanex HFA) 2 puffs inhalation BID pantoprazole 40 mg PO DAILY sennosides (Natural Senna Laxative) 17.2 mg (2 x 8.6 mg) PO BEDTIME HPI Comments Details: Reid is a pleasant 48-year-old man with history of obesity and chronic kidney disease. Patient creatinine has been between 1.4 and 1.8 mg/dL. Highest reading was 2.2 few years ago. He also has a history of proteinuria. Apparently he was seen by a cfo several years ago but lost to follow-up due to insurance issues. Most recent serum creatinine was 1.4 mg/dL. And hence this referral. He has a longstanding history of hypertension overall blood pressure has been well controlled. He says he had angioedema with lisinopril few years ago. However he has been tolerating losartan for the last 2 years without any issues. [facility] Medical History (Updated 08/18/23 @ 00:54 by Reina Brown MD) Anemia Disc disease, degenerative, cervical Family history of ovarian cancer Morbid obesity Hemorrhoids with complication History of vitamin D deficiency Right calf pain Iron deficiency anemia Family history of early CAD Flatulence, eructation and gas pain Paraesophageal hernia Vitamin D deficiency Dyslipidemia (high LDL; low HDL) Mild intermittent asthma CKD (chronic kidney disease) stage 3, GFR 30-59 ml/min CHUN (obstructive sleep apnea) Low back pain Stage 3 chronic kidney disease Morbid obesity with BMI of 50.0-59.9, adult Benign essential hypertension Pure hypercholesterolemia Anxiety Surgical History No history of previous surgery Family History Mother No problems noted. 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, [employer] Cognitive needs: No Hearing needs: No Vision needs: Yes Review of Systems Const Denies anorexia, Denies fever(s) and Denies weakness Eyes Denies blurry vision Card Denies no additional complaints and Denies dyspnea Resp Reports no additional complaints, Reports cough and Denies dyspnea GI Denies melena and Denies diarrhea Denies hematuria Musc Denies tingling Skin/Breast Denies rash Neuro Denies focal weakness, Denies tingling, Denies tremor(s) and Denies weakness Physical Exam Vital Signs: Last Vital Signs Pulse 70 08/31/23 10:22 Pulse Ox 96 08/31/23 10:22 Oxygen Delivery Method Room Air 08/31/23 10:22 BMI result Body Mass Index 51.8 Const General: comfortable; No acute distress Orientation/consciousness: patient oriented x3 Eyes General: appearance normal, both eyes and all related structures Visual Hogue: normal visual hogue by confrontation Neck Neck: Yes supple and Yes no JVD Resp Effort & Inspection: normal respiratory effort and respiratory effort not decreased Auscultation: rhonchi Cardio Palpation: no palpable S3 and no palpable S4 Heart sounds: no rubs GI Inspection: Yes normal to inspection Palpation (GI): Soft to palpation Percussion: Yes normal to percussion Auscultation: normal bowel sounds General: Yes no CVA tenderness Back/Spine/Pelvis Back: no CVA tenderness Skin General skin exam: no petechiae and no purpura Neuro General: patient oriented x3 and no focal motor deficits Extrem General: No clubbing and No edema Results Reviewed Nephrology Results: Hgb 13.9 g/dl (14.0-18.0) L 08/11/23 WBC 10.1 X10*3/uL (4.8-10.8) 08/11/23 Plt Count 289 X10*3/uL (160-400) 08/11/23 Sodium 146 mmol/L (135-145) H 08/11/23 Potassium 3.8 mmol/L (3.3-5.1) 08/11/23 Chloride 109 mmol/L (96-108) H 08/11/23 Carbon Dioxide 30 mmol/L (22-29) H 08/11/23 BUN 13 mg/dL (9-16) 08/11/23 Creatinine 1.44 mg/dL (0.5-1.4) H 08/11/23 Calcium 9.5 mg/dL (8.4-10.2) 08/11/23 Assessment & Plan Assessment & Plan (1) CKD (chronic kidney disease) stage 3, GFR 30-59 ml/min: Code(s): N18.30 - Chronic kidney disease, stage 3 unspecified Category: Medical Plan 48-year-old man with obesity and hypertension with chronic kidney disease and proteinuria. Proteinuria may be related to underlying obesity or hypertension. Other glomerular causes should be ruled out. With a history of obesity focal segmental glomerulosclerosis is a possibility. Basic serology has been ordered Reid has CKD with a creatinine of 1.4 mg/dL. The EGFR is 53 mL/minute but creatinine clearance is reported as 86 mL/minute. I will obtain a 24 hour urine collection to calculate the creatinine clearance which she will be more accurate than the reported EGFR. Goal is to slow the portion disease Blood pressure be maintained less than 130/80. Continue overt nephrotoxic agents including NSAIDs. I discussed importance of weight loss. His stay on low-sodium diet as well. Orders: Orders Total Protein Urine Random Today Marty Short MD N18.30 - Chronic kidney disease, stage 3 unspecified Protein, 24 Hr Urine Group Today Marty Short MD N18.30 - Chronic kidney disease, stage 3 unspecified Creatinine, 24 Hr Group Today Marty Short MD N18.30 - Chronic kidney disease, stage 3 unspecified Protein Electrophoresis, Serum Today Marty Short MD N18.30 - Chronic kidney disease, stage 3 unspecified Creatinine Urine Today Marty Short MD N18.30 - Chronic kidney disease, stage 3 unspecified UA and rflx microscopic Today Marty Short MD N18.30 - Chronic kidney disease, stage 3 unspecified Complement C3 Today Marty Short MD N18.30 - Chronic kidney disease, stage 3 unspecified Complement C4 Today Marty Short MD N18.30 - Chronic kidney disease, stage 3 unspecified Medications: Changed From magnesium oxide 400 mg PO BEDTIME 90 tabs 2RF To magnesium oxide 400 mg PO BEDTIME PRN Swati Pinzon CNP Discontinued ketorolac Discontinued Reason: Patient no longer taking 10 mg PO TID 5 days PRN 15 tabs 0RF pain Coding Level of Care Code New Pt Level 4 (29519) Diagnoses CKD (chronic kidney disease) stage 3, GFR 30-59 ml/min N18.30
== END 2023-08-31 10:42 | disposition home or self-care (01) ==
PROVIDERS: PCP Internal Medicine; Referring Provider Internal Medicine; Visit Provider Internal Medicine Hypertension Specialist
DX: N18.30 Chronic kidney disease, stage 3 unspecified (principal)
CPT/HCPCS: 99204

== ENCOUNTER 2023-09-04 13:13 | Outpatient (REF) | payer OTHER, SELFPAY ==
[2023-09-04 13:32] LABS: Total Volume 24 Hour Urine 2000 mL
[2023-09-04 13:57] LABS: Creatinine, 24Hr Urine 1.5 G/Day (1.0-2.0); Creatinine, mg/dL 73.22
[2023-09-04 13:58] LABS: Creatinine, 24Hr Urine 1.4 G/Day (1.0-2.0); Creatinine, mg/dL 72.26; Protein 24 Hr Urine 2240 mg/Day (<150); Protein mg/dL 112 mg/dL
== END 2023-09-04 13:14 | disposition home or self-care (01) ==
LOC: HO.LNP 13:13
PROVIDERS: Visit Provider Internal Medicine Hypertension Specialist
DX: N18.30 Chronic kidney disease, stage 3 unspecified (principal)
CPT/HCPCS: 82570; 84156

== ENCOUNTER 2023-11-25 08:32 | Outpatient (AMB) | payer OTHER, SELFPAY ==
--- NOTE | 2023-11-25 09:07 | AM.OFFWIN_ITS ---
Intake Vital Signs 11/25/23 09:09 Height 5 ft 6 in Weight 332 lb BMI 53.6 BP 132/90 H Blood Pressure Location Lt brachial Position Sitting Pulse 70 Pulse Source Pulse Oximeter Pulse Oximetry (%) 97 Oxygen Delivery Method Room Air Intake Visit Reasons: EP-lt ear swollen Intake Note: Patient here for left ear pain,redness and swelling that has been present for a couple of days. Patient Tobacco Use Status: Never used Tobacco Allergies chocolate Allergy (Severe, Verified 11/25/23 09:10) Difficulty Breathing animal dander [animal hair] Allergy (Intermediate, Verified 11/25/23 09:10) Redness of Skin bee pollen [bee stings] Allergy (Intermediate, Verified 11/25/23 09:10) Unknown lisinopril [LISINOPRIL] Allergy (Intermediate, Verified 11/25/23 09:10) ANGIOEDEMA Latex, Natural Rubber Allergy (Mild, Verified 11/25/23 09:10) Unknown Do you need a note to return to daycare/school/sports/work: No HPI EP-lt ear swollen HPI Details This note is constructed using voice recognition software. While every effort has been made to ensure accuracy, skilled nursing professional errors may have been included. The patient is a 48 year old male who presents to the clinic today with left ear redness and mass. He notes that he had something similar several months ago, but adjusted warm compresses and it resolved on its own. This time it does not seem to be going away with warm compresses. He denies fever, chills, cough, shortness of breath, or other URI symptoms. He does report that the area is tender to touch, and he did get some drainage the other day, however it seems to have stopped. [facility] Medical History (Updated 08/18/23 @ 00:54 by Reina Brown MD) Anemia Disc disease, degenerative, cervical Family history of ovarian cancer Morbid obesity Hemorrhoids with complication History of vitamin D deficiency Right calf pain Iron deficiency anemia Family history of early CAD Flatulence, eructation and gas pain Paraesophageal hernia Vitamin D deficiency Dyslipidemia (high LDL; low HDL) Mild intermittent asthma CKD (chronic kidney disease) stage 3, GFR 30-59 ml/min CHUN (obstructive sleep apnea) Low back pain Stage 3 chronic kidney disease Morbid obesity with BMI of 50.0-59.9, adult Benign essential hypertension Pure hypercholesterolemia Anxiety Surgical History No history of previous surgery Family History Mother No problems noted. 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, [employer] Cognitive needs: No Hearing needs: No Vision needs: Yes Review of Systems Const All systems reviewed & are unremarkable except as noted in HPI and below Physical Exam Vital Signs: Last Vital Signs Pulse 70 11/25/23 09:09 BP 132/90 H 11/25/23 09:09 Pulse Ox 97 11/25/23 09:09 Oxygen Delivery Method Room Air 11/25/23 09:09 BMI result Body Mass Index 53.6 Const General: cooperative, healthy appearing, comfortable, no acute distress and alert Orientation/consciousness: patient oriented x3 Limitations: no limitations HEENT Other: 4 mm fluctuant cystic structure to left anti tragus with erythema and warmth. Head: Yes normal to inspection and Yes normocephalic Ears: hearing grossly normal bilaterally and external ear abnormal no pain with movement of external ear General nose exam: Normal external nose present Face and sinus: Yes normal facial exam and Yes sinuses nontender Mouth: Normal oral and palatal mucosa present and tongue normal Teeth and gingiva: dentition normal Throat: Yes posterior oropharynx normal Eyes General: appearance normal, both eyes and all related structures Neck Neck: Yes normal visual inspection, Yes full ROM and Yes no lymphadenopathy Resp Effort & Inspection: normal respiratory effort and able to speak in complete sentences Auscultation: clear to auscultation bilaterally Cardio Jugular venous distension: no JVD Palpation: normal PMI Rate: regular rate Heart sounds: S1 normal heart sound present, S2 normal heart sound present, no click, no gallops, no murmurs and no rubs Neuro General: patient oriented x3 Psych Appearance: grossly normal Mental Status: mental status grossly normal Speech and movement: Normal speech and movement present Affect: normal affect Office Procedures Incision and Drainage Details: Area cleansed with Betadine. Topical lidocaine spray applied. 18 gauge needle used for incision, expressed small amounts of bloody drainage with smaller amounts of purulent drainage. Incision and drainage performed by: Kelly Hall Informed consent given: Yes Consent signed: Yes (Verbal consent obtained) Anesthesia: topical cream Incision with: needle (18 gauge) Drainage quality: bloody (With small amounts of purulent drainage) Hemostasis: pressure Dressing: other (Band-Aid) Patient tolerated procedure: well Complications: No Additional details: Patient tolerated procedure well. Advised to continue with warm compresses to facilitate additional drainage. Advised patient to follow up with regrowth. Assessment & Plan Assessment & Plan (1) Abscess: Code(s): L02.91 - Cutaneous abscess, unspecified Plan: I and D performed in office for treatment. Antibiotic not prescribed due to procedure. Advised patient to monitor for regrowth of lesion, erythema, warmth, fever, and signs of systemic infection which would warrant repeat evaluation. Plan See above for full details and plan. Coding Level of Care Code Est Pt Level 4 (23688) Diagnoses Abscess L02.91
[2023-11-25 09:09] VITALS: BP 132/90; PULSE 70; O2SAT 97; BMI 53.6
== END 2023-11-25 12:49 | disposition home or self-care (01) ==
PROVIDERS: PCP Internal Medicine; Visit Provider Registered Nurse
DX: L02.91 Cutaneous abscess, unspecified (principal)

== ENCOUNTER → 2023-11-25 08:32 | Outpatient (BNVA) | payer OTHER, SELFPAY | PROVIDERS: PCP Internal Medicine | DX: L02.91 Cutaneous abscess, unspecified (principal) | CPT/HCPCS: 99212 ==

== ENCOUNTER 2024-02-20 09:49 | Outpatient (REF) | payer OTHER, SELFPAY ==
[2024-02-20 11:32] LABS: Alanine Aminotransferase 24 U/L (0-40); Aspartate Amino Transferase 26 U/L (5-37); Cholesterol 120 mg/dL (<200); HDL Cholesterol 32 mg/dL (>40); LDL Cholesterol Calculated 57 mg/dL (<100); Triglycerides 158 mg/dL (<150)
== END 2024-02-20 09:50 | disposition home or self-care (01) ==
LOC: HO.HMGCLDS 09:49
PROVIDERS: PCP Internal Medicine; Visit Provider Internal Medicine
DX: E78.5 Hyperlipidemia, unspecified (principal); E66.01 Morbid (severe) obesity due to excess calories; Z68.43 Body mass index [BMI] 50.0-59.9, adult
CPT/HCPCS: 36415; 80061; 84450; 84460

== ENCOUNTER 2024-02-25 09:32 | Outpatient (AMB) | payer OTHER, SELFPAY ==
[2024-02-25 09:39] VITALS: BP 120/78; PULSE 67; O2SAT 96; BMI 54.4
--- NOTE | 2024-02-25 09:39 | MHC.PC.OV ---
Vital Signs 02/25/24 09:39 Height 5 ft 6 in Weight 337 lb BMI 54.4 BP 120/78 Blood Pressure Location Lt brachial Position Sitting Pulse 67 Pulse Source Pulse Oximeter Pulse Oximetry (%) 96 Oxygen Delivery Method Room Air Intake Visit Reasons: Annual PE Intake Note: Pt is here today for his PE: Last colonoscopy 11/24/22. Allergies chocolate Allergy (Severe, Verified 02/28/24 21:18) Difficulty Breathing animal dander [animal hair] Allergy (Intermediate, Verified 02/28/24 21:18) Redness of Skin bee pollen [bee stings] Allergy (Intermediate, Verified 02/28/24 21:18) Unknown lisinopril [LISINOPRIL] Allergy (Intermediate, Verified 02/28/24 21:18) ANGIOEDEMA Latex, Natural Rubber Allergy (Mild, Verified 02/28/24 21:18) Unknown Medication List - Last Reconciled 02/25/24 by Reina Brown MD acetaminophen (Tylenol) 325 mg PO Q4H PRN albuterol sulfate 90 mcg/actuation (ProAir HFA) 2 puffs inhalation Q4-6H PRN amlodipine 10 mg PO DAILY atorvastatin 40 mg PO BEDTIME docusate sodium 100 mg PO DAILY ferrous sulfate 324 mg PO DAILY lidocaine 5% 1 patch topical DAILY PRN losartan 100 mg PO DAILY mometasone 100 mcg/actuation (Asmanex HFA) 2 puffs inhalation BID pantoprazole 40 mg PO DAILY Tobacco use date assessed: 02/25/24 Dental Screening Dental Screen Date: 02/25/24 Did you have a dental visit in the last 12 months?: No Did you have a dental problem in the last 6 months where you did not have access to dental care?: No Was dental information given to patient?: No HPI Annual PE HPI Details - The patient is a 48-year-old male presenting today for his physical exam. He has essential hypertension, currently taking losartan and amlodipine. He reports some confusion regarding his medication schedule, taking losartan in the morning and amlodipine at night to avoid morning dizziness. - Reports a history of obstructive sleep apnea, using CPAP therapy with significant decrease in apnea episodes from 82 to 1.6 nightly occurrences. He expresses issues with the CPAP machine, having not been in contact for supplier updates or equipment changes. - Recent diagnosis of anemia with current hemoglobin at 13.9, up from 13.7. Last colonoscopy done 11/24/2022 revealed a pre-cancerous polyp which was removed, due for recheck again in 5 years. Patient has been taking iron supplements. - Suffers from frequent heartburn, attributed to dietary habits including soda consumption and fried foods. Takes pantoprazole at night but reports persistent symptoms. - Weight gain of 5 pounds, currently weighing 337 pounds. - Bilateral foot pain primarily in the left leg with a sensation described as a boiling feeling, potentially related to plantar fasciitis and obesity. - Reports possible hearing loss, not recently assessed, causing communication challenges, notably in noisy environments. [facility] Medical History (Updated 02/28/24 @ 21:23 by Reina Brown MD) Bilateral leg and foot pain CHUN on CPAP Plantar fasciitis, bilateral Decreased hearing of both ears Anemia Disc disease, degenerative, cervical Family history of ovarian cancer Hemorrhoids with complication History of vitamin D deficiency Iron deficiency anemia Family history of early CAD Vitamin D deficiency Dyslipidemia (high LDL; low HDL) Mild intermittent asthma CKD (chronic kidney disease) stage 3, GFR 30-59 ml/min Low back pain Stage 3 chronic kidney disease Morbid obesity with BMI of 50.0-59.9, adult Benign essential hypertension Pure hypercholesterolemia Anxiety Surgical History No history of previous surgery Family History Mother No problems noted. 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, [employer] Cognitive needs: No Hearing needs: No Vision needs: Yes Questionnaire PHQ-9 Over the last 2 weeks, how often have you been bothered by any of the following problems? 1. Little interest or pleasure in doing things: not at all 2. Feeling down, depressed, or hopeless: not at all 3. Trouble falling or staying asleep, or sleeping too much: not at all 4. Feeling tired or having little energy: not at all 5. Poor appetite or overeating: not at all 6. Feeling bad about yourself - or that you are a failure or have let yourself or your family down: not at all 7. Trouble concentrating on things, such as reading the newspaper or watching television: not at all 8. Moving or speaking so slowly that other people could have noticed. Or the opposite - being so fidgety or restless that you have been moving around a lot more than usual: not at all 9. Thoughts that you would be better off or of hurting yourself in some way: not at all Total score: 0 Source: Developed by Drs. Shawn Joyce, Lina Orr, Mundo Guadarrama and colleagues, with an educational medina from [employer]. Thrive Questionnaire Date Thrive assessed: 08/17/23 I am a: Patient What is your living situation today?: I have a steady place to live Within the past 12 months, did the food you bought not last and you didn't have the money to get more?: Sometimes True Within the past 12 months, did you worry whether your food would run out before you got money to buy more?: Sometimes True Do you have trouble paying for medicines?: No Do you have trouble getting transportation to medical appointments?: No Do you have trouble paying your heating and electricity bill?: No Do you have trouble taking care of your child, family member or friend?: No Do you have trouble with day-to-day activities such as bathing, preparing meals, shopping, managing finances, etc.?: No Are you currently unemployed and looking for a job?: No Are you interested in more education?: No Please select the resources that you would like help with: None Currently or been in a relationship where the following occur: No concerns reported THRIVE Score: 2 AUDIT C Alcohol Use Questionnaire (AUDIT-C) 1. How often do you have a drink containing alcohol?: Monthly or less 2. How many drinks containing alcohol do you have on a typical day when you are drinking?: 1 or 2 3. How often do you have six or more drinks on one occasion?: Never Total Score: 1 LUZMA-7 AMB Questionnaire LUZMA-7 Date LUZMA - 7 assessed: 08/17/23 Feeling nervous, anxious, or on edge: 0 = Not at all Not being able to stop or control worryin = Not at all Worrying too much about different things: 0 = Not at all Trouble relaxin = Not at all Being so restless that it is hard to sit still: 0 = Not at all Becoming easily annoyed or irritable: 0 = Not at all Feeling afraid as if something awful might happen: 0 = Not at all Total LUZMA-7 score (0-4 normal; 5-9 mild; 10-14 moderate; 15-21 severe): 0 Source: Developed by Drs. Shawn Joyce, Lina Orr, Mundo Guadarrama and colleagues, with an educational medina from [employer]. Review of Systems Const Denies fever(s) and Denies poor appetite Eyes Denies change in vision ENT Denies dizziness and Denies hearing loss Card Denies chest pain, Denies rapid heart rate, Denies claudication, Denies lightheadedness, Denies palpitations and Denies dyspnea Resp Denies cough, Denies dyspnea and Denies wheezing GI Denies abdominal pain, Denies hematochezia, Denies change in bowel habits, Denies change in stool character and Denies heartburn Denies dysuria and Denies urinary frequency Musc Denies arthralgias, Denies numbness and Denies tingling Skin/Breast Denies lesions and Denies unusual bruising Neuro Denies Abnormal speech present, Denies dizziness, Denies numbness and Denies tingling Psych Reports as per HPI Endo Denies polyphagia, Denies polydipsia, Denies polyuria and Denies palpitations Imtiaz/Lymph Reports no additional complaints Aller/Immun Denies wheezing Physical exam (Primary Care) Vital Signs: Last Vital Signs Pulse 67 02/25/24 09:39 BP 120/78 02/25/24 09:39 Pulse Ox 96 02/25/24 09:39 Oxygen Delivery Method Room Air 02/25/24 09:39 BMI result Body Mass Index 54.4 BMI Assessment/Plan discussion: High BMI High, discussed plan: lifestyle, weight reduction, dietary and physical activity Tobacco/Smoking Status: Tobacco use Status Tobacco use date assessed 02/25/24 02/25/24 09:43 Patient Tobacco Use Status Never used Tobacco 02/25/24 09:43 e-Cigarette/Vaping Use Never Used 02/25/24 09:43 PHQ-9: PHQ-9 Score PHQ-9: Total score 0 02/25/24 10:22 Thrive Assessment: Date of Thrive Assessment Date Thrive assessed 08/17/23 02/25/24 09:43 Currently or been in a relationship where the following occur: No concerns reported Const Other: Alert oriented x3, no acute distress noted ambulatory with normal gait, morbidly obese Orientation/consciousness: patient oriented x3 HENMT Head: Yes normocephalic Ears: external ears normal Face and sinus: Yes face symmetric Mouth: Normal oral and palatal mucosa present, oropharynx normal and moist mucous membranes Eyes General: appearance normal, both eyes and all related structures Neck Other: Nonpalpable thyroid gland Neck: Yes full ROM, Yes no lymphadenopathy and Yes supple Resp Effort & Inspection: normal respiratory effort and able to speak in complete sentences Auscultation: clear to auscultation bilaterally Cardio Other: S1-S2 present regular rate and rhythm GI Other: Obese, normal bowel sounds, soft, nontender to palpation, with no mass palpated General: Yes no CVA tenderness Back/Spine/Pelvis Back: no CVA tenderness Skin General skin exam: no rashes or lesions noted Neuro General: patient oriented x3, tone normal, moves all extremities, Normal light touch and pain sensation, no focal motor deficits and CN's II-XI intact bilaterally Speech: No Abnormal speech present Extrem General: Yes full ROM, Yes no joint enlargement, Yes no clubbing, cyanosis or edema, Yes no calf tenderness and Yes normal gait Psych Appearance: grossly normal and well kempt Mental Status: mental status grossly normal Speech and movement: Normal speech and movement present Affect: normal affect Thought process: Normal thought process present Office Procedures Flu Questionnaire Does the patient have a severe egg allergy?: No Does the patient have severe life threatening allergies?: No Does the patient have a fever or illness today?: No Has the patient ever had Guillain-Goshen Syndrome?: No Has the patient ever had any past reaction to a flu shot?: No Immunizations Fluarix Triv 4327-4763 (PF) 45 mcg (15 mcg x 3)/0.5 mL IM syringe Performing Provider: Reina Brown MD Performing Location: [facility] Administered by: Lili Mendoza CMA on 02/25/24 10:22 Dose Route Admin Location Dispensed Lot Number Expiration Date [facility] Hairspring Adjuster 0.5 mL IM Left Deltoid 0.5 mL [id number] 08/29/24 [id number] [employer] VIS Given Date VIS Provided VIS Publication Date 02/25/24 Single Vaccine 20 Eligibility Eligibility Date Funding Source Not [facility] Eligible 02/25/24 Private Results Reviewed Results Reviewed: Name: Reid Sanchez Jr Age/Sex: 48/M : 1975 Unit#: [id number] Attend Dr: Capo Levin MD Re08/11/23 Status: [facility]P [facility] Disch: SPEC : [id number] CAMPOS: 08/11/23 STATUS: COMP REQ : [id number] RECD: 08/11/23-[address]: Ania Loyd COMP: 08/11/23 ENTERED: 08/11/[address]: Physician,Unknown ORDERED: CBC Auto Diff Test Result Flag Reference WBC 10.1 4.8-10.8 X10*3/uL RBC 4.98 4.60-5.80 X10*6/uL HGB 13.9 L 14.0-18.0 g/dl HCT 43.3 42.0-52.0 % MCV 86.9 80.0-98.0 fL MCH 27.9 27.0-33.0 pg MCHC 32.1 31.0-36.0 g/dl RDW 13.7 11.0-16.0 % PLT 289 160-400 X10*3/uL MPV 9.8 9.4-12.4 fL Neut Pct Auto 81.1 H 45-73 % ImGran Pct Auto 0.3 0.0-0.4 % Lymp Pct Auto 10.3 L 20-40 % [place] Pct Auto 6.1 2-11 % Eos Pct Auto 2.0 0-4 % Baso Pct Auto 0.2 0-2 % NRBC Pct Auto 0.0 0.0-0.2 /100WBC ANC Neut Abs # 8.2 2.0-8.3 x10*3/uL ImGran Abs Auto 0.03 0.00-0.03 X10*3/uL Lymph Abs Auto 1.0 L 1.2-4.9 X10*3/uL [place] Abs Auto 0.6 0.1-1.2 X10*3/uL Eos Abs Auto 0.2 0.0-0.4 X10*3/uL Baso Abs Auto 0.0 0.0-0.2 X10*3/uL NRBC Abs Auto 0.000 0.0-0.012 X10*3/uL Name: Reid Sanchez Jr Age/Sex: 48/M : 1975 Unit#: [id number] Attend Dr: Reina Brown MD Re02/20/24 Status: DEP REF Location: [facility] Disch: SPEC : [id number] CAMPOS: 02/20/24 STATUS: COMP REQ : [id number] RECD: 02/20/24-[address]: Reina Brown MD COMP: 02/20/24-113 ENTERED: 02/20/24-[address]: ORDERED: AST, ALT, Lipid Panel Test Result Flag Reference AST (GOT) 26 5-37 U/L ALT (GPT) 24 0-40 U/L Triglyceride 158 H <150 mg/dL Desirable Triglyceride: less than 150 mg/dL Borderline High Triglyceride 150-199 mg/dL High Triglyceride: 200-499 mg/dL Very High Triglyceride: greater than or equal to 5OO mg/dL Cholesterol 120 <200 mg/dL Desirable Cholesterol: less than 200 mg/dL Borderline High Cholesterol: 200-239 mg/dL High Cholesterol: greater than 239 mg/dL LDL Calculated 57 <100 mg/dL Desirable LDL: less than 100 mg/dL Near Optimal/Above Optimal LDL: 110-129 mg/dL Borderline High LDL: 130-159 mg/dL High LDL: 160-189 mg/dL Very High LDL: greater than or equal to 190 mg/dL HDL 32 L >40 mg/dL Desirable HDL: greater than 40 mg/dL Note: This HDL assay may give artificially low results in patients with liver disease. Coding Level of Care Code Est Pt Prev Care 40-64y(48518) Diagnoses Annual visit for general adult medical examination with abnormal findings Z00.01 Decreased hearing of both ears H91.93 Plantar fasciitis, bilateral M72.2 Anemia, unspecified type D64.9 Anemia type: unspecified type Morbid obesity E66.01 CHUN on CPAP G47.33 Benign essential hypertension I10 Mild intermittent asthma without complication J45.20 Asthma complication type: uncomplicated Morbid obesity with BMI of 50.0-59.9, adult E66.01; Z68.43 CKD (chronic kidney disease) stage 3, GFR 30-59 ml/min N18.30 Dyslipidemia (high LDL; low HDL) E78.5 Advanced directives, counseling/discussion Z71.89 Bilateral leg and foot pain M79.604; M79.605; M79.671; M79.672 Assessment & Plan Assessment & Plan (1) Annual visit for general adult medical examination with abnormal findings: Code(s): Z00.01 - Encounter for general adult medical examination with abnormal findings (2) Decreased hearing of both ears: Code(s): H91.93 - Unspecified hearing loss, bilateral Category: Medical (3) Plantar fasciitis, bilateral: Code(s): M72.2 - Plantar fascial fibromatosis Category: Medical (4) Anemia: Code(s): D64.9 - Anemia, unspecified Category: Medical Qualifiers: Anemia type: unspecified type Qualified Code(s): D64.9 - Anemia, unspecified (5) Morbid obesity: Comment: 1 Code(s): E66.01 - Morbid (severe) obesity due to excess calories Category: Medical (6) CHUN on CPAP: Code(s): G47.33 - Obstructive sleep apnea (adult) (pediatric) Category: Medical (7) Benign essential hypertension: Code(s): I10 - Essential (primary) hypertension Category: Medical (8) Mild intermittent asthma: Code(s): J45.20 - Mild intermittent asthma, uncomplicated Category: Medical Qualifiers: Asthma complication type: uncomplicated Qualified Code(s): J45.20 - Mild intermittent asthma, uncomplicated (9) Morbid obesity with BMI of 50.0-59.9, adult: Code(s): E66.01 - Morbid (severe) obesity due to excess calories; Z68.43 - Body mass index [BMI] 50.0-59.9, adult Category: Medical (10) CKD (chronic kidney disease) stage 3, GFR 30-59 ml/min: Code(s): N18.30 - Chronic kidney disease, stage 3 unspecified Category: Medical (11) Dyslipidemia (high LDL; low HDL): Code(s): E78.5 - Hyperlipidemia, unspecified Category: Medical (12) Advanced directives, counseling/discussion: Code(s): Z71.89 - Other specified counseling Plan: Initiated the conversation about Advanced Directives. Advanced Directives help patients prepare for current and future decisions about their medical treatment and place of care. Discussed with patient that it is a process where a patients current condition and prognosis are reviewed, their wishes for information regarding their illness are elicited, and likely medical dilemmas are presented and options discussed. Healthcare proxy form completed today. The form can be amended as needed, reviewed yearly and make changes as needed (13) Bilateral leg and foot pain: Code(s): M79.604 - Pain in right leg; M79.605 - Pain in left leg; M79.671 - Pain in right foot; M79.672 - Pain in left foot Category: Medical Plan We will maintain the current blood pressure medications, with losartan in the morning and amlodipine at night, to help manage the patient's hypertension and prevent morning dizziness. Clarification on medication schedule was provided. The patient will contact his CPAP supplier to ensure his equipment is updated to manage sleep apnea effectively. Continuous iron supplementation will proceed to improve anemia, and follow-up blood tests are scheduled in three months to monitor anemia and adjust treatment if necessary. I recommended lifestyle changes to control triglyceride levels, promote weight loss, and manage gastritis and heartburn, focusing on reducing high-calorie beverages and foods. Referral to podiatry for foot pain assessment and audiology for hearing evaluation have been requested. Patient reminded that he is due for a repeat screening colonoscopy in [address] Patten. - Flu vaccination administered; advised to follow up for COVID booster at a local pharmacy. - Recommendations to reduce caffeine intake and unhealthy dietary choices to alleviate symptoms of gastritis and promote weight loss. - Encouraged to increase physical activity for cardiovascular health and weight management. - Upper endoscopy previously performed showing gastritis with no infection or hernia. - Advised routine blood work for monitoring anemia, kidney function, and lipid profile in three months. Patient was informed and verbally consented to the use of an ambient scribe for clinic note documentation during this visit. Orders: Orders Influenza [id number] Immunization 02/25/24 Z23 - Encounter for immunization Basic Metabolic Panel Fasting 04/30/24 D64.9 - Anemia, unspecified, E66.01 - Morbid (severe) obesity due to excess calories, E78.5 - Hyperlipidemia, unspecified, I10 - Essential (primary) hypertension, Z68.43 - Body mass index [BMI] 50.0-59.9, adult, Z86.39 - Personal history of other endocrine, nutritional and metabolic disease Aspartate Amino Transferase 04/30/24 D64.9 - Anemia, unspecified, E66.01 - Morbid (severe) obesity due to excess calories, E78.5 - Hyperlipidemia, unspecified, I10 - Essential (primary) hypertension, Z68.43 - Body mass index [BMI] 50.0-59.9, adult, Z86.39 - Personal history of other endocrine, nutritional and metabolic disease Alanine Aminotransferase 04/30/24 D64.9 - Anemia, unspecified, E66.01 - Morbid (severe) obesity due to excess calories, E78.5 - Hyperlipidemia, unspecified, I10 - Essential (primary) hypertension, Z68.43 - Body mass index [BMI] 50.0-59.9, adult, Z86.39 - Personal history of other endocrine, nutritional and metabolic disease IRON PROFILE 04/30/24 D64.9 - Anemia, unspecified, E66.01 - Morbid (severe) obesity due to excess calories, E78.5 - Hyperlipidemia, unspecified, I10 - Essential (primary) hypertension, Z68.43 - Body mass index [BMI] 50.0-59.9, adult, Z86.39 - Personal history of other endocrine, nutritional and metabolic disease Complete Blood Count Auto Diff 04/30/24 D64.9 - Anemia, unspecified, E66.01 - Morbid (severe) obesity due to excess calories, E78.5 - Hyperlipidemia, unspecified, I10 - Essential (primary) hypertension, Z68.43 - Body mass index [BMI] 50.0-59.9, adult, Z86.39 - Personal history of other endocrine, nutritional and metabolic disease Lipid Panel 04/30/24 D64.9 - Anemia, unspecified, E66.01 - Morbid (severe) obesity due to excess calories, E78.5 - Hyperlipidemia, unspecified, I10 - Essential (primary) hypertension, Z68.43 - Body mass index [BMI] 50.0-59.9, adult, Z86.39 - Personal history of other endocrine, nutritional and metabolic disease Vitamin D 25-OH Total 04/30/24 D64.9 - Anemia, unspecified, E66.01 - Morbid (severe) obesity due to excess calories, E78.5 - Hyperlipidemia, unspecified, I10 - Essential (primary) hypertension, Z68.43 - Body mass index [BMI] 50.0-59.9, adult, Z86.39 - Personal history of other endocrine, nutritional and metabolic disease Referrals Podiatry Referral M79.604 - Pain in right leg, M79.605 - Pain in left leg, M79.671 - Pain in right foot, M79.672 - Pain in left foot Speech and Hearing Referral H91.93 - Unspecified hearing loss, bilateral
== END 2024-02-25 10:42 | disposition home or self-care (01) ==
PROVIDERS: PCP Internal Medicine; Visit Provider Internal Medicine
DX: Z00.00 Encounter for general adult medical examination without abnormal findings (principal); I12.9 Hypertensive chronic kidney disease with stage 1 through stage 4 chronic kidney disease, or unspecified chronic kidney disease; N18.30 Chronic kidney disease, stage 3 unspecified; E66.01 Morbid (severe) obesity due to excess calories; Z68.43 Body mass index [BMI] 50.0-59.9, adult; H91.93 Unspecified hearing loss, bilateral; M72.2 Plantar fascial fibromatosis; D64.9 Anemia, unspecified; G47.33 Obstructive sleep apnea (adult) (pediatric); J45.20 Mild intermittent asthma, uncomplicated; E78.5 Hyperlipidemia, unspecified; Z71.89 Other specified counseling

== ENCOUNTER → 2024-02-25 09:32 | Outpatient (BNVA) | payer OTHER, SELFPAY | PROVIDERS: PCP Internal Medicine; Visit Provider Internal Medicine | DX: Z00.01 Encounter for general adult medical examination with abnormal findings (principal); H91.93 Unspecified hearing loss, bilateral; I12.9 Hypertensive chronic kidney disease with stage 1 through stage 4 chronic kidney disease, or unspecified chronic kidney disease; N18.30 Chronic kidney disease, stage 3 unspecified; D63.1 Anemia in chronic kidney disease; G47.33 Obstructive sleep apnea (adult) (pediatric); M72.2 Plantar fascial fibromatosis; E66.01 Morbid (severe) obesity due to excess calories; J45.20 Mild intermittent asthma, uncomplicated; E78.5 Hyperlipidemia, unspecified; M79.604 Pain in right leg; M79.605 Pain in left leg; M79.671 Pain in right foot; M79.672 Pain in left foot; Z71.89 Other specified counseling; Z23 Encounter for immunization; Z68.43 Body mass index [BMI] 50.0-59.9, adult; Z79.899 Other long term (current) drug therapy; Z99.89 Dependence on other enabling machines and devices | CPT/HCPCS: 90471; 90656; 96127; 99396 ==

== ENCOUNTER 2024-03-15 17:46 | Emergency (ER) | payer OTHER, SELFPAY ==
--- NOTE | ~2024-03-15 | CT_ITS ---
CLINICAL HISTORY: SUBMANDIBULAR GLAND SIALOLITHIASIS CT soft tissue neck without contrast Comparison: None Findings: The right submandibular gland is enlarged relative to the left. There is no ductal dilatation or stone. There is infiltration submandibular fat bilaterally which also involves the subcutaneous fat. There is no fluid collection. Adjacent lymph nodes measure up to 1.0 cm in short axis, reactive. Normal pharyngeal mucosa, oral cavity and larynx. Normal parotid glands. There are intraparotid lymph nodes.. Unremarkable thyroid. Normal vessels and carotid space. No acute fracture. Mucosal thickening and fluid in the paranasal sinuses may indicate sinusitis. The mastoid air cells are clear. The lung apices are clear. Impression: Right submandibular sialadenitis is favored. Bilateral submandibular sialoadenitis may also be considered. No abscess. This document has been electronically signed by: Nayeli Monroy MD on 03/15/2024 19:06:35
[2024-03-15 17:53] VITALS: BP 148/98; BP 149/80; PULSE 66; PULSE 68; RESP 16; TEMP 36.8; O2SAT 96; O2SAT 98; BMI 53.7
[2024-03-15 17:59] VITALS: BP 136/69; PULSE 62; RESP 17; TEMP 36.6; O2SAT 96
--- NOTE | 2024-03-15 18:27 | PC.NURSE ---
pt biba from urgent care after he was taking off his cpap yesterday morning and noticed a nonpainful lump on the right side of his neck. pt states lump grew in size overnight. denies difficulty swallowing/fevers/chills/drainage. pt seems to be in no respiratory distress - on RA w/o difficulty. managing secretions w/o difficulty. respirations even/unlabored. flu+ x 2 weeks ago. upon ED arrival - a&ox4. vss and up to date. pt had CT scan completed. results pending. plan of care ongoing.
--- NOTE | 2024-03-15 18:38 | ED_ITS ---
HPI - Neck Pain/Injury General Chief Complaint: Skin/Abscess/Foreign Body Stated Complaint: mass on pt neck, swelling Time Seen by Provider: 03/15/24 17:57 History of Present Illness ED Provider: HPI Narrative: Patient noticed swelling under the right mandible since yesterday slight painful no skin discoloration no difficulty in swallowing Related Data Previous Rx's ?Medication ?Instructions ?Recorded pantoprazole 40 mg tablet,delayed 40 mg PO DAILY #90 tabs 01/12/23 release acetaminophen 325 mg capsule 325 mg PO Q4H PRN pain #30 caps 06/30/23 (Tylenol) lidocaine 5 % topical patch 1 patch topical DAILY PRN pain #15 06/30/23 ea albuterol sulfate 90 mcg/actuation 2 puff inhalation Q4-6H PRN 07/01/23 aerosol inhaler (ProAir HFA) shortness of breath or wheezing #8.5 grams docusate sodium 100 mg capsule 100 mg PO DAILY #90 caps 08/17/23 ferrous sulfate 324 mg (65 mg 324 mg PO DAILY #90 tabs 08/17/23 iron) tablet,delayed release mometasone 100 mcg/actuation HFA 2 puff inhalation BID #13 grams 09/02/23 aerosol inhaler (Asmanex HFA) amlodipine 10 mg tablet 10 mg PO DAILY #90 tabs 11/27/23 losartan 100 mg tablet 100 mg PO DAILY #90 tabs 02/18/24 atorvastatin 40 mg tablet 40 mg PO BEDTIME #90 tabs 03/01/24 amoxicillin 875 mg-potassium 1 tab PO BID #20 tabs 03/15/24 clavulanate 125 mg tablet Allergies Allergy/AdvReac Type Severity Reaction Status Date / Time chocolate Allergy Severe Difficulty Verified 03/15/24 17:55 Breathing animal dander [animal hair] Allergy Intermediate Redness of Verified 03/15/24 17:55 Skin bee pollen [bee stings] Allergy Intermediate Unknown Verified 03/15/24 17:55 lisinopril [LISINOPRIL] Allergy Intermediate ANGIOEDEMA Verified 03/15/24 17:55 Latex, Natural Rubber Allergy Mild Unknown Verified 03/15/24 17:55 Review of Systems Review of Systems: Yes all other systems are reviewed and are negative PMFSH Past Medical History Medical History Bilateral leg and foot pain CHUN on CPAP Plantar fasciitis, bilateral Decreased hearing of both ears Anemia Disc disease, degenerative, cervical Family history of ovarian cancer Hemorrhoids with complication History of vitamin D deficiency Iron deficiency anemia Family history of early CAD Vitamin D deficiency Dyslipidemia (high LDL; low HDL) Mild intermittent asthma CKD (chronic kidney disease) stage 3, GFR 30-59 ml/min Low back pain Stage 3 chronic kidney disease Morbid obesity with BMI of 50.0-59.9, adult Benign essential hypertension Pure hypercholesterolemia Anxiety Surgical History No history of previous surgery Family History Family History Mother No problems noted. Father Heart problem Paternal Uncle Heart problem Paternal Grandfather Heart problem Heart attack Paternal Grandmother Breast cancer Paternal Aunt Ovarian cancer Social History Social History Household Members: Spouse and Children Household Members Other:: Cat Housing: Apartment Alcohol intake: current Alcohol intake frequency: does not drink Patient Tobacco Use Status: Never used Tobacco Smoked in Last 30 Days: No e-Cigarette/Vaping Use: Never Used Second Hand Smoke Exposure: Yes Use of substances other than those prescribed or required for medical reasons: No Advance Directives: Yes Advance Directives on File: Yes Advance Directives Date on File: 02/25/24 Do you have a plan to hurt others: No Plan service: No Current occupational status: employed 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, [employer] Cognitive needs: No Hearing needs: No Vision needs: Yes Physical Exam Vital Signs: Vital Signs: Last Vital Signs Temp 97.9 F 03/15/24 17:59 Pulse 62 03/15/24 17:59 Resp 17 03/15/24 17:59 BP 136/69 03/15/24 17:59 Pulse Ox 96 03/15/24 17:59 O2 Del Method Room Air 03/15/24 17:59 BMI result Body Mass Index 53.7 Appearance: Alert. Oriented X3. No acute distress. ENT: Pharynx normal. Oral Mucosa moist tongue normal Neck: Normal inspection. Neck supple. Enlarged right submandibular gland slightly tender CVS: Normal heart rate and rhythm. Pulses normal. Respiratory: No respiratory distress. Equal air entry bilateral, no wheezing/rales/rhonchi Skin: Skin warm and dry. Normal skin color. Normal skin turgor. Extremities: No lower extremity edema. Neuro: Oriented X 3. Medical Decision Making Medical Decision Making [facility] Narrative: Patient with right submandibular sialadenitis no stone was seen in the CT scan vitals are stable will discharge patient home on Augmentin Differential Diagnosis Differential Diagnoses: The differential diagnosis associated with the presentation includes Sialadenitis/sialolithiasis/abscess Admission/Observation Consideration of admission/observation: Escalation of care including admission/observation considered Radiology Impression Discussion of test interpretation with radiology: I have reviewed the radiologist's reading. Radiologist Impression: [address] [address] [address] Scan Report Signed Patient: Reid Sanchez Jr MR#: [id number] : 1975 Acct:[id number] Age/Sex: 48 / M ADM Date: 03/15/24 Loc: .ED Attending Dr: Ordering Physician: Fabrizio Loco MD Date of Service: 03/15/24 Procedure(s): CT soft tissue neck wo IV con Accession Number(s): [id number] cc: Reina Brown MD; Fabrizio Loco MD~ Report Number: [id number]: Total DLP = 1234.00 mGy-cm CLINICAL HISTORY: SUBMANDIBULAR GLAND SIALOLITHIASIS CT soft tissue neck without contrast Comparison: None Findings: The right submandibular gland is enlarged relative to the left. There is no ductal dilatation or stone. There is infiltration submandibular fat bilaterally which also involves the subcutaneous fat. There is no fluid collection. Adjacent lymph nodes measure up to 1.0 cm in short axis, reactive. Normal pharyngeal mucosa, oral cavity and larynx. Normal parotid glands. There are intraparotid lymph nodes.. Unremarkable thyroid. Normal vessels and carotid space. No acute fracture. Mucosal thickening and fluid in the paranasal sinuses may indicate sinusitis. The mastoid air cells are clear. The lung apices are clear. Impression: Right submandibular sialadenitis is favored. Bilateral submandibular sialoadenitis may also be considered. No abscess. This document has been electronically signed by: Nayeli Monroy MD on 03/15/2024 19:06:35 Dictated By: Nayeli Gloria MD Signed By: <Electronically signed by Nayeli Gloria MD in OV> 03/15/241907 Discharge Plan Discharge Clinical Impression: Submandibular sialoadenitis Patient Disposition: Home, Self-Care Instructions: Sialoadenitis (ED) Additional Instructions: Drink plenty of fluid You have inflammation of the submandibular salivary gland Take antibiotic as prescribed Report to the ER if worsening of the swelling/high fever/difficulty in swallowing Prescriptions: New amoxicillin-pot clavulanate 875-125 mg tablet 1 tab PO BID Qty: 20 0RF No Action albuterol sulfate [ProAir HFA] 90 mcg/actuation HFA aerosol inhaler 2 puff inhalation Q4-6H PRN (Reason: shortness of breath or wheezing) Qty: 8.5 2RF Asmanex HFA 100 mcg/actuation HFA aerosol inhaler 2 puff inhalation BID Qty: 13 5RF amlodipine 10 mg tablet 10 mg PO DAILY Qty: 90 3RF losartan 100 mg tablet 100 mg PO DAILY Qty: 90 1RF atorvastatin 40 mg tablet 40 mg PO BEDTIME Qty: 90 1RF acetaminophen [Tylenol] 325 mg capsule 325 mg PO Q4H PRN (Reason: pain) Qty: 30 0RF lidocaine 5 % adhesive patch,medicated 1 patch topical DAILY PRN (Reason: pain) Qty: 15 0RF Rx Instructions: leave on most painful area for up to 12 hrs ferrous sulfate 324 mg (65 mg iron) tablet,delayed release (DR/EC) 324 mg PO DAILY Qty: 90 1RF docusate sodium 100 mg capsule 100 mg PO DAILY Qty: 90 3RF pantoprazole 40 mg tablet,delayed release (DR/EC) 40 mg PO DAILY Qty: 90 2RF Rx Instructions: take one tablet half an hour before breakfast Print Language: French
[2024-03-15 19:55] VITALS: BP 155/85; PULSE 67; RESP 18; TEMP 36.4; O2SAT 97
[2024-03-15] MEDS: Amoxicillin/Potassium Clav 875 MG TABLET PO (20:33)
[2024-03-15 20:34] VITALS: BP 155/85; PULSE 67; RESP 18; TEMP 36.4; O2SAT 97
== END 2024-03-15 20:34 | disposition home or self-care (01) ==
PROVIDERS: Emergency Provider Internal Medicine; PCP Internal Medicine
DX: K11.20 Sialoadenitis, unspecified (principal); R22.1 Localized swelling, mass and lump, neck
CPT/HCPCS: 70490; 99284

== ENCOUNTER → 2024-03-15 18:04 | Outpatient (BNV) | payer OTHER, SELFPAY | PROVIDERS: Emergency Provider Internal Medicine; PCP Internal Medicine; Visit Provider Radiology Diagnostic Radiology | DX: K11.20 Sialoadenitis, unspecified (principal) | CPT/HCPCS: 70490 ==

== ENCOUNTER 2024-03-22 12:08 | Outpatient (REF) | payer OTHER, SELFPAY | END 2024-03-22 12:09 | disposition home or self-care (01) | LOC: HO.SH 12:08 | PROVIDERS: Visit Provider Internal Medicine | DX: Z01.118 Encounter for examination of ears and hearing with other abnormal findings (principal); H90.3 Sensorineural hearing loss, bilateral | CPT/HCPCS: 92557; 92567 ==

== ENCOUNTER 2024-04-17 17:31 | Emergency (ER) | payer OTHER, SELFPAY ==
[2024-04-17 18:10] VITALS: BP 127/59; PULSE 76; RESP 18; TEMP 36.8; O2SAT 97; BMI 50.1
[2024-04-17 18:37] LABS: IDNOW Serial# 58CA691E; Strep A Nucleic Acid Positive (Negative)
--- NOTE | 2024-04-17 18:41 | ED.URI ---
HPI - URI/Sore Throat General Chief Complaint: Upper Respiratory Symptoms Stated Complaint: hurts to swallow since Time Seen by Provider: 04/17/24 22:37 Related Data Previous Rx's ?Medication ?Instructions ?Recorded pantoprazole 40 mg tablet,delayed 40 mg PO DAILY #90 tabs 01/12/23 release lidocaine 5 % topical patch 1 patch topical DAILY PRN pain #15 06/30/23 ea albuterol sulfate 90 mcg/actuation 2 puff inhalation Q4-6H PRN 07/01/23 aerosol inhaler (ProAir HFA) shortness of breath or wheezing #8.5 grams docusate sodium 100 mg capsule 100 mg PO DAILY #90 caps 08/17/23 ferrous sulfate 324 mg (65 mg 324 mg PO DAILY #90 tabs 08/17/23 iron) tablet,delayed release mometasone 100 mcg/actuation HFA 2 puff inhalation BID #13 grams 09/02/23 aerosol inhaler (Asmanex HFA) amlodipine 10 mg tablet 10 mg PO DAILY #90 tabs 11/27/23 losartan 100 mg tablet 100 mg PO DAILY #90 tabs 02/18/24 atorvastatin 40 mg tablet 40 mg PO BEDTIME #90 tabs 03/01/24 amoxicillin 875 mg-potassium 1 tab PO BID #20 tabs 03/15/24 clavulanate 125 mg tablet amoxicillin 875 mg-potassium 1 tab PO BID #20 tabs 04/17/24 clavulanate 125 mg tablet Allergies Allergy/AdvReac Type Severity Reaction Status Date / Time chocolate Allergy Severe Difficulty Verified 04/22/24 09:29 Breathing animal dander [animal hair] Allergy Intermediate Redness of Verified 04/22/24 09:29 Skin bee pollen [bee stings] Allergy Intermediate Unknown Verified 04/22/24 09:29 lisinopril [LISINOPRIL] Allergy Intermediate ANGIOEDEMA Verified 04/22/24 09:29 Latex, Natural Rubber Allergy Mild Unknown Verified 04/22/24 09:29 [facility] Past Medical History Medical History Bilateral leg and foot pain CHUN on CPAP Plantar fasciitis, bilateral Decreased hearing of both ears Anemia Disc disease, degenerative, cervical Family history of ovarian cancer Hemorrhoids with complication History of vitamin D deficiency Iron deficiency anemia Family history of early CAD Vitamin D deficiency Dyslipidemia (high LDL; low HDL) Mild intermittent asthma CKD (chronic kidney disease) stage 3, GFR 30-59 ml/min Low back pain Stage 3 chronic kidney disease Morbid obesity with BMI of 50.0-59.9, adult Benign essential hypertension Pure hypercholesterolemia Anxiety Surgical History No history of previous surgery Family History Family History Mother No problems noted. 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 Full HPI, ROS and PE to be performed by primary ED provider. 48yo M presenting to the ED c/o sore throat x4 days chills and difficulty/inability to swallow secondary to swelling. PE: + 3+ bilateral tonsillar swelling with exudates. Uvula midline. + muffled voice. 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 Decadron Medications Administered Discontinued Medications Generic Name Dose Route Start Last Admin Trade Name Freq PRN Reason Stop Dose Admin Amoxicillin/Clavulanate Potassium 875 mg 04/17/24 18:40 04/17/24 23:26 Amoxicillin/Potassium Clav 875 Mg Tablet PO 04/17/24 18:41 875 mg ONCE ONE Administration Dexamethasone 10 mg 04/17/24 22:49 04/17/24 23:26 Dexamethasone 2 Mg Tablet PO 04/17/24 22:50 10 mg ONCE ONE Administration Medical Decision Making Lab Data Labs: Lab Results 04/17/24 Range/Units 18:28 Influenza Type A (PCR) NEGATIVE (Negative) Influenza Type B (PCR) NEGATIVE (Negative) RSV RNA Qual (PCR) NEGATIVE (Negative) SARS-CoV-2 RNA (RT-PCR) NEGATIVE (Negative) S. pyogenes GrpA MARGIE Positive A (Negative) Discharge Plan Discharge Clinical Impression: Acute streptococcal pharyngitis Patient Disposition: Home, Self-Care Instructions: Strep Throat (ED) Additional Instructions: Take antibiotic as prescribed Report to ER/PCP if worsening of symptoms Prescriptions: New amoxicillin-pot clavulanate 875-125 mg tablet 1 tab PO BID Qty: 20 0RF No Action albuterol sulfate [ProAir HFA] 90 mcg/actuation HFA aerosol inhaler 2 puff inhalation Q4-6H PRN (Reason: shortness of breath or wheezing) Qty: 8.5 2RF Asmanex HFA 100 mcg/actuation HFA aerosol inhaler 2 puff inhalation BID Qty: 13 5RF amlodipine 10 mg tablet 10 mg PO DAILY Qty: 90 3RF losartan 100 mg tablet 100 mg PO DAILY Qty: 90 1RF atorvastatin 40 mg tablet 40 mg PO BEDTIME Qty: 90 1RF lidocaine 5 % adhesive patch,medicated 1 patch topical DAILY PRN (Reason: pain) Qty: 15 0RF Rx Instructions: leave on most painful area for up to 12 hrs amoxicillin-pot clavulanate 875-125 mg tablet 1 tab PO BID Qty: 20 0RF ferrous sulfate 324 mg (65 mg iron) tablet,delayed release (DR/EC) 324 mg PO DAILY Qty: 90 1RF docusate sodium 100 mg capsule 100 mg PO DAILY Qty: 90 3RF pantoprazole 40 mg tablet,delayed release (DR/EC) 40 mg PO DAILY Qty: 90 2RF Rx Instructions: take one tablet half an hour before breakfast Interventions: ED Discharge Assessment Last Done: 04/17/24 23:44 Discharge Date/Time: 04/17/24 23:46 Print Language: Malian
[2024-04-17 19:09] LABS: Influenza A PCR NEGATIVE (Negative); Influenza B PCR NEGATIVE (Negative); Resp Syncy Virus RNA Qual PCR NEGATIVE (Negative); SARS COV2 PCR INHOUSE NEGATIVE (Negative)
[2024-04-17 22:29] VITALS: BP 149/88; PULSE 78; RESP 14; TEMP 36.8; O2SAT 96
--- NOTE | 2024-04-17 22:55 | PC.NURSE ---
This RN assumed pt care @ 2250 Plan of care ongoing.
--- NOTE | 2024-04-17 23:11 | ED_ITS ---
HPI - URI/Sore Throat General Chief Complaint: Upper Respiratory Symptoms Stated Complaint: hurts to swallow since Time Seen by Provider: 04/17/24 22:37 Mode of arrival: ambulatory Limitations: no limitations History of Present Illness ED Provider: HPI Narrative: Patient is complaining of sore throat for last 3 days painful to swallow able to drink and eat but has pain Related Data Previous Rx's ?Medication ?Instructions ?Recorded pantoprazole 40 mg tablet,delayed 40 mg PO DAILY #90 tabs 01/12/23 release acetaminophen 325 mg capsule 325 mg PO Q4H PRN pain #30 caps 06/30/23 (Tylenol) lidocaine 5 % topical patch 1 patch topical DAILY PRN pain #15 06/30/23 ea albuterol sulfate 90 mcg/actuation 2 puff inhalation Q4-6H PRN 07/01/23 aerosol inhaler (ProAir HFA) shortness of breath or wheezing #8.5 grams docusate sodium 100 mg capsule 100 mg PO DAILY #90 caps 08/17/23 ferrous sulfate 324 mg (65 mg 324 mg PO DAILY #90 tabs 08/17/23 iron) tablet,delayed release mometasone 100 mcg/actuation HFA 2 puff inhalation BID #13 grams 09/02/23 aerosol inhaler (Asmanex HFA) amlodipine 10 mg tablet 10 mg PO DAILY #90 tabs 11/27/23 losartan 100 mg tablet 100 mg PO DAILY #90 tabs 02/18/24 atorvastatin 40 mg tablet 40 mg PO BEDTIME #90 tabs 03/01/24 amoxicillin 875 mg-potassium 1 tab PO BID #20 tabs 03/15/24 clavulanate 125 mg tablet Allergies Allergy/AdvReac Type Severity Reaction Status Date / Time chocolate Allergy Severe Difficulty Verified 04/17/24 18:11 Breathing animal dander [animal hair] Allergy Intermediate Redness of Verified 04/17/24 18:11 Skin bee pollen [bee stings] Allergy Intermediate Unknown Verified 04/17/24 18:11 lisinopril [LISINOPRIL] Allergy Intermediate ANGIOEDEMA Verified 04/17/24 18:11 Latex, Natural Rubber Allergy Mild Unknown Verified 04/17/24 18:11 Review of Systems Review of Systems: Yes all other systems are reviewed and are negative PMFSH Past Medical History Medical History Bilateral leg and foot pain CHUN on CPAP Plantar fasciitis, bilateral Decreased hearing of both ears Anemia Disc disease, degenerative, cervical Family history of ovarian cancer Hemorrhoids with complication History of vitamin D deficiency Iron deficiency anemia Family history of early CAD Vitamin D deficiency Dyslipidemia (high LDL; low HDL) Mild intermittent asthma CKD (chronic kidney disease) stage 3, GFR 30-59 ml/min Low back pain Stage 3 chronic kidney disease Morbid obesity with BMI of 50.0-59.9, adult Benign essential hypertension Pure hypercholesterolemia Anxiety Surgical History No history of previous surgery Family History Family History Mother No problems noted. Father Heart problem Paternal Uncle Heart problem Paternal Grandfather Heart problem Heart attack Paternal Grandmother Breast cancer Paternal Aunt Ovarian cancer Social History Social History Household Members: Spouse and Children Household Members Other:: Cat Housing: Apartment Alcohol intake: current Alcohol intake frequency: does not drink Patient Tobacco Use Status: Never used Tobacco e-Cigarette/Vaping Use: Never Used Second Hand Smoke Exposure: Yes Advance Directives: Yes Advance Directives on File: Yes Advance Directives Date on File: 02/25/24 service: No Current occupational status: employed 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, [employer] Cognitive needs: No Hearing needs: No Vision needs: Yes Physical Exam Vital Signs: Vital Signs: Last Vital Signs Temp 98.2 F 04/17/24 22:29 Pulse 78 04/17/24 22:29 Resp 14 04/17/24 22:29 BP 149/88 H 04/17/24 22:29 Pulse Ox 96 04/17/24 22:29 O2 Del Method Room Air 04/17/24 22:29 BMI result Body Mass Index 50.1 Appearance: Alert. Oriented X3. No acute distress. Eyes: PERRLA, No Nystagmus ENTOral Mucosa moist enlarged tonsils with exudate Neck: Normal inspection. Neck supple. CVS: Normal heart rate and rhythm. Pulses normal. Respiratory: No respiratory distress. Equal air entry bilateral, no wheezing/rales/rhonchi Abdomen: Soft and nontender. Bowel sounds are present, no mass palpable, no CVA tenderness Skin: Skin warm and dry. Normal skin color. Normal skin turgor. Extremities: No lower extremity edema. No calf tenderness Neuro: Oriented X 3. No motor deficit. No sensory deficit.No cerebellar signs , cranial nerves II-XII intact Medical Decision Making Medical Decision Making MDM Narrative: Patient's strep positive will prescribe cefuroxime Lab Data MDM Lab Attestation statement: I reviewed the patient's lab results. Labs: Lab Results 04/17/24 Range/Units 18:28 Influenza Type A (PCR) NEGATIVE (Negative) Influenza Type B (PCR) NEGATIVE (Negative) RSV RNA Qual (PCR) NEGATIVE (Negative) SARS-CoV-2 RNA (RT-PCR) NEGATIVE (Negative) S. pyogenes GrpA MARGIE Positive A (Negative) Discharge Plan Discharge Clinical Impression: Acute streptococcal pharyngitis Patient Disposition: Home, Self-Care Instructions: Strep Throat (ED) Additional Instructions: Take antibiotic as prescribed Report to ER/PCP if worsening of symptoms Prescriptions: No Action albuterol sulfate [ProAir HFA] 90 mcg/actuation HFA aerosol inhaler 2 puff inhalation Q4-6H PRN (Reason: shortness of breath or wheezing) Qty: 8.5 2RF Asmanex HFA 100 mcg/actuation HFA aerosol inhaler 2 puff inhalation BID Qty: 13 5RF amlodipine 10 mg tablet 10 mg PO DAILY Qty: 90 3RF losartan 100 mg tablet 100 mg PO DAILY Qty: 90 1RF atorvastatin 40 mg tablet 40 mg PO BEDTIME Qty: 90 1RF acetaminophen [Tylenol] 325 mg capsule 325 mg PO Q4H PRN (Reason: pain) Qty: 30 0RF lidocaine 5 % adhesive patch,medicated 1 patch topical DAILY PRN (Reason: pain) Qty: 15 0RF Rx Instructions: leave on most painful area for up to 12 hrs amoxicillin-pot clavulanate 875-125 mg tablet 1 tab PO BID Qty: 20 0RF ferrous sulfate 324 mg (65 mg iron) tablet,delayed release (DR/EC) 324 mg PO DAILY Qty: 90 1RF docusate sodium 100 mg capsule 100 mg PO DAILY Qty: 90 3RF pantoprazole 40 mg tablet,delayed release (DR/EC) 40 mg PO DAILY Qty: 90 2RF Rx Instructions: take one tablet half an hour before breakfast Print Language: Latvian
[2024-04-17] MEDS: dexAMETHasone 2 MG TABLET 10 MG PO (23:26)
[2024-04-17] MEDS: Amoxicillin/Potassium Clav 875 MG TABLET PO (23:26)
--- NOTE | 2024-04-17 23:31 | PC.NURSE ---
Med from prior to this RN assuming pt care given Pt medicated per apr Plan of care ongoing.
[2024-04-17 23:44] VITALS: BP 149/88; PULSE 78; RESP 14; TEMP 36.8; O2SAT 96
== END 2024-04-17 23:46 | disposition home or self-care (01) ==
PROVIDERS: Emergency Provider Internal Medicine; PCP Internal Medicine
DX: J02.0 Streptococcal pharyngitis (principal); Z03.818 Encounter for observation for suspected exposure to other biological agents ruled out
CPT/HCPCS: 0241U; 87651; 99283; J8540

== ENCOUNTER 2024-04-22 09:24 | Outpatient (AMB) | payer OTHER, SELFPAY ==
--- NOTE | 2024-04-22 09:25 | A.OFFVIS_ITS ---
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 Patient is accompanied by friend. 06/19/2022 Split-night sleep study showed severe degree of sleep apnea with AHI was 83/hr and O2 shameka 77%, and stabilization of breathing and oxygenation levels on CPAP at 76gdI3L. Patient reports that he is compliant with CPAP machine, which he uses nightly. However, he states his CPAP him to have a bilateral submandibular sialoadenitis (dx'd 03/15/24 at [facility]), and strep throat (dx'd 04/17/24 at [facility]). He also notes, that prior to this he had had COVID and RSV. States he works at [employer] in the [employer] aisle, so he has close contact to the public and often has to touch commonly touch items. He states prior to becoming sick in March, He had been using the same CPAP masks (was alternating between 2 different ones) for about 6-7 months. He had not changed his PAP tubing in greater than 1 year. He has been changing his water reservoir every 6 months. He had been using distilled water 90% of the time. He was washing his CPAP supplies only when he remembered or the water started looking off. He has never changed his CPAP filter, states he did not know the CPAP had a filter. Since March, he states he has change some of the supplies. His friend is helping him to clean his supplies more regularly now. Overall he is sleeping well with CPAP with good reduction in residual AHI. Last week, during the acute strep throat infection, he had markedly elevated residual AHIs x2 nights, however since his residual AHIs have returned to baseline. He does feel his current medium sized full face mask might be too tight. He states his machine is flashing blue lights, he is not sure why it is doing this He states he has been trying to lose weight, states at home he had gotten his weight down to 310 lb. He has a history of migraine, which we did not address today. [address], [facility] Email: [email or web address] Compliance Report Usage 03/23/2024 - 04/21/2024 Usage days 30/30 days (100%) >= 4 hours 30 days (100%) < 4 hours 0 days (0%) Usage hours 208 hours 11 minutes Average usage (total days) 6 hours 56 minutes Average usage (days used) 6 hours 56 minutes Median usage (days used) 7 hours 7 minutes Total used hours (value since last reset - 04/21/2024) 4,172 hours AirSense 10 AutoSet Serial number [id number] Mode for Therapy Leaks - L/min Median: 8.8 95th percentile: 55.9 Maximum: 86.5 Events per hour AI: 1.5 HI: 0.4 AHI: 1.9 PFSH Medical History Bilateral leg and foot pain CHUN on CPAP Plantar fasciitis, bilateral Decreased hearing of both ears Anemia Disc disease, degenerative, cervical Family history of ovarian cancer Hemorrhoids with complication History of vitamin D deficiency Iron deficiency anemia Family history of early CAD Vitamin D deficiency Dyslipidemia (high LDL; low HDL) Mild intermittent asthma CKD (chronic kidney disease) stage 3, GFR 30-59 ml/min Low back pain Stage 3 chronic kidney disease Morbid obesity with BMI of 50.0-59.9, adult Benign essential hypertension Pure hypercholesterolemia Anxiety Surgical History No history of previous surgery Family History Mother No problems noted. Father Heart problem Paternal Uncle Heart problem Paternal Grandfather Heart problem Heart attack Paternal Grandmother Breast cancer Paternal Aunt Ovarian cancer Social History Household Members: Spouse and Children Household Members Other:: Cat Housing: Apartment Alcohol intake: current Alcohol intake frequency: does not drink Patient Tobacco Use Status: Never used Tobacco e-Cigarette/Vaping Use: Never Used Second Hand Smoke Exposure: Yes Advance Directives Date on File: 02/25/24 service: No Current occupational status: employed 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 Cognitive needs: No Hearing needs: No Vision needs: Yes Physical Exam Vital Signs: Last Vital Signs Pulse 61 04/22/24 09:28 BP 110/70 04/22/24 09:28 Pulse Ox 96 04/22/24 09:28 Oxygen Delivery Method Room Air 04/22/24 09:28 BMI result Body Mass Index 51.5 Const General: no acute distress Orientation/consciousness: patient oriented x3 HEENT Other: Mallampati stage 4 Posterior oropharynx erythema without exudate Mild submandibular swelling without tenderness Resp Effort & Inspection: normal respiratory effort and able to speak in complete sentences Neuro General: patient oriented x3 Psych Mental Status: mental status grossly normal Speech and movement: Clear speech present Attitude: cooperative Assessment & Plan Assessment & Plan (1) Morbid obesity with BMI of 50.0-59.9, adult: Code(s): E66.01 - Morbid (severe) obesity due to excess calories; Z68.43 - Body mass index [BMI] 50.0-59.9, adult Category: Medical (2) CHUN on CPAP: Code(s): G47.33 - Obstructive sleep apnea (adult) (pediatric) Category: Medical (3) Strep throat: Code(s): J02.0 - Streptococcal pharyngitis Category: Medical Plan Patient advised to make follow-up with PCP for submandibular sialoadenitis and strep throat. For CHUN: Discussed that recent elevated residual AHI was likely due to acute pharyngeal inflammation from strep throat infection. Advised to complete course of Augmentin as prescribed by the ER. Continue CPAP 14 cmH2O w/ EPR 2 nightly > 4 hours, as pt continues to have good clinical effect from use. Clean CPAP machine and supplies routinely. Change CPAP supplies routinely. Instructed patient where he could find the CPAP filter, and that these should be changed every 2 weeks. Reviewed typical frequency of cleaning and changing CPAP supplies. We will request CPAP supplies, including filters, and mask fitting. Use distilled water in CPAP water reservoir. We will take the liberty of referring patient to weight management, he may benefit from a trial of Zepbound tx for weight loss in setting of severe CHUN. Pt to contact us or respiratory company with any questions or concerns. For migraine: We will address at follow-up Pt to follow-up in 6 months or sooner prn. Orders: Referrals Medical Weight Management Referral E66.01 - Morbid (severe) obesity due to excess calories, G47.33 - Obstructive sleep apnea (adult) (pediatric), Z68.43 - Body mass index [BMI] 50.0-59.9, adult Coding Level of Care Code Est Pt Level 4 (50500) Diagnoses Morbid obesity with BMI of 50.0-59.9, adult E66.01; Z68.43 CHUN on CPAP G47.33 Strep throat J02.0
[2024-04-22 09:28] VITALS: BP 110/70; PULSE 61; O2SAT 96; BMI 51.5
--- OUTSIDE RECORDS SUMMARY | 2024-04-22 09:54 | XMS_ITS | Clinical Summary ---
Author Organization [address] [place] [address] Address [address] [place] [address] Phone Care Team Providers Care Concrete Buildings Assembler Name Role Phone Reina Brown MD Primary Care Provider Surgical History Surgery Date Site/Laterality Comments OTHER SURGICAL HISTORY PROCEDURE: DENIES PREVIOUS SURGERY Medical History Medical History Date Comments Unspecified essential hypertension DX:Unspecified essential hypertension Family History Medical History Relation Name Comments Cataracts Paternal Grandfather Glaucoma Paternal Grandfather Cataracts Paternal Grandmother Glaucoma Paternal Grandmother Blindness Neg Hx Macular degeneration Neg Hx Strabismus Neg Hx Relation Name Status Comments Father Alive Mother Paternal Grandfather Paternal Grandmother Social History Tobacco Use Types Packs/Day Years Used Date Smoking Tobacco: Never Smokeless Tobacco: Never Alcohol Use Standard Drinks/Week Comments No 0 (1 standard drink = 0.6 oz pur e alcohol) Sex and Gender Information Value Date Recorded Sex Assigned at Not on file Legal Sex Male 2:16 PM EST Gender Identity Not on file Sexual Orientation Not on file Obstetrics History Plan of Treatment Upcoming Encounters Date Type Department Care Team ([facility] Contact Info) Description 05/11/2024 9:45 AM EDT Consult Orthopedic Surgery - [place] [address] [id number] Prince Grimes, DPM [address] [address] Health Maintenance Due Date Last Done Comments DTaP,Tdap,and Td Vaccines (1 - Tdap) 07/18/1995 Hepatitis B Vaccines (1 of 3 - 19+ 3-dose series) 07/18/1995 COVID-19 Vaccine (2023-2 5 season) 2023 Influenza Vaccine (#1) 2023 Cholesterol Screening (Lipid Panel) 03/17/2024 Colorectal Cancer Screening: Colonoscopy 03/17/2024 Depression Screening 03/17/2024 HIV Screening 03/17/2024 Hepatitis C Screening 03/17/2024 Social Influencers of Health Screening 03/17/2024 HIB Vaccines Aged Out No longer eligi ble based on patient's age to complete this topic HPV Vaccines Aged Out No longer eligi ble based on patient's age to complete this topic Hepatitis A Vaccines Aged Out No long er eligible based on patient's age to complete this topic IPV Vaccines Aged Out No longer eligi ble based on patient's age to complete this topic MMR Vaccines Aged Out No longer eligi ble based on patient's age to complete this topic Meningococcal ACWY Vaccine Aged Out N o longer eligible based on patient's age to complete this topic Meningococcal B Vacine Aged Out No lo nger eligible based on patient's age to complete this topic Pneumococcal Vaccine: Pediat rics (0 to 5 Years) and At-Risk Patients (6 to 64 Years) Aged Out No longer eligible b ased on patient's age to complete this topic RSV Immunization Patients Un samantha 20 months Aged Out No longer eligible b ased on patient's age to complete this topic Varicella Vaccines Aged Out No longer eligible based on patient's age to complete this topic Insurance PLAN Care Teams Concrete Buildings Assembler Relationship Specialty Start Date End Date Reina Brown MD [address] [place] [address], [place] [address] PCP - General Internal Medicine 03/03/24
--- OUTSIDE RECORDS SUMMARY | 2024-04-22 09:54 | XMS_ITS | Clinical Summary ---
Author Organization [facility] Address [address] [place] [address] Care Team Providers Care Pen Or Pencil Assembly Machine Operator Name Role Phone Dotty Velázquez PA-C Primary Care Provider [phone] Source Comments PLEASE NOTE, if this patient is a minor, it may be UNLAWFUL to discuss sensitive information that is contained in these records (such as FAMILY PLANNING, MENTAL HEALTH or SUBSTANCE ABUSE) with the minor patient's parent or other person without the patient's specific authorization.[facility] Allergies Active Allergy Reactions Criticality Noted Date Comments [place] Anaphylaxis 04/12/2013 Lisinopril 06/15/2018 Super high blood pressure. Medications albuterol sulfate 90 mcg/actuation inhalerIndications :Mild intermittent asthma without complication Inhale 1-2 Puffs into the lungs every 6 (six) hours as needed for shortness of breath or wheezing 1 Inhaler 11 9 Active blood pressure monitorIndications :Essential hypertension Check blood pressure daily. Dx: I10 LOS: 99 Meds: losartan 1 Kit 0 Active coenzyme Q10 (COQ-10) 100 mg capsuleIndications :Other migraine without status migrainosus, not intractable Take 1 Cap by mouth 3 (three) times daily 90 Cap 3 0 Active acetaminophen (TYLENOL) 500 mg tabletIndications: Other migraine without status migrainosus, not intractable Take 2 Tabs by mouth every 8 (eight) hours as needed (migraines) DO NOT take more than 3 doses in a 24-hour period 60 Tab 1 0 Active calcipotriene (DOVONEX) 0.005 % creamIndications:R royer Apply topically 2 (two) times daily Apply thin film to rash. 60 g 1 0 Active betamethasone dipropionate (DIPROLENE) 0.05 % creamIndications:R royer Apply topically once daily Apply thin film to rash once per day. Use for 2 weeks. 45 g 0 Active atorvastatin (LIPITOR) 40 mg tabletIndications: Other hyperlipidemia TAKE 1 TABLET BY MOUTH EVERY DAY 90 Tab 1 0 Active hydrocortisone 2.5 % cream APPLY TOPICALLY 2 (TWO) TIMES DAILY FOR UP TO 2 WEEKS. 0 Active losartan (COZAAR) 25 mg tabletIndications: Essential hypertension Take 4 Tabs by mouth once daily 120 Tab 3 0 Active SUMAtriptan succinate (IMITREX) 50 mg tabletIndications: Other migraine without status migrainosus, not intractable Take 50 mg once. If initial dose was partially effective or headache recurs, may repeat a doseafter 2 hours. Max dose:100 mg per 24 hours. Do not use >10 days/month 20 Tab 0 Active cyanocobalamin, vitamin B-12, (CYANOCOBALAMIN) 100 mcg tabletIndications: Other migraine without status migrainosus, not intractable Take 4 Tabs by mouth once daily 120 Tab 3 0 Active amitriptyline (ELAVIL) 25 mg tabletIndications: Anxiety and depression,Other migraine without status migrainosus, not intractable TAKE 1 TAB BY MOUTH NIGHTLY AT BEDTIME FOR MIGRAINE PREVENTION 90 Tab 1 0 Active aspirin 81 mg chewable tabletIndications: Essential hypertension CHEW 1 TABLET BY MOUTH EVERY DAY 90 Tab 1 0 Active omeprazole (PRILOSEC) [address] capsuleIndications :Gastroesophageal reflux disease without esophagitis TAKE 1 CAPSULE BY MOUTH EVERY DAY IN THE MORNING BEFORE BREAKFAST 90 Capsule 1 0 Active riboflavin, vitamin B2, 400 mg tabIndications:Oth er migraine without status migrainosus, not intractable TAKE 1 TABLET BY MOUTH EVERY DAY 90 Tablet 1 1 Active Active Problems Problem Noted Date Diagnosed Date Anxiety and depression 07/05/2019 Gastroesophageal reflux disease without esophagi tis 12/28/2018 CKD (chronic kidney disease), stage II 9 Overview (08/12/2018): 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 Essential hypertension 06/15/2018 Other hyperlipidemia 06/15/2018 Mild intermittent asthma without complication Other sleep apnea 06/15/2018 Overview (06/15/2018): On CPAP Immunizations Name Administration Dates Next Due Hep B, Adult/Adol (ENERGIX/RECOMBIVAX) 9,11/15/2018 INFLUENZA, SEASONAL, INJECTABLE 12/24/2012 PNEUMOCOCCAL CONJUGATE PCV 13 11/15/2018 PNEUMOCOCCAL POLYSACCHARIDE PPV23 04/04/2014 TDAP 08/28/2014,09/17/2012 Family History Medical History Relation Name Comments Hypertension Father Diabetes Maternal Aunt Diabetes Maternal Uncle Relation Name Status Comments Father Alive Maternal Aunt Maternal Uncle Mother Social History Tobacco Use Types Packs/Day Years Used Date Smoking Tobacco: Never Smokeless Tobacco: Never Alcohol Use Standard Drinks/Week Comments Not Currently 0 (1 standard drink = 0.6 oz pur e alcohol) Social Connections Answer Date Recorded Social Connections and Isolation 0 10/23/2018 Financial Resource Strain Answer Date R ecorded Financial Resource Strain 0 2018 Stress Answer Date Recorded Stress 0 10/23/2018 Physical Activity Answer Date Recorded Physical Activity 0 10/23/2018 Food Insecurity Answer Date Recorded Food 0 10/23/2018 Transportation Needs Answer Date Record ed Transportation 0 10/23/2018 Housing Stability Answer Date Recorded Housing 0 10/23/2018 Safety and Environment Answer Date Jordi rded Safety 0 10/23/2018 Utilities Answer Date Recorded Utilities 0 10/23/2018 Employment Answer Date Recorded Employment 0 10/23/2018 Sex and Gender Information Value Date Recorded Sex Assigned at Male 06/15/2018 6:40 AM PDT Legal Sex Male 11:36 AM PDT Gender Identity Male 06/15/2018 6:40 AM PDT Sexual Orientation Straight 06/15/2018 6: 40 AM PDT Last Filed Vital Signs Vital Sign Reading Time Taken Comments Blood Pressure 124/70 02/15/2019 8:42 AM EST Pulse 76 02/15/2019 8:42 AM EST Temperature 36.9 ??C (98.4 ??F) 02/15/2019 8:42 AM ES T Respiratory Rate 20 02/15/2019 8:42 AM EST Oxygen Saturation 97% 02/15/2019 8:42 AM EST Inhaled Oxygen Concentration - - Weight 135.2 kg (298 lb) 02/15/2019 8:42 AM EST Height 165.1 cm (5' 5 ) 11/15/2018 10:17 AM EDT Body Mass Index 49.59 11/15/2018 10:17 AM EDT Plan of Treatment Not on file Insurance [employer] Member Subscriber Plan / Payer (Ef fective 2018-Present) Name:Reid Sanchez Relation to Subscriber:Self Name:Reid Sanchez Payer ID:[id number] Type:Indemnity Address: [facility] [address] [place] [address] Care Teams Pen Or Pencil Assembly Machine Operator Relationship Specialty Start Date End Date Dotty Velázquez PA-C [address] [place] [address] PCP - General FAMILY MEDICINEJANE 07/01/21
--- OUTSIDE RECORDS SUMMARY | 2024-04-22 09:54 | XMS_ITS | Clinical Summary ---
Author Organization [facility] Address [address] [place] [address] Care Team Providers Care Shear Grinder Operator Name Role Phone Lupis Brown MD Primary Care Provider [phone] Family History Medical History Relation Comments Hypertension Father Relation Status Comments Father Alive Mother Social History Tobacco Use Types Packs/Day Years Used Date Smoking Tobacco: Former Sex and Gender Information Value Date Recorded Sex Assigned at Not on file Legal Sex Male 4:54 PM EST Gender Identity Not on file Sexual Orientation Not on file Last Filed Vital Signs Vital Sign Reading Time Taken Comments Blood Pressure 126/84 08/16/2018 12:00 PM EDT Pulse 62 08/16/2018 12:00 PM EDT Temperature - - Respiratory Rate - - Oxygen Saturation - - Inhaled Oxygen Concentration - - Weight 109 kg (240 lb) 08/16/2018 12:00 PM EDT Height 165.1 cm (5' 5 ) 08/16/2018 12:00 PM EDT Body Mass Index 39.94 08/16/2018 12:00 PM EDT Plan of Treatment Health Maintenance Due Date Last Done Comments Pneumococcal Vaccine: Pediat rics (0 to 5 Years) and At-Risk Patients (6 to 64 Years) (1 of 2 - PCV) 1982 Hepatitis B Vaccine (1 of 3 - 19+ 3-dose series) 07/17 Influenza Vaccine (#1) 2023 Insurance [facility] MEDICAID [facility] MEDICAID Care Teams Shear Grinder Operator Relationship Specialty Start Date End Date Lupis Brown MD [address] [place] [address] PCP - General Internal Medicine 02/25/22
== END 2024-04-22 10:07 | disposition home or self-care (01) ==
PROVIDERS: PCP Internal Medicine; Visit Provider Nurse Practitioner Family
DX: E66.01 Morbid (severe) obesity due to excess calories (principal); Z68.43 Body mass index [BMI] 50.0-59.9, adult; G47.33 Obstructive sleep apnea (adult) (pediatric); J02.0 Streptococcal pharyngitis
CPT/HCPCS: 99214

== ENCOUNTER → 2024-04-22 09:24 | Outpatient (BNVA) | payer OTHER, SELFPAY | PROVIDERS: PCP Internal Medicine; Visit Provider Nurse Practitioner Family | DX: G47.33 Obstructive sleep apnea (adult) (pediatric) (principal); E66.01 Morbid (severe) obesity due to excess calories; Z68.43 Body mass index [BMI] 50.0-59.9, adult | CPT/HCPCS: 99212 ==

== ENCOUNTER 2024-06-04 13:03 | Observation (INO) | payer OTHER, SELFPAY ==
[2024-06-04] VITALS (8 sets, daily range): BP systolic 99–149; BP diastolic 58–84; PULSE 65–78; RESP 12–20; TEMP 36.6–36.7; O2SAT 95–99; BMI 52.1
--- NOTE | 2024-06-04 | ECG_ITS ---
Test Reason : CP Blood Pressure : */* mmHG Vent. Rate : 68 BPM Atrial Rate : 68 BPM P-R Int : 140 ms QRS Dur : 78 ms QT Int : 412 ms P-R-T Axes : 15 30 50 degrees QTcB Int : 438 ms Normal sinus rhythm Nonspecific T wave abnormality Abnormal ECG When compared with ECG of 27-May-2023 11:51, No significant change was found Referred By: Generic ED Physician Electronically Signed By: LIOR MAYA
--- NOTE | ~2024-06-04 | CT_ITS ---
CLINICAL HISTORY: left sided numbness CT head without contrast Comparison: CT/SR - CT HEAD/BRAIN WO IV CON - 06/30/23 12:32 EDT Findings: No intra-axial mass, midline shift, hydrocephalus, or acute hemorrhage. There is an area of peripheral hypodensity within the anterior inferior aspect of the right temporal lobe. This is similar to the prior study and felt to most likely be artifactual. No significant atrophy-like change or white matter disease. There is no sinus or mastoid fluid. There are small mucous retention cysts within the maxillary sinuses. The orbits are within normal limits. There is no acute fracture. IMPRESSION: 1. No acute intracranial findings. This document has been electronically signed by: Kate Taylor MD on 06/04/2024 14:16:40
--- NOTE | ~2024-06-04 | XR_ITS ---
CLINICAL HISTORY: cp 1 view chest x-ray Comparison: CR/SR - XR CHEST 2V - 05/27/23 15:58 EDT Findings: The lungs are clear. Normal size heart. No acute fracture. IMPRESSION: 1. No acute findings. This document has been electronically signed by: Kate Taylor MD on 06/04/2024 14:42:26
--- NOTE | ~2024-06-04 | CT_ITS ---
CLINICAL HISTORY: left facial weakness CT angiography head and neck with contrast. 3D Postprocessing. Comparison: CT/SR - CT HEAD FOR STROKE - 06/04/24 13:56 EDT Findings: Aortic arch and cervical great vessels are patent with no aneurysm, dissection, hemodynamically significant stenoses, or occlusion. Intracranial arteries are patent. No aneurysm, dissection, hemodynamically significant stenoses, or occlusion. No abnormal intracranial enhancement. The visualized thyroid gland is unremarkable. No cervical mass or fluid collection. Lung apices clear. No acute fracture. IMPRESSION: Patent head and neck CTA. This document has been electronically signed by: Kate Taylor MD on 06/04/2024 14:49:51
--- NOTE | 2024-06-04 13:20 | PC.NURSE ---
Pt biba from work for left sided chest pain that started around 1230pm at work. Pt states he was standing when the chest pain started- denies any twisting/turning/strenuous exercise recently. Denies any cardiac hx, states he did have a hx of this happening before but was told it was anxiety/heartburn. Pt states he drinks 2-3 energy drinks per day- had 1 energy drink before arrival. Per staff at pt work, pt was having some slurred speech/not making sense when talking. Upon arrival pt a/ox3, speaking in full sentences, no facial droop noted, speech is clear- neuros intact. Endorsing feeling unwell the last few days with tingling/numbness in lower extremities/side of his face. CMS intact, equal strength bilaterally. Denies sick contacts/fevers recently. Labs and EKG obtained. 20g IV Left AC placed by EMS, vitals updated in worklist. Call thorne within reach, all needs met at this time.
--- NOTE | 2024-06-04 13:45 | ED.CHESTPAIN ---
HPI - Chest Pain General Chief Complaint: Chest Pain Stated Complaint: DIZZY W/CP X2O MIN,REPROD W/PALP, ASA/NTG GIVEN Time Seen by Provider: 06/04/24 13:05 History of Present Illness HPI narrative: patient is a 48-year-old male presents today with having left-sided chest pain. Patient was working at that time. Also feel left-sided facial numbness. Had some question change in speech. Had some shortness of breath. Patient has a history of hypertension. History of high cholesterol. Positive family history of coronary artery disease father had an MA at the age of 37 no history of smoking no history of MA. patient's symptom improved after nitroglycerin. [place] some dizziness earlier. Patient denies any risk stratification done in the past. Currently is on Lipitor and losartan. Denies any travel history. Denies any history of blood clots. Patient is from home. Related Data Previous Rx's ?Medication ?Instructions ?Recorded pantoprazole 40 mg tablet,delayed 40 mg PO DAILY #90 tabs 01/12/23 release lidocaine 5 % topical patch 1 patch topical DAILY PRN pain #15 06/30/23 ea albuterol sulfate 90 mcg/actuation 2 puff inhalation Q4-6H PRN 07/01/23 aerosol inhaler (ProAir HFA) shortness of breath or wheezing #8.5 grams docusate sodium 100 mg capsule 100 mg PO DAILY #90 caps 08/17/23 mometasone 100 mcg/actuation HFA 2 puff inhalation BID #13 grams 09/02/23 aerosol inhaler (Asmanex HFA) amlodipine 10 mg tablet 10 mg PO DAILY #90 tabs 11/27/23 losartan 100 mg tablet 100 mg PO DAILY #90 tabs 02/18/24 atorvastatin 40 mg tablet 40 mg PO BEDTIME #90 tabs 03/01/24 amoxicillin 875 mg-potassium 1 tab PO BID #20 tabs 03/15/24 clavulanate 125 mg tablet amoxicillin 875 mg-potassium 1 tab PO BID #20 tabs 04/17/24 clavulanate 125 mg tablet ferrous sulfate 324 mg (65 mg 324 mg PO DAILY #90 tabs 05/18/24 iron) tablet,delayed release Allergies Allergy/AdvReac Type Severity Reaction Status Date / Time chocolate Allergy Severe Difficulty Verified 06/04/24 13:18 Breathing animal dander [animal hair] Allergy Intermediate Redness of Verified 06/04/24 13:18 Skin bee pollen [bee stings] Allergy Intermediate Unknown Verified 06/04/24 13:18 lisinopril [LISINOPRIL] Allergy Intermediate ANGIOEDEMA Verified 06/04/24 13:18 Latex, Natural Rubber Allergy Mild Unknown Verified 06/04/24 13:18 Review of Systems Review of Systems: Positive left-sided chest pain Yes all other systems are reviewed and are negative PMFSH Past Medical History Attestation statement: The following information was validated with the patient. Medical History Bilateral leg and foot pain CHUN on CPAP Plantar fasciitis, bilateral Decreased hearing of both ears Anemia Disc disease, degenerative, cervical Family history of ovarian cancer Hemorrhoids with complication History of vitamin D deficiency Iron deficiency anemia Family history of early CAD Vitamin D deficiency Dyslipidemia (high LDL; low HDL) Mild intermittent asthma CKD (chronic kidney disease) stage 3, GFR 30-59 ml/min Low back pain Stage 3 chronic kidney disease Morbid obesity with BMI of 50.0-59.9, adult Benign essential hypertension Pure hypercholesterolemia Anxiety Surgical History No history of previous surgery Family History Family History Mother No problems noted. Father Heart problem Paternal Uncle Heart problem Paternal Grandfather Heart problem Heart attack Paternal Grandmother Breast cancer Paternal Aunt Ovarian cancer Social History Social History Household Members: Spouse and Children Household Members Other:: Cat Housing: Apartment Alcohol intake: current Alcohol intake frequency: does not drink Patient Tobacco Use Status: Never used Tobacco e-Cigarette/Vaping Use: Never Used Second Hand Smoke Exposure: Yes Advance Directives: Yes Advance Directives on File: Yes Advance Directives Date on File: 02/25/24 service: No Current occupational status: employed 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, [employer] Cognitive needs: No Hearing needs: No Vision needs: Yes Physical Exam Vital Signs: Vital Signs: Last Vital Signs Temp 98.1 F 06/04/24 13:23 Pulse 65 06/04/24 13:23 Resp 12 06/04/24 13:23 BP 122/76 06/04/24 13:23 Pulse Ox 98 06/04/24 13:23 O2 Del Method Room Air 06/04/24 13:23 BMI result Body Mass Index 52.1 Appearance: Alert. Oriented X3. No acute distress. Eyes: Pupils equal, round and reactive to light. ENT: Pharynx normal. Neck: Normal inspection. Neck supple. No lymph nodes noted. No crepitus CVS: Normal heart rate and rhythm. Pulses normal. Normal S1 and S2 Respiratory: No respiratory distress. Breath sounds normal. No Wheezing. No rales Abdomen: Soft and nontender. No rigidity. No distention. good BS x4 Skin: Skin warm and dry. Normal skin color. Normal skin turgor. Extremities: No lower extremity edema. Neurovascular intact to all extremities. No Lacerations. No Rash Neuro: Oriented X 3. No motor deficit. No sensory deficit. Moving all extermities. No slurred speech NIH Stroke Scale Internal: Initial- Upon Arrival Level of Consciousness: Alert Level of Consciousness Questions: Answers both questions correctly Level of Consciousness Commands: Performs both tasks correctly Best Gaze: Normal Visual: No visual loss Facial Palsy: Normal Motor Arm (Right): No drift Motor Arm (Left): No drift Motor Leg (Right): No drift Motor Leg (Left): No drift Limb Ataxia: Absent Sensory: Normal Best Language: No aphasia Dysarthia: Normal Extinction and Inattention: No abnormality Score: 0 Medical Decision Making Medical Decision Making [facility] Narrative: Patient presented with left-sided chest pain and also have left facial numbness question change in speech patient CT head CTA were negative. Two sets of cardiac enzymes are negative patient's pain was relieved with nitroglycerin. Does have multitude of risks including larger size history of hypertension history of hypercholesterolemia and a father who had a myocardial infarction at the age of 37. Patient is EKG was nonspecific no acute ST segment elevation. not changed from previous. Patient had a stress test 2 years ago which was negative. Patient's case discussed with the hospitalist team for observation overnight. In stable condition. Differential Diagnosis Differential Diagnoses: The differential diagnosis associated with the presentation includes ACS, angina, CVA Admission/Observation Consideration of admission/observation: Escalation of care including admission/observation considered Consult Healthcare Provider Management of the patient was discussed with: Hospitalist Lab Data [facility] Lab Attestation statement: I reviewed the patient's lab results. 06/04/24 13:42 06/04/24 13:42 Labs: Lab Results 06/04/24 06/04/24 Range/Units 13:42 15:25 WBC 8.2 (4.8-10.8) X10*3/uL RBC 4.43 L (4.60-5.80) X10*6/uL Hgb 12.8 L (14.0-18.0) g/dl Hct 39.0 L (42.0-52.0) % MCV 88.0 (80.0-98.0) fL MCH 28.9 (27.0-33.0) pg MCHC 32.8 (31.0-36.0) g/dl RDW 13.7 (11.0-16.0) % Plt Count 243 (160-400) X10*3/uL MPV 9.9 (9.4-12.4) fL Immature Gran % (Auto) 0.2 (0.0-0.4) % Neut % (Auto) 75.2 H (45-73) % Lymph % (Auto) 14.2 L (20-40) % Wilkinson % (Auto) 7.9 (2-11) % Eos % (Auto) 2.1 (0-4) % Baso % (Auto) 0.4 (0-2) % Lymph # (Auto) 1.2 (1.2-4.9) X10*3/uL Wilkinson # (Auto) 0.7 (0.1-1.2) X10*3/uL Eos # (Auto) 0.2 (0.0-0.4) X10*3/uL Baso # (Auto) 0.0 (0.0-0.2) X10*3/uL Abs Immat Gran (auto) 0.02 (0.00-0.03) X10*3/uL Absolute Neuts (auto) 6.2 (2.0-8.3) x10*3/uL Absolute Nucleated RBC 0.000 (0.0-0.012) X10*3/uL Nucleated RBC % (auto) 0.0 (0.0-0.2) /100WBC Sodium 142 (135-145) mmol/L Potassium 3.4 (3.3-5.1) mmol/L Chloride 111 H (96-108) mmol/L Carbon Dioxide 25 (22-29) mmol/L Anion Gap 9 L (12-20) BUN 14 (9-16) mg/dL Creatinine 1.43 H (0.5-1.4) mg/dL Estim Creat Clear Calc 87.5 Estimated GFR 53 Random Glucose 87 (60-115) mg/dL Calcium 8.7 D (8.4-10.2) mg/dL Total Bilirubin 0.9 (0.0-1.0) mg/dL Direct Bilirubin 0.3 (0.0-0.5) mg/dL AST 27 (5-37) U/L ALT 24 (0-40) U/L Alkaline Phosphatase 118 H (39-117) U/L Troponin I High Sens 3.8 4.7 (<3.5-35.0) ng/L Total Protein 6.7 (6.5-8.0) g/dL Albumin 3.6 (3.5-5.0) g/dL Independent Interpretation I performed an independent interpretation of an: EKG ( sinus heart rate is 70 UT QRS QTC normal no acute ST segment elevation diffuse T-wave flattening noted) and CT Scan ( CT head negative for bleed) Radiology Impression Discussion of test interpretation with radiology: I discussed test interpretation with the radiologist and I have reviewed the radiologist's reading. Independent Historian Clinical information obtained from an independent historian. History obtained from or confirmed by: EMS External Record Review External record reviewed: Inpatient record and Office record ( Outpatient Cardiology record reviewed outpatient stress test reviewed) Chronic Conditions Patient?s care impacted by: Hypertension Discharge Plan Discharge Clinical Impression: Chest pain Patient Disposition: Admitted As Inpatient Print Language: Macanese
[2024-06-04 13:50] LABS: MANUAL DIFF FLAG NO
--- OUTSIDE RECORDS SUMMARY | 2024-06-04 13:51 | XMS_ITS | Clinical Summary ---
Author Organization [facility] Address [address] [place] [address] Care Team Providers Care Fruit Peeler Name Role Phone Dotty Velázquez PA-C Primary Care Provider [phone] Source Comments PLEASE NOTE, if this patient is a minor, it may be UNLAWFUL to discuss sensitive information that is contained in these records (such as FAMILY PLANNING, MENTAL HEALTH or SUBSTANCE ABUSE) with the minor patient's parent or other person without the patient's specific authorization.[facility] Allergies Active Allergy Reactions Criticality Noted Date Comments [place] Anaphylaxis 04/12/2013 Lisinopril 06/15/2018 Super high blood pressure. Medications albuterol sulfate 90 mcg/actuation inhalerIndications :Mild intermittent asthma without complication ([facility]-HCC) Inhale 1-2 Puffs into the lungs every [...] disease), stage II 9 Overview (08/12/2018): Sees Press Machine Feeder Essential hypertension 06/15/2018 Other hyperlipidemia 06/15/2018 Mild intermittent asthma without complication ([facility]-HCC) 06/15/2018 Other sleep apnea 06/15/2018 Overview (06/15/2018): On CPAP Immunizations Immunization Administration Dates Next Due Hep B, Adult/Adol [...] Plan of Treatment Not on file Insurance [employer] Member Subscriber Plan / Payer (Ef fective 2018-Present) Name:Reid Sanchez Relation to Subscriber:Self Name:Daniel Reid Casas Payer ID:[id number] Type:Indemnity Address: [facility] [id number] [place] [id number] Care Teams Fruit Peeler Relationship Specialty Start Date End Date Dotty Velázquez PA-C [address] [place] [address] PCP - General FAMILY MEDICINEJANE 07/01/21
--- OUTSIDE RECORDS SUMMARY | 2024-06-04 13:51 | XMS_ITS | Clinical Summary ---
Author Organization [facility] Address [address] [place] [id number] Care Team Providers Care Hand Grinder Name Role Phone Lupis Brown MD Primary Care Provider [phone] Family History Medical History Relation Comments Hypertension [...] series) 07/17 Influenza Vaccine (#1) 2023 Insurance [facility] MEDICAID [facility] MEDICAID Care Teams Hand Grinder Relationship Specialty Start Date End Date Lupis Brown MD [address] [place] [address] PCP - General Internal Medicine 02/25/22
--- OUTSIDE RECORDS SUMMARY | 2024-06-04 13:51 | XMS_ITS | Clinical Summary ---
Author Organization [address] [place] [address] Address [address] [place] [address] Phone Care Team Providers Care Ticket Marker Name Role Phone Reina Brown MD Primary Care Provider [phone] Surgical History Surgery Date Site/Laterality Comments OTHER [...] Upcoming Encounters Date Type Department Care Team ([facility] Contact Info) Description 07/06/2024 2:45 PM EDT Consult Orthopedic Surgery - [place] [address] [id number] Prince Grimes, DPM [address] [address] Health Maintenance Due Date Last Done Comments [...] complete this topic Insurance PLAN Care Teams Ticket Marker Relationship Specialty Start Date End Date Reina Brown MD [address] [place] [address], [place] [address] PCP - General Internal Medicine 03/03/24
[2024-06-04 13:58] LABS: Basophils Percent Auto 0.4 % (0-2); Eosinophils Absolute Auto 0.2 X10*3/uL (0.0-0.4); Eosinophils Percent Auto 2.1 % (0-4); Hemoglobin 12.8 g/dl (14.0-18.0); Imm Gran Abs Auto 0.02 X10*3/uL (0.00-0.03); Imm Gran Pct Auto 0.2 % (0.0-0.4); Lymphocytes Absolute Auto 1.2 X10*3/uL (1.2-4.9); Lymphocytes Percent Auto 14.2 % (20-40); Mean Corpuscular HGB Conc 32.8 g/dl (31.0-36.0); Mean Corpuscular Hemoglobin 28.9 pg (27.0-33.0); Mean Platelet Volume 9.9 fL (9.4-12.4); Monocytes Absolute Auto 0.7 X10*3/uL (0.1-1.2); Monocytes Percent Auto 7.9 % (2-11); Neutrophils Absolute Auto 6.2 x10*3/uL (2.0-8.3); Neutrophils Percent Auto 75.2 % (45-73); Platelet Count 243 X10*3/uL (160-400); Red Blood Count 4.43 X10*6/uL (4.60-5.80); Red Cell Distribution Width 13.7 % (11.0-16.0); White Blood Count 8.2 X10*3/uL (4.8-10.8)
[2024-06-04 14:06] LABS: Alanine Aminotransferase 24 U/L (0-40); Albumin Level 3.6 g/dL (3.5-5.0); Alkaline Phosphatase 118 U/L (39-117); Anion Gap 9 (12-20); Aspartate Amino Transferase 27 U/L (5-37); Bilirubin Direct 0.3 mg/dL (0.0-0.5); Bilirubin Total 0.9 mg/dL (0.0-1.0); Blood Urea Nitrogen 14 mg/dL (9-16); Calcium 8.7 mg/dL (8.4-10.2); Carbon Dioxide 25 mmol/L (22-29); Chloride 111 mmol/L (96-108); Creatinine Clr Calc Pharmacy 87.5; Estimated Glomerular Filt Rate 53; Glucose Random 87 mg/dL (60-115); Potassium 3.4 mmol/L (3.3-5.1); Sodium 142 mmol/L (135-145); Total Protein 6.7 g/dL (6.5-8.0)
[2024-06-04 14:12] LABS: Troponin-I High Sensitivity 3.8 ng/L (<3.5-35.0)
[2024-06-04 15:51] LABS: Troponin-I High Sensitivity 4.7 ng/L (<3.5-35.0)
--- NOTE | 2024-06-04 17:07 | PM.IMHP ---
History of Present Illness Date of Service: 06/04/24 Attending physician on admission: Delvin Mayes Chief Complaint: left side facial numbness, slurred speech, chest pain This is a 48-year-old male who presents to the emergency department with complaints. 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 This was associated left side facial numbness. At the same he reports that talking felt strange and his coworkers reported he was slurring his words. He was sent to the emergency department for evaluation. In the emergency department he chest x-ray which was unremarkable. Cardiac enzymes x2 negative. Brain CT and CTA negative. Patient reports 6 months of left-sided chest pain after eating certain foods or drinking energy drinks. Pain is reproducible on exam, not associated with deep inspiration. Not associated with exercise. He does report acid reflux symptoms and symptoms of anxiety. He had a negative stress test 2 years ago which was obtained due to chest pain. Review of Systems Review of Systems: Yes all other systems are reviewed and are negative Constitutional: Constitutional: Denies chills and Denies fever(s) ENT: Denies dizziness Cardiovascular: Cardiovascular: Reports chest pain, Denies palpitations and Denies dyspnea Respiratory: Respiratory: Denies cough and Denies dyspnea Gastrointestinal: Gastrointestinal: Denies abdominal pain, Denies nausea and Denies vomiting Neurologic: Denies dizziness Endocrine: Endocrine: Denies palpitations [facility] Medical History Bilateral leg and foot pain CHUN on CPAP Plantar fasciitis, bilateral Decreased hearing of both ears Anemia Disc disease, degenerative, cervical Family history of ovarian cancer Hemorrhoids with complication History of vitamin D deficiency Iron deficiency anemia Family history of early CAD Vitamin D deficiency Dyslipidemia (high LDL; low HDL) Mild intermittent asthma CKD (chronic kidney disease) stage 3, GFR 30-59 ml/min Low back pain Stage 3 chronic kidney disease Morbid obesity with BMI of 50.0-59.9, adult Benign essential hypertension Pure hypercholesterolemia Anxiety Family History Mother No problems noted. Father Heart problem Paternal Uncle Heart problem Paternal Grandfather Heart problem Heart attack Paternal Grandmother Breast cancer Paternal Aunt Ovarian cancer Surgical History No history of previous surgery Social History Household Members: Spouse and Children Household Members Other:: Cat Housing: Apartment Alcohol intake: current Alcohol intake frequency: does not drink Patient Tobacco Use Status: Never used Tobacco e-Cigarette/Vaping Use: Never Used Second Hand Smoke Exposure: Yes Advance Directives Date on File: 02/25/24 service: No Current occupational status: employed 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, [employer] Cognitive needs: No Hearing needs: No Vision needs: Yes Meds Allergies Allergy/AdvReac Type Severity Reaction Status Date / Time chocolate Allergy Severe Difficulty Verified 06/04/24 13:18 Breathing animal dander [animal hair] Allergy Intermediate Redness of Verified 06/04/24 13:18 Skin bee pollen [bee stings] Allergy Intermediate Unknown Verified 06/04/24 13:18 lisinopril [LISINOPRIL] Allergy Intermediate ANGIOEDEMA Verified 06/04/24 13:18 Latex, Natural Rubber Allergy Mild Unknown Verified 06/04/24 13:18 Active Medications: Current Medications Acetaminophen (Acetaminophen 325 Mg Tablet) 650 mg PO Q6H PRN PRN Reason: Pain, Mild 1-3,fever,headache Calcium Carbonate (Calcium Carbonate 750 Mg Tab.Chew) 750 mg PO Q4H PRN PRN Reason: Heartburn Magnesium Hydroxide (Milk Of Magnesia 30 Ml Oral.Susp) 30 ml PO DAILY PRN PRN Reason: Constipation Melatonin (Melatonin 3 Mg Tablet) 6 mg PO BEDTIME PRN PRN Reason: Insomnia Omeprazole (Omeprazole 40 Mg Capsule.Dr) 40 mg PO DAILY@0630 REYNALDO Ondansetron HCl (Ondansetron Hcl 4 Mg/2 Ml Vial) 4 mg IVPUSH Q8H PRN PRN Reason: Nausea and Vomiting Home Medications ?Medication ?Instructions ?Recorded ?Confirmed ?Last Taken ?Type amlodipine 10 mg tablet 10 mg PO BEDTIME 06/04/24 06/04/24 Unknown History Physical Exam Vital Signs and Narrative: Vital Signs: Last Vital Signs Temp 98.1 F 06/04/24 13:23 Pulse 65 06/04/24 13:23 Resp 12 06/04/24 13:23 BP 122/76 06/04/24 13:23 Pulse Ox 98 06/04/24 13:23 O2 Del Method Room Air 06/04/24 13:23 BMI result Body Mass Index 52.1 Const: General: comfortable, no acute distress, alert and awake Nutritional Appearance: obese Orientation/consciousness: patient oriented x3 Eyes: Pupils: Equal, round and reactive pupils present Chest: Other: tender to palpation left side Resp: Effort & Inspection: normal respiratory effort, able to speak in complete sentences, no respiratory distress and no use of accessory muscles Cardio: Rate: regular rate GI: Inspection: Yes obesity Neuro: Other: strength equal b/l General: patient oriented x3, moves all extremities and CN's II-XI intact bilaterally Cranial nerves: Yes Equal, round and reactive pupils present and Yes Midline tongue present Results Labs 06/04/24 13:42 06/04/24 13:42 Labs: Laboratory Results - last 24 hr 06/04/24 13:42 MCV 88.0 MCH 28.9 MCHC 32.8 RDW 13.7 Plt Count 243 MPV 9.9 Immature Gran % (Auto) 0.2 Neut % (Auto) 75.2 H Lymph % (Auto) 14.2 L [place] % (Auto) 7.9 Eos % (Auto) 2.1 Baso % (Auto) 0.4 Lymph # (Auto) 1.2 [place] # (Auto) 0.7 Eos # (Auto) 0.2 Baso # (Auto) 0.0 Abs Immat Gran (auto) 0.02 Absolute Neuts (auto) 6.2 Absolute Nucleated RBC 0.000 Nucleated RBC % (auto) 0.0 Anion Gap 9 L Estim Creat Clear Calc 87.5 Estimated GFR 53 Random Glucose 87 Calcium 8.7 D Total Bilirubin 0.9 Direct Bilirubin 0.3 AST 27 ALT 24 Alkaline Phosphatase 118 H Total Protein 6.7 Albumin 3.6 Assessment and Plan (1) Slurred speech: Status: Acute Plan This is a 48-year-old man with history of obesity, hypertension, hyperlipidemia, asthma, deficiency anemia obstructive sleep apnea, anxiety migraine who presents to the emergency department multiple including left-sided chest pain, slurred speech, left facial heaviness Left facial heaviness/slurred speech TIA versus complex migraine versus anxiety Brain CT/CTA negative Stroke risk factors including morbid obesity, hypertension, hyperlipidemia Blood pressure controlled check Hba1c, lipid profile neuro consult no persistent deficits no indication for PT/OT start ASA, continue baseline statin chest pain reproducible on exam. occurs every few days for several months occurring after drinking energy drinks negative stress test 2022 troponin negative x2, ekg without ischemic changes avoid energy drinks possibly due to gerd, start PPI; gerd precautions discussed cardiology consult Hypertension Continue amlodipine Hyperlipidemia Continue statin CHUN CPAP DVT prophylaxis-early ambulation Quality Stroke Does the patient have a stroke diagnosis?: No VTE Prior VTE?: No VTE Risk Level:: Medical - moderate - high VTE Device Contraindication: N/A - Device Ordered VTE Drug Contraindication: Treatment Not Indicated
--- NOTE | 2024-06-04 17:11 | PHA.MEDREC ---
Addendum entered by Omaira Pa RPh 06/04/24 17:32: [facility] REVIEWED Original Note: Pharmacy Consult ? Medication Reconciliation Pharmacy has completed the medication reconciliation. Spoke to pt to confirm meds.
[2024-06-04 17:32] LABS: Cholesterol 122 mg/dL (<200); HDL Cholesterol 33 mg/dL (>40); LDL Cholesterol Calculated 59 mg/dL (<100); Triglycerides 150 mg/dL (<150)
[2024-06-04 17:45] LABS: Estimated Average Glucose 114 mg/dL; Hemoglobin A1C 126.7423 umol/L; Hemoglobin A1c % 5.6 % (<6.0); Total Hemoglobin (HGBA1C) 3371.3479 umol/L
[2024-06-04] MEDS: amLODIPine Besylate 10 MG TABLET PO (22:27)
[2024-06-04] MEDS: Atorvastatin Calcium 40 MG TABLET PO (22:28)
[2024-06-05] VITALS (7 sets, daily range): BP systolic 118–141; BP diastolic 64–82; PULSE 64–79; RESP 15–19; TEMP 36.3–37.1; O2SAT 94–97
[2024-06-05] MEDS: 0.9 % Sodium Chloride Flush 3 ML SYRINGE IVFLUSH ×2 (00:17→08:19)
[2024-06-05] MEDS: Omeprazole 40 MG CAPSULE.DR PO (05:47)
[2024-06-05 06:41] LABS: Cholesterol 122 mg/dL (<200); HDL Cholesterol 29 mg/dL (>40); LDL Cholesterol Calculated 65 mg/dL (<100); Triglycerides 141 mg/dL (<150)
[2024-06-05] MEDS: Docusate Sodium 100 MG CAPSULE PO (08:18)
[2024-06-05] MEDS: Losartan Potassium 50 MG TABLET 100 MG PO (08:18)
[2024-06-05] MEDS: Aspirin Enteric Coated 81 MG TABLET.DR PO (08:18)
[2024-06-05] MEDS: Ferrous Sulfate 324 MG TABLET.DR PO (08:18)
--- NOTE | 2024-06-05 09:52 | PM.CNCAR ---
History of Present Illness History of Present Illness Date of Service: 06/05/24 Chief complaint: ? TIA vs complex migraine Narrative: This is a cardiology consultation regarding chest pains. Patient does not have any known cardiac history including coronary disease myocardial infarction or cardiomyopathy or in fact anything cardiac related. He states he gets chest pains off and on. He has gotten this over several months. He states these are nonexertional and has never happened with physical activity or in fact any form of exertion. Generally related to diet and he believes it is because of acid reflux. Current admissions because of chest pain. 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 Then there was concern for his talking feeling strange and there were some slurring of words. That led to ER visit. So far, workup has been unremarkable from cardiac standpoint. Today, he states he is completely normal and would like to go home. He does not have any chest pain or in fact any cardiac concerns at all this time. He thinks drinking energy drinks might have brought on the symptoms. Review of Systems Review of Systems: Yes all other systems are reviewed and are negative Constitutional: Constitutional: Reports as per HPI and Reports no additional constitutional complaints Eyes: Eyes: Reports as per HPI and Denies no additional eye complaints ENT: Denies system reviewed and no additional complaints, except as documented and Reports as per HPI Cardiovascular: Cardiovascular: Reports as per HPI, Reports no additional cardiovascular complaints, Denies acrocyanosis, Denies cool extremities, Denies chest pain, Denies leg edema, Denies lightheadedness, Denies palpitations and Denies dyspnea Respiratory: Respiratory: Reports as per HPI, Denies no additional respiratory complaints and Denies dyspnea Gastrointestinal: Gastrointestinal: Reports as per HPI and Denies no additional gastrointestinal complaints Genitourinary: Genitourinary: Reports no additional male genitourinary complaints and Reports as per HPI Musculoskeletal: Musculoskeletal: Reports no additional musculoskeletal complaints and Reports as per HPI Integumentary/Breasts: Skin/Breast: Reports system reviewed and no additional complaints, except as docu Neurologic: Reports system reviewed and no additional complaints, except as documented and Reports as per HPI Psychiatric: Psychiatric: Reports no additional psychiatric complaints and Reports as per HPI Endocrine: Endocrine: Reports no additional endocrine complaints, Reports as per HPI and Denies palpitations Hematologic/Lymphatic: Hematologic/Lymphatic: Reports no additional hematologic/lymphatic complaints and Reports as per HPI Allergic/Immunologic: Allergic/Immunologic: Reports no additional allergic/immunologic complaints and Reports as per HPI [facility] Past Medical History Medical History Bilateral leg and foot pain CHUN on CPAP Plantar fasciitis, bilateral Decreased hearing of both ears Anemia Disc disease, degenerative, cervical Family history of ovarian cancer Hemorrhoids with complication History of vitamin D deficiency Iron deficiency anemia Family history of early CAD Vitamin D deficiency Dyslipidemia (high LDL; low HDL) Mild intermittent asthma CKD (chronic kidney disease) stage 3, GFR 30-59 ml/min Low back pain Stage 3 chronic kidney disease Morbid obesity with BMI of 50.0-59.9, adult Benign essential hypertension Pure hypercholesterolemia Anxiety Family History Family History Mother No problems noted. Father Heart problem Paternal Uncle Heart problem Paternal Grandfather Heart problem Heart attack Paternal Grandmother Breast cancer Paternal Aunt Ovarian cancer Surgical History Surgical History No history of previous surgery Social History Social History Household Members: Spouse and Children Household Members Other:: Cat Housing: Apartment Alcohol intake: current Alcohol intake frequency: does not drink Patient Tobacco Use Status: Never used Tobacco Smoked in Last 30 Days: No e-Cigarette/Vaping Use: Never Used Second Hand Smoke Exposure: Yes Use of substances other than those prescribed or required for medical reasons: No Advance Directives: Yes Advance Directives on File: Yes Advance Directives Date on File: 02/25/24 Do you have a plan to hurt others: No Plan Nutrition Risks: No Nutritional Risk service: No Current occupational status: employed 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, [employer] Cognitive needs: No Hearing needs: No Vision needs: Yes Meds Allergies Allergy/AdvReac Type Severity Reaction Status Date / Time chocolate Allergy Severe Difficulty Verified 06/04/24 13:18 Breathing animal dander [animal hair] Allergy Intermediate Redness of Verified 06/04/24 13:18 Skin bee pollen [bee stings] Allergy Intermediate Unknown Verified 06/04/24 13:18 lisinopril [LISINOPRIL] Allergy Intermediate ANGIOEDEMA Verified 06/04/24 13:18 Latex, Natural Rubber Allergy Mild Unknown Verified 06/04/24 13:18 Active Medications: Current Medications Acetaminophen (Acetaminophen 325 Mg Tablet) 650 mg PO Q6H PRN PRN Reason: Pain, Mild 1-3,fever,headache Amlodipine Besylate (Amlodipine Besylate 10 Mg Tablet) 10 mg PO BEDTIME [facility]; Protocol Last Admin: 06/04/24 22:27 Dose: 10 mg Aspirin (Aspirin Enteric Coated 81 Mg Tablet.) 81 mg PO DAILY [facility] Last Admin: 06/05/24 08:18 Dose: 81 mg Atorvastatin Calcium (Atorvastatin Calcium 40 Mg Tablet) 40 mg PO BEDTIME [facility] Last Admin: 06/04/24 22:28 Dose: 40 mg Calcium Carbonate (Calcium Carbonate 750 Mg Tab.Chew) 750 mg PO Q4H PRN PRN Reason: Heartburn Docusate Sodium (Docusate Sodium 100 Mg Capsule) 100 mg PO DAILY [facility] Last Admin: 06/05/24 08:18 Dose: 100 mg Ferrous Sulfate (Ferrous Sulfate 324 Mg Tablet.) 324 mg PO DAILY [facility] Last Admin: 06/05/24 08:18 Dose: 324 mg Lidocaine (Lidocaine 4 % Patch Adh..Patch) 1 patch TRANSDERMA DAILY PRN PRN Reason: Pain, Mild (Pain Scale 1-3) Losartan Potassium (Losartan Potassium 50 Mg Tablet) 100 mg PO DAILY [facility]; Protocol Last Admin: 06/05/24 08:18 Dose: 100 mg Magnesium Hydroxide (Milk Of Magnesia 30 Ml Oral.Susp) 30 ml PO DAILY PRN PRN Reason: Constipation Melatonin (Melatonin 3 Mg Tablet) 6 mg PO BEDTIME PRN PRN Reason: Insomnia Omeprazole (Omeprazole 40 Mg Capsule.) 40 mg PO DAILY@0630 [facility] Last Admin: 06/05/24 05:47 Dose: 40 mg Ondansetron HCl (Ondansetron Hcl 4 Mg/2 Ml Vial) 4 mg IVPUSH Q8H PRN PRN Reason: Nausea and Vomiting Sodium Chloride (0.9 % Sodium Chloride Flush 3 Ml Syringe) 3 ml IVFLUSH QSHIFT [facility] Last Admin: 06/05/24 08:19 Dose: 3 ml Home Medications ?Medication ?Instructions ?Recorded ?Confirmed ?Last Taken ?Type amlodipine 10 mg tablet 10 mg PO BEDTIME 06/04/24 06/04/24 Unknown History Physical Exam Vital Signs: Vital Signs: Last Vital Signs Temp 98.0 F 06/05/24 05:46 Pulse 64 06/05/24 05:46 Resp 17 06/05/24 05:46 BP 141/79 H 06/05/24 08:18 Pulse Ox 96 06/05/24 05:46 O2 Del Method Room Air 06/05/24 05:46 O2 Flow Rate 14 06/05/24 04:03 BMI result Body Mass Index 52.1 Const: General: comfortable and no acute distress Orientation/consciousness: patient oriented x3 HEENT: Other: Unremarkable Head: Yes normal to inspection Neck: Neck: Yes normal visual inspection Chest: Chest palpation & inspection: normal inspection of the chest Resp: Auscultation: clear to auscultation bilaterally Cardio: Palpation: normal PMI Heart sounds: S1 normal heart sound present, S2 normal heart sound present, no gallops, no murmurs and no rubs GI: Palpation (GI): Soft to palpation Back/Spine/Pelvis: Other: unremarkable Skin: General skin exam: no rashes or lesions noted Neuro: General: patient oriented x3 Extrem: General: Yes normal to inspection Psych: Mental Status: mental status grossly normal Objective Labs and Meds 06/04/24 13:42 06/04/24 13:42 Lab results: Laboratory Results - last 24 hr 06/04/24 06/04/24 06/05/24 13:42 15:25 06:05 WBC 8.2 RBC 4.43 L Hgb 12.8 L Hct 39.0 L MCV 88.0 MCH 28.9 MCHC 32.8 RDW 13.7 Plt Count 243 MPV 9.9 Immature Gran % (Auto) 0.2 Neut % (Auto) 75.2 H Lymph % (Auto) 14.2 L [place]nn % (Auto) 7.9 Eos % (Auto) 2.1 Baso % (Auto) 0.4 Lymph # (Auto) 1.2 Glynn # (Auto) 0.7 Eos # (Auto) 0.2 Baso # (Auto) 0.0 Abs Immat Gran (auto) 0.02 Absolute Neuts (auto) 6.2 Absolute Nucleated RBC 0.000 Nucleated RBC % (auto) 0.0 Hold Purple Top SEE NOTE Sodium 142 Potassium 3.4 Chloride 111 H Carbon Dioxide 25 Anion Gap 9 L BUN 14 Creatinine 1.43 H Estim Creat Clear Calc 87.5 Estimated GFR 53 Random Glucose 87 Estimat Average Glucose 114 Hemoglobin A1c % 5.6 Calcium 8.7 D Total Bilirubin 0.9 Direct Bilirubin 0.3 AST 27 ALT 24 Alkaline Phosphatase 118 H Troponin I High Sens 3.8 4.7 Total Protein 6.7 Albumin 3.6 Triglycerides 150 H 141 Cholesterol 122 122 LDL Cholesterol, Calc 59 65 HDL Cholesterol 33 L 29 L ECG Interpretation: EKG with underlying sinus rhythm at 68/Min; nonspecific ST-T changes; normal FL and corrected QT. Assessment and Plan (1) Chest pain: Status: Acute Plan EKG without any clear-cut ischemic changes. Unremarkable high sensitivity troponins. They have been checked several times in the last few years and they are all normal. Echocardiogram 2022 with LVEF of 47%. Moderate biatrial enlargement moderately increased right ventricular size. Myocardial perfusion imaging study was negative at 5.2 METS exercise capacity. Overall, atypical sounding chest pain but has risk factors. So far, workup unremarkable. Previous cardiac workup has also been negative. We will plan on getting coronary CTA as an outpatient. Follow-up will be arranged. Procedures Date of Service Date of Service: 06/05/24
--- NOTE | 2024-06-05 10:07 | MHC.CM.PN ---
MIGUEL 06/05. Pt self-care, lives at home with his and daughter. Pts will transport him home at discharge. Education provided on HCP, pt declined to complete one at this time. PCP: Dr. Reina Brown
--- NOTE | 2024-06-05 12:28 | P.DS_ITS ---
DS: Providers Provider Date of Service: 06/05/24 Date of admission: 06/04/24 19:14 Date of discharge: 06/05/24 Primary care physician: Reina Brown MD Consults: 06/04/24 17:01 Consult to Neurology Routine Consulting Provider: [facility] Reason for consultation: left side numbness/slurred speech Has provider been notified: No 06/04/24 17:22 Consult to Cardiology Routine Consulting Provider: [facility] Reason for consultation: chest pain Has provider been notified: No Attending physician on discharge: Delvin Mayes Discharging clinician: Serenity Charles DS: Diagnosis Discharge Diagnosis (1) Chest pain: Status: Acute DS: Summary Hospital Course Hospital Course: From H&P on the day of admission This is a 48-year-old male who presents to the emergency department with complaints. 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 This was associated left side facial numbness. At the same he reports that talking felt strange and his coworkers reported he was slurring his words. He was sent to the emergency department for evaluation. In the emergency department he chest x-ray which was unremarkable. Cardiac enzymes x2 negative. Brain CT and CTA negative. Patient reports 6 months of left-sided chest pain after eating certain foods or drinking energy drinks. Pain is reproducible on exam, not associated with deep inspiration. Not associated with exercise. He does report acid reflux symptoms and symptoms of anxiety. He had a negative stress test 2 years ago which was obtained due to chest pain. Left facial heaviness/slurred speech TIA versus complex migraine versus anxiety. Brain CT/CTA negative. Stroke risk factors including morbid obesity, hypertension, hyperlipidemia Blood pressure controlled, Hba1c 5.6, LDL 65. no persistent deficits therefore no indication for PT/OT evaluation. started on low dose ASA, continue baseline statin. Patient had no recurrence of symptoms, did not want to wait for Neurology evaluation. We will be discharged home with plan to follow-up with PCP. chest pain reproducible on exam. occurs every few days for several months. occurring after drinking energy drinks negative stress test 2022. troponin negative x2, ekg without ischemic changes. recommend to avoid energy drinks. seen by cardiology - they will arrange further ouptaient testing. symptoms also possibly due to gerd, start PPI; gerd precau tions discussed Time Attestation Discharge Coordination Time (in mins): 30 Quality: Safe Use of Opioids Does Pt have an Active Cancer Diagnosis on the Problem List?: No Quality: Stroke Does the patient have a stroke diagnosis?: No Physical Exam Vital Signs: Vital Signs: Last Vital Signs Temp 98.0 F 06/05/24 08:00 Pulse 64 06/05/24 08:00 Resp 18 06/05/24 08:00 BP 141/79 H 06/05/24 08:18 Pulse Ox 97 06/05/24 08:00 O2 Del Method Room Air 06/05/24 08:00 O2 Flow Rate 14 06/05/24 04:03 BMI result Body Mass Index 52.1 Const: General: comfortable, no acute distress, alert and awake Nutritional Appearance: obese Orientation/consciousness: patient oriented x3 Eyes: Pupils: Equal, round and reactive pupils present Resp: Effort & Inspection: normal respiratory effort, able to speak in complete sentences, no respiratory distress and no use of accessory muscles Cardio: Rate: regular rate GI: Inspection: Yes obesity Neuro: Other: strength equal b/l General: patient oriented x3, moves all extremities and CN's II-XI intact bilaterally Cranial nerves: Yes Equal, round and reactive pupils present and Yes Midline tongue present DS: Data Data Completed and Pending Labs on day of discharge: Laboratory Results - last 24 hr 06/04/24 06/04/24 06/05/24 13:42 15:25 06:05 WBC 8.2 RBC 4.43 L Hgb 12.8 L Hct 39.0 L MCV 88.0 MCH 28.9 MCHC 32.8 RDW 13.7 Plt Count 243 MPV 9.9 Immature Gran % (Auto) 0.2 Neut % (Auto) 75.2 H Lymph % (Auto) 14.2 L [place] % (Auto) 7.9 Eos % (Auto) 2.1 Baso % (Auto) 0.4 Lymph # (Auto) 1.2 [place] # (Auto) 0.7 Eos # (Auto) 0.2 Baso # (Auto) 0.0 Abs Immat Gran (auto) 0.02 Absolute Neuts (auto) 6.2 Absolute Nucleated RBC 0.000 Nucleated RBC % (auto) 0.0 Hold Purple Top SEE NOTE Sodium 142 Potassium 3.4 Chloride 111 H Carbon Dioxide 25 Anion Gap 9 L BUN 14 Creatinine 1.43 H Estim Creat Clear Calc 87.5 Estimated GFR 53 Random Glucose 87 Estimat Average Glucose 114 Hemoglobin A1c % 5.6 Calcium 8.7 D Total Bilirubin 0.9 Direct Bilirubin 0.3 AST 27 ALT 24 Alkaline Phosphatase 118 H Troponin I High Sens 3.8 4.7 Total Protein 6.7 Albumin 3.6 Triglycerides 150 H 141 Cholesterol 122 122 LDL Cholesterol, Calc 59 65 HDL Cholesterol 33 L 29 L Discharge Plan Discharge Anticipated Discharge Date/Time: 06/05/24 12:39 Patient Disposition: Home, Self-Care Discharge Diagnosis: chest pain slurred speech Referrals: Reina Brown MD [Primary Care Provider] - 1 Week Discharge Medications: New aspirin 81 mg Tablet,Delayed Release (Dr/Ec) 81 mg PO DAILY Qty: 90 0RF pantoprazole 40 mg tablet,delayed release (DR/EC) 40 mg PO DAILY 90 Days Qty: 90 0RF Continued losartan 100 mg tablet 100 mg PO DAILY Qty: 90 1RF atorvastatin 40 mg tablet 40 mg PO BEDTIME Qty: 90 1RF ferrous sulfate 324 mg (65 mg iron) tablet,delayed release (DR/EC) 324 mg PO DAILY Qty: 90 1RF lidocaine 5 % adhesive patch,medicated 1 patch topical DAILY PRN (Reason: pain) Qty: 15 0RF Rx Instructions: leave on most painful area for up to 12 hrs amlodipine 10 mg tablet 10 mg PO BEDTIME docusate sodium 100 mg capsule 100 mg PO DAILY Qty: 90 3RF Discharge Orders: Discharge Order (Routine); Ordered 06/05/24 Ordered By: Serenity Charles Activity on Discharge: As tolerated Stand Alone Forms: Patient Portal Discharge page Print Language: [place] Care Plan Goals: See below Health Concerns: Chest pain Slurred speech Plan of Treatment: Recommend to avoid energy drinks Take baby aspirin daily Continue all other baseline medications Outpatient follow-up with Cardiology, they will call to schedule follow-up appointment Call to schedule follow-up appointment with PCP Assessment: See discharge summary
== END 2024-06-05 13:20 | disposition home or self-care (01) ==
LOC: HO.ED 16:03 → HO.EDOVER 19:32
PROVIDERS: Admitting Provider Student in an Organized Health Care Education/Training Program; Emergency Provider Emergency Medicine Emergency Medical Services; PCP Internal Medicine; Visit Provider Physician Assistant Medical
DX: R07.9 Chest pain, unspecified (principal); R47.81 Slurred speech; R06.02 Shortness of breath; R20.0 Anesthesia of skin; I12.9 Hypertensive chronic kidney disease with stage 1 through stage 4 chronic kidney disease, or unspecified chronic kidney disease; N18.30 Chronic kidney disease, stage 3 unspecified; R53.1 Weakness; I10 Essential (primary) hypertension; E78.00 Pure hypercholesterolemia, unspecified; Z79.899 Other long term (current) drug therapy
CPT/HCPCS: 36415; 70450; 70496; 70498; 71045; 80048; 80061; 80076; 83036; 84484; 85025; 93005; 94660; 99222; 99285

== ENCOUNTER → 2024-06-04 13:31 | Outpatient (BNV) | payer OTHER, SELFPAY | PROVIDERS: Emergency Provider Emergency Medicine Emergency Medical Services; PCP Internal Medicine; Visit Provider Radiology Diagnostic Radiology | DX: R29.810 Facial weakness (principal); R20.2 Paresthesia of skin; R07.9 Chest pain, unspecified | CPT/HCPCS: 70450; 70496; 70498; 71045 ==

== ENCOUNTER → 2024-06-04 19:14 | Outpatient (BNV) | payer OTHER, SELFPAY | PROVIDERS: Admitting Provider Student in an Organized Health Care Education/Training Program; Emergency Provider Emergency Medicine Emergency Medical Services; PCP Internal Medicine; Visit Provider Physician Assistant Medical | DX: R47.81 Slurred speech (principal); R07.9 Chest pain, unspecified | CPT/HCPCS: 99222; 99238 ==

== ENCOUNTER → 2024-06-04 19:14 | Outpatient (BNV) | payer OTHER, SELFPAY | PROVIDERS: Admitting Provider Student in an Organized Health Care Education/Training Program; Emergency Provider Emergency Medicine Emergency Medical Services; PCP Internal Medicine; Visit Provider Internal Medicine | DX: R07.9 Chest pain, unspecified (principal) | CPT/HCPCS: 93010; 99223 ==

== ENCOUNTER → 2024-07-06 07:40 | Outpatient (REF) | payer OTHER, SELFPAY ==
--- OUTSIDE RECORDS SUMMARY | 2024-07-06 07:42 | XMS_ITS | Clinical Summary ---
Author Organization [facility] Facility Address [address] [place] [id number] Care Team Providers Care Roof Panel Hanger Name Role Phone Lupis Brown MD Primary Care Provider [phone] Family History Medical History Relation Comments Hypertension [...] Health Maintenance Due Date Last Done Comments Hepatitis B Vaccine (1 of 3 - 19+ 3-dose series) 07/17 Pneumococcal Vaccine: Peds ( 0 to 5 Years) and At-Risk Patients (6 to 49 Years) (1 of 2 - PCV) 07/18/1995 Influenza Vaccine (Season Ended) 2024 Insurance [facility] Medicaid [facility] Medicaid Care Teams Roof Panel Hanger Relationship Specialty Start Date End Date Lupis Brown MD [address] [place] [address] PCP - General Internal Medicine 02/25/22
--- OUTSIDE RECORDS SUMMARY | 2024-07-06 07:42 | XMS_ITS | Clinical Summary ---
Author Organization [facility] Address [address] [place] [address] Phone Care Team Providers Care Welding Machine Operator/Tender Name Role Phone Reina Brown MD Primary [...] Upcoming Encounters Date Type Department Care Team ([facility] Contact Info) Description 09/21/2024 9:30 AM EDT Consult Orthopedic Surgery - [place] [address] [id number] Prince Grimes, DPM [address] [address] Health Maintenance Due Date Last Done Comments DTaP,Tdap,and Td Vaccines (1 - Tdap) 07/18/1995 Hepatitis B Vaccines (1 of 3 - 19+ 3-dose series) 07/18/1995 COVID-19 Vaccine (2023-2 5 season) 2023 Cholesterol Screening (Lipid Panel) 03/17/2024 Colorectal Cancer Screening: Colonoscopy 03/17/2024 Depression Screening 03/17/2024 HIV Screening 03/17/2024 Hepatitis C Screening 03/17/2024 Social Influencers of Health Screening 03/17/2024 Influenza Vaccine (Season Ended) 2024 HIB Vaccines Aged Out No longer eligi [...] age to complete this topic Meningococcal B Vaccine Aged Out No l onger eligible based on patient's age to complete [...] patient's age to complete this topic Insurance [facility] Care Teams Welding Machine Operator/Tender Relationship Specialty Start Date End Date Reina Brown MD [address] [place] [address] [place] [id number] PCP - General Internal Medicine 03/03/24
--- OUTSIDE RECORDS SUMMARY | 2024-07-06 07:42 | XMS_ITS | Clinical Summary ---
Author Organization [facility] Address [address] [place] [address] Care Team Providers Care Billboard Erector Name Role Phone Dotty Velázquez PA-C Primary Care Provider [phone] Source Comments PLEASE NOTE, if this patient is a minor, it may be UNLAWFUL to discuss sensitive information that is contained in these records (such as FAMILY PLANNING, MENTAL HEALTH or SUBSTANCE ABUSE) with the minor patient's parent or other person without the patient's specific authorization.[facility] Allergies Active Allergy Reactions Criticality Noted Date Comments [place] Anaphylaxis 04/12/2013 Lisinopril 06/15/2018 Super high blood pressure. 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 Essential hypertension 06/15/2018 Other hyperlipidemia 06/15/2018 Mild intermittent asthma without complication ([facility]) 06/15/2018 Other sleep apnea 06/15/2018 Overview (06/15/2018): On CPAP Immunizations Immunization Administration Dates Next Due Hep B, Adult/Adol (ENERGIX/RECOMBIVAX) 9,11/15/2018 INFLUENZA, SEASONAL, INJECTABLE 12/24/2012 PNEUMOCOCCAL CONJUGATE PCV 13 11/15/2018 PNEUMOCOCCAL POLYSACCHARIDE PPV23 (Pneumovax 23) 04/04/2014 TDAP 08/28/2014,09/17/2012 Family History Medical History [...] Plan of Treatment Not on file Insurance [email or web address] Member Subscriber Plan / Payer (Ef fective 2018-Present) Name:Reid Sanchez Relation to Subscriber:Self Name:Reid Sanchez Payer ID:[id number] Type:Indemnity Address: [address] [address] Care Teams Billboard Erector Relationship Specialty Start Date End Date Dotty Velázquez PA-C [address] [place] [address] PCP - General FAMILY MEDICINEJANE 07/01/21
--- NOTE | 2024-07-06 07:45 | CA_ITS ---
Acquisition Time: 2024-07-06 08:10:51 Total Exercise Time: 00:06:52 Test Indications: CP Medications: ASA PANTOPRAZOLE LOSARTAN AMLODIPINE ATORVASTATIN Protocol: YAHAIRA Max HR: 160 BPM 92% of Pred: 173 BPM Max BP: 200/78 mmHG Max Work Load: 5.1 METS Exercise stress test with exercise 6 mins 15 secs of Yahaira Protocol, achieving 90% MPHR, with reports of severe SOB and knee pain, no chest pain, with isolated PACs and PVCs, with hypertensive response to exercise- max BP 200/78. Without EKG changes during exercise meeting criteria for ischemia. In recovery, with T wave inversions inferiorly and in leads V5-V6, nonspecific T wave at baseline. In recovery, breathing returned to baseline. Nuclear images pending. Test reviewed with Dr. Giraldo. Referred By: Brooks Giraldo Electronically Signed By: Héctor Paula
== END ==
LOC: HO.CARD 07:40
PROVIDERS: PCP Internal Medicine; Visit Provider Internal Medicine
DX: R07.2 Precordial pain (principal)
CPT/HCPCS: 93017; J0280; J2785

== ENCOUNTER → 2024-07-06 07:45 | Outpatient (BNV) | payer OTHER, SELFPAY | PROVIDERS: PCP Internal Medicine | DX: R06.02 Shortness of breath (principal); I49.1 Atrial premature depolarization; I49.3 Ventricular premature depolarization; R03.0 Elevated blood-pressure reading, without diagnosis of hypertension | CPT/HCPCS: 78452; 93016; 93018 ==

== ENCOUNTER 2024-07-20 14:17 | Outpatient (AMB) | payer OTHER, SELFPAY ==
--- NOTE | 2024-07-20 14:22 | MHC.OFFVIS ---
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 Required: No Allergies chocolate Allergy (Severe, Verified 06/04/24 13:18) Difficulty Breathing animal dander [animal hair] Allergy (Intermediate, Verified 06/04/24 13:18) Redness of Skin bee pollen [bee stings] Allergy (Intermediate, Verified 06/04/24 13:18) Unknown lisinopril [LISINOPRIL] Allergy (Intermediate, Verified 06/04/24 13:18) ANGIOEDEMA Latex, Natural Rubber Allergy (Mild, Verified 06/04/24 13:18) Unknown Medication List - Last Reconciled 07/20/24 by Héctor Paula NP amlodipine 10 mg PO BEDTIME aspirin 81 mg PO DAILY atorvastatin 40 mg PO BEDTIME docusate sodium 100 mg PO DAILY ferrous sulfate 324 mg PO DAILY lidocaine 5% 1 patch topical DAILY PRN losartan 100 mg PO DAILY pantoprazole 40 mg PO DAILY 90 days HPI Comments Details: This is a 49-year-old male patient coming in for a hospital discharge follow-up. Patient with a history of hypertension, hyperlipidemia, morbid obesity, and sleep apnea. Patient was in the hospital recently for complaints of left-sided chest heaviness with left-sided facial numbness and questions of speech slurring. Patient's workup in the hospital was negative. Today, patient reports that he has not been having anymore of the chest heaviness however does get shortness of breath with exertion. Patient is also reporting some intermittent leg swelling but is otherwise denying any exertional chest pain, palpitations, dizziness, orthopnea, PND, presyncope, or syncope. Patient reports compliance with all his prescribed medications. Patient notes that he used to previously drink 6-7 caffeinated beverages in the day but has completely stopped it now. [facility] Medical History Bilateral leg and foot pain CHUN on CPAP Plantar fasciitis, bilateral Decreased hearing of both ears Anemia Disc disease, degenerative, cervical Family history of ovarian cancer Hemorrhoids with complication History of vitamin D deficiency Iron deficiency anemia Family history of early CAD Vitamin D deficiency Dyslipidemia (high LDL; low HDL) Mild intermittent asthma CKD (chronic kidney disease) stage 3, GFR 30-59 ml/min Low back pain Stage 3 chronic kidney disease Morbid obesity with BMI of 50.0-59.9, adult Benign essential hypertension Pure hypercholesterolemia Anxiety Surgical History No history of previous surgery Family History Mother No problems noted. Father Heart problem Paternal Uncle Heart problem Paternal Grandfather Heart problem Heart attack Paternal Grandmother Breast cancer Paternal Aunt Ovarian cancer Social History Household Members: Spouse and Children Household Members Other:: Cat Housing: Apartment Alcohol intake: current Alcohol intake frequency: does not drink Patient Tobacco Use Status: Never used Tobacco e-Cigarette/Vaping Use: Never Used Second Hand Smoke Exposure: Yes Advance Directives Date on File: 02/25/24 service: No Current occupational status: employed 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, [employer] Cognitive needs: No Hearing needs: No Vision needs: Yes Review of Systems Const Denies chills, Denies fatigue, Denies fever(s), Denies frequent falls, Denies weakness, Denies weight gain and Denies weight loss ENT Denies dizziness Card Denies chest pain, Denies leg edema, Denies lightheadedness, Denies palpitations, Denies dyspnea, Denies dyspnea on exertion, Denies orthopnea and Denies other (loss of consciousness) Resp Denies cough, Denies dyspnea and Denies dyspnea on exertion GI Denies hematochezia and Denies change in stool character Musc Denies abnormal gait, Denies muscle weakness, Denies numbness, Denies radiating pain into limb and Denies tingling Neuro Denies abnormal gait, Denies dizziness, Denies frequent falls, Denies numbness, Denies tingling and Denies weakness Endo Denies fatigue and Denies palpitations Physical Exam Vital Signs: Last Vital Signs Pulse 74 07/20/24 14:23 BP 140/84 H 07/20/24 14:23 BMI result Body Mass Index 55.9 Const General: cooperative, healthy appearing, comfortable and no acute distress Orientation/consciousness: patient oriented x3 HEENT Head: Yes normal to inspection Neck Neck: Yes normal visual inspection, Yes trachea midline and Yes supple Chest Chest palpation & inspection: normal inspection of the chest Resp Effort & Inspection: normal respiratory effort Auscultation: clear to auscultation bilaterally, no crackles, no rales, no rhonchi and no wheezes Cardio Jugular venous distension: no JVD Palpation: normal PMI Rate: regular rate Rhythm: regular rhythm Heart sounds: S1 normal heart sound present, S2 normal heart sound present, no click, no gallops, no murmurs and no rubs Peripheral pulses: Peripheral pulses 2+ throughout GI Inspection: Yes normal to inspection Palpation (GI): Soft to palpation Auscultation: normal bowel sounds Skin General skin exam: no rashes or lesions noted Neuro General: patient oriented x3 Extrem General: Yes normal to inspection, No no pedal edema and No calf tenderness Psych Appearance: grossly normal Mental Status: mental status grossly normal Speech and movement: Normal speech and movement present Assessment & Plan Assessment & Plan (1) Chest pain: Code(s): R07.9 - Chest pain, unspecified Category: Medical Plan: 06/02/2022-patient had undergone a echo study that showed a mildly decreased LV systolic function with an ejection fraction at 47%, moderately increased LV cavity size, and moderate biatrial enlargement. 07/06/2024-patient underwent a myocardial perfusion study that showed mild intensity inferior, inferoseptal, and inferolateral ischemia in RCA/circumflex distribution. Given his ongoing symptoms of shortness of breath on exertion and intermittent leg swelling, we will further evaluate the above findings with a repeat myocardial perfusion study and an echocardiogram. Given his chronic kidney disease, we will refrain from doing a coronary CTA as planned. Further treatment based on findings. Advised to seek ER care in case of exertional chest pain not resolved with rest. (2) Shortness of breath: Code(s): R06.02 - Shortness of breath Category: Medical Plan: As above. (3) Benign essential hypertension: Code(s): I10 - Essential (primary) hypertension Category: Medical Plan: Blood pressure today is well-controlled. Continue current regimen. Advised monitoring blood pressures at home with a goal of less than 130/80. (4) Dyslipidemia (high LDL; low HDL): Code(s): E78.5 - Hyperlipidemia, unspecified Category: Medical Plan: Recent LDL at 65, with an goal of LDL less than 70. Continue statin therapy. (5) Morbid obesity with BMI of 50.0-59.9, adult: Code(s): E66.01 - Morbid (severe) obesity due to excess calories; Z68.43 - Body mass index [BMI] 50.0-59.9, adult Category: Medical Plan: Patient states he is trying to stay active and is working on his diet. Advised about exploring weight management programs with his PCP. (6) CHUN on CPAP: Code(s): G47.33 - Obstructive sleep apnea (adult) (pediatric) Category: Medical Plan: Continue CPAP therapy. (7) Hospital discharge follow-up: Code(s): Z09 - Encounter for follow-up examination after completed treatment for conditions other than malignant neoplasm Plan: As above. Advised heart healthy diet, regular exercise, losing weight, completely avoiding caffeinated beverages and other stimulants, med compliance, and aggressive management of his vascular risk factors. Follow-up with the completion of the tests. In the interim, patient will call the office with any concerns or change in symptoms. This note was generated using voice recognition software. While every effort has been made to ensure accuracy and proper nut and bolt assembler, there may be occasional errors that could affect the content or meaning of the described symptoms. Orders: Orders CA stress test Today R94.39 - Abnormal result of other cardiovascular function study NM cardiolite stress test Today R94.39 - Abnormal result of other cardiovascular function study CA echo transthoracic complete Today R06.02 - Shortness of breath, R07.9 - Chest pain, unspecified Coding Level of Care Code Est Pt Level 4 (39468) Complex EM visit Add On G2211 Diagnoses Chest pain R07.9 Shortness of breath R06.02 Benign essential hypertension I10 Dyslipidemia (high LDL; low HDL) E78.5 Morbid obesity with BMI of 50.0-59.9, adult E66.01; Z68.43 CHUN on CPAP G47.33 Hospital discharge follow-up Z09 Time Spent (min) 34 Comment Time spent in reviewing the chart, test results, assessment, counseling and documentation.
[2024-07-20 14:23] VITALS: BP 138/82; PULSE 74; BMI 55.9
--- OUTSIDE RECORDS SUMMARY | 2024-07-20 14:39 | XMS_ITS | Clinical Summary ---
Author Organization 175 [facility] Address [address] [place] [address] Phone Care Team Providers Care Timber Cruiser Name Role Phone Reina Brown MD Primary [...] Upcoming Encounters Date Type Department Care Team ([facility] Contact Info) Description 09/21/2024 9:30 AM EDT Consult Orthopedic Surgery - Rew [address] [id number] Prince Grimes, DPM [address] [address] Health Maintenance Due Date Last Done Comments [...] patient's age to complete this topic Insurance [facility] PLAN Care Teams Timber Cruiser Relationship Specialty Start Date End Date Reina Brown MD [address] [place] [address] [place] [address] PCP - General Internal Medicine 03/03/24
--- OUTSIDE RECORDS SUMMARY | 2024-07-20 14:39 | XMS_ITS | Clinical Summary ---
Author Organization [facility] Facility Address [address] [place] [address] Care Team Providers Care Feeder Switchboard Operator Name Role Phone Lupis Brown MD Primary Care Provider +1- [phone] Family History Medical History Relation Comments Hypertension [...] 07/18/1995 Influenza Vaccine (Season Ended) 2024 Insurance [facility] Medicaid [facility] Medicaid Care Teams Feeder Switchboard Operator Relationship Specialty Start Date End Date Lupis Brown MD [address] [place] [address] PCP - General Internal Medicine 02/25/22
== END 2024-07-20 15:01 | disposition home or self-care (01) ==
LOC: HO.HCS 14:18
PROVIDERS: PCP Internal Medicine
DX: R07.9 Chest pain, unspecified (principal); R06.02 Shortness of breath; I10 Essential (primary) hypertension; E78.5 Hyperlipidemia, unspecified; E66.01 Morbid (severe) obesity due to excess calories; Z68.43 Body mass index [BMI] 50.0-59.9, adult; G47.33 Obstructive sleep apnea (adult) (pediatric); Z09 Encounter for follow-up examination after completed treatment for conditions other than malignant neoplasm
CPT/HCPCS: 99214; G2211

== ENCOUNTER → 2024-07-20 14:17 | Outpatient (BNVA) | payer OTHER, SELFPAY | PROVIDERS: PCP Internal Medicine | DX: Z09 Encounter for follow-up examination after completed treatment for conditions other than malignant neoplasm (principal); R07.9 Chest pain, unspecified; R06.02 Shortness of breath; I10 Essential (primary) hypertension; E78.5 Hyperlipidemia, unspecified; E66.01 Morbid (severe) obesity due to excess calories; G47.33 Obstructive sleep apnea (adult) (pediatric); Z68.43 Body mass index [BMI] 50.0-59.9, adult | CPT/HCPCS: 99212 ==

== ENCOUNTER 2024-10-12 16:11 | Outpatient (REF) | payer OTHER, SELFPAY ==
--- OUTSIDE RECORDS SUMMARY | 2024-10-12 16:13 | XMS_ITS | Clinical Summary ---
Author Organization [facility] Facility Address [address] [place] [address] Care Team Providers Care Food Safety Scientist Name Role Phone Lupis Brown MD Primary Care Provider +1- [phone] Family History Medical History Relation Comments Hypertension [...] of 2 - PCV) 07/18/1995 Influenza Vaccine (#1) 2024 Insurance [facility] Medicaid [facility] Medicaid Care Teams Food Safety Scientist Relationship Specialty Start Date End Date Lupis Brown MD [address] [place] [address] PCP - General Internal Medicine 02/25/22
--- OUTSIDE RECORDS SUMMARY | 2024-10-12 16:13 | XMS_ITS | Clinical Summary ---
Author Organization [facility] Address [address] [place] [address] Care Team Providers Care Audiology Doctor Name Role Phone Dotty Velázquez PA-C Primary Care Provider +1 [phone] Source Comments PLEASE NOTE, if this patient is a minor, it may be UNLAWFUL to discuss sensitive information that is contained in these records (such as FAMILY PLANNING, MENTAL HEALTH or SUBSTANCE ABUSE) with the minor patient's parent or other person without the patient's specific authorization.[facility] Allergies Active Allergy Reactions Criticality Noted Date Comments [place] Anaphylaxis 04/12/2013 Lisinopril 06/15/2018 Super high blood pressure. Medications albuterol sulfate 90 mcg/actuation inhalerIndications :Mild intermittent asthma without complication ([facility]) Inhale 1-2 Puffs into the lungs every [...] disease), stage II 9 Overview (08/12/2018): Sees Receiving Weigher Essential hypertension 06/15/2018 Other hyperlipidemia 06/15/2018 Mild intermittent asthma without complication ([facility]) 06/15/2018 Other sleep apnea 06/15/2018 Overview (06/15/2018): On CPAP Immunizations Immunization Administration Dates Next Due Hep B, Adult/Adol ([id number]/RECOMBIVAX-AD ULT) 12/28/2018,11/15/2018 INFLUENZA, SEASONAL, INJECTABLE 12/24/2012 PNEUMOCOCCAL CONJUGATE PCV [...] 76 02/15/2019 8:42 AM EST Temperature 36.9 C (98.4 F) 02/15/2019 8:42 AM EST Respiratory Rate 20 02/15/2019 8:42 AM EST Oxygen Saturation 97% 02/15/2019 8:42 AM EST Inhaled Oxygen Concentration - - Weight 135.2 kg (298 lb) 02/15/2019 8:42 AM EST Height 165.1 cm (5' 5 ) 11/15/2018 10:17 AM EDT Body Mass Index 49.59 11/15/2018 10:17 AM EDT Plan of Treatment Not on file Insurance [employer] Member Subscriber Plan / Payer (Ef fective 2018-Present) Name:Reid Sanchez Relation to Subscriber:Self Name:Reid Sanchez Payer ID:[id number] Type:Indemnity Address: [facility] [address] [place] [address] Care Teams Audiology Doctor Relationship Specialty Start Date End Date Dotty Velázquez PA-C [address] [place] [address] PCP - General FAMILY MEDICINEJANE 07/01/21
--- OUTSIDE RECORDS SUMMARY | 2024-10-12 16:13 | XMS_ITS | Clinical Summary ---
Author Organization 175 [facility] Address [address] [place] [address] Phone Care Team Providers Care Deckhand Shrimp Boat Name Role Phone Reina Brown MD Primary [...] on file Obstetrics History Plan of Treatment Health Maintenance Due Date Last Done Comments DTaP,Tdap,and Td Vaccines (1 - Tdap) 07/18/1995 Hepatitis B Vaccines (1 of 3 - 19+ 3-dose series) 07/18/1995 COVID-19 Vaccine (2023-2 5 season) 2023 Depression Screening 03/02/2024 Cholesterol Screening (Lipid Panel) 03/17/2024 Colorectal Cancer Screening: Colonoscopy 03/17/2024 HIV Screening 03/17/2024 Hepatitis C Screening 03/17/2024 Social Influencers of Health Screening 03/17/2024 Influenza Vaccine (#1) 2024 HIB Vaccines Aged Out No longer [...] and At-Risk Patients (6 to 49 Years) Aged Out No longer eligible b ased on patient's age to complete this topic RSV Immunization Patients Un samantha 20 months Aged Out No longer eligible b ased on patient's age to complete this topic Varicella Vaccines Aged Out No longer eligible based on patient's age to complete this topic Insurance [facility] [place] [address] Care Teams Deckhand Shrimp Boat Relationship Specialty Start Date End Date Reina Brown MD [address] [place] [address] PCP - General Internal Medicine 03/03/24
[2024-10-12 16:21] LABS: MANUAL DIFF FLAG NO
[2024-10-12 16:50] LABS: Hematocrit 41.2 % (42.0-52.0); Hemoglobin 13.4 g/dl (14.0-18.0); Imm Gran Abs Auto 0.04 X10*3/uL (0.00-0.03); Imm Gran Pct Auto 0.4 % (0.0-0.4); Lymphocytes Absolute Auto 1.4 X10*3/uL (1.2-4.9); Mean Corpuscular HGB Conc 32.5 g/dl (31.0-36.0); Mean Corpuscular Hemoglobin 28.2 pg (27.0-33.0); Mean Corpuscular Volume 86.7 fL (80.0-98.0); NRBC Abs Auto 0.000 X10*3/uL (0.0-0.012); NRBC Pct Auto 0.0 /100WBC (0.0-0.2); Platelet Count 250 X10*3/uL (160-400); Red Blood Count 4.75 X10*6/uL (4.60-5.80); White Blood Count 9.2 X10*3/uL (4.8-10.8)
[2024-10-12 17:26] LABS: Alanine Aminotransferase 25 U/L (0-40); Anion Gap 11 (12-20); Aspartate Amino Transferase 25 U/L (5-37); Blood Urea Nitrogen 13 mg/dL (9-16); Calcium 8.5 mg/dL (8.4-10.2); Carbon Dioxide 26 mmol/L (22-29); Chloride 111 mmol/L (96-108); Cholesterol 118 mg/dL (<200); Estimated Glomerular Filt Rate 48; HDL Cholesterol 31 mg/dL (>40); Iron 51 mcg/dL (45-160); Percent Iron Saturation 24 % (15-50); Potassium 3.4 mmol/L (3.3-5.1); Sodium 145 mmol/L (135-145); Total Iron Binding Capacity 214 mcg/dL (228-428); Triglycerides 187 mg/dL (<150); Unsaturated Iron Binding 163 ug/dL
== END 2024-10-12 16:12 | disposition home or self-care (01) ==
LOC: HO.LAB 16:11
PROVIDERS: PCP Internal Medicine; Visit Provider Internal Medicine
DX: I10 Essential (primary) hypertension (principal); E78.5 Hyperlipidemia, unspecified; D64.9 Anemia, unspecified; E66.01 Morbid (severe) obesity due to excess calories; Z68.43 Body mass index [BMI] 50.0-59.9, adult; R07.9 Chest pain, unspecified; Z86.39 Personal history of other endocrine, nutritional and metabolic disease
CPT/HCPCS: 36415; 80048; 80061; 82306; 83540; 84450; 84460; 85025

== ENCOUNTER 2024-10-14 11:25 | Outpatient (AMB) | payer OTHER, SELFPAY ==
--- NOTE | 2024-10-14 11:09 | A.OFFVIS_ITS ---
Intake Visit Reasons: 6 mnts f/u appt Clinical Applications Specialist Required: No Accompanied by: Spouse Allergies chocolate Allergy (Severe, Verified 06/04/24 13:18) Difficulty Breathing animal dander (animal hair) Allergy (Intermediate, Verified 06/04/24 13:18) Redness of Skin bee pollen (bee stings) Allergy (Intermediate, Verified 06/04/24 13:18) Unknown lisinopril (LISINOPRIL) Allergy (Intermediate, Verified 06/04/24 13:18) ANGIOEDEMA Latex, Natural Rubber Allergy (Mild, Verified 06/04/24 13:18) Unknown HPI Comments Details: 48 y/o male patient presents for follow up tele video visit for CHUN on CPAP, obesity, migraine with aura. Patient reports that he underwent an echocardiogram yesterday, and he is waiting results. He states Cardiology has told him his workup overall has been reassuring after having a hospital evaluation for chest pain in May. He states he is doing well with sleeping with his CPAP. He is no longer having issues with his salivary glands. The new mask with foam covering is better tolerated; his only issue is that after he washes the mask, the phone will retain some moisture. He does have enough supplies to alternate the mask. He is using distilled water in his CPAP water reservoir. He has been cleaning his CPAP supplies regularly. He states he has enough CPAP supplies and general. He states he had not had a migraine in a while, but then last week or so, he had had more migraines. He uses ibuprofen 800 mg or OTC aspirin, which has varying effects. He is not taking any migraine preventive medications. He describes his typical migraine as left-sided, with pain predominantly in the eye, with left vision blurriness, and sometimes left eye visual auras. [address], [facility] Email: [email or web address] Compliance Report Usage 07/09/2024 to 10/06/2024 Overall usage 100% Usage greater than 4 hours 99% Average usage on days used 6 hours and 43 minutes AirSense 10 AutoSet Serial number [id number] CPAP 14 cm H2O with EPR 2 Median leaks 9.7 L/min Residual events per hour, AHI: 1.1 per hour 04/22/2024, previous HPI: 06/19/2022 Split-night sleep study showed severe degree of sleep apnea with AHI was 83/hr and O2 shameka 77%, and stabilization of breathing and oxygenation levels on CPAP at [id number]. Patient reports that he is compliant with CPAP machine, which he uses nightly. However, he states his CPAP him to have a bilateral submandibular sialoadenitis (dx'd 03/15/24 at [facility]), and strep throat (dx'd 04/17/24 at [facility]). He also notes, that prior to this he had had COVID and RSV. States he works at [employer] in [place], so he has close contact to the public and often has to touch commonly touch items. He states prior to becoming sick in March, He had been using the same CPAP masks (was alternating between 2 different ones) for about 6-7 months. He had not changed his PAP tubing in greater than 1 year. He has been changing his water reservoir every 6 months. He had been using distilled water 90% of the time. He was washing his CPAP supplies only when he remembered or the water started looking off. He has never changed his CPAP filter, states he did not know the CPAP had a filter. Since March, he states he has change some of the supplies. His friend is helping him to clean his supplies more regularly now. Overall he is sleeping well with CPAP with good reduction in residual AHI. Last week, during the acute strep throat infection, he had markedly elevated residual AHIs x2 nights, however since his residual AHIs have returned to baseline. He does feel his current medium sized full face mask might be too tight. He states his machine is flashing blue lights, he is not sure why it is doing this He states he has been trying to lose weight, states at home he had gotten his weight down to 310 lb. He has a history of migraine, which we did not address today. COUNT INCLUDES THE [facility] Medical History Bilateral leg and foot pain CHUN on CPAP Plantar fasciitis, bilateral Decreased hearing of both ears Anemia Disc disease, degenerative, cervical Family history of ovarian cancer Hemorrhoids with complication History of vitamin D deficiency Iron deficiency anemia Family history of early CAD Vitamin D deficiency Dyslipidemia (high LDL; low HDL) Mild intermittent asthma CKD (chronic kidney disease) stage 3, GFR 30-59 ml/min Low back pain Stage 3 chronic kidney disease Morbid obesity with BMI of 50.0-59.9, adult Benign essential hypertension Pure hypercholesterolemia Anxiety Surgical History No history of previous surgery Family History Mother No problems noted. Father Heart problem Paternal Uncle Heart problem Paternal Grandfather Heart problem Heart attack Paternal Grandmother Breast cancer Paternal Aunt Ovarian cancer Social History Household Members: Spouse and Children Household Members Other:: Cat Housing: Apartment Alcohol intake: current Alcohol intake frequency: does not drink Patient Tobacco Use Status: Never used Tobacco e-Cigarette/Vaping Use: Never Used Second Hand Smoke Exposure: Yes Advance Directives Date on File: 02/25/24 service: No Current occupational status: employed 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, [employer] Cognitive needs: No Hearing needs: No Vision needs: Yes Physical Exam Const General: no acute distress Orientation/consciousness: patient oriented x3 Resp Effort & Inspection: normal respiratory effort and able to speak in complete sentences Neuro General: patient oriented x3 and moves all extremities Cranial nerves: Yes Normal facial strength present Psych Appearance: well kempt Mental Status: mental status grossly normal Speech and movement: Clear speech present Attitude: cooperative Telehealth Telehealth Telehealth Platform: [facility] Location of provider rendering services: practice address Location of patient: address on file Patient Identification confirmed using: Name, : Yes Telehealth method: video Patient verbally consented to treatment: Yes Patient verbally consented to billing insurance company: Yes Patient informed of any privacy concerns related to visit: Yes Minutes spent on Phone/Video with Pt.: 6 Assessment & Plan Assessment & Plan (1) CHUN on CPAP: Code(s): G47.33 - Obstructive sleep apnea (adult) (pediatric) Category: Medical (2) Migraine with aura, not intractable, without status migrainosus: Code(s): G43.109 - Migraine with aura, not intractable, without status migrainosus Category: Medical (3) Morbid obesity with BMI of 50.0-59.9, adult: Code(s): E66.01 - Morbid (severe) obesity due to excess calories; Z68.43 - Body mass index [BMI] 50.0-59.9, adult Category: Medical Plan For CHUN: Continue CPAP 14 cmH2O w/ EPR 2 nightly > 4 hours, as pt continues to have good clinical effect from use. * Clean CPAP machine and supplies routinely. * Change CPAP supplies routinely, including but not limited to CPAP filter every 2 weeks. * Use distilled water in CPAP water reservoir. * Pt to contact us or respiratory company with any questions or concerns. We will follow-up status for previous referral to weight management, patient may benefit from a trial of Zepbound tx for weight loss in setting of severe CHUN. For migraine with aura: Start riboflavin 400 mg daily in the morning. * Advised this will likely cause his urine color to come bright yellow/orange Start magnesium 400 mg daily at bedtime * Advise a possible side effect of GI upset or loose stools. * May hold for loose stools. May continue ibuprofen 800 mg every 8 hours as needed for now. Pt to follow-up in 6 months or sooner prn. Medications: New riboflavin (vitamin B2) 400 mg PO DAILY 30 tabs 6RF 30 days magnesium oxide may hold for loose stools 400 mg PO BEDTIME 30 tabs 6RF 30 days Coding Level of Care Code Tele Est Pt Level 4 (21811) Diagnoses CHUN on CPAP G47.33 Migraine with aura, not intractable, without status migrainosus G43.109 Morbid obesity with BMI of 50.0-59.9, adult E66.01; Z68.43
--- OUTSIDE RECORDS SUMMARY | 2024-10-14 11:27 | XMS_ITS | Clinical Summary ---
Author Organization [facility] Facility Address [address] [place] [address] Care Team Providers Care Utilities Manager Name Role Phone Lupis Brown MD Primary Care Provider +1- [phone] Family History Medical History Relation Comments Hypertension [...] PCV) 07/18/1995 Influenza Vaccine (#1) 2024 Insurance [facility] Medicaid [facility] Medicaid Care Teams Utilities Manager Relationship Specialty Start Date End Date Lupis Brown MD [address] [place] [address] PCP - General Internal Medicine 02/25/22
--- OUTSIDE RECORDS SUMMARY | 2024-10-14 11:27 | XMS_ITS | Clinical Summary ---
Author Organization [facility] Address [address] [place] [address] Care Team Providers Care Dairy And Food Laboratory Assistant Name Role Phone Dotty Velázquez PA-C Primary Care Provider [phone] Source Comments PLEASE NOTE, if this patient is a minor, it may be UNLAWFUL to discuss sensitive information that is contained in these records (such as FAMILY PLANNING, MENTAL HEALTH or SUBSTANCE ABUSE) with the minor patient's parent or other person without the patient's specific authorization.[facility] Allergies Active Allergy Reactions Criticality Noted Date Comments [place] Anaphylaxis 04/12/2013 Lisinopril 06/15/2018 Super high blood pressure. Medications albuterol sulfate 90 mcg/actuation inhalerIndications :Mild intermittent asthma without complication ([facility]-HCC) Inhale 1-2 Puffs into the lungs [...] disease), stage II 9 Overview (08/12/2018): Sees Form Setter [employer] Forms Essential hypertension 06/15/2018 Other hyperlipidemia 06/15/2018 Mild intermittent asthma without complication ([facility]-HCC) 06/15/2018 Other sleep apnea 06/15/2018 Overview (06/15/2018): On CPAP Immunizations Immunization Administration Dates Next Due Hep B, Adult/Adol ([id number]/RECOMBIVAX-AD ULT) 12/28/2018,11/15/2018 INFLUENZA, SEASONAL, INJECTABLE 12/24/2012 PNEUMOCOCCAL [...] Plan of Treatment Not on file Insurance [employer] Member Subscriber Plan / Payer (Ef fective 2018-Present) Name:Reid Sanchez Relation to Subscriber:Self Name:Reid Sanchez Payer ID:[id number] Type:Indemnity Address: [facility] [address] [place] [address] Care Teams Dairy And Food Laboratory Assistant Relationship Specialty Start Date End Date Dotty Velázquez PA-C [address] [place] [address] PCP - General FAMILY MEDICINEJANE 07/01/21
--- OUTSIDE RECORDS SUMMARY | 2024-10-14 11:27 | XMS_ITS | Clinical Summary ---
Author Organization [address] [facility] Address [address] [place] [address] Phone Care Team Providers Care Type Copy Examiner Name Role Phone Reina Brown MD Primary Care Provider [phone] Surgical History Surgery Date Site/Laterality Comments OTHER [...] patient's age to complete this topic Insurance [facility] Care Teams Type Copy Examiner Relationship Specialty Start Date End Date Reina Brown MD [address] [place] [address] PCP - General Internal Medicine 03/03/24
== END 2024-10-14 12:02 | disposition home or self-care (01) ==
LOC: HO.HSMS 11:25
PROVIDERS: PCP Internal Medicine; Visit Provider Nurse Practitioner Family
DX: G47.33 Obstructive sleep apnea (adult) (pediatric) (principal); G43.109 Migraine with aura, not intractable, without status migrainosus; E66.01 Morbid (severe) obesity due to excess calories; Z68.43 Body mass index [BMI] 50.0-59.9, adult
CPT/HCPCS: 99214

== ENCOUNTER 2024-11-21 10:48 | Outpatient (AMB) | payer OTHER, SELFPAY ==
--- NOTE | 2024-11-21 10:54 | AM.OFFWIN_ITS ---
Intake Vital Signs 11/21/24 10:55 Height 5 ft 6 in Weight 340 lb BMI 54.9 BP 142/80 H Blood Pressure Location Lt brachial Position Sitting Pulse 76 Pulse Source Pulse Oximeter Pulse Oximetry (%) 98 Intake Visit Reasons: EP right foot open blister Intake Note: pt is here for right foot blister, 2 weeks Patient Tobacco Use Status: Never used Tobacco Allergies chocolate Allergy (Severe, Verified 11/21/24 10:56) Difficulty Breathing animal dander (animal hair) Allergy (Intermediate, Verified 11/21/24 10:56) Redness of Skin bee pollen (bee stings) Allergy (Intermediate, Verified 11/21/24 10:56) Unknown lisinopril (LISINOPRIL) Allergy (Intermediate, Verified 11/21/24 10:56) ANGIOEDEMA Latex, Natural Rubber Allergy (Mild, Verified 11/21/24 10:56) Unknown Do you need a note to return to daycare/school/sports/work: No HPI HPI Comments History of Present Illness Details History - The patient is a 49-year-old male pres enting with a rash on the left foot. - He suspected it to be an insect bite r eaction. - The issue began approximately two week s ago when the patient noticed a lesion after scratching, suspecting a spider bite. - The lesion has been treated with perox lev and an unspecified cream, but it continues to ooze, especially when covered by a shoe. - The patient resides in an area with a high prevalence of spiders, which may caro ve contributed to the initial bite. - The lesion is itchy at times, and ther e are smaller lesions noted on the leg. - He has been putting cream on the area and alcohol. - He denies fever, chills, CP, SOB, numb ness, tingling, or joint pain. Physical Exam General: Cooperative, healthy appearing, comfortable, no acute distress and well developed Orientation: Patient oriented x3 Limitations: No limitations Neck: Normal visual inspection and Yes full ROM Respiratory: Normal respiratory effort and able to speak in complete sentences. Clear to auscultation bilaterally. No w/r/r noted. Cardiovascular: RRR, no m/r/g noted. Normal S1 and S2 Skin: Patch of erythematous non-tender, moist skin noted on top of the left foot. No streaking, induration, or fluctuance noted. Patient was informed and verbally consented to the use of an ambient scribe for clinic note documentation during this visit [facility] Medical History Bilateral leg and foot pain CHUN on CPAP Plantar fasciitis, bilateral Decreased hearing of both ears Anemia Disc disease, degenerative, cervical Family history of ovarian cancer Hemorrhoids with complication History of vitamin D deficiency Iron deficiency anemia Family history of early CAD Vitamin D deficiency Dyslipidemia (high LDL; low HDL) Mild intermittent asthma CKD (chronic kidney disease) stage 3, GFR 30-59 ml/min Low back pain Stage 3 chronic kidney disease Morbid obesity with BMI of 50.0-59.9, adult Benign essential hypertension Pure hypercholesterolemia Anxiety Surgical History No history of previous surgery Family History Mother No problems noted. Father Heart problem Paternal Uncle Heart problem Paternal Grandfather Heart problem Heart attack Paternal Grandmother Breast cancer Paternal Aunt Ovarian cancer Social History Household Members: Spouse and Children Household Members Other:: Cat Housing: Apartment Alcohol intake: current Alcohol intake frequency: does not drink Patient Tobacco Use Status: Never used Tobacco e-Cigarette/Vaping Use: Never Used Second Hand Smoke Exposure: Yes Advance Directives Date on File: 02/25/24 service: No Current occupational status: employed 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, [employer] Cognitive needs: No Hearing needs: No Vision needs: Yes Review of Systems Const All systems reviewed & are unremarkable except as noted in HPI and below Physical Exam Vital Signs: Last Vital Signs Pulse 76 11/21/24 10:55 BP 142/80 H 11/21/24 10:55 Pulse Ox 98 11/21/24 10:55 BMI result Body Mass Index 54.9 Assessment & Plan Assessment & Plan (1) Rash of foot: Code(s): R21 - Rash and other nonspecific skin eruption Plan Most likely cellulitis vs bug bite vs contact dermatitis Plan - Prescribe oral antibiotics to address the potential infection. - Prescribe an antibiotic ointment to be applied topically three times daily. - Advise the patient to keep the lesion covered to prevent further infection. - Schedule a follow-up appointment if the condition does not improve with the prescribed treatment. Medications: New mupirocin 2% 1 appl topical TID 22 grams 0RF cephalexin 500 mg PO Q6H 28 caps 0RF Coding Level of Care Code Est Pt Level 3 (54221) Diagnoses Rash of foot R21
[2024-11-21 10:55] VITALS: BP 142/80; PULSE 76; O2SAT 98; BMI 54.9
--- OUTSIDE RECORDS SUMMARY | 2024-11-21 13:18 | XMS_ITS | Clinical Summary ---
Author Organization [facility] Address [address] [place] [address] Care Team Providers Care Notary Public Name Role Phone Lupis Brown MD Primary Care Provider [phone] Family History Medical History Relation Comments Hypertension [...] PCV) 07/18/1995 Influenza Vaccine (#1) 2024 Insurance [facility] Medicaid [facility] Medicaid Care Teams Notary Public Relationship Specialty Start Date End Date Lupis Brown MD [address] [place] [address] PCP - General Internal Medicine 02/25/22
--- OUTSIDE RECORDS SUMMARY | 2024-11-21 13:18 | XMS_ITS | Clinical Summary ---
Author Organization [facility] Address [address] [place] [address] Care Team Providers Care Plaster Maker Name Role Phone Dotty Velázquez PA-C Primary Care Provider [phone] Source Comments PLEASE NOTE, if this patient is a minor, it may be UNLAWFUL to discuss sensitive information that is contained in these records (such as FAMILY PLANNING, MENTAL HEALTH or SUBSTANCE ABUSE) with the minor patient's parent or other person without the patient's specific authorization.[facility] Allergies Active Allergy Reactions Criticality Noted Date Comments [place] Anaphylaxis 04/12/2013 Lisinopril 06/15/2018 Super high blood [...] disease), stage II 9 Overview (08/12/2018): Sees Head Trimmer Essential hypertension 06/15/2018 Other hyperlipidemia 06/15/2018 Mild intermittent asthma without complication ([facility]-HCC) 06/15/2018 Other sleep apnea 06/15/2018 Overview (06/15/2018): On CPAP Immunizations Immunization Administration Dates Next Due Hep B, Adult/Adol (FIITBNY-H-STSRM/RECOMBIVAX-AD ULT) 12/28/2018,11/15/2018 INFLUENZA, SEASONAL, INJECTABLE 12/24/2012 PNEUMOCOCCAL [...] Plan of Treatment Not on file Insurance [employer] Member Subscriber Plan / Payer (Ef fective 2018-Present) Name:Reid Sanchez Relation to Subscriber:Self Name:Reid Sanchez Payer ID:[id number] Type:Indemnity Address: [facility] [address] [place] [address] Care Teams Plaster Maker Relationship Specialty Start Date End Date Dotty Velázquez PA-C [address] [place] [address] PCP - General FAMILY MEDICINEJANE 07/01/21
--- OUTSIDE RECORDS SUMMARY | 2024-11-21 13:18 | XMS_ITS | Clinical Summary ---
Author Organization [address] [place] [address] Address [address] [place] [address] Phone Care Team Providers Care Sewing Machine Adjuster Name Role Phone Reina Brown MD Primary Care Provider [phone] Surgical History Surgery Date Site/Laterality Comments OTHER [...] of 3 - 19+ 3-dose series) 07/18/1995 Depression Screening 03/02/2024 Cholesterol Screening (Lipid Panel) 03/17/2024 Colorectal Cancer Screening: Colonoscopy 03/17/2024 HIV Screening 03/17/2024 Hepatitis C Screening 03/17/2024 Social Influencers of Health Screening 03/17/2024 COVID-19 Vaccine (1 - 2023-2 5 season) 2024 Influenza Vaccine (#1) 2024 HIB Vaccines Aged [...] patient's age to complete this topic Insurance [facility] PLAN Care Teams Sewing Machine Adjuster Relationship Specialty Start Date End Date Reina Brown MD [address] [place] [address] PCP - General Internal Medicine 03/03/24
== END 2024-11-21 12:10 | disposition home or self-care (01) ==
PROVIDERS: PCP Internal Medicine; Visit Provider Physician Assistant Medical
DX: R21 Rash and other nonspecific skin eruption (principal)

== ENCOUNTER → 2024-11-21 10:48 | Outpatient (BNVA) | payer OTHER, SELFPAY | PROVIDERS: PCP Internal Medicine; Visit Provider Physician Assistant Medical | DX: R21 Rash and other nonspecific skin eruption (principal) | CPT/HCPCS: 99212 ==

== ENCOUNTER 2024-11-22 17:02 | Emergency (ER) | payer OTHER, SELFPAY ==
--- NOTE | ~2024-11-22 | XR_ITS ---
CLINICAL HISTORY: low back pain after vomiting 3 views of the lumbar spine. COMPARISON: XR lumbar spine dated 07/03/22 at 20:49 EDT FINDINGS: Five [id number] lumbar type vertebral bodies. Normal vertebral body alignment. Vertebral body heights are maintained. No evidence of acute vertebral body injury. Multilevel marginal osteophytes most pronounced along the lower thoracic spine. Facet joint arthrosis in the lower lumbar spine with neural foraminal narrowing most pronounced at L5-S1. Visualized portions of the bones of the pelvis appear intact. IMPRESSION: 1. No radiographic evidence of acute injury to the lumbar spine. 2. Mild to moderate multilevel lumbar spondylosis. This document has been electronically signed by: Monty Levy MD on 11/22/2024 18:34:36
--- NOTE | ~2024-11-22 | XR_ITS ---
CLINICAL HISTORY: hip pain pain after vomiting AP pelvis, Two views of the left hip. COMPARISON: None provided. FINDINGS: Pelvic ring appears intact. Visualized lower lumbar spine is unremarkable. Visualized portions of the contralateral right hip appear intact. Left hip: Visualized portions of the proximal left femur appears intact. No trabecular disruption or cortical discontinuity. Femoral head is appropriately seated in the acetabulum. IMPRESSION: 1. No radiographic evidence of acute injury to the pelvis and left hip. This document has been electronically signed by: Monty Levy MD on 11/22/2024 18:34:33
[2024-11-22 17:13] VITALS: BP 160/102; PULSE 73; O2SAT 98
[2024-11-22 17:15] VITALS: BP 159/83; PULSE 73; RESP 18; TEMP 36.6; O2SAT 99; BMI 54.9
--- NOTE | 2024-11-22 17:16 | ED.BACK ---
HPI - Back Pain/Injury General Chief Complaint: Back Pain/Injury Stated Complaint: back pain after vomiting Related Data Home Medications ?Medication ?Instructions ?Recorded ?Confirmed amlodipine 10 mg tablet 10 mg PO BEDTIME 06/04/24 11/27/24 ibuprofen 200 mg tablet 800 mg PO DAILY PRN Pain 11/27/24 11/27/24 pantoprazole 40 mg tablet,delayed 40 mg PO DAILY@0630 11/27/24 11/27/24 release Previous Rx's ?Medication ?Instructions ?Recorded lidocaine 5 % topical patch 1 patch topical DAILY PRN pain #15 06/30/23 ea aspirin 81 mg tablet,delayed 81 mg PO DAILY #90 tabs 06/05/24 release losartan 100 mg tablet 100 mg PO DAILY #90 tabs 08/19/24 atorvastatin 40 mg tablet 40 mg PO BEDTIME #90 tabs 08/26/24 magnesium oxide 400 mg (241.3 mg 400 mg PO BEDTIME 30 days #30 tabs 10/14/24 magnesium) tablet cephalexin 500 mg capsule 500 mg PO Q6H #28 caps 11/21/24 mupirocin 2 % topical ointment 1 appl topical TID #22 grams 11/21/24 ferrous sulfate 324 mg (65 mg 324 mg PO DAILY #90 tabs 11/22/24 iron) tablet,delayed release Allergies Allergy/AdvReac Type Severity Reaction Status Date / Time chocolate Allergy Severe Difficulty Verified 11/27/24 09:07 Breathing animal dander (animal hair) Allergy Intermediate Redness of Verified 11/27/24 09:07 Skin bee pollen (bee stings) Allergy Intermediate Unknown Verified 11/27/24 09:07 lisinopril (LISINOPRIL) Allergy Intermediate ANGIOEDEMA Verified 11/27/24 09:07 Latex, Natural Rubber Allergy Mild Unknown Verified 11/27/24 09:07 [facility] Past Medical History Medical History (Updated 11/27/24 @ 16:20 by JANE Zambrano) Bilateral leg and foot pain CHUN on CPAP Plantar fasciitis, bilateral Disc disease, degenerative, cervical Hemorrhoids with complication Iron deficiency anemia Vitamin D deficiency Mild intermittent asthma CKD (chronic kidney disease) stage 3, GFR 30-59 ml/min Low back pain Morbid obesity with BMI of 50.0-59.9, adult Benign essential hypertension Pure hypercholesterolemia Anxiety Surgical History No history of previous surgery Family History Family History Mother No problems noted. Father Heart problem Paternal Uncle Heart problem Paternal Grandfather Heart problem Heart attack Paternal Grandmother Breast cancer Paternal Aunt Ovarian cancer Social History Social History Household Members: Spouse and Children Household Members Other:: Cat Housing: Apartment Alcohol intake: current Alcohol intake frequency: does not drink Patient Tobacco Use Status: Never used Tobacco e-Cigarette/Vaping Use: Never Used Second Hand Smoke Exposure: Yes Advance Directives Date on File: 02/25/24 service: No Current occupational status: employed 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, [employer] Cognitive needs: No Hearing needs: No Vision needs: Yes Physical Exam Vital Signs: Vital Signs: Last Vital Signs Temp 98 F 11/22/24 17:15 Pulse 71 11/22/24 20:19 Resp 16 11/22/24 20:19 BP 165/96 H 11/22/24 20:19 Pulse Ox 97 11/22/24 20:19 O2 Del Method Room Air 11/22/24 20:19 BMI result Body Mass Index 54.9 Course Course Course Narrative: This is a Rapid Medical Examination (RME) performed by Gaudencio Loyd PA-C in triage. Full HPI, ROS, assessment and treatment plan per primary provider in the Main ED. Hx: 49 yo M BIBA for eval of left lower back/hip pain which began when he attempted to vomit up his food today. Plan: xrs Reevaluation(s) Reevaluation #1: Patient left the emergency department before myself or any of the other clinicians could review or explain physical exam findings, test results, need or lack there of for additional testing, treatment options, or a treatment plan. Discharge Plan Discharge Clinical Impression: Back pain Patient Disposition: Left W/O Completing Treatment Prescriptions: No Action losartan 100 mg tablet 100 mg PO DAILY Qty: 90 1RF atorvastatin 40 mg tablet 40 mg PO BEDTIME Qty: 90 1RF ferrous sulfate 324 mg (65 mg iron) tablet,delayed release (DR/EC) 324 mg PO DAILY Qty: 90 1RF lidocaine 5 % adhesive patch,medicated 1 patch topical DAILY PRN (Reason: pain) Qty: 15 0RF Rx Instructions: leave on most painful area for up to 12 hrs amlodipine 10 mg tablet 10 mg PO BEDTIME aspirin 81 mg Tablet,Delayed Release (Dr/Ec) 81 mg PO DAILY Qty: 90 0RF ibuprofen 200 mg Tablet 800 mg PO DAILY PRN (Reason: Pain) pantoprazole 40 mg tablet,delayed release (DR/EC) 40 mg PO DAILY@0630 magnesium oxide 400 mg (241.3 mg magnesium) tablet 400 mg PO BEDTIME 30 Days Qty: 30 6RF Rx Instructions: may hold for loose stools cephalexin 500 mg capsule 500 mg PO Q6H Qty: 28 0RF mupirocin 2 % ointment 1 appl topical TID Qty: 22 0RF Discharge Date/Time: 11/22/24 21:25
[2024-11-22 20:19] VITALS: BP 165/96; PULSE 71; RESP 16; O2SAT 97
--- OUTSIDE RECORDS SUMMARY | 2024-11-22 20:35 | XMS_ITS | Clinical Summary ---
Author Organization [facility] Address [address] [place] [address] Care Team Providers Care Supervisor Residential Name Role Phone Lupis Brown MD Primary Care Provider [phone] Family History Medical History Relation Comments Hypertension [...] PCV) 07/18/1995 Influenza Vaccine (#1) 2024 Insurance [facility] Medicaid [facility] Medicaid Care Teams Supervisor Residential Relationship Specialty Start Date End Date Lupis Brown MD [address] [place] [address] PCP - General Internal Medicine 02/25/22
--- OUTSIDE RECORDS SUMMARY | 2024-11-22 20:35 | XMS_ITS | Clinical Summary ---
Author Organization [facility] Address [address] [place] [address] Care Team Providers Care Business Account Executive Name Role Phone Dotty Velázquez PA-C Primary Care Provider [phone] Source Comments PLEASE NOTE, if this patient is a minor, it may be UNLAWFUL to discuss sensitive information that is contained in these records (such as FAMILY PLANNING, MENTAL HEALTH or SUBSTANCE ABUSE) with the minor patient's parent or other person without the patient's specific authorization.[facility] Allergies Active Allergy Reactions Criticality Noted Date Comments [place] Anaphylaxis 04/12/2013 Lisinopril 06/15/2018 Super high blood pressure. Medications albuterol sulfate 90 mcg/actuation inhalerIndications :Mild intermittent asthma without complication ([facility]-HCC) Inhale 1-2 Puffs into the lungs [...] disease), stage II 9 Overview (08/12/2018): Sees Unhairer Essential hypertension 06/15/2018 Other hyperlipidemia 06/15/2018 Mild intermittent asthma without complication (H HS-HCC) 06/15/2018 Other sleep apnea 06/15/2018 Overview (06/15/2018): On CPAP Immunizations Immunization Administration Dates Next Due Hep B, Adult/Adol ([id number]-U-[id number]/RECOMBIVAX-AD ULT) 12/28/2018,11/15/2018 INFLUENZA, SEASONAL, INJECTABLE 12/24/2012 PNEUMOCOCCAL [...] Plan of Treatment Not on file Insurance [employer] Member Subscriber Plan / Payer (Ef fective 2018-Present) Name:Reid Sanchez Relation to Subscriber:Self Name:Reid Sanchez Payer ID:[id number] Type:Indemnity Address: [facility] [address] [place] [address] Care Teams Business Account Executive Relationship Specialty Start Date End Date Dotty Velázquez PA-C [address] [place] [address] PCP - General FAMILY MEDICINEJANE 07/01/21
--- OUTSIDE RECORDS SUMMARY | 2024-11-22 20:35 | XMS_ITS | Clinical Summary ---
Author Organization [address] [place] [address] Address [address] [place] [address] Phone Care Team Providers Care Director Client Services Name Role Phone Reina Brown MD Primary [...] patient's age to complete this topic Insurance [facility] [place] [address] Care Teams Director Client Services Relationship Specialty Start Date End Date Reina Brown MD [address] [place] [address] PCP - General Internal Medicine 03/03/24
== END 2024-11-22 21:25 | disposition left against medical advice (07) ==
PROVIDERS: Emergency Provider Emergency Medicine Emergency Medical Services; PCP Internal Medicine
DX: M54.9 Dorsalgia, unspecified (principal); R11.10 Vomiting, unspecified; G47.33 Obstructive sleep apnea (adult) (pediatric); M72.2 Plantar fascial fibromatosis; M50.30 Other cervical disc degeneration, unspecified cervical region; D50.9 Iron deficiency anemia, unspecified; J45.20 Mild intermittent asthma, uncomplicated; N18.30 Chronic kidney disease, stage 3 unspecified; E66.01 Morbid (severe) obesity due to excess calories; I10 Essential (primary) hypertension; E78.00 Pure hypercholesterolemia, unspecified; F41.9 Anxiety disorder, unspecified; Z68.43 Body mass index [BMI] 50.0-59.9, adult; Z79.82 Long term (current) use of aspirin
CPT/HCPCS: 72100; 73502; 99284

== ENCOUNTER → 2024-11-22 17:15 | Outpatient (BNV) | payer OTHER, SELFPAY | PROVIDERS: Visit Provider Radiology Diagnostic Radiology | DX: M25.552 Pain in left hip (principal); M47.817 Spondylosis without myelopathy or radiculopathy, lumbosacral region | CPT/HCPCS: 72100; 73502 ==

== ENCOUNTER 2024-11-27 09:00 | Observation (INO) | payer OTHER, SELFPAY ==
--- NOTE | ~2024-11-27 | US_ITS ---
CLINICAL HISTORY: Left lower leg swelling Venous duplex ultrasound left lower extremity Comparison: None provided Findings: The visualized deep veins are fully compressible with normal Doppler color flow and spectral tracings. No popliteal cyst. IMPRESSION: 1. Negative for left lower extremity deep vein thrombosis. This document has been electronically signed by: Yeyo Jones MD on 11/27/2024 11:23:11
[2024-11-27 09:04] VITALS: BP 129/74; PULSE 70; RESP 18; TEMP 36.6; O2SAT 98; BMI 54.4
--- NOTE | 2024-11-27 09:14 | ED.GENADULT ---
HPI - General Adult General Chief complaint: Extremity Injury, Lower Stated complaint: woke up with a pinched nerve Time Seen by Provider: 11/27/24 09:12 Source: patient and RN notes reviewed Mode of arrival: ambulatory Limitations: no limitations History of Present Illness ED Provider: Karen Gold PA-C HPI narrative: This is a 49 yo male, with a past medical history of CHUN on CPAP, CKD, hypertension, hypercholesterolemia, who presents to the ED with a 1 week history of left lower extremity redness, swelling, and pain. Patient reports that 1 week ago he noticed what he suspected was an insect or spider bite on his left foot, followed by the development of a rash. By Thursday (11/22/24), he began experiencing progressive swelling, redness and warmth of the left lower leg with associated mild pain. He was prescribed PO cephalexin and mupiricin without relief. He is still on the Keflex however he states that he feels as though the redness and pain is only worsening. Pain worsens with weight-bearing. He denies fever, chills, nausea, vomiting, diarrhea, chest pain, or shortness of breath. Denies recent trauma, falls, or known exposures. No drainage or fluctuance of the LLE. No history of IVDA. MD complaint: Left lower extremity redness Onset (ago): day(s) Radiation: back Severity: moderate Quality: aching Pain Consistency: constant Relieving factors: none Exacerbating factors: none Associated symptoms: denies other symptoms Treatments prior to arrival: none Related Data Home Medications ?Medication ?Instructions ?Recorded ?Confirmed amlodipine 10 mg tablet 10 mg PO BEDTIME 06/04/24 07/20/24 Previous Rx's ?Medication ?Instructions ?Recorded lidocaine 5 % topical patch 1 patch topical DAILY PRN pain #15 06/30/23 ea docusate sodium 100 mg capsule 100 mg PO DAILY #90 caps 08/17/23 aspirin 81 mg tablet,delayed 81 mg PO DAILY #90 tabs 06/05/24 release pantoprazole 40 mg tablet,delayed 40 mg PO DAILY 90 days #90 tabs 06/05/24 release losartan 100 mg tablet 100 mg PO DAILY #90 tabs 08/19/24 atorvastatin 40 mg tablet 40 mg PO BEDTIME #90 tabs 08/26/24 magnesium oxide 400 mg (241.3 mg 400 mg PO BEDTIME 30 days #30 tabs 10/14/24 magnesium) tablet riboflavin (vitamin B2) 400 mg 400 mg PO DAILY 30 days #30 tabs 10/14/24 tablet cephalexin 500 mg capsule 500 mg PO Q6H #28 caps 11/21/24 mupirocin 2 % topical ointment 1 appl topical TID #22 grams 11/21/24 ferrous sulfate 324 mg (65 mg 324 mg PO DAILY #90 tabs 11/22/24 iron) tablet,delayed release Allergies Allergy/AdvReac Type Severity Reaction Status Date / Time chocolate Allergy Severe Difficulty Verified 11/27/24 09:07 Breathing animal dander (animal hair) Allergy Intermediate Redness of Verified 11/27/24 09:07 Skin bee pollen (bee stings) Allergy Intermediate Unknown Verified 11/27/24 09:07 lisinopril (LISINOPRIL) Allergy Intermediate ANGIOEDEMA Verified 11/27/24 09:07 Latex, Natural Rubber Allergy Mild Unknown Verified 11/27/24 09:07 Review of Systems Review of Systems: Constitutional : No Fever, No Chills ENT/Mouth : No sore throat, No Rhinorrhea Eyes: No Eye Pain, No Swelling, No Redness Cardiovascular : No Chest Pain, No SOB Respiratory : No Cough, No Sputum Gastrointestinal : No Nausea, No Vomiting, No Diarrhea, No abdominal Pain Genitourinary : No Dysuria, No Hematuria Musculoskeletal : No joint pain, No Myalgias, No Joint Swelling Skin : No Skin Lesions Neuro : No Weakness, No Numbness, No Headache All other systems reviewed and are negative Yes all other systems are reviewed and are negative Constitutional: Constitutional: Reports as per HPI Eyes: Eyes: Reports as per HPI, Denies change in vision and Denies eye discharge ENT: Reports system reviewed and no additional complaints, except as documented, Reports as per HPI, Reports Normal hearing present and Denies facial pain Cardiovascular: Cardiovascular: Reports as per HPI and Denies chest pain Respiratory: Respiratory: Reports as per HPI and Denies cough Gastrointestinal: Gastrointestinal: Reports as per HPI, Reports no additional gastrointestinal complaints, Denies abdominal pain, Denies diarrhea, Denies nausea and Denies vomiting Genitourinary: Genitourinary: Reports as per HPI Musculoskeletal: Musculoskeletal: Reports no additional musculoskeletal complaints and Reports as per HPI Integumentary/Breasts: Skin/Breast: Reports system reviewed and no additional complaints, except as docu, Reports as per HPI, Reports erythema, Denies rash and Denies wounds Neurologic: Reports Normal hearing present Psychiatric: Psychiatric: Reports no additional psychiatric complaints and Reports as per HPI Endocrine: Endocrine: Reports no additional endocrine complaints and Reports as per HPI Hematologic/Lymphatic: Hematologic/Lymphatic: Reports no additional hematologic/lymphatic complaints and Reports as per HPI Allergic/Immunologic: Allergic/Immunologic: Reports no additional allergic/immunologic complaints and Reports as per HPI [facility] Past Medical History Medical History Bilateral leg and foot pain CHUN on CPAP Plantar fasciitis, bilateral Decreased hearing of both ears Anemia Disc disease, degenerative, cervical Family history of ovarian cancer Hemorrhoids with complication History of vitamin D deficiency Iron deficiency anemia Family history of early CAD Vitamin D deficiency Dyslipidemia (high LDL; low HDL) Mild intermittent asthma CKD (chronic kidney disease) stage 3, GFR 30-59 ml/min Low back pain Stage 3 chronic kidney disease Morbid obesity with BMI of 50.0-59.9, adult Benign essential hypertension Pure hypercholesterolemia Anxiety Surgical History No history of previous surgery Family History Family History Mother No problems noted. Father Heart problem Paternal Uncle Heart problem Paternal Grandfather Heart problem Heart attack Paternal Grandmother Breast cancer Paternal Aunt Ovarian cancer Social History Social History Household Members: Spouse and Children Household Members Other:: Cat Housing: Apartment Alcohol intake: current Alcohol intake frequency: does not drink Patient Tobacco Use Status: Never used Tobacco Smoked in Last 30 Days: No e-Cigarette/Vaping Use: Never Used Second Hand Smoke Exposure: Yes Use of substances other than those prescribed or required for medical reasons: No Advance Directives: Yes Advance Directives on File: Yes Advance Directives Date on File: 02/25/24 Do you have a plan to hurt others: No Plan service: No Current occupational status: employed 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, [employer] Cognitive needs: No Hearing needs: No Vision needs: Yes Physical Exam ED Vital Signs: Vital Signs - 24 hr 11/27/24 09:04 Temperature 98 F Pulse Rate 70 Respiratory Rate 18 Blood Pressure 129/74 Pulse Oximetry 98 Oxygen Delivery Method Room Air BMI result Body Mass Index 54.4 Const General: cooperative, comfortable and no acute distress Orientation/consciousness: patient oriented x3 Limitations: no limitations HENMT Head: Yes normal to inspection, Yes normocephalic and Yes atraumatic Ears: hearing grossly normal bilaterally General nose exam: Normal external nose present Face and sinus: Yes normal facial exam Mouth: Normal oral and palatal mucosa present, oropharynx normal and moist mucous membranes Throat: Yes posterior oropharynx normal Eyes General: appearance normal, both eyes and all related structures Eyelids: Yes eyelids normal Conjunctivae: conjunctivae normal Sclerae: sclerae normal Pupils: Equal, round and reactive pupils present EOM: EOMs intact bilaterally Neck Neck: Yes normal visual inspection, Yes full ROM and Yes no lymphadenopathy Lymphatic: no lymphadenopathy noted Chest Chest palpation & inspection: normal inspection of the chest Resp Effort & Inspection: normal respiratory effort and able to speak in complete sentences Auscultation: clear to auscultation bilaterally Cardio Rate: regular rate Rhythm: regular rhythm Heart sounds: S1 normal heart sound present and S2 normal heart sound present GI Inspection: Yes normal to inspection Skin General skin exam: no rashes or lesions noted Trauma: no lacerations or abrasions Wounds: no wounds Neuro General: patient oriented x3 and moves all extremities Cranial nerves: Yes Equal, round and reactive pupils present and Yes Normal hearing present Extrem Other: Left lower extremity with 1+ pitting edema noted, with erythema and warmth noted to the posterior calf. DP pulses are 2+. Sensation intact. Patient does have tenderness palpation overlying the calf, compartments are soft. General: Yes normal to inspection Right upper extremity: normal to inspection Left upper extremity: normal to inspection Left lower extremity: normal to inspection Medications Administered Generic Name Dose Route Start Last Admin Trade Name Freq PRN Reason Stop Dose Admin Vancomycin HCl 2,000 mg in 500 mls @ 250 mls/hr 11/27/24 09:54 11/27/24 10:36 Vancomycin/Ns IV 11/27/24 11:53 250 mls/hr ONCE ONE Administration Discontinued Medications Generic Name Dose Route Start Last Admin Trade Name Freq PRN Reason Stop Dose Admin Sodium Chloride 1,000 mls @ 999 mls/hr 11/27/24 09:55 11/27/24 10:06 Ns IV 11/27/24 10:55 999 mls/hr .Q1H1M ONE Administration Piperacillin Sod/Tazobactam 50 mls @ 100 mls/hr 11/27/24 09:54 11/27/24 10:47 Sod 3.375 gm/ Sodium Chloride IV 11/27/24 10:23 Infused ONCE ONE Infusion Medical Decision Making Medical Decision Making [facility] Narrative: This is a 49 yo male, with a past medical history of CHUN on CPAP, CKD, hypertension, hypercholesterolemia, who presents to the ED with a 1 week history of left lower extremity redness, swelling, and pain. Patient reports that 1 week ago he noticed what he suspected was an insect or spider bite on his left foot, followed by the development of a rash. On arrival, vital signs within normal limits, he is speaking full sentences under no acute distress. Left lower extremity is erythematous and warm. Clinical exam is concerning for cellulitis, with failure of p.o. antibiotics outpatient. Other differential diagnoses include DVT, compartment syndrome although less likely given compartments are soft, and patient does not have any pain out of proportion. Contact dermatitis also considered however less likely given clinical appearance. Will obtain labs, ultrasound, and will also medicate with IV fluids, and IV antibiotics. 11:48 AM 11/27/2024 (Karen Gold PA-C): Labs returned, he has no leukocytosis, he does have a normocytic anemia with an H&H of 12.5/39.2, chemistry revealing chronic kidney disease, which is at his baseline. CRP elevated at 5.3, ESR elevated at 56. Discussed case with hospitalist, Amanda Velázquez, patient needing medical admission for cellulitis. Differential Diagnosis Differential Diagnoses: The differential diagnosis associated with the presentation includes See above Lab Data [facility] Lab Attestation statement: I reviewed the patient's lab results. See [facility] 11/27/24 10:05 11/27/24 10:05 Labs: Lab Results 11/27/24 11/27/24 Range/Units 10:04 10:05 WBC 8.4 (4.8-10.8) X10*3/uL RBC 4.44 L (4.60-5.80) X10*6/uL Hgb 12.5 L (14.0-18.0) g/dl Hct 39.2 L (42.0-52.0) % MCV 88.3 (80.0-98.0) fL MCH 28.2 (27.0-33.0) pg MCHC 31.9 (31.0-36.0) g/dl RDW 13.6 (11.0-16.0) % Plt Count 238 (160-400) X10*3/uL MPV 10.5 (9.4-12.4) fL Immature Gran % (Auto) 0.4 (0.0-0.4) % Neut % (Auto) 81.2 H (45-73) % Lymph % (Auto) 7.8 L (20-40) % [place] % (Auto) 6.8 (2-11) % Eos % (Auto) 3.6 (0-4) % Baso % (Auto) 0.2 (0-2) % Lymph # (Auto) 0.7 L (1.2-4.9) X10*3/uL [place] # (Auto) 0.6 (0.1-1.2) X10*3/uL Eos # (Auto) 0.3 (0.0-0.4) X10*3/uL Baso # (Auto) 0.0 (0.0-0.2) X10*3/uL Abs Immat Gran (auto) 0.03 (0.00-0.03) X10*3/uL Absolute Neuts (auto) 6.8 (2.0-8.3) x10*3/uL Absolute Nucleated RBC 0.000 (0.0-0.012) X10*3/uL Nucleated RBC % (auto) 0.0 (0.0-0.2) /100WBC ESR 56 H (0-15) MM/HR Sodium 145 (135-145) mmol/L Potassium 3.5 (3.3-5.1) mmol/L Chloride 112 H (96-108) mmol/L Carbon Dioxide 25 (22-29) mmol/L Anion Gap 12 (12-20) BUN 17 H (9-16) mg/dL Creatinine 1.57 H (0.5-1.4) mg/dL Estim Creat Clear Calc 80.9 Estimated GFR 47 Random Glucose 104 (60-115) mg/dL Lactic Acid 0.7 (0.5-2.0) mmol/L Calcium 8.9 (8.4-10.2) mg/dL Total Bilirubin 0.8 (0.0-1.0) mg/dL Direct Bilirubin 0.3 (0.0-0.5) mg/dL AST 20 (5-37) U/L ALT 20 (0-40) U/L Alkaline Phosphatase 113 (39-117) U/L C-Reactive Protein 5.30 H (< or = 0.50) mg/dL Total Protein 6.9 (6.5-8.0) g/dL Albumin 3.9 (3.5-5.0) g/dL Radiology Impression Discussion of test interpretation with radiology: I have reviewed the radiologist's reading. Radiologist Impression: CLINICAL HISTORY: Left lower leg swelling Venous duplex ultrasound left lower extremity Comparison: None provided Findings: The visualized deep veins are fully compressible with normal Doppler color flow and spectral tracings. No popliteal cyst. IMPRESSION: 1. Negative for left lower extremity deep vein thrombosis. This document has been electronically signed by: Yeyo Jones MD on 11/27/2024 11:23:11 Dictated By: Yeyo Jones MD Critical Care Time Critical Care Time Critical Care Time: Yes Total Critical Care Time: 35 Attestation: I have personally provided critical care time exclusive of time spent on separately billable procedures. Time includes review of lab data, radiology results, discussion with consultants, and monitoring for potential decompensation. Intervention performed as documented. Discharge Plan Discharge Clinical Impression: Cellulitis Patient Disposition: Admitted As Inpatient Print Language: Swedish
--- OUTSIDE RECORDS SUMMARY | 2024-11-27 09:20 | XMS_ITS | Clinical Summary ---
Author Organization [address] [place] [address] Address [address] [place] [address] Phone Care Team Providers Care Aerodynamic Consultant Name Role Phone Reina Brown MD Primary [...] patient's age to complete this topic Insurance [facility] [employer] Care Teams Aerodynamic Consultant Relationship Specialty Start Date End Date Reina Brown MD [address] [place] [address] PCP - General Internal Medicine 03/03/24
--- OUTSIDE RECORDS SUMMARY | 2024-11-27 09:20 | XMS_ITS | Clinical Summary ---
Author Organization [facility] Address [address] [place] [address] Care Team Providers Care Adjunct English Instructor Name Role Phone Dotty Velázquez PA-C Primary Care Provider [phone] Source Comments PLEASE NOTE, if this patient is a minor, it may be UNLAWFUL to discuss sensitive information that is contained in these records (such as FAMILY PLANNING, MENTAL HEALTH or SUBSTANCE ABUSE) with the minor patient's parent or other person without the patient's specific authorization.[facility] Allergies Active Allergy Reactions Criticality Noted Date Comments [place] Anaphylaxis 04/12/2013 Lisinopril 06/15/2018 Super high blood pressure. Medications albuterol sulfate 90 mcg/actuation inhalerIndications :Mild intermittent asthma without complication ([facility]) Inhale 1-2 Puffs into the lungs [...] disease), stage II 9 Overview (08/12/2018): Sees Prescription Clerk Lenses Essential hypertension 06/15/2018 Other hyperlipidemia 06/15/2018 Mild intermittent asthma without complication ([facility]) 06/15/2018 Other sleep apnea 06/15/2018 Overview (06/15/2018): On CPAP Immunizations Immunization Administration Dates Next Due Hep B, Adult/Adol ([id number]/RECOMBIVAX-AD ULT) 12/28/2018,11/15/2018 INFLUENZA, SEASONAL, INJECTABLE 12/24/2012 PNEUMOCOCCAL [...] Plan of Treatment Not on file Insurance [employer] Member Subscriber Plan / Payer (Ef fective 2018-Present) Name:Reid Sanchez Relation to Subscriber:Self Name:Reid Sanchez Payer ID:[id number] Type:Indemnity Address: [facility] [address] [place] [address] Care Teams Adjunct English Instructor Relationship Specialty Start Date End Date Dotty Velázquez PA-C [address] [place] [address] PCP - General FAMILY MEDICINEJANE 07/01/21
--- OUTSIDE RECORDS SUMMARY | 2024-11-27 09:20 | XMS_ITS | Clinical Summary ---
Author Organization [facility] Facility Address [address] [place] [id number] Care Team Providers Care Flat Sorting Machine Clerk Name Role Phone Lupis Brown MD Primary Care Provider [phone] Family History Medical History Relation Comments Hypertension [...] PCV) 07/18/1995 Influenza Vaccine (#1) 2024 Insurance [facility] Medicaid [facility] Medicaid Care Teams Flat Sorting Machine Clerk Relationship Specialty Start Date End Date Lupis Brown MD [address] [place] [address] PCP - General Internal Medicine 02/25/22
[2024-11-27 10:16] LABS: MANUAL DIFF FLAG NO
[2024-11-27 10:22] LABS: Hematocrit 39.2 % (42.0-52.0); Hemoglobin 12.5 g/dl (14.0-18.0); Imm Gran Abs Auto 0.03 X10*3/uL (0.00-0.03); Imm Gran Pct Auto 0.4 % (0.0-0.4); Lymphocytes Absolute Auto 0.7 X10*3/uL (1.2-4.9); Mean Corpuscular HGB Conc 31.9 g/dl (31.0-36.0); Mean Corpuscular Hemoglobin 28.2 pg (27.0-33.0); Mean Corpuscular Volume 88.3 fL (80.0-98.0); NRBC Abs Auto 0.000 X10*3/uL (0.0-0.012); NRBC Pct Auto 0.0 /100WBC (0.0-0.2); Platelet Count 238 X10*3/uL (160-400); Red Blood Count 4.44 X10*6/uL (4.60-5.80); White Blood Count 8.4 X10*3/uL (4.8-10.8)
[2024-11-27 10:32] LABS: Alanine Aminotransferase 20 U/L (0-40); Albumin Level 3.9 g/dL (3.5-5.0); Alkaline Phosphatase 113 U/L (39-117); Anion Gap 12 (12-20); Aspartate Amino Transferase 20 U/L (5-37); Blood Urea Nitrogen 17 mg/dL (9-16); Calcium 8.9 mg/dL (8.4-10.2); Carbon Dioxide 25 mmol/L (22-29); Chloride 112 mmol/L (96-108); Creatinine Clr Calc Pharmacy 80.9; Estimated Glomerular Filt Rate 47; Potassium 3.5 mmol/L (3.3-5.1); Sodium 145 mmol/L (135-145); Total Protein 6.9 g/dL (6.5-8.0)
[2024-11-27] MEDS: vancomycin/NS 2,000 MG/500 ML PLAST..BAG 250 MG IV (10:36)
--- NOTE | 2024-11-27 11:45 | PC.NURSE ---
Pt occasionally crossing arms, causing a delay in fluid/abx infusion. Pt encouraged to keep RUE open to help facilitate IVF and abx completion.
--- NOTE | 2024-11-27 12:08 | PM.IMHP ---
History of Present Illness Date of Service: 11/27/24 Chief Complaint: leg redness 49 year old man presenting with worsening LE erythema for over 1 week. He reported that last Thursday he went to urgent care and was given keflex and muprocin but the redness peristed. He denied fever, chills, nausea, vomiting diarrhea. He reported that it started with a bug bite. 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 In the ED, he did not have any fever, leukocytosis, venous doppler us neg for DVT. He was given Zosyn, Vancomycin in the ED. He was placed on observation for treatement of LE cellulitis. Review of Systems Review of Systems: Denies any recent fever chills or decrease in appetite respiratory denies any shortness of breath or cough cardiovascular denied chest pain gastrointestinal denies any dysphagia abdominal pain nausea vomiting or diarrhea genitourinary denies any dysuria frequency or hematuria musculoskeletal denies any joint pain or swelling neuropsych denies any weakness or seizures all other systems reviewed are negative [facility] Medical History (Updated 11/27/24 @ 13:34 by Aida Velázquez NP) Bilateral leg and foot pain CHUN on CPAP Plantar fasciitis, bilateral Disc disease, degenerative, cervical Hemorrhoids with complication Iron deficiency anemia Vitamin D deficiency Mild intermittent asthma CKD (chronic kidney disease) stage 3, GFR 30-59 ml/min Low back pain Morbid obesity with BMI of 50.0-59.9, adult Benign essential hypertension Pure hypercholesterolemia Anxiety Family History Mother No problems noted. Father Heart problem Paternal Uncle Heart problem Paternal Grandfather Heart problem Heart attack Paternal Grandmother Breast cancer Paternal Aunt Ovarian cancer Surgical History No history of previous surgery Social History Household Members: Spouse and Children Household Members Other:: Cat Housing: Apartment Alcohol intake: current Alcohol intake frequency: does not drink Patient Tobacco Use Status: Never used Tobacco Smoked in Last 30 Days: No e-Cigarette/Vaping Use: Never Used Second Hand Smoke Exposure: Yes Use of substances other than those prescribed or required for medical reasons: No Advance Directives: Yes Advance Directives on File: Yes Advance Directives Date on File: 02/25/24 Do you have a plan to hurt others: No Plan service: No Current occupational status: employed 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, [employer] Cognitive needs: No Hearing needs: No Vision needs: Yes Meds Allergies Allergy/AdvReac Type Severity Reaction Status Date / Time chocolate Allergy Severe Difficulty Verified 11/27/24 09:07 Breathing animal dander (animal hair) Allergy Intermediate Redness of Verified 11/27/24 09:07 Skin bee pollen (bee stings) Allergy Intermediate Unknown Verified 11/27/24 09:07 lisinopril (LISINOPRIL) Allergy Intermediate ANGIOEDEMA Verified 11/27/24 09:07 Latex, Natural Rubber Allergy Mild Unknown Verified 11/27/24 09:07 Active Medications: Current Medications Acetaminophen (Acetaminophen 325 Mg Tablet) 650 mg PO Q6H PRN PRN Reason: Pain, Mild 1-3,fever,headache Calcium Carbonate (Calcium Carbonate 750 Mg Tab.Chew) 750 mg PO Q4H PRN PRN Reason: Heartburn Enoxaparin Sodium (Enoxaparin Sodium 40 Mg/0.4 Ml Syringe) 40 mg SUBCUT Q24H [facility] Doxycycline Hyclate 100 mg/ (Sodium Chloride) 250 mls @ 166.67 mls/hr IV Q12H [facility] Magnesium Hydroxide (Milk Of Magnesia 30 Ml Oral.Susp) 30 ml PO DAILY PRN PRN Reason: Constipation Melatonin (Melatonin 3 Mg Tablet) 6 mg PO BEDTIME PRN PRN Reason: Insomnia Ondansetron HCl (Ondansetron Hcl 4 Mg/2 Ml Vial) 4 mg IVPUSH Q8H PRN PRN Reason: Nausea and Vomiting Sodium Chloride (0.9 % Sodium Chloride Flush 3 Ml Syringe) 3 ml IVFLUSH QSHIFT [facility] Home Medications ?Medication ?Instructions ?Recorded ?Confirmed ?Last Taken ?Type amlodipine 10 mg tablet 10 mg PO BEDTIME 06/04/24 07/20/24 Unknown History Physical Exam Vital Signs and Narrative: Vital Signs: Last Vital Signs Temp 98 F 11/27/24 09:04 Pulse 70 11/27/24 09:04 Resp 18 11/27/24 09:04 BP 129/74 11/27/24 09:04 Pulse Ox 98 11/27/24 09:04 O2 Del Method Room Air 11/27/24 09:04 BMI result Body Mass Index 54.4 Appearing in no acute distress head is normocephalic atraumatic eyes pupils are PERRLA sclera is anicteric mouth throat mucous membranes are intact and moist neck is supple no lymphadenopathy, no JVD noted lung sounds are clear to auscultation heart regular rate rhythm, clear S1, S2 positive bowel sounds, abdomen is soft, nontender neuro patient is alert x3, no focal deficits Leg LE erythema and edema Results Labs 11/27/24 10:05 11/27/24 10:05 Labs: Laboratory Results - last 24 hr 11/27/24 11/27/24 10:04 10:05 MCV 88.3 MCH 28.2 MCHC 31.9 RDW 13.6 Plt Count 238 MPV 10.5 Immature Gran % (Auto) 0.4 Neut % (Auto) 81.2 H Lymph % (Auto) 7.8 L [place] % (Auto) 6.8 Eos % (Auto) 3.6 Baso % (Auto) 0.2 Lymph # (Auto) 0.7 L [place] # (Auto) 0.6 Eos # (Auto) 0.3 Baso # (Auto) 0.0 Abs Immat Gran (auto) 0.03 Absolute Neuts (auto) 6.8 Absolute Nucleated RBC 0.000 Nucleated RBC % (auto) 0.0 ESR 56 H Anion Gap 12 Estim Creat Clear Calc 80.9 Estimated GFR 47 Random Glucose 104 Lactic Acid 0.7 Calcium 8.9 Total Bilirubin 0.8 Direct Bilirubin 0.3 AST 20 ALT 20 Alkaline Phosphatase 113 C-Reactive Protein 5.30 H Total Protein 6.9 Albumin 3.9 Assessment and Plan (1) Cellulitis: Status: Acute Plan 49 year old man admitted with LE cellulitis Cellulitis no sepsis elevated CRP IV doxycycline Wrap LE for compression If no improvement consider ID consultation HTN stable blood pressure continue home medications normocytic anemia stable HH no bleeding CKD3 baseline Asthma no exacerbation albuterol as needed CHUN on cpap Morbid obesity. BMI 54.4 Discussed importance of weight management as this may be contributing to worsening of other comorbidities DVT prophylaxis with Full code Quality Stroke Does the patient have a stroke diagnosis?: No VTE Prior VTE?: No VTE Risk Level:: Medical - moderate - high VTE Device Contraindication: Treatment Not Indicated VTE Drug Contraindication: N/A - Med Ordered
--- NOTE | 2024-11-27 14:45 | HO.NURTONUR ---
Pt arrived c/o worsening swelling and redness to E after possible insect bite. Pt was seen in urgent care and began a course of keflex w/o improvement, prompting ED visit. Admitted for cellulitis, completed vancomycin and currently completing doxycycline, received 1L NSS in ED. Denies fevers/n/v/d/pain/dizziness/weakness. Ambulates independently w/steady gait. Hx CKD3, CHUN (CPAP)
--- NOTE | 2024-11-27 14:59 | PHA.MEDREC ---
Pharmacy Consult ? Medication Reconciliation Pharmacy has completed the medication reconciliation. Spoke with patient to confirm medications. He is still taking cephalexin at home, last taken this morning. Patient reports having rx strength lidocaine patches at home that he only uses prn. He ran out of his magnesium rx 2 days ago. He reports still taking pantoprazole every morning. He takes OTC ibuprofen 800 mg daily as needed. He is no longer taking docusate and has not started taking riboflavin.
[2024-11-27 16:18] VITALS: BP 126/67; PULSE 67; RESP 18; TEMP 36.6; O2SAT 95
[2024-11-27] MEDS: 0.9 % Sodium Chloride Flush 3 ML SYRINGE IVFLUSH (17:05)
[2024-11-27 20:00] VITALS: BP 167/89; PULSE 65; RESP 18; TEMP 36.3; O2SAT 93
[2024-11-28] VITALS: BP 141/79; PULSE 63; RESP 18; TEMP 36.4; O2SAT 94
[2024-11-28] MEDS: 0.9 % Sodium Chloride Flush 3 ML SYRINGE IVFLUSH ×2 (00:27→08:40)
[2024-11-28 03:23] VITALS: BP 140/80; PULSE 51; RESP 16; TEMP 36; O2SAT 93
[2024-11-28 06:40] LABS: Anion Gap 10 (12-20); Blood Urea Nitrogen 15 mg/dL (9-16); Calcium 8.5 mg/dL (8.4-10.2); Carbon Dioxide 24 mmol/L (22-29); Chloride 114 mmol/L (96-108); Creatinine Clr Calc Pharmacy 78.9; Estimated Glomerular Filt Rate 46; Potassium 3.3 mmol/L (3.3-5.1); Sodium 145 mmol/L (135-145)
[2024-11-28 06:44] LABS: Hematocrit 36.1 % (42.0-52.0); Hemoglobin 11.5 g/dl (14.0-18.0); Mean Corpuscular HGB Conc 31.9 g/dl (31.0-36.0); Mean Corpuscular Hemoglobin 28.6 pg (27.0-33.0); Mean Corpuscular Volume 89.8 fL (80.0-98.0); NRBC Abs Auto 0.000 X10*3/uL (0.0-0.012); NRBC Pct Auto 0.0 /100WBC (0.0-0.2); Platelet Count 195 X10*3/uL (160-400); Red Blood Count 4.02 X10*6/uL (4.60-5.80); White Blood Count 6.5 X10*3/uL (4.8-10.8)
[2024-11-28 07:38] VITALS: BP 140/81; PULSE 63; RESP 18; TEMP 36.2; O2SAT 96
--- NOTE | 2024-11-28 09:34 | P.DS_ITS ---
DS: Providers Provider Date of Service: 11/28/24 Date of admission: 11/27/24 11:59 Date of discharge: 11/28/24 Primary care physician: Reina Brown MD DS: Diagnosis Discharge Diagnosis (1) Cellulitis: Status: Acute DS: Summary Hospital Course Hospital Course: Chief Complaint: leg redness 49 year old man presenting with worsening LE erythema for over 1 week. He reported that last Thursday he went to urgent care and was given keflex and muprocin but the redness peristed. He denied fever, chills, nausea, vomiting diarrhea. He reported that it started with a bug bite. 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 In the ED, he did not have any fever, leukocytosis, venous doppler us neg for DVT. He was given Zosyn, Vancomycin in the ED. He was placed on observation for treatement of LE cellulitis. Hospital course Patient was admitted and treated with IV antibiotics for a cellulitis and by the next day had significant improvement than expected. He will be transitioned to oral doxycycline for a total of 5 days. He is to finish a course of Keflex given previously on outppatient basis. He also noted significant improvement and would like to go home. Time Attestation Discharge Coordination Time (in mins): 35 Quality: Safe Use of Opioids Does Pt have an Active Cancer Diagnosis on the Problem List?: No Quality: Stroke Does the patient have a stroke diagnosis?: No Physical Exam Vital Signs: Vital Signs: Last Vital Signs Temp 97.1 F 11/28/24 07:38 Pulse 63 11/28/24 07:38 Resp 18 11/28/24 07:38 BP 140/81 H 11/28/24 07:38 Pulse Ox 96 11/28/24 07:38 O2 Del Method Room Air 11/28/24 07:38 BMI result Body Mass Index 54.4 DS: Data Data Completed and Pending Labs on day of discharge: Laboratory Results - last 24 hr 11/27/24 11/27/24 11/28/24 10:04 10:05 05:39 WBC 8.4 6.5 RBC 4.44 L 4.02 L Hgb 12.5 L 11.5 L Hct 39.2 L 36.1 L MCV 88.3 89.8 MCH 28.2 28.6 MCHC 31.9 31.9 RDW 13.6 13.5 Plt Count 238 195 MPV 10.5 11.0 Immature Gran % (Auto) 0.4 Neut % (Auto) 81.2 H Lymph % (Auto) 7.8 L Caroline % (Auto) 6.8 Eos % (Auto) 3.6 Baso % (Auto) 0.2 Lymph # (Auto) 0.7 L Caroline # (Auto) 0.6 Eos # (Auto) 0.3 Baso # (Auto) 0.0 Abs Immat Gran (auto) 0.03 Absolute Neuts (auto) 6.8 Absolute Nucleated RBC 0.000 0.000 Nucleated RBC % (auto) 0.0 0.0 ESR 56 H Sodium 145 145 Potassium 3.5 3.3 Chloride 112 H 114 H Carbon Dioxide 25 24 Anion Gap 12 10 L BUN 17 H 15 Creatinine 1.57 H 1.61 H Estim Creat Clear Calc 80.9 78.9 Estimated GFR 47 46 Random Glucose 104 96 Lactic Acid 0.7 Calcium 8.9 8.5 Total Bilirubin 0.8 Direct Bilirubin 0.3 AST 20 ALT 20 Alkaline Phosphatase 113 C-Reactive Protein 5.30 H Total Protein 6.9 Albumin 3.9 Discharge Plan Discharge Anticipated Discharge Date/Time: 11/28/24 09:34 Patient Disposition: Home, Self-Care Discharge Diagnosis: Cellulitis of the leg Referrals: Reina Brown MD [Primary Care Provider, Internal Medicine] - 1 Week Discharge Medications: New doxycycline hyclate 100 mg tablet 100 mg PO BID 4 Days Qty: 8 0RF Continued losartan 100 mg tablet 100 mg PO DAILY Qty: 90 1RF atorvastatin 40 mg tablet 40 mg PO BEDTIME Qty: 90 1RF ferrous sulfate 324 mg (65 mg iron) tablet,delayed release (DR/EC) 324 mg PO DAILY Qty: 90 1RF lidocaine 5 % adhesive patch,medicated 1 patch topical DAILY PRN (Reason: pain) Qty: 15 0RF Rx Instructions: leave on most painful area for up to 12 hrs amlodipine 10 mg tablet 10 mg PO BEDTIME aspirin 81 mg Tablet,Delayed Release (Dr/Ec) 81 mg PO DAILY Qty: 90 0RF ibuprofen 200 mg Tablet 800 mg PO DAILY PRN (Reason: Pain) pantoprazole 40 mg tablet,delayed release (DR/EC) 40 mg PO DAILY@0630 magnesium oxide 400 mg (241.3 mg magnesium) tablet 400 mg PO BEDTIME 30 Days Qty: 30 6RF Rx Instructions: may hold for loose stools cephalexin 500 mg capsule 500 mg PO Q6H Qty: 28 0RF mupirocin 2 % ointment 1 appl topical TID Qty: 22 0RF Discharge Orders: Discharge Order (Routine); Ordered 11/28/24 Ordered By: Akash Rivera Diet: Advance to usual diet Activity on Discharge: As tolerated Stand Alone Forms: Patient Portal Discharge page, Work/School Release Print Language: Colombian Care Plan Goals: Recovery from cellulitis Health Concerns: Cellulitis of the leg Plan of Treatment: Take doxycycline as recommended continue Keflex as previously prescribed Follow-up with your primary care doctor within a week, call for appointment. Assessment: See above
== END 2024-11-28 11:04 | disposition home or self-care (01) ==
LOC: HO.ED 11:53 → HO.EDOVER 12:44 → HO.S3 14:37
PROVIDERS: Physician Assistant Medical; Admitting Provider Nurse Practitioner Acute Care; Emergency Provider Emergency Medicine; PCP Internal Medicine; Visit Provider Internal Medicine
DX: L03.90 Cellulitis, unspecified (principal); M79.605 Pain in left leg; M79.89 Other specified soft tissue disorders; D50.8 Other iron deficiency anemias; I12.9 Hypertensive chronic kidney disease with stage 1 through stage 4 chronic kidney disease, or unspecified chronic kidney disease; N18.30 Chronic kidney disease, stage 3 unspecified; G47.33 Obstructive sleep apnea (adult) (pediatric); Z99.89 Dependence on other enabling machines and devices
CPT/HCPCS: 36415; 80048; 80076; 83605; 85025; 85027; 85652; 86140; 87040; 93971; 96365; 96366; 96367; 96372; 99221; 99285; J1271; J1650; J2543; J3373

== ENCOUNTER → 2024-11-27 09:42 | Outpatient (BNV) | payer OTHER, SELFPAY | PROVIDERS: Emergency Provider Emergency Medicine; PCP Internal Medicine; Visit Provider Radiology Vascular & Interventional Radiology | DX: R22.42 Localized swelling, mass and lump, left lower limb (principal) | CPT/HCPCS: 93971 ==

== ENCOUNTER → 2024-11-27 11:59 | Outpatient (BNV) | payer OTHER, SELFPAY | PROVIDERS: Admitting Provider Nurse Practitioner Acute Care; Emergency Provider Emergency Medicine; PCP Internal Medicine; Visit Provider Nurse Practitioner Acute Care | DX: L03.90 Cellulitis, unspecified (principal) | CPT/HCPCS: 99223 ==

== ENCOUNTER 2025-02-11 07:55 | Outpatient (REF) | payer OTHER, SELFPAY ==
--- OUTSIDE RECORDS SUMMARY | 2025-02-11 07:58 | XMS_ITS | Clinical Summary ---
Author Organization [address] [place] [address] Address [address] [place] [address] Phone Care Team Providers Care Hematologist Oncologist Name Role Phone Reina Brown MD Primary [...] on file Sexual Orientation Not on file Plan of Treatment Health Maintenance Due Date Last Done Comments Colorectal Cancer Screening: Colonoscopy 1976 DTaP,Tdap,and Td Vaccines (1 - Tdap) 07/18/1995 Hepatitis B Vaccines (1 of 3 - 19+ 3-dose series) 07/18/1995 Depression Screening 03/02/2024 Cholesterol Screening (Lipid Panel) 03/17/2024 HIV Screening 03/17/2024 Hepatitis C Screening 03/17/2024 Social Influencers of Health Screening 03/17/2024 COVID-19 Vaccine ( - 2024-2 6 season) 2024 Influenza Vaccine (#1) 2024 RSV Immunization Adult Patie nts (1 - 1-dose 75+ series) 07/18/2051 HIB Vaccines Aged Out No longer eligi [...] patient's age to complete this topic Insurance [facility] Care Teams Hematologist Oncologist Relationship Specialty Start Date End Date Reina Brown MD [address], [place] [phone] PCP - General Internal Medicine 03/03/24
[2025-02-11 12:02] LABS: Alanine Aminotransferase 27 U/L (0-40); Anion Gap 10 (12-20); Aspartate Amino Transferase 26 U/L (5-37); Blood Urea Nitrogen 16 mg/dL (9-16); Calcium 9.0 mg/dL (8.4-10.2); Carbon Dioxide 28 mmol/L (22-29); Chloride 109 mmol/L (96-108); Cholesterol 103 mg/dL (<200); Estimated Glomerular Filt Rate 43; HDL Cholesterol 31 mg/dL (>40); Potassium 3.3 mmol/L (3.3-5.1); Sodium 144 mmol/L (135-145); Triglycerides 88 mg/dL (<150)
== END 2025-02-11 07:56 | disposition home or self-care (01) ==
LOC: HO.HMGCLDS 07:55
PROVIDERS: PCP Internal Medicine; Visit Provider Internal Medicine
DX: I10 Essential (primary) hypertension (principal); E78.5 Hyperlipidemia, unspecified; Z86.39 Personal history of other endocrine, nutritional and metabolic disease
CPT/HCPCS: 36415; 80048; 80061; 82306; 84450; 84460

== ENCOUNTER 2025-02-13 14:35 | Outpatient (AMB) | payer OTHER, SELFPAY ==
[2025-02-13 14:42] VITALS: BP 128/70; PULSE 70; RESP 16; TEMP 36.7; O2SAT 98; BMI 53.1
--- NOTE | 2025-02-13 14:42 | MHC.PC.OV ---
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: No Allergies chocolate Allergy (Severe, Verified 02/13/25 14:52) Difficulty Breathing animal dander (animal hair) Allergy (Intermediate, Verified 02/13/25 14:52) Redness of Skin bee pollen (bee stings) Allergy (Intermediate, Verified 02/13/25 14:52) Unknown lisinopril (LISINOPRIL) Allergy (Intermediate, Verified 02/13/25 14:52) ANGIOEDEMA Latex, Natural Rubber Allergy (Mild, Verified 02/13/25 14:52) Unknown Medication List - Last Reconciled 02/13/25 by Reina Brown MD amlodipine 10 mg PO BEDTIME aspirin 81 mg PO DAILY atorvastatin 40 mg PO BEDTIME ferrous sulfate 324 mg PO DAILY ibuprofen 800 mg PO DAILY PRN lidocaine 5% 1 patch topical DAILY PRN losartan 100 mg PO DAILY magnesium oxide 400 mg PO BEDTIME 30 days mupirocin 2% 1 appl topical TID pantoprazole 40 mg PO DAILY@0630 Tobacco use date assessed: 02/13/25 Dental Screening Dental Screen Date: 02/25/24 [facility] Medical History Bilateral leg and foot pain CHUN on CPAP Plantar fasciitis, bilateral Disc disease, degenerative, cervical Hemorrhoids with complication Iron deficiency anemia Vitamin D deficiency Mild intermittent asthma CKD (chronic kidney disease) stage 3, GFR 30-59 ml/min Low back pain Morbid obesity with BMI of 50.0-59.9, adult Benign essential hypertension Pure hypercholesterolemia Anxiety Surgical History No history of previous surgery Family History Mother No problems noted. Father Heart problem Paternal Uncle Heart problem Paternal Grandfather Heart problem Heart attack Paternal Grandmother Breast cancer Paternal Aunt Ovarian cancer Other Family history of early CAD Social History Household Members: Spouse and Children Household Members Other:: 3 Housing: Apartment Do you presently have visiting nurse or other home services: No Alcohol intake: current Alcohol intake frequency: does not drink Patient Tobacco Use Status: Never used Tobacco e-Cigarette/Vaping Use: Never Used Second Hand Smoke Exposure: Yes Advance Directives Date on File: 02/25/24 service: No Current occupational status: employed 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, [employer] Cognitive needs: No Hearing needs: No Vision needs: Yes Questionnaire PHQ-9 Over the last 2 weeks, how often have you been bothered by any of the following problems? 1. Little interest or pleasure in doing things: not at all 2. Feeling down, depressed, or hopeless: not at all 3. Trouble falling or staying asleep, or sleeping too much: not at all 4. Feeling tired or having little energy: not at all 5. Poor appetite or overeating: not at all 6. Feeling bad about yourself - or that you are a failure or have let yourself or your family down: not at all 7. Trouble concentrating on things, such as reading the newspaper or watching television: not at all 8. Moving or speaking so slowly that other people could have noticed. Or the opposite - being so fidgety or restless that you have been moving around a lot more than usual: not at all 9. Thoughts that you would be better off or of hurting yourself in some way: not at all Total score: 0 Depression Screening Interpretation: Negative Depression Screening Done: Yes 82229 - PHQ-9 Billing: Yes Source: Developed by Drs. Shawn Joyce, Lina Orr, Mundo Guadarrama and colleagues, with an educational medina from [employer]. Thrive Questionnaire Date Thrive assessed: 02/25/24 I am a: Patient What is your living situation today?: I have a steady place to live Within the past 12 months, did the food you bought not last and you didn't have the money to get more?: Never true Within the past 12 months, did you worry whether your food would run out before you got money to buy more?: Never true Do you have trouble paying for medicines?: Yes Do you have trouble getting transportation to medical appointments?: Yes Do you have trouble paying your heating and electricity bill?: Yes Do you have trouble taking care of your child, family member or friend?: No Do you have trouble with day-to-day activities such as bathing, preparing meals, shopping, managing finances, etc.?: No Are you currently unemployed and looking for a job?: No Are you interested in more education?: No Please select the resources that you would like help with: None Currently or been in a relationship where the following occur: No concerns reported THRIVE Score: 2 AUDIT C Alcohol Use Questionnaire (AUDIT-C) 1. How often do you have a drink containing alcohol?: Never Total Score: 0 LUZMA-7 AMB Questionnaire LUZMA-7 Date LUZMA - 7 assessed: 08/17/23 Feeling nervous, anxious, or on edge: 0 = Not at all Not being able to stop or control worryin = Not at all Worrying too much about different things: 0 = Not at all Trouble relaxin = Not at all Being so restless that it is hard to sit still: 0 = Not at all Becoming easily annoyed or irritable: 1 = Several days Feeling afraid as if something awful might happen: 0 = Not at all Total LUZMA-7 score (0-4 normal; 5-9 mild; 10-14 moderate; 15-21 severe): 1 Source: Developed by Drs. Shawn Joyce, Lina Orr, Mundo Guadarrama and colleagues, with an educational medina from [employer]. LUZMA-7 Assessment Billing LUZMA-7 Assessment Tool: LUZMA-7 Assessment 04794 Physical exam (Primary Care) Vital Signs: Last Vital Signs Temp 98.0 F 02/13/25 14:42 Pulse 70 02/13/25 14:42 Resp 16 02/13/25 14:42 BP 128/70 02/13/25 14:42 Pulse Ox 98 02/13/25 14:42 Oxygen Delivery Method Room Air 02/13/25 14:42 BMI result Body Mass Index 53.1 Tobacco/Smoking Status: Tobacco use Status Tobacco use date assessed 02/13/25 02/13/25 14:43 Patient Tobacco Use Status Never used Tobacco 02/13/25 14:42 e-Cigarette/Vaping Use Never Used 02/13/25 14:42 PHQ-9: PHQ-9 Score PHQ-9: Total score 0 02/13/25 15:29 Depression Screening Interpretation: Negative Thrive Assessment: Date of Thrive Assessment Date Thrive assessed 02/25/24 02/13/25 14:42 Currently or been in a relationship where the following occur: No concerns reported Office Procedures Flu Questionnaire Does the patient have a severe egg allergy?: No Does the patient have severe life threatening allergies?: No Does the patient have a fever or illness today?: No Has the patient ever had Guillain-[place] Syndrome?: No Has the patient ever had any past reaction to a flu shot?: No Immunizations Fluarix [id number] (PF) 45 mcg (15 mcg x 3)/0.5 mL IM syringe Performing Provider: Reina Brown MD Performing Location[place] [facility] Administered by: Lili Mendoza CMA on 02/13/25 15:28 Dose Route Admin Location Dispensed Lot Number Expiration Date [facility] Plant Facilities Technician 0.5 mL IM Left Deltoid 0.5 mL [id number] 08/29/25 [id number] [employer] VIS Given Date VIS Provided VIS Publication Date 02/13/25 Single Vaccine 24 Eligibility Eligibility Date Funding Source Not [facility] Eligible 02/13/25 Private Coding Level of Care Code Est Pt Level 4 (95057) Diagnoses Dermatitis of left foot L30.9 Vitamin D3 deficiency E55.9 Additional Codes LUZMA-7 Assessment Billing - LUZMA-7 Assessment Tool: LUZMA-7 Assessment 51209 ([id number]) PHQ-9 - 02967 - PHQ-9 Billing: Yes ([id number]) Assessment & Plan Assessment & Plan (1) Dermatitis of left foot: Code(s): L30.9 - Dermatitis, unspecified (2) Vitamin D3 deficiency: Code(s): E55.9 - Vitamin D deficiency, unspecified Orders: Orders Influenza [id number] Immunization 02/13/25 Z23 - Encounter for immunization Referrals Dermatology Referral L30.9 - Dermatitis, unspecified Medications: New mupirocin 2% (Centany) 1 appl topical BID 22 grams 0RF 10 days cholecalciferol (vitamin D3) 1,250 mcg PO QWEEK 13 caps 0RF 3 months E55.9 - Vitamin D deficiency, unspecified Refilled amlodipine 10 mg PO BEDTIME 90 tabs 2RF atorvastatin 40 mg PO BEDTIME 90 tabs 2RF
--- OUTSIDE RECORDS SUMMARY | 2025-02-13 21:07 | XMS_ITS | Clinical Summary ---
Author Organization [address] [place] [address] [place] [phone] Phone Care Team Providers Care Secretary To Board Of Commissioners Name Role Phone Reina Brown MD Primary Care Provider [phone] Surgical History Surgery Date Site/Laterality Comments OTHER [...] patient's age to complete this topic Insurance [facility] [place] [address] Care Teams Secretary To Board Of Commissioners Relationship Specialty Start Date End Date Reina Brown MD [address], [place] [phone] PCP - General Internal Medicine 03/03/24
== END 2025-02-13 15:30 | disposition home or self-care (01) ==
PROVIDERS: PCP Internal Medicine; Visit Provider Internal Medicine
DX: Z23 Encounter for immunization (principal)

== ENCOUNTER → 2025-02-13 14:35 | Outpatient (BNVA) | payer OTHER, SELFPAY | PROVIDERS: PCP Internal Medicine; Visit Provider Internal Medicine | DX: Z23 Encounter for immunization (principal); I10 Essential (primary) hypertension; L30.9 Dermatitis, unspecified; E55.9 Vitamin D deficiency, unspecified; E78.5 Hyperlipidemia, unspecified | CPT/HCPCS: 90471; 90656; 96127; 99212 ==